=== PATIENT | female | born 1965 | race Caucasian/White ===

== ENCOUNTER 2022-07-09 07:11 | Outpatient (CLI) | payer OTHER, SELFPAY ==
--- NOTE | ~2022-07-09 | MM_ITS ---
EXAMINATION: MM screening [facility] BI w isabel HISTORY: Screening mammogram TECHNIQUE: Craniocaudal and mediolateral oblique 3-D tomosynthesis images were obtained and synthetic 2-D images were generated. CAD analysis was submitted and interpreted. COMPARISON: 12/05/2015 bilateral screening mammogram BREAST PARENCHYMAL COMPOSITION: The breasts are almost entirely fatty. FINDINGS: There is no evidence of suspicious mass, calcification, or architectural distortion to sugg est malignancy in either breast. There has been no suspicious interval change. IMPRESSION: 1. No mammographic evidence of malignancy. 2. Recommend routine screening mammography in one year. BI-RADS Category 1: Negative Reviewed, dictated and finalized at location A. R
== END 2022-07-09 07:12 | disposition home or self-care (01) ==
PROVIDERS: PCP Internal Medicine; Visit Provider Nurse Practitioner Obstetrics & Gynecology
DX: Z12.31 Encounter for screening mammogram for malignant neoplasm of breast (principal)
CPT/HCPCS: 77063; 77067

== ENCOUNTER 2023-07-22 09:37 | Outpatient (CLI) | payer OTHER, SELFPAY ==
--- NOTE | ~2023-07-22 | MM_ITS ---
EXAMINATION: MM screening [facility] BI w isabel HISTORY: Screening mammogram TECHNIQUE: Craniocaudal and mediolateral oblique 3-D tomosynthesis images were obtained and synthetic 2-D images were generated. CAD analysis was submitted and interpreted. COMPARISON: 07/09/2022, 12/05/2015, 11/20/2011 BREAST PARENCHYMAL COMPOSITION: The breasts are almost entirely fatty. FINDINGS: No suspicious mass, calcification, or architectural distortion are identified in either shani ast to suggest malignancy. There has been no suspicious interval change. IMPRESSION: 1. No mammographic evidence of malignancy. 2. Recommend routine screening mammography in one year. BI-RADS Category 1: Negative Reviewed, dictated and finalized at location A. 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
== END 2023-07-22 09:38 | disposition home or self-care (01) ==
LOC: ANHIMG 09:40
PROVIDERS: PCP Internal Medicine; Visit Provider Nurse Practitioner Obstetrics & Gynecology
DX: Z12.31 Encounter for screening mammogram for malignant neoplasm of breast (principal)
CPT/HCPCS: 77063; 77067

== ENCOUNTER 2024-07-22 12:21 | Inpatient (IN) | payer OTHER, SELFPAY ==
--- NOTE | ~2024-07-22 | CT_ITS ---
CT LE LT w con DATE: 07/22/2024 18:23 INDICATION: Cellulitis versus abscess of left lower extremity TECHNIQUE: Axial images through the left lower extremity were performed, with sagittal and coronal re constructions. Exam dose: 1692.04 mGy-cm total exam DLP. COMPARISON: None FINDINGS: There is subcutaneous edema beginning at the mid upper leg and continuing throughout the re mainder of the left lower extremity. Skin thickening is noted in the lower leg. There is a prominent dorsal edema of the foot. There is a loculated fluid collection measuring up to 8.3 cm vertical dimension, 7.0 cm AP and 4.9 cm transverse dimension along the posteromedial aspect of the right leg slightly above the level of the tibiotalar joint. This may be a hematoma, seroma or abscess, with attenuation There is tricompartment osteoarthritis of the knee, most prominent at the medial compartment No fracture, dislocation, periosteal reaction or bone destruction is detected. IMPRESSION: 7.0 x 8.3 x 4.9 cm hematoma, seroma or abscess along the lower posteromedial aspect of th e upper left leg Edema of the left lower extremity Tricompartment osteoarthritis of the knee Reviewed, dictated and finalized at Location [facility]. Reviewed, dictated and finalized at location A. CREASER IMPRESSION: 7.0 x 8.3 x 4.9 cm hematoma, seroma or abscess along the lower post eromedial aspect of the upper left leg Edema of the left lower extremity Tricompartment osteoarthritis of the knee
[2024-07-22 12:22] VITALS: BP 138/67; PULSE 106; RESP 17; TEMP 37.3; O2SAT 100
[2024-07-22 13:04] LABS: Basophils Absolute Auto 0.1 K/mm3 (0.0-0.1); Basophils Percent Auto 0.5 % (0.2-1.2); Eosinophils Absolute Auto 0.1 K/mm3 (0-0.3); Eosinophils Percent Auto 0.7 % (0-4.4); Hematocrit 39.8 % (37.0-47.0); Hemoglobin 12.9 g/dL (12.0-15.0); Immature Granulocyte Absolute 0.09 K/mm3 (0.00-0.031); Immature Granulocyte Percent A 0.8 % (0-0.5); Lymphocytes Absolute Auto 0.85 K/mm3 (0.9-3.2); Lymphocytes Percent Auto 7.3 % (18.3-44.2); Mean Corpuscular HGB Conc 32.4 g/dl (32-36); Mean Corpuscular Hemoglobin 32.3 pg (26-34); Mean Corpuscular Volume 99.5 fl (80-100); Mean Platelet Volume 9.5 fl (7.4-10.4); Monocytes Absolute Auto 1.4 K/mm3 (0.1-0.6); Monocytes Percent Auto 11.9 % (2.6-8.5); Neutrophils Absolute Auto 9.2 K/mm3 (1.3-6.7); Neutrophils Percent Auto 78.8 % (45.5-73.1); Platelet Count Result 278 k/mm3 (150-375); Red Cell Distribution Width 13.3 % (11.5-14.5); White Blood Count 11.6 K/mm3 (4.5-10.0)
[2024-07-22 13:14] LABS: Alanine Aminotransferase 20 U/L (6-35); Albumin Level 3.8 g/dL (3.5-5.1); Alkaline Phosphatase 110 U/L (38-126); Anion Gap 6 mmol/L (4-12); Aspartate Amino Transferase 25 U/L (14-36); Bilirubin,Total 0.4 mg/dL (0.2-1.3); Blood Urea Nitrogen 22 mg/dL (7-17); Calcium 8.5 mg/dL (8.4-10.2); Carbon Dioxide 30 mmol/L (22-30); Chloride 103 mmol/L (98-107); Estimated Glomerular Filt Rate 51; Glucose 115 mg/dL (65-110); Potassium 3.5 mmol/L (3.4-5.0); Sodium 139 mmol/L (137-145)
[2024-07-22 15:30] VITALS: BP 120/74; PULSE 96; RESP 14; TEMP 37.2; O2SAT 98
--- NOTE | 2024-07-22 15:34 | ED.GENADULT ---
HPI - General Adult General Chief complaint: Extremity Problem,Nontraumatic Stated complaint: L. leg wound, sent by for sepsis r/o Time Seen by Provider: 07/22/24 15:33 Source: patient and family Mode of arrival: ambulatory Limitations: no limitations History of Present Illness HPI narrative: 5 YEARS OLD WHITE FEMALE REFERRED TO THE ED FROM URGENT CARE BECAUSE OF EXTENSIVE CELLULITIS LEFT LOWER EXTREMITY. PATIENT IS TELLING ME THAT SHE A MAY 25 CAUSING SKIN INJURY ON A CRUISE, SUBSEQUENTLY STARTED GETTING REDNESS AND PAIN, WAS SEEN BY URGENT CARE, FINISH A COURSE OF DOXYCYCLINE WITHOUT IMPROVEMENT, LATER WAS SEEN BY HER FAMILY PHYSICIAN WHO STARTED HER ON CIPRO FOR 10 DAYS NO IMPROVEMENT ANOTHER COURSE OF CIPRO FOR 10 DAYS NO IMPROVEMENT, THEN REFERRED TO WOUND CARE PHYSICIAN WHO TOLD PATIENT THAT THERE IS NOTHING CAN OVER AT THIS TIME ESPECIALLY HER WOUND IS CLOSED. PATIENT'S SYMPTOMS ARE GETTING WORSE. WENT TO URGENT CARE TODAY REFERRED TO US FOR FURTHER EVALUATION. PATIENT IS TELLING ME THAT SHE BEEN RUNNING FEVER AND CHILLS OVER THE LAST 24 HOURS. HISTORY OF HYPERTENSION, HYPERLIPIDEMIA, DEEP VEIN THROMBOSIS BILATERALLY CURRENTLY ON COUMADIN Related Data Allergies Allergy/AdvReac Type Severity Reaction Status Date / Time clavulanic acid Allergy Mild HIVES Unverified 07/22/24 12:25 latex Allergy Mild hives Verified 07/22/24 12:25 morphine Allergy Mild VOMITTING Unverified 07/22/24 12:25 Penicillins Allergy Mild HIVES Unverified 07/22/24 12:25 Sulfa (Sulfonamide Allergy Mild HIVES Unverified 07/22/24 12:25 Antibiotics) celecoxib Allergy Unknown Unknown Verified 07/22/24 12:25 BETALACTAMASEIN Allergy Mild HIVES Uncoded 07/22/24 12:25 Review of Systems Review of Systems: All systems reviewed & are unremarkable except as noted in HPI and below Exam Narrative: GENERAL APPEARANCE: WELL-DEVELOPED, WELL-NOURISHED SKIN: NORMAL COLOR HEAD: NORMOCEPHALIC, NONTRAUMATIC EYES: CLEAR CONJUNCTIVA ENT: OROPHARYNX NORMAL, EARS NORMAL, NOSE NORMAL NECK: SUPPLE, NONTENDER CHEST AND RESPIRATORY: AIRWAY PATENT, NO RESPIRATORY DISTRESS, NO ACCESSORY MUSCLE USE HEART: REGULAR RATE/RHYTHM ABDOMEN: SOFT, NONTENDER, NO ORGANOMEGALY, QUIET BOWEL SOUNDS VASCULAR: NORMAL PERIPHERAL PULSES, NORMAL CAPILLARY REFILL. MUSCULOSKELETAL: LEFT LOWER EXTREMITY SHOWED EXTENSIVE ERYTHEMA OF THE LEFT THIGH ANTERIOR MEDIALLY, HARDENING OF THE SKIN IN THE CENTER OF IT, EDEMATOUS, BLANCHING WITH PRESSURE, NO DISCHARGE, NO OPEN, HOT TO TOUCH NEUROLOGIC: ALERT AND ORIENTED ?3, B[employer] PSYCHOLOGIST IS NORMAL TESTED, NO GROSS MOTOR DEFICIT Course Consultations Consultation #1: DR CONNELL Date: 07/22/24 Time: 19:16 Vital Signs Vital signs: Vital Signs Temperature 37.3 C 07/22/24 12:22 Pulse Rate 106 H 07/22/24 12:22 Respiratory Rate 17 07/22/24 12:22 Blood Pressure 138/67 07/22/24 12:22 Pulse Oximetry 100 07/22/24 12:22 Oxygen Delivery Room Air 07/22/24 12:22 Temperature 37.0 C 07/22/24 18:36 Pulse Rate 97 07/22/24 18:36 Respiratory Rate 19 07/22/24 18:36 Blood Pressure 140/59 L 07/22/24 18:36 Pulse Oximetry 97 07/22/24 18:36 Oxygen Delivery Room Air 07/22/24 12:22 Medical Decision Making [facility] Narrative Medical decision making narrative: PATIENT CAME TO THE ED BY PRIVATE CAR COMPLAINING OF PAIN, REDNESS AND SWELLING OF THE LEFT LOWER EXTREMITY VITAL SIGNS SHOWING HEART RATE OF 106, TEMPERATURE 37.3? OTHERWISE WITHIN NORMAL LIMIT PHYSICAL EXAMINATION SHOWING FINDING CONSISTENT WITH CELLULITIS VERSUS ABSCESS AT THE LEFT THIGH BLOOD WORKUP TODAY INCLUDES CBC, CMP, BLOOD CULTURE, LACTIC ACID SHOWED WBC 11.6, CREATININE OF 1.1, BUN 22, C-REACTIVE PROTEIN 31.2 Differential Diagnosis Differential Diagnosis: ABOVE Vital Signs Vital Signs: Vital Signs Temperature 37.3 C 07/22/24 12:22 Pulse Rate 106 H 07/22/24 12:22 Respiratory Rate 17 07/22/24 12:22 Blood Pressure 138/67 07/22/24 12:22 Pulse Oximetry 100 07/22/24 12:22 Oxygen Delivery Room Air 07/22/24 12:22 Temperature 37.0 C 07/22/24 18:36 Pulse Rate 97 07/22/24 18:36 Respiratory Rate 19 07/22/24 18:36 Blood Pressure 140/59 L 07/22/24 18:36 Pulse Oximetry 97 07/22/24 18:36 Oxygen Delivery Room Air 07/22/24 12:22 Lab Data 07/22/24 12:59 07/22/24 12:59 Labs: Lab Results 07/22/24 07/22/24 Range/Units 12:58 12:59 WBC 11.6 H (4.5-10.0) K/mm3 RBC 4.00 L (4.2-5.4) M/mm3 Hgb 12.9 (12.0-15.0) g/dL Hct 39.8 (37.0-47.0) % MCV 99.5 (80-100) fl MCH 32.3 (26-34) pg MCHC 32.4 (32-36) g/dl RDW 13.3 (11.5-14.5) % Plt Count 278 (150-375) k/mm3 MPV 9.5 (7.4-10.4) fl Immature Gran % (Auto) 0.8 H (0-0.5) % Neut % (Auto) 78.8 H (45.5-73.1) % Lymph % (Auto) 7.3 L (18.3-44.2) % [place] % (Auto) 11.9 H (2.6-8.5) % Eos % (Auto) 0.7 (0-4.4) % Baso % (Auto) 0.5 (0.2-1.2) % Lymph # (Auto) 0.85 L (0.9-3.2) K/mm3 [place] # (Auto) 1.4 H (0.1-0.6) K/mm3 Eos # (Auto) 0.1 (0-0.3) K/mm3 Baso # (Auto) 0.1 (0.0-0.1) K/mm3 Abs Immat Gran (auto) 0.09 H (0.00-0.031) K/mm3 Absolute Neuts (auto) 9.2 H (1.3-6.7) K/mm3 Absolute Nucleated RBC 0.000 (0.0-0.012) K/mm3 Nucleated RBC % 0.0 (0.0-0.2) % Sodium 139 (137-145) mmol/L Potassium 3.5 (3.4-5.0) mmol/L Chloride 103 (98-107) mmol/L Carbon Dioxide 30 (22-30) mmol/L Anion Gap 6 (4-12) mmol/L BUN 22 H (7-17) mg/dL Creatinine 1.10 H (0.7-1.0) mg/dL Estim Creat Clear Calc Not Reportable Estimated GFR 51 L (59 - ) Glucose 115 H (65-110) mg/dL Calcium 8.5 (8.4-10.2) mg/dL Total Bilirubin 0.4 (0.2-1.3) mg/dL AST 25 (14-36) U/L ALT 20 (6-35) U/L Alkaline Phosphatase 110 (38-126) U/L C-Reactive Protein 31.2 H (<1.0) mg/dL Total Protein 7.0 (6.3-8.2) g/dL Albumin 3.8 (3.5-5.1) g/dL Discharge Plan Discharge Clinical Impression: Cellulitis of left leg Patient Disposition: Still a Patient Condition: Guarded Prognosis Follow-up/Referrals: Marlene,Wan He MD [Primary Care Provider] -
[2024-07-22 16:30] VITALS: BP 123/64; PULSE 107; RESP 14; TEMP 36.8; O2SAT 96
[2024-07-22 17:17] LABS: CRP 31.2 mg/dL (<1.0)
[2024-07-22 18:36] VITALS: BP 140/59; PULSE 97; RESP 19; TEMP 37; O2SAT 97
[2024-07-22] MEDS: ONDANSETRON INJ 4 MG/2 ML VIAL IV PUSH (20:02)
[2024-07-22] MEDS: HYDROmorphone HCL INJ (*CRX) 1 MG/ML SYR 0.5 MG IV PUSH (20:03)
--- NOTE | 2024-07-22 20:36 | PC.NURSE ---
Addendum entered by Kaci Phoenix RN 07/22/24 21:37: patient requested to NOT BE stuck * Original Note: pt requests to be stuck again for blood cultures. pt request IV ultrasound to be used in the morning. this rn explained the risks of delaying abx. pt verbalized understanding.
[2024-07-22 20:37] VITALS: BP 128/54; PULSE 102; RESP 13; O2SAT 98
[2024-07-22 21:34] VITALS: BMI 52.2
--- NOTE | 2024-07-22 21:48 | PC.NURSE ---
pedro luis rn has a page out to hospitalist DR. peck to order patient 4.5mg of warfarin and to see if this rn can start abx without blood cultures. floor rn, Emiliana and floor recharger, Leana doan.
--- NOTE | 2024-07-22 21:52 | PC.NURSE ---
Patient states that warfarin is titrated based on INR levels with goal rate of 2.5-3.5 Admission report to [facility].
[2024-07-22 22:00] VITALS: BP 130/48; PULSE 103; RESP 20; TEMP 37.5; O2SAT 94
[2024-07-22] MEDS: SODIUM CHLORIDE 0.9% IV 1,000 ML 125 ML IV CONT (22:04)
--- NOTE | 2024-07-22 22:18 | ADMGEN ---
This patient, Betty Fernandez, was admitted to Medical Room 341-01. Patient/family oriented to hospital policies and general routines including ID bracelet, bed and alarms, visiting hours, pain management, procedures, bathroom and other care routines, personal items, smoking policy, room service/diet, and visiting hours. Information on how to activate the Rapid Response Team has been discussed. Patient/Family are encouraged to report perceived risks to care and to ask questions if they do not understand what they are told or what they should do.
[2024-07-22] MEDS: VANCOMYCIN 1,500 MG/NS 500 ML 1,500 MG/500 ML BAG 250 MG IVPB (22:41)
[2024-07-22] MEDS: AZTREONAM 2 GM in SODIUM CHLORIDE 0.9% IV 100 ML 200 ML IVPB (22:41)
[2024-07-22 22:52] LABS: Lactic Acid Reflex 0.6 mmol/L (0.7-2.0)
[2024-07-22 23:00] LABS: INR 3.5; Prothrombin Time 35.6 Seconds (11.1-14.7)
--- NOTE | 2024-07-22 23:28 | PM.IMHP ---
H&P: HPI History of Present Illness Date/Time: 07/23/24 01:30 Chief Complaint: Left leg wound Narrative: 59-year-old female with a past medical history of morbid obesity with BMI of 52, history of bilateral chronic/recurrent DVT on chronic anticoagulation with Coumadin, essential hypertension, anxiety/depression, urge urinary incontinence, who presented to the ER from urgent care due to fever and cellulitis. The patient reports that she fell over a table while on a cruise in late May. She had a skin tear that eventually healed. She developed redness and erythema around the area during the healing process the wound itself did heal the superficial part but she developed erythema and increased warmth in medial left thigh. She went to urgent care while waiting for an appointment open up better primary care physician's office and was started on doxycycline. When she followed up with her primary care physician 5 days later she did not have any improvement in her erythema, warmth or pain. In fact the erythema warmth had climbed further upper leg towards her groin. She was then started on Cipro which initially seemed to help the erythema but it did not resolve completely. She a that followed up with her primary care doctor again it was was given a 2nd course of Cipro without improvement. In fact the patient was also sent to wound care from that doctor's visit and medical care evaluation specialist stated that they could not help her since the wound was closed/healed. She then went to urgent care because she was having even further increasing erythema and warmth as well as swelling of the medial left upper thigh in the erythema was going up into the groin and she developed some associated pain in the groin. When she was evaluated at urgent care she was found have a temperature of a 102? with some mild tachycardia. When she presented to our facility her T-max was 99.5?. She did not feel feverish and she did not realize she was having fevers. She also denies rigors or chills. She denies any nausea or vomiting. Have leukocytosis, an INR of 3.5. CRP of 31 and a creatinine of 1.1. She states that is not unusual for her creatinine to be a little bit above the cutoff for normal. She also reports that she usually has chronically elevated liver enzymes but her AST ALT and bilirubin were normal today. She denies history of diabetes. Her glucoses were 115. CT scan in the ER demonstrated 7 cm x 0.3 cm x 4.9 cm hematoma versus seroma versus abscess. There was also surrounding subcutaneous edema. Given the patient's recent development of fever abscess or infected hematoma is most likely. The patient reports that the pain is quite severe. She is not taking any pain medications besides [id number] Tylenol. Is difficult to walk or sit due to the area inflammation infection. She states that her goal range for INR is 2.5-3.5. She sees integrated marketing intern at [place] Dr. Taryn Miller. She would like her integrated marketing intern to be called to discuss her anticoagulation. She states that her INR has been extremely variable since May. She had just now got back into her goal range. Her integrated marketing intern number at the office is [phone]. The integrated marketing intern nurse is Gege #[phone]. The integrated marketing intern REHABILITATION MANAGER is Brenda Cueto. The exchange is [phone]. Review of Systems Review of Systems: 12 systems were reviewed with pertinent positives and negatives per HPI. Except as documented in the HPI, all other systems were reviewed and are negative. [facility] Past Medical History Medical History Anxiety Body mass index (BMI) greater than 50 DVT of lower extremity, bilateral Essential hypertension GERD (gastroesophageal reflux disease) Hyperlipidemia Urge urinary incontinence Surgical History Surgical History (Updated 07/23/24 @ 21:36 by Lavern Wiley DO) History of sleeve gastrectomy (2017) Hx of cholecystectomy Open cholecystectomy in the Family History Family History Father Acute myocardial infarction Son Brainstem tumor Sibling Raynaud disease Social History Social History (Updated 07/23/24 @ 21:38 by Lavern Wiley DO) Social History: Patient has been for many years. She had 1 child who of a brain stem tumor at age 5. She lives alone. She rarely drinks alcohol in minimal amounts. She is a lifelong nonsmoker and denies history of illicit substance use. 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 Code status: Full code Surrogate decision maker: Annemarie Hood (mother) Smoking status: Never smoker Alcohol intake: current Alcohol use details: Rare in minor amounts Substance use: never Substance use type: does not use Do You Feel Safe in your Home?: Yes Lack of Transportation: No Lack of Food: Never True Current Housing: I Have Housing Concerned About Future Housing: No Difficulty Paying Gas/Electric Bills: No Difficulty Paying for Meds: No Currently Unemployed: No Education: Associate Degree Difficulty w/ Childcare or Family Care: No Spiritual care concerns: No Meds Home Medications and Allergies Home Medications Medication Instructions Recorded Confirmed Type benzonatate 100 mg capsule 200 mg PO TID 07/22/24 07/22/24 History ergocalciferol (vitamin D2) 1,250 1,250 mcg PO WEEKLY 07/22/24 07/22/24 History mcg (50,000 unit) capsule ergocalciferol (vitamin D2) 10 mcg 10 mcg PO DAILY 07/22/24 07/22/24 History (400 unit) tablet escitalopram oxalate 20 mg tablet 20 mg PO DAILY 07/22/24 07/22/24 History esomeprazole magnesium 40 mg 40 mg PO BID 07/22/24 07/22/24 History capsule,delayed release gabapentin 600 mg tablet 600 mg PO TID 07/22/24 07/22/24 History loperamide 2 mg capsule 6 mg PO DAILY 07/22/24 07/22/24 History nortriptyline 10 mg capsule 10 mg PO BID 07/22/24 07/22/24 History simethicone 80 mg chewable tablet 80 mg PO DAILY 07/22/24 07/22/24 History tolterodine 2 mg tablet 2 mg PO BID 07/22/24 07/22/24 History trospium 20 mg tablet 20 mg PO BID 07/22/24 07/22/24 History warfarin 2 mg tablet 4.5 mg PO DAILY 07/22/24 07/22/24 History zonisamide 100 mg capsule 100 mg PO BID 07/22/24 07/22/24 History Allergies Allergy/AdvReac Type Severity Reaction Status Date / Time clavulanic acid Allergy Mild HIVES Verified 07/22/24 21:36 latex Allergy Mild hives Verified 07/22/24 21:36 morphine Allergy Mild VOMITTING Verified 07/22/24 21:36 Penicillins Allergy Mild HIVES Verified 07/22/24 21:36 Sulfa (Sulfonamide Allergy Mild HIVES Verified 07/22/24 21:36 Antibiotics) celecoxib Allergy Unknown Unknown Verified 07/22/24 21:36 amoxicillin [From Augmentin] Allergy Hives Verified 07/22/24 21:36 cephalexin Allergy Hives Verified 07/22/24 21:36 BETALACTAMASEIN Allergy Mild HIVES Uncoded 07/22/24 21:36 Vital Signs Vital Signs - 24 hr 07/22/24 12:22 07/22/24 15:30 07/22/24 16:30 Temperature 99.1 F 98.9 F 98.3 F Pulse Rate 106 H 96 107 H Respiratory Rate 17 14 14 Blood Pressure 138/67 120/74 123/64 Pulse Oximetry 100 98 96 Oxygen Delivery Room Air 07/22/24 18:36 07/22/24 20:37 07/22/24 22:00 Temperature 98.6 F 99.5 F Pulse Rate 97 102 H 103 H Respiratory Rate 19 13 20 Blood Pressure 140/59 L 128/54 L 130/48 L Pulse Oximetry 97 98 94 Oxygen Delivery Exam Narrative: Weight 146.7 kg BMI 52.2 Const: Other: No acute distress, morbidly obese, appears stated HENMT: Other: Fair dentition, crowded posterior oropharynx, moist mucous membranes, no oral pharyngeal erythema Eyes: Other: Pupils are equal and reactive, no scleral icterus, no conjunctival pallor Neck: Other: Extremely large neck circumference, short neck, further assessment is difficult due to body habitus but no pain to palpation Resp: Other: Clear to auscultation in anterior small, no increased work of breathing Cardio: Other: Regular rate, regular rhythm, pedal pulses are difficult to palpate due to body habitus but worse faint bilaterally GI: Other: Soft, obese, large pannus, normoactive bowel sounds : Other: Right inguinal lymphadenopathy with tenderness to palpation Skin: Other: Marked erythema and induration of the medial left thigh extending from 3/4 up the thigh down to decrease of the knee erythema is extending across the anterior thigh with faint erythema of the lateral thigh erythema wraps around almost circumferential with some faint clearing in the lateral thigh, there is a central area of shiny thin appearing skin that appears to be from healed wound Neuro: Other: Alert orient x4, speech is clear, no facial asymmetry Extrem: Other: Chronic lymphedema with some mild venous stasis changes of the lower extremities, erythema and induration of the left upper thigh as discussed above, with central large area of fluctuance to the central portion of the area of erythema Psych: Other: Appropriate mood and affect, pleasant and cooperative, judgment and insight intact H&P: Results Labs Labs: Laboratory Tests 07/22/24 12:59 07/22/24 12:59 07/22/24 07/22/24 07/22/24 12:58 12:59 22:28 WBC 11.6 H RBC 4.00 L Hgb 12.9 Hct 39.8 MCV 99.5 MCH 32.3 MCHC 32.4 RDW 13.3 Plt Count 278 MPV 9.5 Immature Gran % (Auto) 0.8 H Neut % (Auto) 78.8 H Lymph % (Auto) 7.3 L [place] % (Auto) 11.9 H Eos % (Auto) 0.7 Baso % (Auto) 0.5 Lymph # (Auto) 0.85 L [place] # (Auto) 1.4 H Eos # (Auto) 0.1 Baso # (Auto) 0.1 Abs Immat Gran (auto) 0.09 H Absolute Neuts (auto) 9.2 H Absolute Nucleated RBC 0.000 Nucleated RBC % 0.0 PT 35.6 H INR 3.5 Sodium 139 Potassium 3.5 Chloride 103 Carbon Dioxide 30 Anion Gap 6 BUN 22 H Creatinine 1.10 H Estim Creat Clear Calc Not Reportable Estimated GFR 51 L Glucose 115 H Lactic Acid 0.6 L Calcium 8.5 Total Bilirubin 0.4 AST 25 ALT 20 Alkaline Phosphatase 110 C-Reactive Protein 31.2 H Total Protein 7.0 Albumin 3.[address] 07/22/24 18:38 IMPRESSION: 7.0 x 8.3 x 4.9 cm hematoma, seroma or abscess along the lower posteromedial aspect of the upper left leg Edema of the left lower extremity Tricompartment osteoarthritis of the knee Assessment and Plan Assessment and plan (1) Cellulitis of left leg: Code(s): L03.116 - Cellulitis of left lower limb Status: Acute (2) Sepsis: Qualifiers: Sepsis acute organ dysfunction status: without acute organ dysfunction Sepsis type: sepsis due to unspecified organism Qualified Code(s): A41.9 - Sepsis, unspecified organism Code(s): A41.9 - Sepsis, unspecified organism Status: Acute (3) Abscess of left lower leg: Code(s): L02.416 - Cutaneous abscess of left lower limb Status: Acute (4) Supratherapeutic INR: Code(s): R79.1 - Abnormal coagulation profile Status: Acute Plan Patient meets sepsis criteria with fever document home, leukocytosis, tachycardia in the setting of left lower extremity cellulitis with likely underlying abscess with CT imaging demonstrating fluid collection suspicious for abscess as discussed above. Fluid collections likely abscess versus infected hematoma. Blood cultures have been obtained and are pending initially patient was refusing blood cultures so there was a delay and patient receiving antibiotic therapy. Patient receive fluid boluses due to body habitus and potential underlying previously undiagnosed cardiac condition. The patient's lactic acid level was not elevated and she has had adequate urine output she also appears to be euvolemic in general. Will monitor CBC and await culture results. General surgery has been consulted for evaluation of abscess versus infected hematoma. If needed we could probably reverse patient's anticoagulation with FFP and then start her on a heparin drip postoperative via until her INR became therapeutic. The patient would like this discussed with her integrated marketing intern before she would be comfortable with the plan. The patient is NPO until evaluated by General surgery. Patient has a mildly abnormal creatinine at 1.1. She does not have any known history of chronic kidney disease. Will continue maintenance IV fluid administration and repeat electrolyte panel in a.m.. Patient is on chronic anticoagulation with Coumadin. She reports her INR goal is 2.5-3.5. Given that patient will likely need I and D will hold the patient's Coumadin until she had been evaluated by surgery. Will repeat INR in a.m.. Patient has been admitted as inpatient status and will require greater than 2 midnight stay for evaluation and treatment of sepsis with acute abscess that has failed multiple rounds of outpatient antibiotic therapy and management. Quality If No VTE Prophylaxis Answer both mechanical and pharmacologic: Reason no mechanical VTE proph: medical contraindication (Lower extremity abscess) Reason no pharmacologic proph: medical contraindication (Super therapeutic INR) active bleeding/bleeding risk Hospitalist MIPS Advance Care Plan I have confirmed that the patient's Advanced Care Plan is present, code status is documented, or surrogate decision maker is listed in patient medical record.: Yes Medication Reconciliation I have utilized all available resources to obtain, update and review the patients current medications (includes all prescriptions, OTC, herbals, cannabis, and nutritional supplements).: Yes
[2024-07-23] VITALS (10 sets, daily range): BP systolic 92–134; BP diastolic 48–70; PULSE 82–92; RESP 11–20; TEMP 36.3–37.3; O2SAT 92–100
[2024-07-23] MEDS: AZTREONAM 2 GM in SODIUM CHLORIDE 0.9% IV 100 ML 200 ML IVPB ×3 (05:14→20:47)
[2024-07-23 05:46] LABS: Basophils Percent Auto 0.4 % (0.2-1.2); Eosinophils Absolute Auto 0.1 K/mm3 (0-0.3); Eosinophils Percent Auto 0.9 % (0-4.4); Hematocrit 33.3 % (37.0-47.0); Hemoglobin 10.8 g/dL (12.0-15.0); Lymphocytes Absolute Auto 0.63 K/mm3 (0.9-3.2); Lymphocytes Percent Auto 6.2 % (18.3-44.2); Mean Corpuscular HGB Conc 32.4 g/dl (32-36); Mean Corpuscular Hemoglobin 32.4 pg (26-34); Mean Platelet Volume 9.7 fl (7.4-10.4); Monocytes Absolute Auto 1.3 K/mm3 (0.1-0.6); Monocytes Percent Auto 12.9 % (2.6-8.5); Neutrophils Absolute Auto 7.9 K/mm3 (1.3-6.7); Neutrophils Percent Auto 78.6 % (45.5-73.1); Platelet Count Result 227 k/mm3 (150-375); Red Blood Count 3.33 M/mm3 (4.2-5.4); Red Cell Distribution Width 13.2 % (11.5-14.5); White Blood Count 10.1 K/mm3 (4.5-10.0)
[2024-07-23 06:01] LABS: Anion Gap 5 mmol/L (4-12); Blood Urea Nitrogen 18 mg/dL (7-17); Calcium 8.2 mg/dL (8.4-10.2); Carbon Dioxide 27 mmol/L (22-30); Chloride 106 mmol/L (98-107); Estimated CRCL calculation 87 ml/min; Estimated CRCL calculation 97 ml/min; Estimated Glomerular Filt Rate > 60; Glucose 130 mg/dL (65-110); Potassium 3.4 mmol/L (3.4-5.0); Sodium 138 mmol/L (137-145)
[2024-07-23 06:02] LABS: INR 3.3; Prothrombin Time 34.4 Seconds (11.1-14.7)
--- NOTE | 2024-07-23 07:30 | P.PNIM_ITS ---
Progress Note: A&P Assessment and Plan (1) Cellulitis of left leg: Code(s): L03.116 - Cellulitis of left lower limb Status: Acute (2) Sepsis: Qualifiers: Sepsis acute organ dysfunction status: without acute organ dysfunction Sepsis type: sepsis due to unspecified organism Qualified Code(s): A41.9 - Sepsis, unspecified organism Code(s): A41.9 - Sepsis, unspecified organism Status: Acute Assessment and Plan: Patient meets sepsis criteria with fever document home, leukocytosis, tachycardia in the setting of left lower extremity cellulitis with likely underlying abscess with CT imaging demonstrating fluid collection suspicious for abscess as described. --Blood cultures sent prior to antibiotics, follow cultures --OR cultures of fluid collection if able to obtain (3) Abscess of left lower leg: Code(s): L02.416 - Cutaneous abscess of left lower limb Status: Acute Assessment and Plan: Patient reports falling during a cruise May 26 and cut her leg at that time. Has had an firm area to that leg since then. Returned from her cruise at the end of May and went to urgent care on June 14. Intially treated with Doxy for 7-10 days without improvement. Subsequently Cipro with some improvment. Had a second course of cipro, then a 3rd round with evaluation by wound are during that time as well. Yesterday, she went to an urgent care for fever and worsening pain/redness to her left leg. 07/22 CT Left LE showed: 7.0 x 8.3 x 4.9 cm hematoma, seroma or abscess along the lower posteromedial aspect of the upper left leg Plan: Suspect infection given appearance of wound and fevers Surgery consult, appreciate assistance NPO for possible OR Recommend OR cultures: Bacterial, fungal, and AFB if possible given chronicity of wound Continue IV Vancomycin, Aztreonam, add Flagyl Patient has multiple allergies, PCN and sulfa caused hives. Notes that keflex caused a severe reaction with redness to her entire body and sloughing of skin Tetanus shot (4) Supratherapeutic INR: Code(s): R79.1 - Abnormal coagulation profile Status: Acute Assessment and Plan: Hx of DVT on Warfarin. Goal INR 2.5-3.5. INR 3.3. Patient reports last blood clot over a year ago. Had blood clots on lower INR goal so goal INR was increased previously. --Automatic Cigar Wrapper Tender is Dr. Taryn Miller. INR has been extremely variable since May. She had just now got back into her goal range. Her electronic engineering technician number at the office is [phone]. The electronic engineering technician nurse is Gege #[phone]. The electronic engineering technician DIORAMIST is Brenda Cueto. The exchange is [phone]. Will need to coordinate follow up plan with clinic --Holding Warfarin 4.5mg daily --Follow INR daily --Holding DVT prophylaxis since therapeutic anticoagulation. Warfarin on hold for possible surgical intervention. Can add Lovenox or heparin for bridging if concern for bleeding post procedure (5) Acute pain: Code(s): R52 - Pain, unspecified Status: Acute Assessment and Plan: Acute pain due to abscess -Oxy CR 10mg q12 x4 doses post procedure unless pain significantly improved -Oxy 10mg q4 prn -Dilaudid 0.5 q2 prn since possible OR today Time Spent With Patient Time: 59 minutes Subjective Date/time seen: 07/23/24 07:30 Interval history: Moderate to severe pain to left leg. Not a lot of change to pain or erythema overnight per patient. Took a photo of her left leg with the patient's phone for comparison Surgery consulted Review of Systems Review of Systems: 12 systems were reviewed with pertinent positives and negatives per HPI. Except as documented in the HPI, all other systems were reviewed and are negative. Exam Narrative: Weight 146.7 kg BMI 52.2 General - Awake and alert. No acute distress Eyes - PERRLA, EOM intact ENT - No thrush, No erythema Neck - No noticeable or palpable swelling Lymph Nodes - No lymphadenopathy Cardiovascular - RRR no m/r/g, no JVD Lungs: Clear to auscultation, No wheezing, use of accessory muscles, no crackles Skin - Skin warm and dry, no wounds or rashes Abdomen - Normal bowel sounds, abdomen soft and nontender, obese Extremities - cyanosis or clubbing. Induration and erythema to left leg above the knee. Acutely tender to palpation of left leg and an area of induration Photo of wound in patient's chart Musculoskeletal - 5/5 strength, normal range of motion, no swollen or erythematous joints. Neurological ? Alert and oriented x 3, CN 2-12 grossly intact. Psych: Normal mood and affect Objective Data Vital Signs Vital Signs: Vital Signs - 24 hr 07/22/24 12:22 07/22/24 15:30 07/22/24 16:30 Temperature 99.1 F 98.9 F 98.3 F Pulse Rate 106 H 96 107 H Respiratory Rate 17 14 14 Blood Pressure 138/67 120/74 123/64 Pulse Oximetry 100 98 96 Oxygen Delivery Room Air 07/22/24 18:36 07/22/24 20:37 07/22/24 22:00 Temperature 98.6 F 99.5 F Pulse Rate 97 102 H 103 H Respiratory Rate 19 13 20 Blood Pressure 140/59 L 128/54 L 130/48 L Pulse Oximetry 97 98 94 Oxygen Delivery 07/23/24 03:40 Temperature 99.1 F Pulse Rate 92 Respiratory Rate 20 Blood Pressure 115/48 L Pulse Oximetry 95 Oxygen Delivery Intake/Output Intake/Output: Intake & Output 07/20/24 07/21/24 07/22/24 07/23/24 23:59 23:59 23:59 23:59 Intake Total 100 290 Balance 100 290 Meds/Results Medications: Active Medications Generic Name Dose Route Start Last Admin Trade Name Freq PRN Reason Stop Dose Admin Acetaminophen 650 mg 07/22/24 19:02 Acetaminophen 325 Mg Tablet PO Q4H PRN Mild Pain (1-3) or Fever Benzonatate 200 mg 07/23/24 01:44 Benzonatate 100 Mg Capsule PO TID PRN Cough Escitalopram Oxalate 20 mg 07/23/24 09:00 Escitalopram Oxalate 10 Mg Tablet PO DAILY TIERRA Gabapentin 600 mg 07/23/24 09:00 Gabapentin 300 Mg Capsule PO TID [facility] Sodium Chloride 1,000 mls @ 100 mls/hr 07/22/24 19:05 07/22/24 22:04 Normal Saline Iv IV CONT 125 mls/hr .Q10H TIERRA Administration Aztreonam 2 gm/ Sodium 100 mls @ 200 mls/hr 07/22/24 22:00 07/23/24 05:14 Chloride IVPB 200 mls/hr Q8H TIERRA Administration Vancomycin HCl 1,500 mg in 500 mls @ 250 mls/hr 07/23/24 11:00 Vancomycin 1,500 Mg/Ns 500 Ml IVPB Q12H [facility] Miscellaneous Information 0 each 07/23/24 00:01 Trospium Nonform Can Pt Bring From Home? XX 08/22/24 00:00 CLARIFY [facility] Non-Formulary Medication 10 mcg 07/23/24 09:00 Ergocalciferol (Vitamin D2) PO 08/22/24 08:59 DAILY [facility] Non-Formulary Medication 20 mg 07/23/24 09:00 Trospium PO 08/22/24 08:59 BID [facility] Nortriptyline HCl 10 mg 07/23/24 09:00 Nortriptyline Hcl 10 Mg Capsule PO Q12HR [facility] Pantoprazole Sodium 40 mg 07/23/24 09:00 Pantoprazole 40 Mg Tablet PO QAM [facility] Simethicone 80 mg 07/23/24 01:44 Simethicone 80 Mg Tab.Chew PO DAILY PRN Abdominal Cramping Tolterodine Tartrate 2 mg 07/23/24 09:00 Tolterodine Tartrate 2 Mg Tablet PO BID [facility] Zonisamide 100 mg 07/23/24 09:00 Zonisamide 100 Mg Capsule PO BID [facility] Radiology Results: ITS Impressions Lower Extremity CT 07/22/24 18:38 IMPRESSION: 7.0 x 8.3 x 4.9 cm hematoma, seroma or abscess along the lower posteromedial aspect of the upper left leg Edema of the left lower extremity Tricompartment osteoarthritis of the knee Labs Labs: Laboratory Results - last 24 hr 07/22/24 07/22/24 07/22/24 12:58 12:59 22:28 WBC 11.6 H RBC 4.00 L Hgb 12.9 Hct 39.8 MCV 99.5 MCH 32.3 MCHC 32.4 RDW 13.3 Plt Count 278 MPV 9.5 Immature Gran % (Auto) 0.8 H Neut % (Auto) 78.8 H Lymph % (Auto) 7.3 L [place] % (Auto) 11.9 H Eos % (Auto) 0.7 Baso % (Auto) 0.5 Lymph # (Auto) 0.85 L [place] # (Auto) 1.4 H Eos # (Auto) 0.1 Baso # (Auto) 0.1 Abs Immat Gran (auto) 0.09 H Absolute Neuts (auto) 9.2 H Absolute Nucleated RBC 0.000 Nucleated RBC % 0.0 PT 35.6 H INR 3.5 Sodium 139 Potassium 3.5 Chloride 103 Carbon Dioxide 30 Anion Gap 6 BUN 22 H Creatinine 1.10 H Estim Creat Clear Calc Not Reportable Estimated GFR 51 L Glucose 115 H Lactic Acid 0.6 L Calcium 8.5 Total Bilirubin 0.4 AST 25 ALT 20 Alkaline Phosphatase 110 C-Reactive Protein 31.2 H Total Protein 7.0 Albumin 3.8 07/23/24 07/23/24 07/23/24 05:17 05:17 05:17 WBC 10.1 H RBC 3.33 L Hgb 10.8 L Hct 33.3 L MCV 100.0 MCH 32.4 MCHC 32.4 RDW 13.2 Plt Count 227 MPV 9.7 Immature Gran % (Auto) 1.0 H Neut % (Auto) 78.6 H Lymph % (Auto) 6.2 L [place] % (Auto) 12.9 H Eos % (Auto) 0.9 Baso % (Auto) 0.4 Lymph # (Auto) 0.63 L [place] # (Auto) 1.3 H Eos # (Auto) 0.1 Baso # (Auto) 0.0 Abs Immat Gran (auto) 0.10 H Absolute Neuts (auto) 7.9 H Absolute Nucleated RBC 0.000 Nucleated RBC % 0.0 PT 34.4 H INR 3.3 Sodium 138 Potassium 3.4 Chloride 106 Carbon Dioxide 27 Anion Gap 5 BUN 18 H Creatinine 0.90 0.80 Estim Creat Clear Calc 87 97 Estimated GFR > 60 Glucose Lactic Acid Calcium Total Bilirubin AST ALT Alkaline Phosphatase C-Reactive Protein Total Protein Albumin 07/23/24 05:17 WBC RBC Hgb Hct MCV MCH MCHC RDW Plt Count MPV Immature Gran % (Auto) Neut % (Auto) Lymph % (Auto) [place] % (Auto) Eos % (Auto) Baso % (Auto) Lymph # (Auto) [place] # (Auto) Eos # (Auto) Baso # (Auto) Abs Immat Gran (auto) Absolute Neuts (auto) Absolute Nucleated RBC Nucleated RBC % PT INR Sodium Potassium Chloride Carbon Dioxide Anion Gap BUN Creatinine Estim Creat Clear Calc Estimated GFR > 60 Glucose 130 H Lactic Acid Calcium 8.2 L Total Bilirubin AST ALT Alkaline Phosphatase C-Reactive Protein Total Protein Albumin Quality If No VTE Prophylaxis Answer both mechanical and pharmacologic: Reason no mechanical VTE proph: medical contraindication Reason no pharmacologic proph: medical contraindication Hospitalist MIPS Advance Care Plan I have confirmed that the patient's Advanced Care Plan is present, code status is documented, or surrogate decision maker is listed in patient medical record.: Yes Medication Reconciliation I have utilized all available resources to obtain, update and review the patients current medications (includes all prescriptions, OTC, herbals, cannabis, and nutritional supplements).: Yes
--- NOTE | 2024-07-23 09:45 | PM.CNGS ---
Assessment and Plan Assessment and plan (1) Abscess of left lower leg: Code(s): L02.416 - Cutaneous abscess of left lower limb Status: Acute Assessment and Plan: OR for urgent drainage, continue IV antibiotics, NPO History of Present Illness Consult details Consult date: 07/23/24 Reason for consult: wound care Requesting physician: J Luis Feliciano MD Narrative: The patient is a 59-year-old female with multiple medical issues presenting to the emergency department with worsening left leg infection, cellulitis. The patient reports that in May she fell while on vacation and had a skin laceration in the area of concern. She reports that while the skin laceration eventually healed, the area has continued to swell and be quite painful. The patient also reports overlying cellulitis. The patient has been on multiple rounds of p.o. antibiotics without improvement. Over the last week or so, the area has actually even worsened and become fluctuant. The patient reports associated fevers and chills at home. Review of Systems Review of Systems: All systems reviewed & are unremarkable except as noted in HPI and below PMFSH Past Medical History Medical History Anxiety Body mass index (BMI) greater than 50 DVT of lower extremity, bilateral Essential hypertension GERD (gastroesophageal reflux disease) Hyperlipidemia Urge urinary incontinence Surgical History Surgical History History of laparoscopic cholecystectomy History of sleeve gastrectomy (2017) Family History Family History Father Acute myocardial infarction Son Brainstem tumor Sibling Raynaud disease Social History Social History Social History: Code status: Surrogate decision maker: Annemarie Hood (mother) Smoking status: Never smoker Substance use type: does not use Do You Feel Safe in your Home?: Yes Lack of Transportation: No Lack of Food: Never True Current Housing: I Have Housing Concerned About Future Housing: No Difficulty Paying Gas/Electric Bills: No Difficulty Paying for Meds: No Currently Unemployed: No Education: Associate Degree Difficulty w/ Childcare or Family Care: No Spiritual care concerns: No Meds Home Medications and Allergies Home Medications Medication Instructions Recorded Confirmed Type benzonatate 100 mg capsule 200 mg PO TID 07/22/24 07/22/24 History ergocalciferol (vitamin D2) 1,250 1,250 mcg PO WEEKLY 07/22/24 07/22/24 History mcg (50,000 unit) capsule ergocalciferol (vitamin D2) 10 mcg 10 mcg PO DAILY 07/22/24 07/22/24 History (400 unit) tablet escitalopram oxalate 20 mg tablet 20 mg PO DAILY 07/22/24 07/22/24 History esomeprazole magnesium 40 mg 40 mg PO BID 07/22/24 07/22/24 History capsule,delayed release gabapentin 600 mg tablet 600 mg PO TID 07/22/24 07/22/24 History loperamide 2 mg capsule 6 mg PO DAILY 07/22/24 07/22/24 History nortriptyline 10 mg capsule 10 mg PO BID 07/22/24 07/22/24 History simethicone 80 mg chewable tablet 80 mg PO DAILY 07/22/24 07/22/24 History tolterodine 2 mg tablet 2 mg PO BID 07/22/24 07/22/24 History trospium 20 mg tablet 20 mg PO BID 07/22/24 07/22/24 History warfarin 2 mg tablet 4.5 mg PO DAILY 07/22/24 07/22/24 History zonisamide 100 mg capsule 100 mg PO BID 07/22/24 07/22/24 History Allergies Allergy/AdvReac Type Severity Reaction Status Date / Time clavulanic acid Allergy Mild HIVES Verified 07/22/24 21:36 latex Allergy Mild hives Verified 07/22/24 21:36 morphine Allergy Mild VOMITTING Verified 07/22/24 21:36 Penicillins Allergy Mild HIVES Verified 07/22/24 21:36 Sulfa (Sulfonamide Allergy Mild HIVES Verified 07/22/24 21:36 Antibiotics) celecoxib Allergy Unknown Unknown Verified 07/22/24 21:36 amoxicillin [From Augmentin] Allergy Hives Verified 07/22/24 21:36 cephalexin Allergy Hives Verified 07/22/24 21:36 BETALACTAMASEIN Allergy Mild HIVES Uncoded 07/22/24 21:36 Vital Signs Vital Signs - 24 hr 07/22/24 12:22 07/22/24 15:30 07/22/24 16:30 Temperature 37.3 C 37.2 C 36.8 C Pulse Rate 106 H 96 107 H Respiratory Rate 17 14 14 Blood Pressure 138/67 120/74 123/64 Pulse Oximetry 100 98 96 Oxygen Delivery Room Air 07/22/24 18:36 07/22/24 20:37 07/22/24 22:00 Temperature 37.0 C 37.5 C Pulse Rate 97 102 H 103 H Respiratory Rate 19 13 20 Blood Pressure 140/59 L 128/54 L 130/48 L Pulse Oximetry 97 98 94 Oxygen Delivery 07/23/24 03:40 Temperature 37.3 C Pulse Rate 92 Respiratory Rate 20 Blood Pressure 115/48 L Pulse Oximetry 95 Oxygen Delivery Exam Const: General: cooperative, no acute distress and uncomfortable HENMT: Head: normal to inspection, normocephalic and atraumatic Eyes: General: appearance normal, both eyes and all related structures Neck: Neck: normal visual inspection, full ROM and no lymphadenopathy Resp: Auscultation: clear to auscultation bilaterally Cardio: Rate: regular rate Rhythm: regular rhythm GI: Inspection: normal to inspection and non-distended GI Palp: No abdominal tenderness and Yes Soft to palpation Skin: General skin exam: normal color and no rashes or lesions noted Neuro: General: patient oriented x3 and CN's II-XI intact bilaterally Extrem: Other: Large area of cellulitis in the left upper inner thigh with focal area of fluctuance, induration Results Labs 07/23/24 05:17 07/23/24 05:17 Labs: Abnormal lab results 07/22/24 07/22/24 07/22/24 Range/Units 12:58 12:59 22:28 WBC 11.6 H (4.5-10.0) K/mm3 RBC 4.00 L (4.2-5.4) M/mm3 Hgb (12.0-15.0) g/dL Hct (37.0-47.0) % Immature Gran % (Auto) 0.8 H (0-0.5) % Neut % (Auto) 78.8 H (45.5-73.1) % Lymph % (Auto) 7.3 L (18.3-44.2) % [place] % (Auto) 11.9 H (2.6-8.5) % Lymph # (Auto) 0.85 L (0.9-3.2) K/mm3 [place] # (Auto) 1.4 H (0.1-0.6) K/mm3 Abs Immat Gran (auto) 0.09 H (0.00-0.031) K/mm3 Absolute Neuts (auto) 9.2 H (1.3-6.7) K/mm3 PT 35.6 H (11.1-14.7) Seconds BUN 22 H (7-17) mg/dL Creatinine 1.10 H (0.7-1.0) mg/dL Estimated GFR 51 L (59 - ) Glucose 115 H (65-110) mg/dL Lactic Acid 0.6 L (0.7-2.0) mmol/L Calcium (8.4-10.2) mg/dL C-Reactive Protein 31.2 H (<1.0) mg/dL 07/23/24 Range/Units 05:17 WBC 10.1 H (4.5-10.0) K/mm3 RBC 3.33 L (4.2-5.4) M/mm3 Hgb 10.8 L (12.0-15.0) g/dL Hct 33.3 L (37.0-47.0) % Immature Gran % (Auto) 1.0 H (0-0.5) % Neut % (Auto) 78.6 H (45.5-73.1) % Lymph % (Auto) 6.2 L (18.3-44.2) % [place] % (Auto) 12.9 H (2.6-8.5) % Lymph # (Auto) 0.63 L (0.9-3.2) K/mm3 [place] # (Auto) 1.3 H (0.1-0.6) K/mm3 Abs Immat Gran (auto) 0.10 H (0.00-0.031) K/mm3 Absolute Neuts (auto) 7.9 H (1.3-6.7) K/mm3 PT 34.4 H (11.1-14.7) Seconds BUN 18 H (7-17) mg/dL Creatinine (0.7-1.0) mg/dL Estimated GFR (59 - ) Glucose 130 H (65-110) mg/dL Lactic Acid (0.7-2.0) mmol/L Calcium 8.2 L (8.4-10.2) mg/dL C-Reactive Protein (<1.0) mg/dL Diabetes panel 07/22/24 07/23/24 07/23/24 Range/Units 12:59 05:17 05:17 Sodium 139 138 (137-145) mmol/L Potassium 3.5 3.4 (3.4-5.0) mmol/L Chloride 103 106 (98-107) mmol/L Carbon Dioxide 30 27 (22-30) mmol/L BUN 22 H 18 H (7-17) mg/dL Creatinine 1.10 H 0.90 0.80 (0.7-1.0) mg/dL Glucose 115 H 130 H (65-110) mg/dL Calcium 8.5 8.2 L (8.4-10.2) mg/dL AST 25 (14-36) U/L ALT 20 (6-35) U/L Alkaline Phosphatase 110 (38-126) U/L Total Protein 7.0 (6.3-8.2) g/dL Albumin 3.8 (3.5-5.1) g/dL Calcium panel 07/22/24 07/23/24 Range/Units 12:59 05:17 Calcium 8.5 8.2 L (8.4-10.2) mg/dL Albumin 3.8 (3.5-5.1) g/dL Pituitary panel 07/22/24 07/23/24 07/23/24 Range/Units 12:59 05:17 05:17 Sodium 139 138 (137-145) mmol/L Potassium 3.5 3.4 (3.4-5.0) mmol/L Chloride 103 106 (98-107) mmol/L Carbon Dioxide 30 27 (22-30) mmol/L BUN 22 H 18 H (7-17) mg/dL Creatinine 1.10 H 0.90 0.80 (0.7-1.0) mg/dL Glucose 115 H 130 H (65-110) mg/dL Calcium 8.5 8.2 L (8.4-10.2) mg/dL Adrenal panel 07/22/24 07/23/24 07/23/24 Range/Units 12:59 05:17 05:17 Sodium 139 138 (137-145) mmol/L Potassium 3.5 3.4 (3.4-5.0) mmol/L Chloride 103 106 (98-107) mmol/L Carbon Dioxide 30 27 (22-30) mmol/L BUN 22 H 18 H (7-17) mg/dL Creatinine 1.10 H 0.90 0.80 (0.7-1.0) mg/dL Glucose 115 H 130 H (65-110) mg/dL Calcium 8.5 8.2 L (8.4-10.2) mg/dL Total Bilirubin 0.4 (0.2-1.3) mg/dL AST 25 (14-36) U/L ALT 20 (6-35) U/L Alkaline Phosphatase 110 (38-126) U/L Total Protein 7.0 (6.3-8.2) g/dL Albumin 3.8 (3.5-5.1) g/dL All other labs normal. Imaging Additional studies: lower extremities CT reviewed
[2024-07-23] MEDS: SODIUM CHLORIDE 0.9% IV 1,000 ML 100 ML IV CONT (10:03)
[2024-07-23] MEDS: GABAPENTIN 300 MG CAPSULE 600 MG PO ×2 (10:04→17:46)
[2024-07-23] MEDS: ESCITALOPRAM OXALATE 10 MG TABLET 20 MG PO (10:04)
--- NOTE | 2024-07-23 11:24 | WPDHPUPDATE1 ---
History and Physical Update Update Date/Time: 07/23/24 11:24 History and Physical has been reviewed, including an updated exam of the patient. There are NO changes in the patient's condition. Risks, benefits, and alternatives have been discussed and questions answered. Patient agrees to proceed with procedure.
--- NOTE | 2024-07-23 11:45 | PC.NURSE ---
RN spoke with Pharmacist Marta. Vancomycin antibiotic to be tubed down to surgery.
[2024-07-23] MEDS: HYDROmorphone HCL INJ (*CRX) 1 MG/ML SYR 0.5 MG IV PUSH (11:48)
--- NOTE | 2024-07-23 11:55 | PC.NURSE ---
Patient off of unit to surgery
[2024-07-23] MEDS: LACTATED RINGERS 1,000 ML 30 ML IV CONT (12:00)
[2024-07-23] MEDS: VANCOMYCIN 1,500 MG/NS 500 ML 1,500 MG/500 ML BAG 250 MG IVPB (12:20)
--- NOTE | 2024-07-23 12:42 | P.PNAN_ITS ---
Anes - Initial Pre Proc Eval Procedure: Operation Date: 07/23/24 13:30 Proposed Procedures p Incision and Drainage Left Leg Abscess - Hailey Brewer MD Date/Time: 07/23/24 12:42 Surgeon: Gloria Bowers APRN Pre Op Diagnosis: Left lower extremity cellulitis, Abscess Patient Data Age: 59 Gender: F Height: 1.68 m Weight: 146.7 kg Last Vital Signs Temp 36.8 C 07/23/24 12:16 Pulse 90 07/23/24 12:16 Resp 20 07/23/24 12:16 BP 119/62 07/23/24 12:16 Pulse Ox 92 07/23/24 12:16 O2 Del Method Room Air 07/23/24 12:16 Allergies Allergy/AdvReac Type Severity Reaction Status Date / Time clavulanic acid Allergy Mild HIVES Verified 07/22/24 21:36 latex Allergy Mild hives Verified 07/22/24 21:36 morphine Allergy Mild VOMITTING Verified 07/22/24 21:36 Penicillins Allergy Mild HIVES Verified 07/22/24 21:36 Sulfa (Sulfonamide Allergy Mild HIVES Verified 07/22/24 21:36 Antibiotics) celecoxib Allergy Unknown Unknown Verified 07/22/24 21:36 amoxicillin [From Augmentin] Allergy Hives Verified 07/22/24 21:36 cephalexin Allergy Hives Verified 07/22/24 21:36 BETALACTAMASEIN Allergy Mild HIVES Uncoded 07/22/24 21:36 Home Medications Medication Instructions Recorded Confirmed Type benzonatate 100 mg capsule 200 mg PO TID 07/22/24 07/22/24 History ergocalciferol (vitamin D2) 1,250 1,250 mcg PO WEEKLY 07/22/24 07/22/24 History mcg (50,000 unit) capsule ergocalciferol (vitamin D2) 10 mcg 10 mcg PO DAILY 07/22/24 07/22/24 History (400 unit) tablet escitalopram oxalate 20 mg tablet 20 mg PO DAILY 07/22/24 07/22/24 History esomeprazole magnesium 40 mg 40 mg PO BID 07/22/24 07/22/24 History capsule,delayed release gabapentin 600 mg tablet 600 mg PO TID 07/22/24 07/22/24 History loperamide 2 mg capsule 6 mg PO DAILY 07/22/24 07/22/24 History nortriptyline 10 mg capsule 10 mg PO BID 07/22/24 07/22/24 History simethicone 80 mg chewable tablet 80 mg PO DAILY 07/22/24 07/22/24 History tolterodine 2 mg tablet 2 mg PO BID 07/22/24 07/22/24 History trospium 20 mg tablet 20 mg PO BID 07/22/24 07/22/24 History warfarin 2 mg tablet 4.5 mg PO DAILY 07/22/24 07/22/24 History zonisamide 100 mg capsule 100 mg PO BID 07/22/24 07/22/24 History Laboratory Tests 07/22/24 07/22/24 07/22/24 12:58 12:59 22:28 WBC 11.6 H K/mm3 (4.5-10.0) RBC 4.00 L M/mm3 (4.2-5.4) Hgb 12.9 g/dL (12.0-15.0) Hct 39.8 % (37.0-47.0) MCV 99.5 fl (80-100) MCH 32.3 pg (26-34) MCHC 32.4 g/dl (32-36) RDW 13.3 % (11.5-14.5) Plt Count 278 k/mm3 (150-375) MPV 9.5 fl (7.4-10.4) Immature Gran % (Auto) 0.8 H % (0-0.5) Neut % (Auto) 78.8 H % (45.5-73.1) Lymph % (Auto) 7.3 L % (18.3-44.2) [place] % (Auto) 11.9 H % (2.6-8.5) Eos % (Auto) 0.7 % (0-4.4) Baso % (Auto) 0.5 % (0.2-1.2) Lymph # (Auto) 0.85 L K/mm3 (0.9-3.2) [place] # (Auto) 1.4 H K/mm3 (0.1-0.6) Eos # (Auto) 0.1 K/mm3 (0-0.3) Baso # (Auto) 0.1 K/mm3 (0.0-0.1) Abs Immat Gran (auto) 0.09 H K/mm3 (0.00-0.031) Absolute Neuts (auto) 9.2 H K/mm3 (1.3-6.7) Absolute Nucleated RBC 0.000 K/mm3 (0.0-0.012) Nucleated RBC % 0.0 % (0.0-0.2) PT 35.6 H Seconds (11.1-14.7) INR 3.5 Sodium 139 mmol/L (137-145) Potassium 3.5 mmol/L (3.4-5.0) Chloride 103 mmol/L (98-107) Carbon Dioxide 30 mmol/L (22-30) Anion Gap 6 mmol/L (4-12) BUN 22 H mg/dL (7-17) Creatinine 1.10 H mg/dL (0.7-1.0) Estim Creat Clear Calc Not Reportable Estimated GFR 51 L (59 - ) Glucose 115 H mg/dL (65-110) Lactic Acid 0.6 L mmol/L (0.7-2.0) Calcium 8.5 mg/dL (8.4-10.2) Total Bilirubin 0.4 mg/dL (0.2-1.3) AST 25 U/L (14-36) ALT 20 U/L (6-35) Alkaline Phosphatase 110 U/L (38-126) C-Reactive Protein 31.2 H mg/dL (<1.0) Total Protein 7.0 g/dL (6.3-8.2) Albumin 3.8 g/dL (3.5-5.1) 07/23/24 07/23/24 07/23/24 05:17 05:17 05:17 WBC 10.1 H K/mm3 (4.5-10.0) RBC 3.33 L M/mm3 (4.2-5.4) Hgb 10.8 L g/dL (12.0-15.0) Hct 33.3 L % (37.0-47.0) MCV 100.0 fl (80-100) MCH 32.4 pg (26-34) MCHC 32.4 g/dl (32-36) RDW 13.2 % (11.5-14.5) Plt Count 227 k/mm3 (150-375) MPV 9.7 fl (7.4-10.4) Immature Gran % (Auto) 1.0 H % (0-0.5) Neut % (Auto) 78.6 H % (45.5-73.1) Lymph % (Auto) 6.2 L % (18.3-44.2) [place] % (Auto) 12.9 H % (2.6-8.5) Eos % (Auto) 0.9 % (0-4.4) Baso % (Auto) 0.4 % (0.2-1.2) Lymph # (Auto) 0.63 L K/mm3 (0.9-3.2) [place] # (Auto) 1.3 H K/mm3 (0.1-0.6) Eos # (Auto) 0.1 K/mm3 (0-0.3) Baso # (Auto) 0.0 K/mm3 (0.0-0.1) Abs Immat Gran (auto) 0.10 H K/mm3 (0.00-0.031) Absolute Neuts (auto) 7.9 H K/mm3 (1.3-6.7) Absolute Nucleated RBC 0.000 K/mm3 (0.0-0.012) Nucleated RBC % 0.0 % (0.0-0.2) PT 34.4 H Seconds (11.1-14.7) INR 3.3 Sodium 138 mmol/L (137-145) Potassium 3.4 mmol/L (3.4-5.0) Chloride 106 mmol/L (98-107) Carbon Dioxide 27 mmol/L (22-30) Anion Gap 5 mmol/L (4-12) BUN 18 H mg/dL (7-17) Creatinine 0.90 mg/dL 0.80 mg/dL (0.7-1.0) (0.7-1.0) Estim Creat Clear Calc 87 ml/min 97 ml/min Estimated GFR > 60 (59 - ) Glucose Lactic Acid Calcium Total Bilirubin AST ALT Alkaline Phosphatase C-Reactive Protein Total Protein Albumin 07/23/24 05:17 WBC RBC Hgb Hct MCV MCH MCHC RDW Plt Count MPV Immature Gran % (Auto) Neut % (Auto) Lymph % (Auto) [place] % (Auto) Eos % (Auto) Baso % (Auto) Lymph # (Auto) [place] # (Auto) Eos # (Auto) Baso # (Auto) Abs Immat Gran (auto) Absolute Neuts (auto) Absolute Nucleated RBC Nucleated RBC % PT INR Sodium Potassium Chloride Carbon Dioxide Anion Gap BUN Creatinine Estim Creat Clear Calc Estimated GFR > 60 (59 - ) Glucose 130 H mg/dL (65-110) Lactic Acid Calcium 8.2 L mg/dL (8.4-10.2) Total Bilirubin AST ALT Alkaline Phosphatase C-Reactive Protein Total Protein Albumin Patient hx anesthesia problems: none Family hx anesthesia problems: none Results Review: All pre-operative results and documents have been reviewed as part of the pre- operative evaluation. [facility] Past Medical History Medical History Anxiety Body mass index (BMI) greater than 50 DVT of lower extremity, bilateral Essential hypertension GERD (gastroesophageal reflux disease) Hyperlipidemia Urge urinary incontinence Surgical History Surgical History History of laparoscopic cholecystectomy History of sleeve gastrectomy (2017) Family History Family History Father Acute myocardial infarction Son Brainstem tumor Sibling Raynaud disease Social History Social History Social History: Code status: Surrogate decision maker: Annemarie Hood (mother) Smoking status: Never smoker Substance use type: does not use Do You Feel Safe in your Home?: Yes Lack of Transportation: No Lack of Food: Never True Current Housing: I Have Housing Concerned About Future Housing: No Difficulty Paying Gas/Electric Bills: No Difficulty Paying for Meds: No Currently Unemployed: No Education: Associate Degree Difficulty w/ Childcare or Family Care: No Spiritual care concerns: No Anes - Eval Final PreProcedure Day of Procedure 07/23/24 12:42 Patient weight: super morbidly obese Heart: regular rate and rhythm Lungs: clear to auscultation Airway: Mallampati scale class III Neurological: alert and oriented Last oral intake: >/= 8 hours ASA classification: IV Emergent: no Anesthesia type and monitoring: general LMA and standard monitoring Results Review: All pre-operative results and documents have been reviewed as part of the pre- operative evaluation. Informed Consent: The patient's anesthetic plan and its attendant risks and benefits were discussed with the patient/family/POA. Questions were solicited and answers provided to the satisfaction of the patient/family/POA.
[2024-07-23] MEDS: BUPIVACAINE/EPINEPHRINE 0.5% 30 ML VIAL 20 ML INFILTRATE (13:09)
--- NOTE | 2024-07-23 13:24 | P.OP_ITS ---
Procedure Note - Detailed Date of Procedure 07/23/24 Pre-op Diagnosis Lower extremity abscess Post-op Diagnosis Same Procedure Performed complex incision and drainage left lower extremity abscess measuring 10 x 8 cm Surgeon Hailey Brewer MD Anesthesia General and Local Indications 59-year-old female presenting with worsening left inner thigh abscess. Patient has been on multiple rounds of antibiotics without improvement. Findings 10 x 8 cm left posterior inner thigh abscess Description of Procedure The patient was taken the operating room and placed in the supine position. After adequate induction of general anesthesia, the patient was prepped and draped in a normal sterile fashion. A time-out was then done to verify the patient's identity, as well as procedure being performed. Began by localizing the area in and around this abscess cavity in the left posterior medial thigh. Once adequately anesthetized, I made an incision with a 15 blade scalpel to gain access into the abscess cavity. The abscess cavity was noted to be in the subcutaneous tissue and did not involve the underlying muscle. This was a large cavity with a large amount of purulent, residual hematoma. This was all evacuat ed. Further loculations were broken up with the hemostat and more drainage was noted. Once the area was completely opened and drained, it measured 10 x 8 cm. I then copiously irrigated the cavity. The cavity was then packed with half- inch iodoform to keep the area open and draining. Sterile dressing was then placed. The patient tolerated the procedure well. She was extubated in the operating room and will be transferred to the recovery room in stable condition. Estimated Blood Loss 5 Packing Yes Pathology None sent Complications No immediate complications Condition Stable Disposition PACU [facility] Billing Surgery - Charge Forward: Surgery Billing
[2024-07-23] MEDS: ZONISAMIDE 100 MG CAPSULE PO (17:46)
[2024-07-23] MEDS: metroNIDAZOLE 500 MG TABLET PO ×2 (17:46→20:48)
[2024-07-23] MEDS: TOLTERODINE TARTRATE 2 MG TABLET PO (17:46)
[2024-07-23] MEDS: NORTRIPTYLINE HCL 10 MG CAPSULE PO (20:48)
[2024-07-24] MEDS: BENZONATATE 100 MG CAPSULE 200 MG PO ×3 (00:07→17:14)
[2024-07-24] MEDS: VANCOMYCIN 1,500 MG/NS 500 ML 1,500 MG/500 ML BAG 250 MG IVPB ×2 (00:07→12:54)
[2024-07-24] MEDS: metroNIDAZOLE 500 MG TABLET PO ×3 (06:06→20:41)
[2024-07-24] MEDS: AZTREONAM 2 GM in SODIUM CHLORIDE 0.9% IV 100 ML 200 ML IVPB ×2 (06:06→20:42)
[2024-07-24 07:49] LABS: Prothrombin Time 31.1 Seconds (11.1-14.7)
[2024-07-24 08:19] LABS: Estimated CRCL calculation 97 ml/min; Estimated Glomerular Filt Rate > 60
[2024-07-24] MEDS: ZONISAMIDE 100 MG CAPSULE PO ×2 (09:32→17:14)
[2024-07-24] MEDS: ESCITALOPRAM OXALATE 10 MG TABLET 20 MG PO (09:32)
[2024-07-24] MEDS: TOLTERODINE TARTRATE 2 MG TABLET PO ×2 (09:32→17:14)
[2024-07-24] MEDS: PANTOPRAZOLE 40 MG TABLET PO (09:32)
[2024-07-24] MEDS: NORTRIPTYLINE HCL 10 MG CAPSULE PO ×2 (09:32→20:41)
[2024-07-24] MEDS: GABAPENTIN 300 MG CAPSULE 600 MG PO ×3 (09:32→17:14)
[2024-07-24 09:50] LABS: Basophils Absolute Auto 0.1 K/mm3 (0.0-0.1); Basophils Percent Auto 0.6 % (0.2-1.2); Eosinophils Absolute Auto 0.3 K/mm3 (0-0.3); Eosinophils Percent Auto 3.2 % (0-4.4); Hematocrit 34.5 % (37.0-47.0); Hemoglobin 10.5 g/dL (12.0-15.0); Immature Granulocyte Absolute 0.07 K/mm3 (0.00-0.031); Immature Granulocyte Percent A 0.8 % (0-0.5); Lymphocytes Absolute Auto 0.67 K/mm3 (0.9-3.2); Lymphocytes Percent Auto 7.9 % (18.3-44.2); Mean Corpuscular HGB Conc 30.4 g/dl (32-36); Mean Corpuscular Volume 105.2 fl (80-100); Mean Platelet Volume 10.1 fl (7.4-10.4); Monocytes Absolute Auto 1.1 K/mm3 (0.1-0.6); Monocytes Percent Auto 12.5 % (2.6-8.5); Neutrophils Absolute Auto 6.4 K/mm3 (1.3-6.7); Platelet Count Result 245 k/mm3 (150-375); Red Blood Count 3.28 M/mm3 (4.2-5.4); Red Cell Distribution Width 13.7 % (11.5-14.5); White Blood Count 8.5 K/mm3 (4.5-10.0)
[2024-07-24 10:13] LABS: Alanine Aminotransferase 17 U/L (6-35); Alkaline Phosphatase 102 U/L (38-126); Anion Gap 6 mmol/L (4-12); Aspartate Amino Transferase 25 U/L (14-36); Bilirubin,Total 0.3 mg/dL (0.2-1.3); Blood Urea Nitrogen 17 mg/dL (7-17); Calcium 8.2 mg/dL (8.4-10.2); Carbon Dioxide 23 mmol/L (22-30); Chloride 109 mmol/L (98-107); Estimated CRCL calculation 97 ml/min; Estimated Glomerular Filt Rate > 60; Glucose 106 mg/dL (65-110); Potassium 3.7 mmol/L (3.4-5.0); Sodium 138 mmol/L (137-145)
[2024-07-24 10:14] LABS: Platelet Estimate Adequate (Adequate); Schistocytes None Seen
[2024-07-24 10:15] LABS: Macrocytosis 1+ (NORMAL)
[2024-07-24 11:14] LABS: Vancomycin Trough 15.9 ug/mL (10.0-20.0)
[2024-07-24 13:45] VITALS: BP 96/60; PULSE 80; RESP 16; TEMP 36.6; O2SAT 97
--- NOTE | 2024-07-24 13:54 | P.PNIM_ITS ---
Progress Note: A&P Assessment and Plan (1) Cellulitis of left leg: Code(s): L03.116 - Cellulitis of left lower limb Status: Acute Assessment and Plan: 07/24/24: * Pt is status post surgical I&D by Dr. Brewer yesterday. * Continue meds of aztreonam, Flagyl and Vancomycin. * Not meeting Sepsis criteria. Currently resolved. * PRN pain meds. * No wound culture was ordered and therefore was not performed. * Preliminary blood cultures to date are negative. * Continue to monitor daily labs and VS. (2) Sepsis: Qualifiers: Sepsis type: sepsis due to unspecified organism Sepsis acute organ dysfunction status: without acute organ dysfunction Qualified Code(s): A41.9 - Sepsis, unspecified organism Code(s): A41.9 - Sepsis, unspecified organism Status: Resolved Assessment and Plan: 07/24/24: * Resolved. 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 Her goal INR is 2.5-3.5. * INR today is 3.0 and currently therapeutic. * Restart Coumadin when OK with surgery. * Continue to monitor daily INR Subjective Date/time seen: 07/24/24 13:54 Interval history: This very pleasant 59 year old female pt was examined at the bedside in interval assessment. She is sitting up in the chair in no acute distress. She complains of some pain at the operative site of her surgical I&D but is ambulatory and without other complaint. She has some drainage that appears serosang on her wound dressing. Surgery has not yet rounded today. She has no other acute complaints today. Review of Systems Review of Systems: All systems reviewed & are unremarkable except as noted in HPI and below Exam Narrative: Weight 146.7 kg BMI 52.2 General - Awake and alert. No acute distress Eyes - PERRLA, EOM intact ENT - No thrush, No erythema Neck - No noticeable or palpable swelling Lymph Nodes - No lymphadenopathy Cardiovascular - RRR no m/r/g, no JVD Lungs: Clear to auscultation, No wheezing, use of accessory muscles, no crackles Skin - Skin warm and dry, with operative dressing in place on inside of left surgical wound. There is a moderate to large amount of serosang. drng present. Abdomen - Normal bowel sounds, abdomen soft and nontender, obese Extremities - cyanosis or clubbing. Skin to LLE is red and tender surrounding the site of the abscess. Musculoskeletal - 5/5 strength, normal range of motion, no swollen or erythematous joints. Neurological ? Alert and oriented x 3, CN 2-12 grossly intact. Psych: Normal mood and affect Objective Data Vital Signs Vital Signs: Vital Signs - 24 hr 07/23/24 14:00 07/23/24 14:28 07/23/24 14:30 Temperature 97.9 F 97.9 F Pulse Rate 85 82 84 Respiratory Rate 11 L 14 16 Blood Pressure 116/64 96/50 L 93/55 L Pulse Oximetry 97 98 96 Oxygen Delivery Nasal Cannula Oxygen Flow Rate 2 07/23/24 15:58 07/23/24 19:42 07/23/24 20:00 Temperature 97.7 F 97.8 F Pulse Rate 88 87 Respiratory Rate 16 20 Blood Pressure 92/67 L 101/51 L Pulse Oximetry 99 94 Oxygen Delivery Room Air Oxygen Flow Rate 07/24/24 09:32 Temperature Pulse Rate Respiratory Rate Blood Pressure Pulse Oximetry Oxygen Delivery Room Air Oxygen Flow Rate Intake/Output Intake/Output: Intake & Output 07/21/24 07/22/24 07/23/24 07/24/24 23:59 23:59 23:59 23:59 Intake Total 100 2632.8 840 Balance 100 2632.8 840 Meds/Results Medications: Active Medications Generic Name Dose Route Start Last Admin Trade Name Freq PRN Reason Stop Dose Admin Acetaminophen 650 mg 07/22/24 19:02 Acetaminophen 325 Mg Tablet PO Q4H PRN Mild Pain (1-3) or Fever Benzonatate 200 mg 07/23/24 01:44 07/24/24 09:38 Benzonatate 100 Mg Capsule PO 200 mg TID PRN Administration Cough Diphenhydramine HCl 25 mg 07/23/24 09:14 Diphenhydramine Hcl Cap 25 Mg Capsule PO Q6H PRN Itching Escitalopram Oxalate 20 mg 07/23/24 09:00 07/24/24 09:32 Escitalopram Oxalate 10 Mg Tablet PO 20 mg DAILY TIERRA Administration Gabapentin 600 mg 07/23/24 09:00 07/24/24 12:57 Gabapentin 300 Mg Capsule PO 600 mg TID TIERRA Administration Hydromorphone HCl 0.5 mg 07/23/24 09:11 12 11:48 Hydromorphone Hcl Inj (*Crx) 1 Mg/Ml Syr IV PUSH 0.5 mg Q2HR PRN Administration Pain Rated 7-10 Aztreonam 2 gm/ Sodium 100 mls @ 200 mls/hr 07/22/24 22:00 07/24/24 06:36 Chloride IVPB Infused Q8H TIERRA Infusion Vancomycin HCl 1,500 mg in 500 mls @ 250 mls/hr 07/24/24 12:00 07/24/24 12:54 Vancomycin 1,500 Mg/Ns 500 Ml IVPB 250 mls/hr Q18H TIERRA Administration Loperamide HCl 4 mg 07/23/24 09:06 Loperamide Hcl 2 Mg Capsule PO BID PRN Diarrhea Metronidazole 500 mg 07/23/24 10:00 07/24/24 06:06 Metronidazole 500 Mg Tablet PO 500 mg Q8HR TIERRA Administration Nortriptyline HCl 10 mg 07/23/24 09:00 07/24/24 09:32 Nortriptyline Hcl 10 Mg Capsule PO 10 mg Q12HR TIERRA Administration Ondansetron HCl 4 mg 07/23/24 09:13 Ondansetron Inj 4 Mg/2 Ml Vial IV PUSH Q4H PRN Nausea And Vomiting Oxycodone HCl 10 mg 07/23/24 09:11 Oxycodone Hcl (*Crx) 5 Mg Tab Ir PO Q4H PRN Pain Rated 4-6 Pantoprazole Sodium 40 mg 07/23/24 09:00 07/24/24 09:32 Pantoprazole 40 Mg Tablet PO 40 mg QAM TIERRA Administration Simethicone 80 mg 07/23/24 01:44 Simethicone 80 Mg Tab.Chew PO DAILY PRN Abdominal Cramping Tolterodine Tartrate 2 mg 07/23/24 09:00 07/24/24 09:32 Tolterodine Tartrate 2 Mg Tablet PO 2 mg BID [facility] Administration Zonisamide 100 mg 07/23/24 09:00 07/24/24 09:32 Zonisamide 100 Mg Capsule PO 100 mg BID TIERRA Administration Radiology Results: ITS Impressions Lower Extremity CT 07/22/24 18:38 IMPRESSION: 7.0 x 8.3 x 4.9 cm hematoma, seroma or abscess along the lower posteromedial aspect of the upper left leg Edema of the left lower extremity Tricompartment osteoarthritis of the knee Labs Labs: Laboratory Results - last 24 hr 07/24/24 07/24/24 07/24/24 05:25 05:29 10:03 WBC 8.5 RBC 3.28 L Hgb 10.5 L Hct 34.5 L MCV 105.2 H D MCH 32.0 MCHC 30.4 L RDW 13.7 Plt Count 245 MPV 10.1 Immature Gran % (Auto) 0.8 H Neut % (Auto) 75.0 H Lymph % (Auto) 7.9 L [place] % (Auto) 12.5 H Eos % (Auto) 3.2 Baso % (Auto) 0.6 Lymph # (Auto) 0.67 L [place] # (Auto) 1.1 H Eos # (Auto) 0.3 Baso # (Auto) 0.1 Abs Immat Gran (auto) 0.07 H Absolute Neuts (auto) 6.4 Absolute Nucleated RBC 0.000 Nucleated RBC % 0.0 Platelet Estimate Adequate Macrocytosis 1+ Schistocytes None seen PT 31.1 H INR 3.0 Sodium 138 Potassium 3.7 Chloride 109 H Carbon Dioxide 23 Anion Gap 6 BUN 17 Creatinine 0.80 0.80 Estim Creat Clear Calc 97 97 Estimated GFR > 60 > 60 Glucose 106 Calcium 8.2 L Total Bilirubin 0.3 AST 25 ALT 17 Alkaline Phosphatase 102 Total Protein 6.0 L Albumin 3.0 L Vancomycin Trough 15.9 Quality VTE Prophylaxis VTE prophylaxis: mechanical ordered
--- NOTE | 2024-07-24 13:56 | WPDANESPN ---
Anes - Prog Note Post-Op Date/Time: 07/24/24 13:56 Cardiovascular status: normal Respiratory status: normal Airway patency: baseline Mental status: baseline Post-Op hydration status: normal Vital Signs: Last Vital Signs Temp 97.8 F 07/23/24 19:42 Pulse 87 07/23/24 19:42 Resp 20 07/23/24 19:42 BP 101/51 L 07/23/24 19:42 Pulse Ox 94 07/23/24 19:42 O2 Del Method Room Air 07/24/24 09:32 O2 Flow Rate 2 07/23/24 14:00 Pain Score (VAS): 0/10 I/O: Intake & Output 07/23/24 07/24/24 07/24/24 23:59 07:59 15:59 Intake Total 440 600 240 Balance 440 600 240 Laboratory Tests 07/24/24 05:25 07/24/24 05:29 07/24/24 07/24/24 07/24/24 05:25 05:29 10:03 WBC 8.5 RBC 3.28 L Hgb 10.5 L Hct 34.5 L MCV 105.2 H D MCH 32.0 MCHC 30.4 L RDW 13.7 Plt Count 245 MPV 10.1 Immature Gran % (Auto) 0.8 H Neut % (Auto) 75.0 H Lymph % (Auto) 7.9 L [place] % (Auto) 12.5 H Eos % (Auto) 3.2 Baso % (Auto) 0.6 Lymph # (Auto) 0.67 L [place] # (Auto) 1.1 H Eos # (Auto) 0.3 Baso # (Auto) 0.1 Abs Immat Gran (auto) 0.07 H Absolute Neuts (auto) 6.4 Absolute Nucleated RBC 0.000 Nucleated RBC % 0.0 Platelet Estimate Adequate Macrocytosis 1+ Schistocytes None seen PT 31.1 H INR 3.0 Sodium 138 Potassium 3.7 Chloride 109 H Carbon Dioxide 23 Anion Gap 6 BUN 17 Creatinine 0.80 0.80 Estim Creat Clear Calc 97 97 Estimated GFR > 60 > 60 Glucose 106 Calcium 8.2 L Total Bilirubin 0.3 AST 25 ALT 17 Alkaline Phosphatase 102 Total Protein 6.0 L Albumin 3.0 L Vancomycin Trough 15.9 Microbiology 07/22/24 22:28 Blood Blood Culture - Preliminary 07/22/24 22:28 Blood Blood Culture - Preliminary Post-procedural complaints: none Patient Feedback: Patient satisfied with anesthetic care.
[2024-07-24] MEDS: HYDROmorphone HCL INJ (*CRX) 1 MG/ML SYR 0.5 MG IV PUSH (14:33)
[2024-07-24] MEDS: TETANUS/DIPHTHERIA TOXOIDS ADSORB 0.5 ML VIAL (*BKC) IM (14:41)
--- NOTE | 2024-07-24 15:35 | P.PNGS_ITS ---
Progress Note: A&P Assessment and Plan (1) Abscess of left lower leg: Code(s): L02.416 - Cutaneous abscess of left lower limb Status: Acute Assessment and Plan: * S/p I&D, WBC normalized * Continue iodoform packing dressing changes. Patient unable to pack the wound herself. She is going to ask her mom to help her with dressing changes. CC working on setting up Home Health for discharge. * Continue antibiotics * Hopefully she can discharge home tomorrow with oral antibiotics and wound care if home health is set up and she has a plan for dressing changes. Plan I have discussed the patient's case and plan of care with Dr. Brewer. Subjective Subjective Date/Time Seen: 07/24/24 15:35 Post Op day: 1 (s/p I&D) Patient reports: no new complaints, tolerating a regular diet and afebrile Interval history: Patient is doing well today. She is still having pain in her left lower extremity but reports it feels more sharp today. She has not needed any Dilaudid since yesterday afternoon. No acute events or other issues overnight. Per nursing, they reinforced the dressing multiple times overnight. Exam Const: General: comfortable and no acute distress Skin: Other: Left medial thigh abscess with packing removed today. Erythema and swelling improved. No purulent drainage, moderate amount of serosanguineous drainage on dressing. Repacked with 1 iodoform gauze and covered with ABD. Objective Data Vital Signs Vital Signs: Vital Signs - 24 hr 07/23/24 15:58 07/23/24 19:42 07/23/24 20:00 Temperature 97.7 F 97.8 F Pulse Rate 88 87 Respiratory Rate 16 20 Blood Pressure 92/67 L 101/51 L Pulse Oximetry 99 94 Oxygen Delivery Room Air 07/24/24 09:32 07/24/24 13:45 Temperature 97.9 F Pulse Rate 80 Respiratory Rate 16 Blood Pressure 96/60 L Pulse Oximetry 97 Oxygen Delivery Room Air Intake/Output Intake/Output: Intake & Output 07/21/24 07/22/24 07/23/24 07/24/24 23:59 23:59 23:59 23:59 Intake Total 100 2632.8 1080 Balance 100 2632.8 1080 Meds/Results Medications: Active Medications Generic Name Dose Route Start Last Admin Trade Name Freq PRN Reason Stop Dose Admin Acetaminophen 650 mg 07/22/24 19:02 Acetaminophen 325 Mg Tablet PO Q4H PRN Mild Pain (1-3) or Fever Benzonatate 200 mg 07/23/24 01:44 07/24/24 09:38 Benzonatate 100 Mg Capsule PO 200 mg TID PRN Administration Cough Diphenhydramine HCl 25 mg 07/23/24 09:14 Diphenhydramine Hcl Cap 25 Mg Capsule PO Q6H PRN Itching Escitalopram Oxalate 20 mg 07/23/24 09:00 07/24/24 09:32 Escitalopram Oxalate 10 Mg Tablet PO 20 mg DAILY TIERRA Administration Gabapentin 600 mg 07/23/24 09:00 07/24/24 12:57 Gabapentin 300 Mg Capsule PO 600 mg TID TIERRA Administration Hydromorphone HCl 0.5 mg 07/23/24 09:11 07/24/24 14:33 Hydromorphone Hcl Inj (*Crx) 1 Mg/Ml Syr IV PUSH 0.5 mg Q2HR PRN Administration Pain Rated 7-10 Aztreonam 2 gm/ Sodium 100 mls @ 200 mls/hr 07/22/24 22:00 07/24/24 06:36 Chloride IVPB Infused Q8H TIERRA Infusion Vancomycin HCl 1,500 mg in 500 mls @ 250 mls/hr 07/24/24 12:00 07/24/24 12:54 Vancomycin 1,500 Mg/Ns 500 Ml IVPB 250 mls/hr Q18H TIERRA Administration Loperamide HCl 4 mg 07/23/24 09:06 Loperamide Hcl 2 Mg Capsule PO BID PRN Diarrhea Metronidazole 500 mg 07/23/24 10:00 07/24/24 14:33 Metronidazole 500 Mg Tablet PO 500 mg Q8HR TIERRA Administration Nortriptyline HCl 10 mg 07/23/24 09:00 07/24/24 09:32 Nortriptyline Hcl 10 Mg Capsule PO 10 mg Q12HR TIERRA Administration Ondansetron HCl 4 mg 07/23/24 09:13 Ondansetron Inj 4 Mg/2 Ml Vial IV PUSH Q4H PRN Nausea And Vomiting Oxycodone HCl 10 mg 07/23/24 09:11 Oxycodone Hcl (*Crx) 5 Mg Tab Ir PO Q4H PRN Pain Rated 4-6 Pantoprazole Sodium 40 mg 07/23/24 09:00 07/24/24 09:32 Pantoprazole 40 Mg Tablet PO 40 mg QAM TIERRA Administration Simethicone 80 mg 07/23/24 01:44 Simethicone 80 Mg Tab.Chew PO DAILY PRN Abdominal Cramping Tolterodine Tartrate 2 mg 07/23/24 09:00 07/24/24 09:32 Tolterodine Tartrate 2 Mg Tablet PO 2 mg BID TIERRA Administration Zonisamide 100 mg 07/23/24 09:00 07/24/24 09:32 Zonisamide 100 Mg Capsule PO 100 mg BID TIERRA Administration Radiology Results: ITS Impressions Lower Extremity CT 07/22/24 18:38 IMPRESSION: 7.0 x 8.3 x 4.9 cm hematoma, seroma or abscess along the lower posteromedial aspect of the upper left leg Edema of the left lower extremity Tricompartment osteoarthritis of the knee Labs Labs: Laboratory Results - last 24 hr 07/24/24 07/24/24 07/24/24 05:25 05:29 10:03 WBC 8.5 RBC 3.28 L Hgb 10.5 L Hct 34.5 L MCV 105.2 H D MCH 32.0 MCHC 30.4 L RDW 13.7 Plt Count 245 MPV 10.1 Immature Gran % (Auto) 0.8 H Neut % (Auto) 75.0 H Lymph % (Auto) 7.9 L [place] % (Auto) 12.5 H Eos % (Auto) 3.2 Baso % (Auto) 0.6 Lymph # (Auto) 0.67 L [place] # (Auto) 1.1 H Eos # (Auto) 0.3 Baso # (Auto) 0.1 Abs Immat Gran (auto) 0.07 H Absolute Neuts (auto) 6.4 Absolute Nucleated RBC 0.000 Nucleated RBC % 0.0 Platelet Estimate Adequate Macrocytosis 1+ Schistocytes None seen PT 31.1 H INR 3.0 Sodium 138 Potassium 3.7 Chloride 109 H Carbon Dioxide 23 Anion Gap 6 BUN 17 Creatinine 0.80 0.80 Estim Creat Clear Calc 97 97 Estimated GFR > 60 > 60 Glucose 106 Calcium 8.2 L Total Bilirubin 0.3 AST 25 ALT 17 Alkaline Phosphatase 102 Total Protein 6.0 L Albumin 3.0 L Vancomycin Trough 15.9
[2024-07-24 21:42] VITALS: BP 107/54; PULSE 81; RESP 16; TEMP 36.7; O2SAT 95
[2024-07-25] MEDS: AZTREONAM 2 GM in SODIUM CHLORIDE 0.9% IV 100 ML 200 ML IVPB (05:43)
[2024-07-25] MEDS: VANCOMYCIN 1,500 MG/NS 500 ML 1,500 MG/500 ML BAG 250 MG IVPB (05:43)
[2024-07-25] MEDS: metroNIDAZOLE 500 MG TABLET PO (05:44)
[2024-07-25 06:07] VITALS: BP 113/59; PULSE 80; RESP 16; TEMP 36.9; O2SAT 94
[2024-07-25 06:30] LABS: INR 2.3; Prothrombin Time 25.1 Seconds (11.1-14.7)
[2024-07-25 06:34] LABS: Estimated CRCL calculation 97 ml/min; Estimated Glomerular Filt Rate > 60
[2024-07-25] MEDS: TOLTERODINE TARTRATE 2 MG TABLET PO (08:27)
[2024-07-25] MEDS: ZONISAMIDE 100 MG CAPSULE PO (08:27)
[2024-07-25] MEDS: PANTOPRAZOLE 40 MG TABLET PO (08:28)
[2024-07-25] MEDS: GABAPENTIN 300 MG CAPSULE 600 MG PO ×2 (08:28→12:11)
[2024-07-25] MEDS: ESCITALOPRAM OXALATE 10 MG TABLET 20 MG PO (08:28)
[2024-07-25] MEDS: NORTRIPTYLINE HCL 10 MG CAPSULE PO (08:28)
[2024-07-25] MEDS: DOXYCYCLINE HYCLATE 100 MG TABLET PO (08:28)
[2024-07-25] MEDS: oxyCODONE HCL (*CRX) 5 MG TAB IR 10 MG PO (08:33)
[2024-07-25] MEDS: diphenhydrAMINE HCl CAP 25 MG CAPSULE 50 MG PO (12:10)
--- NOTE | 2024-07-25 13:53 | P.DS_ITS ---
DS: Admitting Diagnosis Discharge Date 07/25/24 Admitting Diagnosis Cellulitis Left leg, Sepsis, Abscess of left lower leg, Supratherapeutic INR DS: Discharge Diagnosis Discharge Diagnosis (1) Cellulitis of left leg: Code(s): L03.116 - Cellulitis of left lower limb Status: Acute Assessment and Plan: 07/24/24: * Pt is status post surgical I&D by Dr. Brewer yesterday. * Continue meds of aztreonam, Flagyl and Vancomycin. * Not meeting Sepsis criteria. Currently resolved. * PRN pain meds. * No wound culture was ordered and therefore was not performed. * Preliminary blood cultures to date are negative. * Continue to monitor daily labs and VS. 07/25/24: * Vancomycin, Aztrenonam and Flagyl were discontinued. * Started Doxycycline 100 mg po BID for 10 days * Continue PRN pain meds. * Blood cultures remain negative to this point. * OK for discharge to home according to Hospitalist and surgery. * Dressing changes daily, mother has been taught and will perform. (2) Sepsis: Qualifiers: Sepsis type: sepsis due to unspecified organism Sepsis acute organ dysfunction status: without acute organ dysfunction Qualified Code(s): A41.9 - Sepsis, unspecified organism Code(s): A41.9 - Sepsis, unspecified organism Status: Resolved Assessment and Plan: 07/24/24: * Resolved. 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 Her goal INR is 2.5-3.5. * INR today is 3.0 and currently therapeutic. * Restart Coumadin when OK with surgery. * Continue to monitor daily INR 07/25/24: * Resume home dose of Coumadin. (5) Medication reaction: Code(s): T50.905A - Adverse effect of unspecified drugs, medicaments and biological substances, initial encounter Status: Acute Assessment and Plan: 07/25/24: * As evidenced by generalized macular rash, originally pruritic. * All IV abx were stopped and pt was started on oral Doxycycline in it's place which she has had previously without any difficulty. * Benadryl 50 mg Q6-8 hrs as needed. DS: Summary Hospital Course Reason for hospitalization: Abscess and Sepsis Hospital Course: This 59-year-old female patient with history of obesity, recurrent DVT on chronic Coumadin therapy, hypertension, anxiety, depression and urge incontinence he presented to the consequently admitted to the hospital on July 22, 2024. Patient originally sustained a skin tear to the left thigh in May this year was was on a cruise. The initial injury did heal well on its own, however, she battled with intermittent infections and that this/swelling/drainage from the affected area and has been on and off of multiple abx for treatment. This past week the area became acutely red, edematous and with red streaking up her left thigh to the groin also manifesting a fever. She presented to the ER where CT scan showed abscess in the left thigh tissues. Surgery was consulted and took to the OR for urgent drainage. Patient was initially started on antibiotics of aztreonam, Flagyl and vancomycin. As patient does have history of recurrent DVT while taking Coumadin her INR goal is 2.5-3.5. It was held for surgery. Today the pt broke out in a generalized, fine, macular rash on the entire body, worse in the skin folds and areas covered by clothing. She was given Benadryl and her abx were changed to doxycycline. She will require dressing changes daily and her mother has been taught how to do them and has been supplied with the necessary items for home. She will follow up with Surgery as directed and she is advised to return to the ER for evaluation should she have any new or worsening symptoms, specifically and fevers. Status at Discharge Cognitive/behavioral status at discharge: At baseline Functional status at discharge: independent ambulation Overall status at discharge: patient is back to baseline Time Spent with Patient Time attestation: Total time spent providing and/or coordinating discharge services: Time spent: Greater than 30 minutes Specific discharge activities: Dressing changes, follow up, medication instructions Exam Narrative: Weight 146.7 kg BMI 52.2 General - Awake and alert. No acute distress Eyes - PERRLA, EOM intact ENT - No thrush, No erythema Neck - No noticeable or palpable swelling Lymph Nodes - No lymphadenopathy Cardiovascular - RRR no m/r/g, no JVD Lungs: Clear to auscultation, No wheezing, use of accessory muscles, no crackles Skin - Skin warm and dry, with operative dressing in place on inside of left surgical wound. There is a moderate to large amount of serosang. drng present. There is a very fine, macular rash in a generalized pattern on entire body surface. No open areas, blisters, or other lesions. Abdomen - Normal bowel sounds, abdomen soft and nontender, obese Extremities - cyanosis or clubbing. Skin to LLE is red and tender surrounding the site of the abscess. Musculoskeletal - 5/5 strength, normal range of motion, no swollen or erythematous joints. Neurological ? Alert and oriented x 3, CN 2-12 grossly intact. Psych: Normal mood and affect DS: Data Data Completed and Pending Completed studies during hospitalization: ITS Impressions Lower Extremity CT 07/22/24 18:38 IMPRESSION: 7.0 x 8.3 x 4.9 cm hematoma, seroma or abscess along the lower posteromedial aspect of the upper left leg Edema of the left lower extremity Tricompartment osteoarthritis of the knee Labs on day of discharge: Labs from last 24 hours 07/25/24 05:43 PT 25.1 H INR 2.3 Creatinine 0.80 Estim Creat Clear Calc 97 Estimated GFR > 60 Preliminary micro results at discharge 07/22/24 22:28 Blood Culture - Preliminary Blood 07/22/24 22:28 Blood Culture - Preliminary Blood Discharge Plan Discharge Attending physician on discharge: Kassidy Luther Consulting providers: Hailey Brewer Discharging Clinician: Kassidy Luther Anticipated Discharge Date/Time: 07/25/24 14:08 Patient Disposition: Home, Self-Care Activity: may shower Diet: heart healthy Wound Care Instructions: change dressing daily Discharge Instructions: General surgery discharge instruction: * Change your left leg packing daily and cover with gauze or ABD pad and tape. You may remove the dressing and packing to shower daily over the incision with mild soap and water. 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 * Follow-up with Dr. Brewer in 2 weeks in the office. Call to schedule that appointment. [phone] Please take all medications as ordered. If you take your pain medications, please be cautious to not take it and drive, operate any heavy machinery or make any important decisions as it may impair your judgement. Return to the ER if you have any fever >100.4, any spread of redness and swelling, development of flu like symptoms or any other concerning symptoms. Please begin your home dose of Warfarin this evening at 4.5 mg. Continue all other home medications and routine follow up. Patient Instructions: Antibiotic Form, Warfarin (By mouth), Pain Management (DC) Patient Language: Latvian Stand Alone Forms: General Discharge Information, Work/School Release IP Follow-up/Referrals: Hailey Brewer MD [Physician] - 2 Weeks Marlene,Wan He MD [Primary Care Provider] - Call for Appointment Discharge Medications: New doxycycline hyclate 100 mg Tablet 100 mg PO Q12HR 10 Days Qty: 20 0RF oxycodone 5 mg Tablet 5 mg PO Q4H PRN (Reason: Pain Rated 4-6) Qty: 15 0RF Continued gabapentin 600 mg tablet 600 mg PO TID loperamide [Imodium] 2 mg Capsule 6 mg PO DAILY ergocalciferol (vitamin D2) [Vitamin D2] 10 mcg (400 unit) Tablet 10 mcg PO DAILY zonisamide 100 mg capsule 100 mg PO BID tolterodine 2 mg tablet 2 mg PO BID benzonatate 100 mg capsule 200 mg PO TID nortriptyline 10 mg capsule 10 mg PO BID esomeprazole magnesium 40 mg capsule,delayed release(DR/EC) 40 mg PO BID warfarin 2 mg tablet 4.5 mg PO DAILY ergocalciferol (vitamin D2) 1,250 mcg (50,000 unit) capsule 1,250 mcg PO WEEKLY Rx Instructions: administer on Tuesday simethicone [Gas-X] 80 mg Tablet,Chewable 80 mg PO DAILY escitalopram oxalate 20 mg tablet 20 mg PO DAILY trospium 20 mg tablet 20 mg PO BID Date of admission: 07/22/24 19:02 Primary Care Provider: MarleneWan Admitting Provider: J Luis Feliciano Attending physician on admission: Kassidy Luther Condition: Stable Quality VTE Prophylaxis VTE prophylaxis: pharmacologic ordered Hospitalist MIPS Heart Failure (Exclusion) Patient has history of Heart Transplant or Left Ventricular Assistive Device?: No IF YES, STOP HERE Heart Failure (Qualifier) Patient has current or prior documentation of LVEF less than or equal to 40%, or mod/servere depressed LVSF?: No IF NO, STOP HERE
[2024-07-25 14:12] VITALS: BP 115/47; PULSE 79; RESP 18; TEMP 36.8; O2SAT 97
== END 2024-07-25 15:40 | disposition home health service (06) | DRG 603 ==
LOC: ANHED 18:27 → ANH3MED 21:31
PROVIDERS: Internal Medicine; Student in an Organized Health Care Education/Training Program; Surgery; Admitting Provider Internal Medicine; Emergency Provider Emergency Medicine; PCP Internal Medicine; Visit Provider Nurse Practitioner Adult Health
PROC: 0J9M3ZZ Drainage of Left Upper Leg Subcutaneous Tissue and Fascia, Percutaneous Approach (ICD-10-PCS; principal; 2024-07-23 13:30)
DX: L03.116 Cellulitis of left lower limb (principal); Z68.43 Body mass index [BMI] 50.0-59.9, adult; L02.416 Cutaneous abscess of left lower limb; T50.905A Adverse effect of unspecified drugs, medicaments and biological substances, initial encounter; E78.5 Hyperlipidemia, unspecified; E66.01 Morbid (severe) obesity due to excess calories; F32.A Depression, unspecified; F41.9 Anxiety disorder, unspecified; I10 Essential (primary) hypertension; K21.9 Gastro-esophageal reflux disease without esophagitis; R32 Unspecified urinary incontinence; R79.1 Abnormal coagulation profile; Z98.84 Bariatric surgery status; Z90.49 Acquired absence of other specified parts of digestive tract; Z79.01 Long term (current) use of anticoagulants; Z86.718 Personal history of other venous thrombosis and embolism
CPT/HCPCS: 36415; 73701; 80048; 80053; 80202; 82565; 83605; 85025; 85610; 86140; 87040; 90714; 99285; A9270; J0457; J1171; J2003; J2405; J2704; J3010; J3370; J7030; J7120; Q9967

== ENCOUNTER 2025-01-01 13:30 | Observation (INO) | payer OTHER, SELFPAY ==
--- NOTE | ~2025-01-01 | US_ITS ---
EXAMINATION: US venous doppler LE RT DATE: 01/01/2025 15:48 INDICATION: pain/swelling behind knee, hx dvt . TECHNIQUE: Grayscale images without and with compression and Doppler images of the right lower extrem ity veins were obtained. COMPARISON: 02/03/2018 FINDINGS: Exam limited by body habitus. The right common femoral vein, profunda (deep) femoral vein, femoral ve in, popliteal vein, peroneal vein, posterior tibial veins, gastrocnemius vein, and greater saphenous vein are patent. IMPRESSION: No evidence of deep venous thrombosis, within the constraints noted above. Reviewed, dictated and finalized at location K.
--- NOTE | ~2025-01-01 | CT_ITS ---
CTA chest PE protocol Ordering provider: Laura Costa PA-C History: 59 years Female with . sob, dizziness, CP, hx of blood clots . Comparison: None. Technique: CT angiogram chest was performed following timed intravenous injection of contrast. Thin s lice axial images and reformatted coronal images were obtained. Three dimensional reformatted images of the chest were also obtained using a [employer] workstation. . Automated exposure control and iterati ve reconstruction technique were employed. The dose-length product was 846.74 mGy-cm. 100 mL Omnipaqu e 350 was given IV. Findings: PULMONARY ARTERIES: No pulmonary embolus. VISUALIZED THORACIC INLET: Normal. MEDIASTINUM: Aorta/coronary arteries: Mild atheromatous disease. Heart/other: The heart is not enlarged. Lymph nodes: No mediastinal or hilar adenopathy. Precarinal lymph nodes with the largest measures 1.2 cm. LUNGS: Alveolar opacification is seen in the right upper and lower lobes and in the left lower lobe suggesti ve of pneumonia. Pulmonary edema cannot be excluded. No pulmonary nodules or masses. No effusions. No pneumothorax. VISUALIZED UPPER ABDOMEN: Fat infiltration of the liver. Atrophic pancreas. Sliding hiatus hernia. Th ickened wall of the esophagus suggestive of reflux esophagitis. Postoperative changes in the stomach. Tiny cyst in the left kidney. Hypodensity most likely a cyst in the left lobe of the liver. Dilated CBD measuring 1.4 cm. Otherwise, the visualized upper abdomen is normal. MUSCULOSKELETAL: Soft tissues: The superficial soft tissues are normal. Bones: Age appropriate degenerative changes of the spine. IMPRESSION: 1. Alveolar opacification in the right upper lobe and both lower lobe suggestive of pneumonia. Pulmo nary edema is not excluded. Other differential include hemorrhage. Clinical correlation and follow-up advised. 2. No pulmonary embolism. Reviewed, dictated and finalized at location A. IMPRESSION: 1. Alveolar opacification in the right upper lobe and both lower lobe suggesti ve of pneumonia. Pulmonary edema is not excluded. Other differential include he morrhage. Clinical correlation and follow-up advised. 2. No pulmonary embolism.
[2025-01-01 13:33] VITALS: BP 153/76; PULSE 116; RESP 24; TEMP 37; O2SAT 96
--- NOTE | 2025-01-01 15:00 | ED_ITS ---
HPI - SOB/Dyspnea General Chief Complaint: Shortness of Breath/Dyspnea <ANA LILIA Sapp Last Filed: 01/01/25 15:09> Stated Complaint: SOb <ANA LILIA Sapp Last Filed: 01/01/25 15:09> Time Seen by Provider: 01/01/25 15:00 <ANA LILIA Sapp Last Filed: 01/01/25 15:09> Focused HPI: Patient is a 5-year-old female, with past medical history of lymphedema, GERD, gastric sleeve surgery, who presents to the ED with c/o shortness of breath. Patient reports she has been feeling increasingly short of breath today. She also report having a pain throughout her midsternal chest, down her left arm, across her upper back this morning around 9:00 a.m.. Pain has improved. She has not felt well today. Also reports having N/V/D, chills, dizziness. Denies fevers. She notes she was scheduled to receive a venous Doppler ultrasound of her right lower extremity with [facility] today as she has been having increased pain in her R posterior knee, however she fell asleep and did not make it to her appointment. She has history of multiple previous blood clots. She is on Eliquis 5 mg b.i.d., and reports compliance with this, however notes that she has developed blood clots in the past while on blood thinners. GENERAL: Well-appearing, morbidly obese with BMI of 45.9, and in no acute distress. HEAD: Normocephalic, atraumatic. CHEST: Clear to auscultation. ?No respiratory distress. HEART: Regular rate and rhythm.? MSK: Chronic lymphedema of BLE. Mild tenderness in R popliteal region. No significant calf tenderness. NEURO: ?Alert and oriented x3. Patient screened in triage and initial orders placed.? ?Additional care and disposition to be based upon?diagnostic testing and treatment. <ANA LILIA Sapp Last Filed: 01/01/25 15:09> Source: patient <ANA LILIA Sapp Filed: 01/01/25 15:09> Mode of arrival: ambulatory <Laura Costa PA-C - Last Filed: 01/01/25 15:09> Limitations: no limitations <Laura Costa PA-C - Last Filed: 01/01/25 15:09> History of Present Illness HPI Narrative: Agree with the above triage note with the following additions/corrections: Patient states at 4:00 a.m. this morning she began to feel short of breath then had midsternal chest pain described as a dull ache. She cannot identify any aggravating or alleviating factors for her chest pain or shortness of breath. She denies exertional symptoms, orthopnea. She denies radiating symptoms or prior cardiac history. She does endorse associated lightheadedness, generalized weakness and diarrhea. Denies fevers. States she has had a chronic cough for several years but is nonproductive. She saw her PCP yesterday and was scheduled for outpatient PFTs this Tuesday. She also notes chronic DVTs and follows with hematology at [facility]. She was switched from her Coumadin in August to Eliquis which she takes 5 mg b.i.d. and is compliant with. She has been having pain and swelling to the right knee for several weeks with no injury or trauma. States the pain is better at rest, worse when she is ambulating and bearing weight on her right knee. She had an x-ray of her right knee performed by her PCP yesterday which reportedly showed severe osteoarthritis and effusion. She is concerned she may have another DVT. She otherwise denies increase in lower extremity edema but does have a history of lymphedema. Denies redness or erythema to her legs. <Maya Whitmore PA-C - Last Filed: 01/01/25 18:12> Related Data Home Medications: Home Medications ?Medication ?Instructions ?Recorded ?Confirmed ?Last Taken ?Type benzonatate 100 mg capsule 200 mg PO TID 07/22/24 08/21/24 Unknown History ergocalciferol (vitamin D2) 1,250 1,250 mcg PO WEEKLY 07/22/24 08/21/24 Unknown History mcg (50,000 unit) capsule ergocalciferol (vitamin D2) 10 mcg 10 mcg PO DAILY 07/22/24 08/21/24 Unknown History (400 unit) tablet escitalopram oxalate 20 mg tablet 20 mg PO DAILY 07/22/24 08/21/24 Unknown History esomeprazole magnesium 40 mg 40 mg PO BID 07/22/24 08/21/24 Unknown History capsule,delayed release gabapentin 600 mg tablet 600 mg PO TID 07/22/24 08/21/24 Unknown History loperamide 2 mg capsule 6 mg PO DAILY 07/22/24 08/21/24 Unknown History nortriptyline 10 mg capsule 10 mg PO BID 07/22/24 08/21/24 Unknown History simethicone 80 mg chewable tablet 80 mg PO DAILY 07/22/24 08/21/24 Unknown History tolterodine 2 mg tablet 2 mg PO BID 07/22/24 08/21/24 Unknown History trospium 20 mg tablet 20 mg PO BID 07/22/24 08/21/24 Unknown History zonisamide 100 mg capsule 100 mg PO BID 07/22/24 08/21/24 Unknown History <Laura Costa PA-C - Last Filed: 01/01/25 15:09> Allergies/Adverse Reactions: Allergies Allergy/AdvReac Type Severity Reaction Status Date / Time clavulanic acid Allergy Mild HIVES Verified 01/01/25 13:36 latex Allergy Mild hives Verified 01/01/25 13:36 morphine Allergy Mild VOMITTING Verified 01/01/25 13:36 Penicillins Allergy Mild HIVES Verified 01/01/25 13:36 Sulfa (Sulfonamide Allergy Mild HIVES Verified 01/01/25 13:36 Antibiotics) celecoxib Allergy Unknown Unknown Verified 01/01/25 13:36 amoxicillin (From Augmentin) Allergy Hives Verified 01/01/25 13:36 cephalexin Allergy Hives Verified 01/01/25 13:36 BETALACTAMASEIN Allergy Mild HIVES Uncoded 01/01/25 13:36 <Laura Costa PA-C - Last Filed: 01/01/25 15:09> Review of Systems 2 Review of Systems: All systems reviewed & are unremarkable except as noted in HPI and below <Maya Whitmore PA-C - Last Filed: 01/01/25 18:12> PMFSH Past Medical History Medical History: Medical History Medication reaction Urge urinary incontinence Anxiety GERD (gastroesophageal reflux disease) Hyperlipidemia Essential hypertension DVT of lower extremity, bilateral Body mass index (BMI) greater than 50 <Laura Costa PA-C - Last Filed: 01/01/25 15:09> Surgical History Surgical History: Surgical History Hx of cholecystectomy Open cholecystectomy in the 1990s History of sleeve gastrectomy (2017) <Laura Costa PA-C - Last Filed: 01/01/25 15:09> Family History Family History: Family History Father Acute myocardial infarction Son Brainstem tumor Sibling Raynaud disease <Laura Costa PA-C - Last Filed: 01/01/25 15:09> Social History Social History: Social History Social History: Patient has been for many years. She had 1 child who of a brain stem tumor at age 5. She lives alone. She rarely drinks alcohol in minimal amounts. She is a lifelong nonsmoker and denies history of illicit substance use. 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 Code status: Full code Surrogate decision maker: Annemarie Hood (mother) Smoking status: Never smoker Alcohol intake: current Alcohol use details: Rare in minor amounts Substance use: never Substance use type: does not use Do You Feel Safe in your Home?: Yes Lack of Transportation: No Lack of Food: Never True Current Housing: I Have Housing Concerned About Future Housing: No Difficulty Paying Gas/Electric Bills: No Difficulty Paying for Meds: No Currently Unemployed: No Education: Associate Degree Difficulty w/ Childcare or Family Care: No Spiritual care concerns: No <Laura Costa PA-C - Last Filed: 01/01/25 15:09> Exam 2 Narrative: GENERAL: Well-appearing, well-nourished, and in no acute distress. HEAD: Normocephalic, atraumatic. EYES: EOMI. ENT: Nares clear, no rhinorrhea or epistaxis. Mucous membranes dry. NECK: Supple. CHEST: Crackles in the lower lung small bilaterally. No wheezing, rales or rhonchi. Patient satting 96% on room air in no respiratory distress, speaking in full sentences HEART: Regular rate and rhythm. No murmur heard. Normal peripheral pulses. ABDOMEN: Soft, nontender, nondistended, normal active bowel sounds. EXTREMITIES: Normal range of motion. Extensive nonpitting lymphedema to bilateral lower extremities. Tenderness to the posterior right knee with effusion just inferior to the anterior knee. No warmth or erythema, full active and passive range of motion. Extremities are warm and dry, cap refill less than 2. Unable to palpate DP pulses due to body habitus, DP pulses are able to be dopplered. SKIN: Warm, dry, no rash. NEURO: No focal deficits. Alert and oriented x3 <Maya Whitmore PA-C - Last Filed: 01/01/25 18:12> Course BUSINESS SYSTEMS ADMINISTRATOR/PA Physician Supervision For this patient encounter, I reviewed the BUSINESS SYSTEMS ADMINISTRATOR or PA documentation, treatment plan, and medical decision making; and I had [id number] time with this patient. <Austin Sellers MD - Last Filed: 01/01/25 20:03> Vital Signs Vital signs: Vital Signs Temperature 98.6 F 01/01/25 13:33 Pulse Rate 116 H 01/01/25 13:33 Respiratory Rate 24 H 01/01/25 13:33 Blood Pressure 153/76 H 01/01/25 13:33 Pulse Oximetry 96 01/01/25 13:33 Oxygen Delivery Room Air 01/01/25 13:33 Temperature 98.6 F 01/01/25 13:33 Pulse Rate 113 H 01/01/25 19:20 Respiratory Rate 20 01/01/25 19:20 Blood Pressure 134/69 01/01/25 19:20 Pulse Oximetry 97 01/01/25 19:20 Oxygen Delivery Room Air 01/01/25 18:25 <Laura Costa PA-C - Last Filed: 01/01/25 15:09> Vital Signs Temperature 98.6 F 01/01/25 13:33 Pulse Rate 116 H 01/01/25 13:33 Respiratory Rate 24 H 01/01/25 13:33 Blood Pressure 153/76 H 01/01/25 13:33 Pulse Oximetry 96 01/01/25 13:33 Oxygen Delivery Room Air 01/01/25 13:33 Temperature 98.6 F 01/01/25 13:33 Pulse Rate 113 H 01/01/25 19:20 Respiratory Rate 20 01/01/25 19:20 Blood Pressure 134/69 01/01/25 19:20 Pulse Oximetry 97 01/01/25 19:20 Oxygen Delivery Room Air 01/01/25 18:25 <Maya Whitmore PA-C - Last Filed: 01/01/25 18:12> Vital Signs Temperature 98.6 F 01/01/25 13:33 Pulse Rate 116 H 01/01/25 13:33 Respiratory Rate 24 H 01/01/25 13:33 Blood Pressure 153/76 H 01/01/25 13:33 Pulse Oximetry 96 01/01/25 13:33 Oxygen Delivery Room Air 01/01/25 13:33 Temperature 98.6 F 01/01/25 13:33 Pulse Rate 113 H 01/01/25 19:20 Respiratory Rate 20 01/01/25 19:20 Blood Pressure 134/69 01/01/25 19:20 Pulse Oximetry 97 01/01/25 19:20 Oxygen Delivery Room Air 01/01/25 18:25 <Austin Sellers MD - Last Filed: 01/01/25 20:03> MDM - SOB/Dyspnea MDM Narrative Medical decision making narrative: MSE by ARMANDO in triage. <Laura Costa PA-C - Last Filed: 01/01/25 15:09> MSE by ARMANDO in triage. 59-year-old female with history of GERD, hyperlipidemia, hypertension, DVT on Eliquis, lymphedema presents emergency department for chest pain, shortness of breath, generalized weakness since 4:00 a.m. this morning. Reporting associated diarrhea, cough. Also having several weeks of atraumatic right knee pain/swelling. Had x-rays performed by her PCP yesterday which showed severe osteoarthritis and effusion. This is consistent with her exam. Vital significant for tachycardia 116 and tachypnea of 24. Patient does not appear to be in any respiratory distress on my evaluation. She is satting 96% on room air and speaking in full sentences. Lung sounds remarkable for crackles to lower lung small. Mucous membranes are dry and she is tachy, will provide soft hydration of 500cc fluids. She does have extensive lymphedema bilaterally with mildly increased edema to the right knee and tenderness to the posterior knee. She has no signs or symptoms of septic arthritis with no erythema or edema, full active and passive range of motion without difficulty. Pulses dopplered. Her workup here shows no leukocytosis or anemia. Her chemistries are largely unremarkable. BNP is within normal limits when age adjusted. Her viral swabs are negative. Right lower extremity venous duplex shows no evidence of DVT, notably exam is limited by body habitus. CTA chest PE shows alveolar opacification in the right upper lobe and both lower lobes suggestive of pneumonia, pulmonary edema is not excluded other differential includes hemorrhage with recommendations for follow-up advised. No PE. EKG shows sinus tachycardia with rate of 118, right bundle branch block, TX interval, normal QRS duration, she Patient updated on results. I suspect her symptoms are due to pneumonia. She has no history of CHF, BNP is normal when age adjusted and she denies changes to her lower extremity edema/lymphedema other than some swelling to the right knee. However, given hx and CTA findings, I do feel she can benefit for observation to ensure she is responding appropriately to IV antibiotics and if not may require echocardiogram or repeat CT (due to concern for hemorrhage, however seems less likely given no hemoptysis, stable saturations) if needed. Patient has numerous antibiotic allergies, she was started on Levaquin to cover CAP. Discussed with hospitalist BUSINESS SYSTEMS ADMINISTRATOR, Carol, who recommends consult to pulmonology given possible hemorrhage on CT. Discussed with pulmonology, Dr. Garcia, who feels hemorrhage is less likely. Advises treatment of CAP and available for consult if patient's clinical status changes. Updated Carol who agrees to admission. <Maya Whitmore PA-C - Last Filed: 01/01/25 18:12> Lab Data Result diagrams: 01/01/25 15:20 01/01/25 15:20 <Laura Costa PA-C - Last Filed: 01/01/25 15:09> Labs: Lab Results 01/01/25 01/01/25 Range/Units 15:20 18:09 WBC 8.0 (4.5-10.0) K/mm3 RBC 4.73 (4.2-5.4) M/mm3 Hgb 15.0 D (12.0-15.0) g/dL Hct 46.4 (37.0-47.0) % MCV 98.1 (80-100) fl MCH 31.7 (26-34) pg MCHC 32.3 (32-36) g/dl RDW 13.2 (11.5-14.5) % Plt Count 222 (150-375) k/mm3 MPV 9.8 (7.4-10.4) fl Immature Gran % (Auto) 0.6 H (0-0.5) % Neut % (Auto) 84.3 H (45.5-73.1) % Lymph % (Auto) 4.4 L (18.3-44.2) % Hyde % (Auto) 9.8 H (2.6-8.5) % Eos % (Auto) 0.1 (0-4.4) % Baso % (Auto) 0.8 (0.2-1.2) % Lymph # (Auto) 0.35 L (0.9-3.2) K/mm3 Hyde # (Auto) 0.8 H (0.1-0.6) K/mm3 Eos # (Auto) 0.0 (0-0.3) K/mm3 Baso # (Auto) 0.1 (0.0-0.1) K/mm3 Abs Immat Gran (auto) 0.05 H (0.00-0.031) K/mm3 Absolute Neuts (auto) 6.7 (1.3-6.7) K/mm3 Absolute Nucleated RBC 0.000 (0.0-0.012) K/mm3 Nucleated RBC % 0.0 (0.0-0.2) % PT 14.6 (11.1-14.7) Seconds INR 1.1 APTT 25.1 (22.3-36.8) Seconds Sodium 145 (137-145) mmol/L Potassium 3.4 (3.4-5.0) mmol/L Chloride 104 (98-107) mmol/L Carbon Dioxide 26 (22-30) mmol/L Anion Gap 15 H (4-12) mmol/L BUN 20 H (7-17) mg/dL Creatinine 0.77 (0.7-1.0) mg/dL Estim Creat Clear Calc 93 ml/min Estimated GFR > 60 (59 - ) Glucose 153 H (65-110) mg/dL Lactic Acid 2.9 H (0.7-2.0) mmol/L Calcium 8.7 (8.4-10.2) mg/dL Total Bilirubin 0.7 (0.2-1.3) mg/dL AST 54 H (14-36) U/L ALT 33 (6-35) U/L Alkaline Phosphatase 102 (38-126) U/L Troponin I < 0.012 < 0.012 (0.000-0.034) ng/mL NT-Pro-B Natriuret Pep 486 H (19.9-100) pg/mL Total Protein 7.0 (6.3-8.2) g/dL Albumin 4.1 (3.5-5.1) g/dL Influenza A (RT-PCR) Negative (Negative) Influenza B (RT-PCR) Negative (Negative) RSV (RT-PCR) Negative (Negative) SARS-CoV-2 RNA (RT-PCR) Negative (Negative) <Laura Costa PA-C - Last Filed: 01/01/25 15:09> Lab Results 01/01/25 01/01/25 Range/Units 15:20 18:09 WBC 8.0 (4.5-10.0) K/mm3 RBC 4.73 (4.2-5.4) M/mm3 Hgb 15.0 D (12.0-15.0) g/dL Hct 46.4 (37.0-47.0) % MCV 98.1 (80-100) fl MCH 31.7 (26-34) pg MCHC 32.3 (32-36) g/dl RDW 13.2 (11.5-14.5) % Plt Count 222 (150-375) k/mm3 MPV 9.8 (7.4-10.4) fl Immature Gran % (Auto) 0.6 H (0-0.5) % Neut % (Auto) 84.3 H (45.5-73.1) % Lymph % (Auto) 4.4 L (18.3-44.2) % Hyde % (Auto) 9.8 H (2.6-8.5) % Eos % (Auto) 0.1 (0-4.4) % Baso % (Auto) 0.8 (0.2-1.2) % Lymph # (Auto) 0.35 L (0.9-3.2) K/mm3 Hyde # (Auto) 0.8 H (0.1-0.6) K/mm3 Eos # (Auto) 0.0 (0-0.3) K/mm3 Baso # (Auto) 0.1 (0.0-0.1) K/mm3 Abs Immat Gran (auto) 0.05 H (0.00-0.031) K/mm3 Absolute Neuts (auto) 6.7 (1.3-6.7) K/mm3 Absolute Nucleated RBC 0.000 (0.0-0.012) K/mm3 Nucleated RBC % 0.0 (0.0-0.2) % PT 14.6 (11.1-14.7) Seconds INR 1.1 APTT 25.1 (22.3-36.8) Seconds Sodium 145 (137-145) mmol/L Potassium 3.4 (3.4-5.0) mmol/L Chloride 104 (98-107) mmol/L Carbon Dioxide 26 (22-30) mmol/L Anion Gap 15 H (4-12) mmol/L BUN 20 H (7-17) mg/dL Creatinine 0.77 (0.7-1.0) mg/dL Estim Creat Clear Calc 93 ml/min Estimated GFR > 60 (59 - ) Glucose 153 H (65-110) mg/dL Lactic Acid 2.9 H (0.7-2.0) mmol/L Calcium 8.7 (8.4-10.2) mg/dL Total Bilirubin 0.7 (0.2-1.3) mg/dL AST 54 H (14-36) U/L ALT 33 (6-35) U/L Alkaline Phosphatase 102 (38-126) U/L Troponin I < 0.012 < 0.012 (0.000-0.034) ng/mL NT-Pro-B Natriuret Pep 486 H (19.9-100) pg/mL Total Protein 7.0 (6.3-8.2) g/dL Albumin 4.1 (3.5-5.1) g/dL Influenza A (RT-PCR) Negative (Negative) Influenza B (RT-PCR) Negative (Negative) RSV (RT-PCR) Negative (Negative) SARS-CoV-2 RNA (RT-PCR) Negative (Negative) <Maya Whitmore PA-C - Last Filed: 01/01/25 18:12> Lab Results 01/01/25 01/01/25 Range/Units 15:20 18:09 WBC 8.0 (4.5-10.0) K/mm3 RBC 4.73 (4.2-5.4) M/mm3 Hgb 15.0 D (12.0-15.0) g/dL Hct 46.4 (37.0-47.0) % MCV 98.1 (80-100) fl MCH 31.7 (26-34) pg MCHC 32.3 (32-36) g/dl RDW 13.2 (11.5-14.5) % Plt Count 222 (150-375) k/mm3 MPV 9.8 (7.4-10.4) fl Immature Gran % (Auto) 0.6 H (0-0.5) % Neut % (Auto) 84.3 H (45.5-73.1) % Lymph % (Auto) 4.4 L (18.3-44.2) % Hyde % (Auto) 9.8 H (2.6-8.5) % Eos % (Auto) 0.1 (0-4.4) % Baso % (Auto) 0.8 (0.2-1.2) % Lymph # (Auto) 0.35 L (0.9-3.2) K/mm3 Hyde # (Auto) 0.8 H (0.1-0.6) K/mm3 Eos # (Auto) 0.0 (0-0.3) K/mm3 Baso # (Auto) 0.1 (0.0-0.1) K/mm3 Abs Immat Gran (auto) 0.05 H (0.00-0.031) K/mm3 Absolute Neuts (auto) 6.7 (1.3-6.7) K/mm3 Absolute Nucleated RBC 0.000 (0.0-0.012) K/mm3 Nucleated RBC % 0.0 (0.0-0.2) % PT 14.6 (11.1-14.7) Seconds INR 1.1 APTT 25.1 (22.3-36.8) Seconds Sodium 145 (137-145) mmol/L Potassium 3.4 (3.4-5.0) mmol/L Chloride 104 (98-107) mmol/L Carbon Dioxide 26 (22-30) mmol/L Anion Gap 15 H (4-12) mmol/L BUN 20 H (7-17) mg/dL Creatinine 0.77 (0.7-1.0) mg/dL Estim Creat Clear Calc 93 ml/min Estimated GFR > 60 (59 - ) Glucose 153 H (65-110) mg/dL Lactic Acid 2.9 H (0.7-2.0) mmol/L Calcium 8.7 (8.4-10.2) mg/dL Total Bilirubin 0.7 (0.2-1.3) mg/dL AST 54 H (14-36) U/L ALT 33 (6-35) U/L Alkaline Phosphatase 102 (38-126) U/L Troponin I < 0.012 < 0.012 (0.000-0.034) ng/mL NT-Pro-B Natriuret Pep 486 H (19.9-100) pg/mL Total Protein 7.0 (6.3-8.2) g/dL Albumin 4.1 (3.5-5.1) g/dL Influenza A (RT-PCR) Negative (Negative) Influenza B (RT-PCR) Negative (Negative) RSV (RT-PCR) Negative (Negative) SARS-CoV-2 RNA (RT-PCR) Negative (Negative) <Austin Sellers MD - Last Filed: 01/01/25 20:03> Discharge Plan Discharge Clinical Impression: Lymphedema CAP (community acquired pneumonia) Qualifiers: Laterality: right Lung location: upper lobe of lung Qualified Code(s): J18.9 - Pneumonia, unspecified organism Pain in right knee Qualifiers: Chronicity: acute Qualified Code(s): M25.561 - Pain in right knee <Laura Costa PA-C - Last Filed: 01/01/25 15:09> Patient Disposition: Still a Patient <Laura Costa PA-C - Last Filed: 01/01/25 15:09> Condition: Stable <Laura Costa PA-C - Last Filed: 01/01/25 15:09>
--- NOTE | 2025-01-01 15:01 | ECG_ITS ---
Test Date: 2025-01-01 15:12:30 Measurements Intervals [place] Rate: 118 P: 2 OK: 147 QRS: 30 QRSD: 147 T: 20 QT: 349 QTc: 490 Interpretive Statements SINUS TACHYCARDIA RIGHT BUNDLE BRANCH BLOCK [120+ ms QRS DURATION, UPRIGHT V1, 40+ ms S IN I/aVL/V4/V5/V6] ABNORMAL ECG No previous ECG available for comparison Electronically Signed On 01-02-2025 08:18:11 CDT by Ayaz Mayo M.D.
[2025-01-01 15:31] LABS: Basophils Absolute Auto 0.1 K/mm3 (0.0-0.1); Basophils Percent Auto 0.8 % (0.2-1.2); Eosinophils Percent Auto 0.1 % (0-4.4); Hematocrit 46.4 % (37.0-47.0); Immature Granulocyte Absolute 0.05 K/mm3 (0.00-0.031); Immature Granulocyte Percent A 0.6 % (0-0.5); Lymphocytes Absolute Auto 0.35 K/mm3 (0.9-3.2); Lymphocytes Percent Auto 4.4 % (18.3-44.2); Mean Corpuscular HGB Conc 32.3 g/dl (32-36); Mean Corpuscular Hemoglobin 31.7 pg (26-34); Mean Corpuscular Volume 98.1 fl (80-100); Mean Platelet Volume 9.8 fl (7.4-10.4); Monocytes Absolute Auto 0.8 K/mm3 (0.1-0.6); Monocytes Percent Auto 9.8 % (2.6-8.5); Neutrophils Absolute Auto 6.7 K/mm3 (1.3-6.7); Neutrophils Percent Auto 84.3 % (45.5-73.1); Platelet Count Result 222 k/mm3 (150-375); Red Blood Count 4.73 M/mm3 (4.2-5.4); Red Cell Distribution Width 13.2 % (11.5-14.5)
[2025-01-01 15:40] LABS: INR 1.1; Prothrombin Time 14.6 Seconds (11.1-14.7)
[2025-01-01 15:41] LABS: Partial Thromboplastin Time 25.1 Seconds (22.3-36.8)
[2025-01-01 15:43] LABS: Alanine Aminotransferase 33 U/L (6-35); Albumin Level 4.1 g/dL (3.5-5.1); Alkaline Phosphatase 102 U/L (38-126); Anion Gap 15 mmol/L (4-12); Aspartate Amino Transferase 54 U/L (14-36); Bilirubin,Total 0.7 mg/dL (0.2-1.3); Blood Urea Nitrogen 20 mg/dL (7-17); Calcium 8.7 mg/dL (8.4-10.2); Carbon Dioxide 26 mmol/L (22-30); Chloride 104 mmol/L (98-107); Estimated CRCL calculation 93 ml/min; Estimated Glomerular Filt Rate > 60; Glucose 153 mg/dL (65-110); Potassium 3.4 mmol/L (3.4-5.0); Sodium 145 mmol/L (137-145)
[2025-01-01 15:55] LABS: NT Pro B Type Natriuretic Pept 486 pg/mL (19.9-100); Troponin I < 0.012 ng/mL (0.000-0.034)
[2025-01-01 16:08] LABS: Influenza A QL RT-PCR Negative (Negative); Influenza B QL RT-PCR Negative (Negative); RSV RNA, RT-PCR Negative (Negative); SARS-CoV-2 RNA PCR Negative (Negative)
--- OUTSIDE RECORDS SUMMARY | 2025-01-01 17:45 | XMS_ITS | Encounter Summary ---
Author Organization [facility] Healthcare Address [address] [place] [address] Care Team Providers Care Electric Relay Tester Name Role Phone Wan Rosario MD Primary Care Provider [phone] Brenda Cueto COAT CHECK ATTENDANT Unavailable Sonja Ball DPT Unavailable Gerry Vaughn MD Unavailable [phone] Daphne Wise NP Primary Care Provider [phone] Roxann Galeana MD Unavailable [phone] July Hartman MD PhD Unavailable [phone] Reason for Visit * Reason Onset Date Comments Med Refill 05/19/2020 Encounter Details Date Type Department Care Team (Late st Contact Info) Description 05/19/2020 Telephone [facility] [address] [facility] [address] [facility] [address] [place], [place] [id number] July Hartman MD PhD [address] [facility] [phone] [place] [address] Med Refill Social History Tobacco Use Types Packs/Day Years Used Date Smoking Tobacco: Former Cigarettes Smokeless Tobacco: Never Comments:smoked for 1 year a t 16, not since then Alcohol Use Standard Drinks/Week Comments No 0 (1 standard drink = 0.6 oz pur e alcohol) PHQ-2 Answer Date Recorded PHQ-2 Score 0 04/04/2019 Comments Unknown Sex and Gender Information Value Date Recorded Sex Assigned at Not on file 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 Author CCM Chronic Pain Care Plan Chronic Care Management No change(05/04 7:47 AM CDT) No Arlene Montano RN Note: Problem: Chronic Pain Goals: 1. Minimize further functional decline 2. Maximize quality of life 3. Control pain Strategies: - Activity/exercise program recommendation - Conservative stepwise pain medicine strategy with multi-disciplinary approach - Recommend healthy lifestyle strategies and compensatory methods as needed documented as of this encounter Visit Diagnoses Not on filedocumented in this encounter Additional Health Concerns Infection Onset Date Last Indicated Resolved Time COVID: Suspected 11/09/2022 11/09/2022 11/09/2022 9:59 PM CDT documented as of this encounter Care Teams Electric Relay Tester Relationship Specialty Start Date End Date Wan Rosario MD [address] [facility] [address] [place] [address] PCP - General 11/12/16 10/08/24 Dpahne iWse NP [address] [facility] [address] [place] [address] PCP - General Family Medicine 10/09/24 Brenda Cueto NP [address] [place] [address] Nurse Practitioner Hematology 09/23/20 Sonja Ball DPT [address] [place] [address] Physical Therapist Physical Therapy 09/24/21 11/25/22 Gerry Vaughn MD [address] DEPT OPHTHALMOLOGY, [address] [place] [address] Surgeon Ophthalmology 09/24/22 Roxann Galeana MD [address] [facility] [address] [place] [address] Consulting Physician Gastroenterology 10/09/24 July Hartman MD PhD [address] [place] [address] Consulting Physician Anesthesiology 10/09/24 documented as of this encounter
--- OUTSIDE RECORDS SUMMARY | 2025-01-01 17:45 | XMS_ITS | Encounter Summary ---
Author Organization [facility] Address [address] [facility] [address] [place] [address] Phone Care Team Providers Care Skid Man Name Role Phone Wan Rosario MD Primary Care Provider [phone] Brenda Cueto NP Unavailable [phone] Gerry Vaughn MD Unavailable [phone] Daphne Wise NP Primary Care Provider [phone] Roxann Galeana MD Unavailable [phone] July Hartman MD PhD Unavailable [phone] Encounter Details Date Type Department Care Team (Latest Contact Info) Description 02/11/2023 Orders Only [facility] Scanning, Provider Social History Tobacco Use Types Packs/Day Years Used Date Smoking Tobacco: Former Cigarettes Smokeless Tobacco: Never Comments:smoked for 1 year a t 16, not since then Alcohol Use Standard Drinks/Week Comments No 0 (1 standard drink = 0.6 oz pur e alcohol) AUDIT-C Answer Date Recorded Q1: How often do you have a drink containing alc ohol? Monthly or less 09/24/2022 Q2: How many drinks containi ng alcohol do you have on a typical day when you are drinking? 1 or 2 09/24/2022 Q3: How often do you have si x or more drinks on one occasion? 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 Gender Identity Female 11/13/2020 10:00 PM CDT Sexual Orientation Straight 11/13/2020 10 :00 PM CDT documented as of this encounter Plan of Treatment Scheduled Procedures Name Priority Associated Diagnoses Date/Ti me ESOPHAGOGASTRODUODENOSCOPY Gastroesophageal reflux disease, esophagitis presence not [...] as needed documented as of this encounter Procedures Procedure Name Priority Date/Time Associated Diagnosis Comments SCAN - LABS 02/11/2023 documented in this encounter Results * SCAN - LABS (02/11/2023) us Provider Scanning Final Result documented in this encounter Visit Diagnoses Not on filedocumented in this encounter Care Teams Skid Man Relationship Specialty Start Date End Date Wan Rosario MD [address] [facility] [address] [place] [address] PCP - General 11/12/16 10/08/24 Daphne Wise NP [address] [facility] [address] [place] [address] PCP - General Family Medicine 10/09/24 Brenda Cueto NP [address] [place] [address] Nurse Practitioner Hematology 09/23/20 Gerry Vaughn MD [address] DEPT OPHTHALMOLOGY, [address] [place] [address] Surgeon Ophthalmology 09/24/22 Roxann Galeana MD [address] [facility] [address] [place] [address] Consulting Physician Gastroenterology 10/09/24 July Hartman MD PhD [address] [place] [address] Consulting Physician Anesthesiology 10/09/24 documented as of this encounter
--- OUTSIDE RECORDS SUMMARY | 2025-01-01 17:45 | XMS_ITS | Encounter Summary ---
Author Organization [facility] Address [address] [facility] [address] [place] [address] Phone Care Team Providers Care Process Development Manager Name Role Phone Wan Rosario MD Primary Care Provider [phone] Brenda Cueto REFRIGERATOR CAR ICER Unavailable [phone] Sonja Ball DPT Unavailable Gerry Vaughn MD Unavailable [phone] Daphne Wise NP Primary Care Provider [phone] Roxann Galeana MD Unavailable [phone] July Hartman MD PhD Unavailable [phone] Encounter Details Date Type Department Care Team (Latest Contact Info) Description 07/29/2020 Orders Only [facility] Scanning, Provider Social [...] on file 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 Gender Identity Female 11/13/2020 10:00 PM CDT [...] Date/Time Associated Diagnosis Comments SCAN - LABS 07/29/2020 documented in this encounter Results * SCAN - LABS (07/29/2020) us Provider Scanning Final Result documented in this encounter Visit Diagnoses Not on filedocumented in this encounter Additional Health Concerns Infection Onset Date Last Indicated Resolved Time COVID: Suspected 11/09/2022 11/09/2022 11/09/2022 9:59 PM CDT documented as of this encounter Care Teams Process Development Manager Relationship Specialty Start Date End Date Wan Rosario MD [address] [facility] [address] [place] [address] PCP - General 11/12/16 10/08/24 Daphne Wise NP [address] [facility] [address] [place] [address] PCP - General Family Medicine 10/09/24 Brenda Cueto NP [address] [place] [address] Nurse Practitioner Hematology 09/23/20 Sonja Ball DPT [address] [place] [address] Physical Therapist Physical Therapy 09/24/21 11/25/22 Gerry Vaughn MD [address] DEPT OPHTHALMOLOGY, [address] [place] [address] Surgeon Ophthalmology 09/24/22 Roxann Galeana MD [address] [facility] [address] [place] [address] Consulting Physician Gastroenterology 10/09/24 July Hartman MD PhD [address] [place] [address] Consulting Physician Anesthesiology 10/09/24 documented as of this encounter
--- OUTSIDE RECORDS SUMMARY | 2025-01-01 17:45 | XMS_ITS | Encounter Summary ---
Author Organization [facility] Address [address] [facility] [address] [place] [address] Phone Care Team Providers Care Donor Services Specialist Name Role Phone Wan Rosario MD Primary Care Provider [phone] Brenda Cueto ONLINE SERVICES MANAGER Unavailable [phone] Sonja Ball DPT Unavailable Gerry Vaughn MD Unavailable [phone] Daphne Wise NP Primary Care Provider [phone] Roxann Galeana MD Unavailable [phone] July Hartman MD PhD Unavailable [phone] Encounter Details Date Type Department Care Team (Latest Contact Info) Description 06/19/2020 Orders Only [facility] Scanning, Provider Social [...] on file 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 Gender Identity Female 11/13/2020 10:00 PM [...] Date/Time Associated Diagnosis Comments SCAN - LABS 06/19/2020 documented in this encounter Results * SCAN - LABS (06/19/2020) us Provider Scanning Final Result documented in this encounter Visit Diagnoses Not on filedocumented in this encounter Additional Health Concerns Infection Onset Date Last Indicated Resolved Time COVID: Suspected 11/09/2022 11/09/2022 11/09/2022 9:59 PM CDT documented as of this encounter Care Teams Donor Services Specialist Relationship Specialty Start Date End Date Wan Rosario MD [address] [facility] [address] [place] [address] PCP - General 11/12/16 10/08/24 Daphne Wise NP [address] [facility] [address] [place] [address] PCP - General Family Medicine 10/09/24 Brenda Cueto NP [address] [place] [address] Nurse Practitioner Hematology 09/23/20 Sonja Ball DPT [address] [place] [address] Physical Therapist Physical Therapy 09/24/21 11/25/22 Gerry Vaughn MD [address] DEPT OPHTHALMOLOGY, [address] [place] [address] Surgeon Ophthalmology 09/24/22 Roxann Galeana MD [address] [facility] [address] [place] [address] Consulting Physician Gastroenterology 10/09/24 July Hartman MD PhD [address] [place] [address] Consulting Physician Anesthesiology 10/09/24 documented as of this encounter
--- OUTSIDE RECORDS SUMMARY | 2025-01-01 17:45 | XMS_ITS | Encounter Summary ---
Author Organization [facility] Address [address] [facility] [address] [place] [address] Phone Care Team Providers Care Educational Aid Name Role Phone Wan Rosario MD Primary Care Provider [phone] Brenda Cueto CONTRACT WRITER Unavailable [phone] Sonja Ball DPT Unavailable Gerry Vaughn MD Unavailable [phone] Daphne Wise NP Primary Care Provider [phone] Roxann Galeana MD Unavailable [phone] July Hartman MD PhD Unavailable [phone] Encounter Details Date Type Department Care Team (Latest Contact Info) Description 05/02/2020 Orders Only [facility] Scanning, Provider Social [...] on file 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 Gender Identity Female 11/13/2020 10:00 PM CDT [...] Date/Time Associated Diagnosis Comments SCAN - LABS 05/02/2020 documented in this encounter Results * SCAN - LABS (05/02/2020) us Provider Scanning Final Result documented in this encounter Visit Diagnoses Not on filedocumented in this encounter Additional Health Concerns Infection Onset Date Last Indicated Resolved Time COVID: Suspected 11/09/2022 11/09/2022 11/09/2022 9:59 PM CDT documented as of this encounter Care Teams Educational Aid Relationship Specialty Start Date End Date Wan Rosario MD [address] [facility] [address] [place] [address] PCP - General 11/12/16 10/08/24 Daphne Wise NP [address] [facility] [address] [place] [address] PCP - General Family Medicine 10/09/24 Brenda Cueto NP [address] [place] [address] Nurse Practitioner Hematology 09/23/20 Sonja Ball DPT [address] [place] [address] [place] [address] Physical Therapist Physical Therapy 09/24/21 11/25/22 Gerry Vaughn MD [address] DEPT OPHTHALMOLOGY, [address] [place] [address] Surgeon Ophthalmology 09/24/22 Roxann Galeana MD 1 [facility] [address] [place] [address] Consulting Physician Gastroenterology 10/09/24 July Hartman MD PhD [address] [place] [address] Consulting Physician Anesthesiology 10/09/24 documented as of this encounter
--- OUTSIDE RECORDS SUMMARY | 2025-01-01 17:45 | XMS_ITS | Encounter Summary ---
Author Organization [facility] Address [address] [facility] [address] [place] [address] Phone Care Team Providers Care Blind Aide Name Role Phone Wan Rosario MD Primary Care Provider [phone] Brenda Cueto TOOL CLERK Unavailable [phone] Sonja Ball DPT Unavailable Gerry Vaughn MD Unavailable [phone] Daphne Wise NP Primary Care Provider [phone] Roxann Galeana MD Unavailable [phone] July Hartman MD PhD Unavailable [phone] Encounter Details Date Type Department Care Team (Latest Contact Info) Description 08/29/2020 Orders Only [facility] Scanning, Provider Social [...] on file 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 Gender Identity Female 11/13/2020 10:00 PM CDT [...] Date/Time Associated Diagnosis Comments SCAN - LABS 08/29/2020 documented in this encounter Results * SCAN - LABS (08/29/2020) Provider Scanning Final Result documented in this encounter Visit Diagnoses Not on filedocumented in this encounter Additional Health Concerns Infection Onset Date Last Indicated Resolved Time COVID: Suspected 11/09/2022 11/09/2022 11/09/2022 9:59 PM CDT documented as of this encounter Care Teams Blind Aide Relationship Specialty Start Date End Date Wan Rosario MD [address] [facility] [address] [place] [address] PCP - General 11/12/16 10/08/24 Daphne Wise NP [address] [facility] [address] [place] [address] PCP - General Family Medicine 10/09/24 Brenda Cueto NP [address] [place] [address] Nurse Practitioner Hematology 09/23/20 Sonja Ball DPT [address] [place] [address] [place] [address] Physical Therapist Physical Therapy 09/24/21 11/25/22 Gerry Vaughn MD [address] DEPT OPHTHALMOLOGY, [address] [place] [address] Surgeon Ophthalmology 09/24/22 Roxann Galeana MD 1 [facility] [address] [place] [address] Consulting Physician Gastroenterology 10/09/24 July Hartman MD PhD [address] [place] [address] Consulting Physician Anesthesiology 10/09/24 documented as of this encounter
--- OUTSIDE RECORDS SUMMARY | 2025-01-01 17:45 | XMS_ITS | Encounter Summary ---
Author Organization [facility] Address [address] [facility] [address] [place] [address] Phone Care Team Providers Care Director Teen Post Name Role Phone Wan Rosario MD Primary Care Provider [phone] Brenda Cueto ROLLER PRINTING SUPERVISOR Unavailable [phone] Sonja Ball DPT Unavailable Gerry Vaughn MD Unavailable [phone] Daphne Wise NP Primary Care Provider [phone] Roxann Galeana MD Unavailable [phone] July Hartman MD PhD Unavailable Encounter Details Date Type Department Care Team (Latest Contact Info) Description 07/14/2020 Orders Only [facility] Scanning, Provider Social [...] on file 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 Gender Identity Female 11/13/2020 10:00 PM CDT [...] Date/Time Associated Diagnosis Comments SCAN - LABS 07/14/2020 documented in this encounter Results * SCAN - LABS (07/14/2020) us Provider Scanning Final Result documented in this encounter Visit Diagnoses Not on filedocumented in this encounter Additional Health Concerns Infection Onset Date Last Indicated Resolved Time COVID: Suspected 11/09/2022 11/09/2022 11/09/2022 9:59 PM CDT documented as of this encounter Care Teams Director Teen Post Relationship Specialty Start Date End Date Wan Rosario MD [address] [facility] [address] [place] [address] PCP - General 11/12/16 10/08/24 Daphne Wise NP [address] [facility] [address] [place] [address] PCP - General Family Medicine 10/09/24 Brenda Cueto NP [address] [place] [address] Nurse Practitioner Hematology 09/23/20 Sonja Ball DPT [address] [place] [address] [place] [address] Physical Therapist Physical Therapy 09/24/21 11/25/22 Gerry Vaughn MD [address] DEPT OPHTHALMOLOGY, [address] [place] [address] Surgeon Ophthalmology 09/24/22 Roxann Galeana MD [address] [facility] [address] [place] [address] Consulting Physician Gastroenterology 10/09/24 July Hartman MD PhD [address] [place] [address] Consulting Physician Anesthesiology 10/09/24 documented as of this encounter
--- OUTSIDE RECORDS SUMMARY | 2025-01-01 17:45 | XMS_ITS | Encounter Summary ---
Author Organization [facility] Address [address] [facility] [address] [place] [address] Phone Care Team Providers Care Heliotherapist Name Role Phone Wan Rosario MD Primary Care Provider [phone] Brenda Cueto GAS COMPRESSOR TURBINE OPERATOR Unavailable [phone] Sonja Ball DPT Unavailable Gerry Vaughn MD Unavailable [phone] Daphne Wise NP Primary Care Provider [phone] Roxann Galeana MD Unavailable [phone] July Hartman MD PhD Unavailable [phone] Encounter Details Date Type Department Care Team (Latest Contact Info) Description 03/28/2020 Orders Only [facility] Scanning, Provider Social [...] on file 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 Gender Identity Female 11/13/2020 10:00 PM CDT [...] Date/Time Associated Diagnosis Comments SCAN - LABS 03/28/2020 documented in this encounter Results * SCAN - LABS (03/28/2020) us Provider Scanning Final Result documented in this encounter Visit Diagnoses Not on filedocumented in this encounter Additional Health Concerns Infection Onset Date Last Indicated Resolved Time COVID: Suspected 11/09/2022 11/09/2022 11/09/2022 9:59 PM CDT documented as of this encounter Care Teams Heliotherapist Relationship Specialty Start Date End Date Wan Rosario MD [address] [facility] [address] [place] [address] PCP - General 11/12/16 10/08/24 Daphne Wise NP [address] [facility] [address] [place] [address] PCP - General Family Medicine 10/09/24 Brenda Cueto NP [address] [place] [address] Nurse Practitioner Hematology 09/23/20 Sonja Ball DPT [address] [place] [address] [place] [address] Physical Therapist Physical Therapy 09/24/21 11/25/22 Gerry Vaughn MD [address] DEPT OPHTHALMOLOGY, [address] [place] [address] Surgeon Ophthalmology 09/24/22 Roxann Galeana MD 1 [facility] [address] [place] [address] Consulting Physician Gastroenterology 10/09/24 July Hartman MD PhD [address] [place] [address] Consulting Physician Anesthesiology 10/09/24 documented as of this encounter
--- OUTSIDE RECORDS SUMMARY | 2025-01-01 17:45 | XMS_ITS | Encounter Summary ---
Author Organization [facility] Address [address] [facility] [address] [place] [address] Phone Care Team Providers Care Tea Blender Name Role Phone Wan Rosario MD Primary Care Provider [phone] Brenda Cueto HOTEL BREAKFAST ATTENDANT Unavailable [phone] Sonja Ball DPT Unavailable Gerry Vaughn MD Unavailable [phone] Daphne Wise NP Primary Care Provider [phone] Roxann Galeana MD Unavailable [phone] July Hartman MD PhD Unavailable [phone] Encounter Details Date Type Department Care Team (Latest Contact Info) Description 06/05/2020 Orders Only [facility] Scanning, Provider Social [...] on file 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 Gender Identity Female 11/13/2020 10:00 PM [...] Date/Time Associated Diagnosis Comments SCAN - LABS 06/05/2020 documented in this encounter Results * SCAN - LABS (06/05/2020) us Provider Scanning Final Result documented in this encounter Visit Diagnoses Not on filedocumented in this encounter Additional Health Concerns Infection Onset Date Last Indicated Resolved Time COVID: Suspected 11/09/2022 11/09/2022 11/09/2022 9:59 PM CDT documented as of this encounter Care Teams Tea Blender Relationship Specialty Start Date End Date Wan Rosario MD [address] [facility] [address] [place] [address] PCP - General 11/12/16 10/08/24 Daphne Wise NP [address] [facility] [address] [place] [address] PCP - General Family Medicine 10/09/24 Brenda Cueto NP [address] [place] [address] Nurse Practitioner Hematology 09/23/20 Sonja Ball DPT [address] [place] [address] Physical Therapist Physical Therapy 09/24/21 11/25/22 Gerry Vaughn MD [address] DEPT OPHTHALMOLOGY, [address] [place] [address] Surgeon Ophthalmology 09/24/22 Roxann Galeana MD 1 [facility] [address] DIV [place] [address] Consulting Physician Gastroenterology 10/09/24 July Hartman MD PhD [address] [place] [address] Consulting Physician Anesthesiology 10/09/24 documented as of this encounter
--- OUTSIDE RECORDS SUMMARY | 2025-01-01 17:45 | XMS_ITS | Encounter Summary ---
Author Organization [facility] Address [address] [facility] [address] [place] [address] Phone Care Team Providers Care Dance Therapist Name Role Phone Wan Rosario MD Primary Care Provider [phone] Brenda Cueto WELDING MACHINE OPERATOR GAS METAL ARC Unavailable [phone] Sonja Ball DPT Unavailable Gerry Vaughn MD Unavailable [phone] Daphne Wise NP Primary Care Provider Roxann Galeana MD Unavailable [phone] July Hartman MD PhD Unavailable [phone] Encounter Details Date Type Department Care Team (Latest Contact Info) Description 09/30/2020 Orders Only [facility] Scanning, Provider Social [...] on file 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 Gender Identity Female 11/13/2020 10:00 PM CDT [...] Date/Time Associated Diagnosis Comments SCAN - LABS 09/30/2020 documented in this encounter Results * SCAN - LABS (09/30/2020) Provider Scanning Final Result documented in this encounter Visit Diagnoses Not on filedocumented in this encounter Additional Health Concerns Infection Onset Date Last Indicated Resolved Time COVID: Suspected 11/09/2022 11/09/2022 11/09/2022 9:59 PM CDT documented as of this encounter Care Teams Dance Therapist Relationship Specialty Start Date End Date Wan Rosario MD [address] [facility] [address] [place] [address] PCP - General 11/12/16 10/08/24 Daphne Wise NP [address] [facility] [address] [place] [address] PCP - General Family Medicine 10/09/24 Brenda Cueto NP [address] [place] [address] Nurse Practitioner Hematology 09/23/20 Sonja Ball DPT [address] [place] [address] Physical Therapist Physical Therapy 09/24/21 11/25/22 Gerry Vaughn MD [address] DEPT OPHTHALMOLOGY, [address] [place] [address] Surgeon Ophthalmology 09/24/22 Roxann Galeana MD 1 [facility] [address] [place] [address] Consulting Physician Gastroenterology 10/09/24 July Hartman MD PhD [address] [place] [address] Consulting Physician Anesthesiology 10/09/24 documented as of this encounter
--- OUTSIDE RECORDS SUMMARY | 2025-01-01 17:45 | XMS_ITS | Encounter Summary ---
Author Organization [facility] of [facility] Address [address] [facility] [address] [place] [address] Phone Care Team Providers Care Recruiting Administrator Name Role Phone Wan Rosario MD Primary Care Provider [phone] Brenda Cueto NEWS ASSISTANT Unavailable [phone] Sonja Ball DPT Unavailable Gerry Vaughn MD Unavailable [phone] Daphne Wise NP Primary Care Provider [phone] Roxann Galeana MD Unavailable [phone] July Hartman MD PhD Unavailable [phone] Encounter Details Date Type Department Care Team (Latest Contact Info) Description 04/11/2020 Orders Only [facility] Scanning, Provider Social [...] on file 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 Gender Identity Female 11/13/2020 10:00 PM [...] Date/Time Associated Diagnosis Comments SCAN - LABS 04/11/2020 documented in this encounter Results * SCAN - LABS (04/11/2020) us Provider Scanning Final Result documented in this encounter Visit Diagnoses Not on filedocumented in this encounter Additional Health Concerns Infection Onset Date Last Indicated Resolved Time COVID: Suspected 11/09/2022 11/09/2022 11/09/2022 9:59 PM CDT documented as of this encounter Care Teams Recruiting Administrator Relationship Specialty Start Date End Date Wan Rosario MD [address] [facility] [address] [place] [address] PCP - General 11/12/16 10/08/24 Daphne Wise NP [address] [facility] [address] [place] [address] PCP - General Family Medicine 10/09/24 Brenda Cueto NP [address] [place] [address] Nurse Practitioner Hematology 09/23/20 Sonja Ball DPT [address] [place] [address] Physical Therapist Physical Therapy 09/24/21 11/25/22 Gerry Vaughn MD [address] DEPT OPHTHALMOLOGY, [address] [place] [address] Surgeon Ophthalmology 09/24/22 Roxann Galeana MD [address] [facility] [address] [place] [address] Consulting Physician Gastroenterology 10/09/24 July Hartman MD PhD [address] [place] [address] Consulting Physician Anesthesiology 10/09/24 documented as of this encounter
--- OUTSIDE RECORDS SUMMARY | 2025-01-01 17:45 | XMS_ITS | Encounter Summary ---
Author Organization [facility] Address [address] [facility] [address] [place] [address] Phone Care Team Providers Care Egg Breaker Name Role Phone Wan Rosario MD Primary Care Provider [phone] Brenda Cueto TOUR MANAGER Unavailable [phone] Sonja Ball DPT Unavailable Gerry Vaughn MD Unavailable [phone] Daphne Wise NP Primary Care Provider [phone] Roxann Galeana MD Unavailable [phone] July Hartman MD PhD Unavailable [phone] Encounter Details Date Type Department Care Team (Latest Contact Info) Description 06/13/2020 Orders Only [facility] Scanning, Provider Social [...] on file 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 Gender Identity Female 11/13/2020 10:00 PM CDT [...] Date/Time Associated Diagnosis Comments SCAN - LABS 06/13/2020 documented in this encounter Results * SCAN - LABS (06/13/2020) us Provider Scanning Final Result documented in this encounter Visit Diagnoses Not on filedocumented in this encounter Additional Health Concerns Infection Onset Date Last Indicated Resolved Time COVID: Suspected 11/09/2022 11/09/2022 11/09/2022 9:59 PM CDT documented as of this encounter Care Teams Egg Breaker Relationship Specialty Start Date End Date Wan Rosario MD [address] [facility] [address] [place] [address] PCP - General 11/12/16 10/08/24 Daphne Wise NP [address] [facility] [address] [place] [address] PCP - General Family Medicine 10/09/24 Brenda Cueto NP [address] [place] [address] Nurse Practitioner Hematology 09/23/20 Sonja Ball DPT [address] [place] [address] Physical Therapist Physical Therapy 09/24/21 11/25/22 Gerry Vaughn MD [address] DEPT OPHTHALMOLOGY, [address] [place] [address] Surgeon Ophthalmology 09/24/22 Roxann Galeana MD [address] [facility] [address] DIV [place] [address] Consulting Physician Gastroenterology 10/09/24 July Hartman MD PhD [address] [place] [address] Consulting Physician Anesthesiology 10/09/24 documented as of this encounter
--- OUTSIDE RECORDS SUMMARY | 2025-01-01 17:45 | XMS_ITS | Encounter Summary ---
Author Organization [facility] Address [address] [facility] [address] [place] [address] Phone Care Team Providers Care Riddler Operator Name Role Phone Wan Rosario MD Primary Care Provider [phone] Brenda Cueto AWS SOFTWARE DEVELOPMENT ENGINEER Unavailable [phone] Sonja Ball DPT Unavailable Gerry Vaughn MD Unavailable [phone] Daphne Wise NP Primary Care Provider [phone] Roxann Galeana MD Unavailable July Hartman MD PhD Unavailable [phone] Encounter Details Date Type Department Care Team (Latest Contact Info) Description 05/25/2020 Orders Only [facility] Scanning, Provider Social [...] on file 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 Gender Identity Female 11/13/2020 10:00 PM CDT [...] Date/Time Associated Diagnosis Comments SCAN - LABS 05/25/2020 documented in this encounter Results * SCAN - LABS (05/25/2020) us Provider Scanning Final Result documented in this encounter Visit Diagnoses Not on filedocumented in this encounter Additional Health Concerns Infection Onset Date Last Indicated Resolved Time COVID: Suspected 11/09/2022 11/09/2022 11/09/2022 9:59 PM CDT documented as of this encounter Care Teams Riddler Operator Relationship Specialty Start Date End Date Wan Rosario MD [address] [facility] [address] [place] [address] PCP - General 11/12/16 10/08/24 Daphne Wise NP [address] [facility] [address] [place] [address] PCP - General Family Medicine 10/09/24 Brenda Cueto NP [address] [place] [address] Nurse Practitioner Hematology 09/23/20 Sonja Ball DPT [address] [place] [address] Physical Therapist Physical Therapy 09/24/21 11/25/22 Gerry Vaughn MD [address] DEPT OPHTHALMOLOGY, [address] [place] [address] Surgeon Ophthalmology 09/24/22 Roxann Galeana MD [address] [facility] [address] [place] [address] Consulting Physician Gastroenterology 10/09/24 July Hartman MD PhD [address] [place] [address] Consulting Physician Anesthesiology 10/09/24 documented as of this encounter
--- OUTSIDE RECORDS SUMMARY | 2025-01-01 17:45 | XMS_ITS | Encounter Summary ---
Author Organization [facility] Address [address] [facility] [address] [place] [address] Phone Care Team Providers Care Hook And Eye Machine Operator Name Role Phone Wan Rosario MD Primary Care Provider [phone] Brenda Cueto SAFETY INSTRUCTOR Unavailable [phone] Sonja Ball DPT Unavailable Gerry Vaughn MD Unavailable [phone] Daphne Wise NP Primary Care Provider [phone] Roxann Galeana MD Unavailable [phone] July Hartman MD PhD Unavailable [phone] Encounter Details Date Type Department Care Team (Latest Contact Info) Description 06/30/2020 Orders Only [facility] Scanning, Provider Social [...] on file 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 Gender Identity Female 11/13/2020 10:00 PM CDT [...] Date/Time Associated Diagnosis Comments SCAN - LABS 06/30/2020 documented in this encounter Results * SCAN - LABS (06/30/2020) us Provider Scanning Final Result documented in this encounter Visit Diagnoses Not on filedocumented in this encounter Additional Health Concerns Infection Onset Date Last Indicated Resolved Time COVID: Suspected 11/09/2022 11/09/2022 11/09/2022 9:59 PM CDT documented as of this encounter Care Teams Hook And Eye Machine Operator Relationship Specialty Start Date End Date Wan Rosario MD [address] [facility] [address] [place] [address] PCP - General 11/12/16 10/08/24 Daphne Wise NP [address] [facility] [address] [place] [address] PCP - General Family Medicine 10/09/24 Brenda Cueto NP [address] [place] [address] Nurse Practitioner Hematology 09/23/20 Sonja Ball DPT [address] [place] [address] Physical Therapist Physical Therapy 09/24/21 11/25/22 Gerry Vaughn MD [address] DEPT OPHTHALMOLOGY, [address] [place] [address] Surgeon Ophthalmology 09/24/22 Roxann Galeana MD [address] [facility] [address] [place] [address] Consulting Physician Gastroenterology 10/09/24 July Hartman MD PhD [address] [place] [address] Consulting Physician Anesthesiology 10/09/24 documented as of this encounter
--- OUTSIDE RECORDS SUMMARY | 2025-01-01 17:45 | XMS_ITS | Encounter Summary ---
Author Organization [facility] Address [address] [facility] [address] [place] [address] Phone Care Team Providers Care Auto Body Shop Manager Name Role Phone Wan Rosario MD Primary Care Provider [phone] Brenda Cueto HUB CUTTER Unavailable [phone] Sonja Ball DPT Unavailable Gerry Vaughn MD Unavailable [phone] Daphne Wise NP Primary Care Provider [phone] Roxann Galeana MD Unavailable [phone] July Hartman MD PhD Unavailable [phone] Encounter Details Date Type Department Care Team (Latest Contact Info) Description 09/08/2020 Orders Only [facility] Scanning, Provider Social [...] on file 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 Gender Identity Female 11/13/2020 10:00 PM CDT [...] Date/Time Associated Diagnosis Comments SCAN - LABS 09/08/2020 documented in this encounter Results * SCAN - LABS (09/08/2020) Provider Scanning Final Result documented in this encounter Visit Diagnoses Not on filedocumented in this encounter Additional Health Concerns Infection Onset Date Last Indicated Resolved Time COVID: Suspected 11/09/2022 11/09/2022 11/09/2022 9:59 PM CDT documented as of this encounter Care Teams Auto Body Shop Manager Relationship Specialty Start Date End Date Wan Rosario MD [address] [facility] [address] [place] [address] PCP - General 11/12/16 10/08/24 Daphne Wise NP [address] [facility] [address] [place] [address] PCP - General Family Medicine 10/09/24 Brenda Cueto NP [address] [place] [address] Nurse Practitioner Hematology 09/23/20 Sonja Ball DPT [address] [place] [address] Physical Therapist Physical Therapy 09/24/21 11/25/22 Gerry Vaughn MD [address] DEPT OPHTHALMOLOGY, [address] [place] [address] Surgeon Ophthalmology 09/24/22 Roxann Galeana MD [address] [facility] [address] [place] [address] Consulting Physician Gastroenterology 10/09/24 July Hartman MD PhD [address] [place] [address] Consulting Physician Anesthesiology 10/09/24 documented as of this encounter
--- OUTSIDE RECORDS SUMMARY | 2025-01-01 17:45 | XMS_ITS | Encounter Summary ---
Author Organization [facility] Address [address] [facility] [address] [place] [address] Phone Care Team Providers Care Scrub Wheel Operator Name Role Phone Wan Rosario MD Primary Care Provider [phone] Brenda Cueto ENERGY ENGINEER Unavailable [phone] Sonja Ball DPT Unavailable Gerry Vaughn MD Unavailable [phone] Daphne Wise NP Primary Care Provider [phone] Roxann Galeana MD Unavailable [phone] July Hartman MD PhD Unavailable [phone] Encounter Details Date Type Department Care Team (Latest Contact Info) Description 05/19/2020 Orders Only [facility] Scanning, Provider Social [...] on file 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 Gender Identity Female 11/13/2020 10:00 PM CDT [...] Date/Time Associated Diagnosis Comments SCAN - LABS 05/19/2020 documented in this encounter Results * SCAN - LABS (05/19/2020) us Provider Scanning Final Result documented in this encounter Visit Diagnoses Not on filedocumented in this encounter Additional Health Concerns Infection Onset Date Last Indicated Resolved Time COVID: Suspected 11/09/2022 11/09/2022 11/09/2022 9:59 PM CDT documented as of this encounter Care Teams Scrub Wheel Operator Relationship Specialty Start Date End Date Wan Rosario MD [address] [facility] [address] [place] [address] PCP - General 11/12/16 10/08/24 Daphne Wise NP [address] [facility] [address] [place] [address] PCP - General Family Medicine 10/09/24 Brenda Cueto NP [address] [place] [address] Nurse Practitioner Hematology 09/23/20 Sonja Ball DPT [address] [place] [address] Physical Therapist Physical Therapy 09/24/21 11/25/22 Gerry Vauhgn MD [address] DEPT OPHTHALMOLOGY, [address] [place] [address] Surgeon Ophthalmology 09/24/22 Roxann Galeana MD [address] [facility] [address] [place] [address] Consulting Physician Gastroenterology 10/09/24 July Hartman MD PhD [address] [place] [address] Consulting Physician Anesthesiology 10/09/24 documented as of this encounter
--- OUTSIDE RECORDS SUMMARY | 2025-01-01 17:45 | XMS_ITS | Encounter Summary ---
Author Organization [facility] Address [address] [facility] [address] [place] [address] Phone Care Team Providers Care Foam Machine Operator Name Role Phone Wan Rosario MD Primary Care Provider [phone] Brenda Cueto MANAGER PHILOSOPHY Unavailable [phone] Sonja Ball DPT Unavailable Gerry Vaughn MD Unavailable [phone] Daphne Wise NP Primary Care Provider Roxann Galeana MD Unavailable [phone] July Hartman MD PhD Unavailable [phone] Encounter Details Date Type Department Care Team (Latest Contact Info) Description 08/22/2020 Orders Only [facility] Scanning, Provider Social [...] on file 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 Gender Identity Female 11/13/2020 10:00 PM CDT [...] Date/Time Associated Diagnosis Comments SCAN - LABS 08/22/2020 documented in this encounter Results * SCAN - LABS (08/22/2020) Provider Scanning Final Result documented in this encounter Visit Diagnoses Not on filedocumented in this encounter Additional Health Concerns Infection Onset Date Last Indicated Resolved Time COVID: Suspected 11/09/2022 11/09/2022 11/09/2022 9:59 PM CDT documented as of this encounter Care Teams Foam Machine Operator Relationship Specialty Start Date End Date Wan Rosario MD [address] [facility] [address] [place] [address] PCP - General 11/12/16 10/08/24 Daphne Wise NP [address] [facility] [address] [place] [address] PCP - General Family Medicine 10/09/24 Brenda Cueto NP [address] [place] [address] Nurse Practitioner Hematology 09/23/20 Sonja Ball DPT [address] [place] [place] [address] [place] [address] Physical Therapist Physical Therapy 09/24/21 11/25/22 Gerry Vaughn MD [address] DEPT OPHTHALMOLOGY, [address] [place] [address] Surgeon Ophthalmology 09/24/22 Roxann Galeana MD [address] [facility] [address] DIV [place] [address] Consulting Physician Gastroenterology 10/09/24 July Hartman MD PhD [address] [place] [address] Consulting Physician Anesthesiology 10/09/24 documented as of this encounter
--- OUTSIDE RECORDS SUMMARY | 2025-01-01 17:45 | XMS_ITS | Encounter Summary ---
Author Organization [facility] Address [address] [facility] [address] [place] [address] Phone Care Team Providers Care Mid Level Game Designer Name Role Phone Wan Rosario MD Primary Care Provider [phone] Brenda Cueto SPINNER CONCRETE PIPE Unavailable [phone] Sonja Ball DPT Unavailable Gerry Vaughn MD Unavailable [phone] Daphne Wise NP Primary Care Provider [phone] Roxann Galeana MD Unavailable [phone] July Hartman MD PhD Unavailable [phone] Encounter Details Date Type Department Care Team (Latest Contact Info) Description 07/02/2020 Orders Only [facility] Scanning, Provider Social [...] on file 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 Gender Identity Female 11/13/2020 10:00 PM CDT [...] Date/Time Associated Diagnosis Comments SCAN - LABS 07/02/2020 documented in this encounter Results * SCAN - LABS (07/02/2020) us Provider Scanning Final Result documented in this encounter Visit Diagnoses Not on filedocumented in this encounter Additional Health Concerns Infection Onset Date Last Indicated Resolved Time COVID: Suspected 11/09/2022 11/09/2022 11/09/2022 9:59 PM CDT documented as of this encounter Care Teams Mid Level Game Designer Relationship Specialty Start Date End Date Wan Rosario MD [address] [facility] [address] [place] [address] PCP - General 11/12/16 10/08/24 Daphne Wise NP [address] [facility] [address] [place] [address] PCP - General Family Medicine 10/09/24 Brenda Cueto NP [address] [place] [address] Nurse Practitioner Hematology 09/23/20 Sonja Ball DPT [address] [place] [address] Physical Therapist Physical Therapy 09/24/21 11/25/22 Gerry Vaughn MD [address] DEPT OPHTHALMOLOGY, [address] [place] [address] Surgeon Ophthalmology 09/24/22 Roxann Galeana MD [address] [facility] [address] DIV [place] [address] Consulting Physician Gastroenterology 10/09/24 July Hartman MD PhD [address] [place] [address] Consulting Physician Anesthesiology 10/09/24 documented as of this encounter
--- OUTSIDE RECORDS SUMMARY | 2025-01-01 17:45 | XMS_ITS | Encounter Summary ---
Author Organization [facility] Address [address] [facility] [address] [place] [address] Phone Care Team Providers Care Medication Technician Name Role Phone Wan Rosario MD Primary Care Provider [phone] Brenda Cueto CISO Unavailable [phone] Sojna Ball DPT Unavailable Gerry Vaughn MD Unavailable Daphne Wise NP Primary Care Provider [phone] Roxann Galeana MD Unavailable [phone] July Hartman MD PhD Unavailable [phone] Encounter Details Date Type Department Care Team (Latest Contact Info) Description 08/11/2020 Orders Only [facility] Scanning, Provider Social [...] on file 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 Gender Identity Female 11/13/2020 10:00 PM [...] Date/Time Associated Diagnosis Comments SCAN - LABS 08/11/2020 documented in this encounter Results * SCAN - LABS (08/11/2020) us Provider Scanning Final Result documented in this encounter Visit Diagnoses Not on filedocumented in this encounter Additional Health Concerns Infection Onset Date Last Indicated Resolved Time COVID: Suspected 11/09/2022 11/09/2022 11/09/2022 9:59 PM CDT documented as of this encounter Care Teams Medication Technician Relationship Specialty Start Date End Date Wan Rosario MD [address] [facility] [address] [place] [address] PCP - General 11/12/16 10/08/24 Daphne Wise NP [address] [facility] [address] [place] [address] PCP - General Family Medicine 10/09/24 Brenda Cueto NP [address] [place] [address] Nurse Practitioner Hematology 09/23/20 Sonja Ball DPT [address] [place] [address] Physical Therapist Physical Therapy 09/24/21 11/25/22 Gerry Vaughn MD [address] DEPT OPHTHALMOLOGY, [address] [place] [address] Surgeon Ophthalmology 09/24/22 Roxann Glaeana MD [address] [facility] [address] DIV [place] [address] Consulting Physician Gastroenterology 10/09/24 July Hartman MD PhD [address] [place] [address] Consulting Physician Anesthesiology 10/09/24 documented as of this encounter
--- OUTSIDE RECORDS SUMMARY | 2025-01-01 17:45 | XMS_ITS | Encounter Summary ---
Author Organization [facility] Address [address] [facility] [address] [place] [address] Phone Care Team Providers Care Set Up Mechanic Name Role Phone Wan Rosario MD Primary Care Provider [phone] Brenda Cueto PANELBOARD TANK PUMPER Unavailable [phone] Sonja Ball DPT Unavailable Gerry Vaughn MD Unavailable Daphne Wise NP Primary Care Provider [phone] Roxann Galeana MD Unavailable [phone] July Hartman MD PhD Unavailable [phone] Encounter Details Date Type Department Care Team (Latest Contact Info) Description 05/09/2020 Orders Only [facility] Scanning, Provider Social [...] on file 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 Gender Identity Female 11/13/2020 10:00 PM [...] Date/Time Associated Diagnosis Comments SCAN - LABS 05/09/2020 documented in this encounter Results * SCAN - LABS (05/09/2020) us Provider Scanning Final Result documented in this encounter Visit Diagnoses Not on filedocumented in this encounter Additional Health Concerns Infection Onset Date Last Indicated Resolved Time COVID: Suspected 11/09/2022 11/09/2022 11/09/2022 9:59 PM CDT documented as of this encounter Care Teams Set Up Mechanic Relationship Specialty Start Date End Date Wan Rosario MD [address] [facility] [address] [place] [address] PCP - General 11/12/16 10/08/24 Daphne Wise NP [address] [facility] [address] [place] [address] PCP - General Family Medicine 10/09/24 Brenda Cueto NP [address] [place] [address] Nurse Practitioner Hematology 09/23/20 Sonja Ball DPT [address] [place] [address] Physical Therapist Physical Therapy 09/24/21 11/25/22 Gerry Vaughn MD [address] DEPT OPHTHALMOLOGY, [address] [place] [address] Surgeon Ophthalmology 09/24/22 Roxann Galeana MD [address] [facility] [address] DIV [place] [address] Consulting Physician Gastroenterology 10/09/24 July Hartman MD PhD [address] [place] [address] Consulting Physician Anesthesiology 10/09/24 documented as of this encounter
--- OUTSIDE RECORDS SUMMARY | 2025-01-01 17:45 | XMS_ITS | Encounter Summary ---
Author Organization [facility] Address [address] [facility] [address] [place] [address] Phone Care Team Providers Care Local Sales Manager Name Role Phone Wan Rosario MD Primary Care Provider [phone] Brenda Cueto PLAYBACK OPERATOR Unavailable [phone] Sonja Ball DPT Unavailable Gerry Vaughn MD Unavailable [phone] Daphne Wise NP Primary Care Provider [phone] Roxann Galeana MD Unavailable [phone] July Hartman MD PhD Unavailable Encounter Details Date Type Department Care Team (Latest Contact Info) Description 09/23/2020 Orders Only [facility] Scanning, Provider Social [...] on file 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 Gender Identity Female 11/13/2020 10:00 PM CDT [...] Date/Time Associated Diagnosis Comments SCAN - LABS 09/23/2020 documented in this encounter Results * SCAN - LABS (09/23/2020) Provider Scanning Final Result documented in this encounter Visit Diagnoses Not on filedocumented in this encounter Additional Health Concerns Infection Onset Date Last Indicated Resolved Time COVID: Suspected 11/09/2022 11/09/2022 11/09/2022 9:59 PM CDT documented as of this encounter Care Teams Local Sales Manager Relationship Specialty Start Date End Date Wan Rosario MD [address] [facility] [address] [place] [address] PCP - General 11/12/16 10/08/24 Daphne Wise NP [address] [facility] [address] [place] [address] PCP - General Family Medicine 10/09/24 Brenda Cueto NP [address] [place] [address] Nurse Practitioner Hematology 09/23/20 Sonja Ball DPT [address] [place] [address] Physical Therapist Physical Therapy 09/24/21 11/25/22 Gerry Vaughn MD [address] DEPT OPHTHALMOLOGY, [address] [place] [address] Surgeon Ophthalmology 09/24/22 Roxann Galeana MD [address] [facility] [address] [place] [address] Consulting Physician Gastroenterology 10/09/24 July Hartman MD PhD [address] [place] [address] Consulting Physician Anesthesiology 10/09/24 documented as of this encounter
--- OUTSIDE RECORDS SUMMARY | 2025-01-01 17:45 | XMS_ITS | Encounter Summary ---
Author Organization [facility] Address [address] [facility] [address] [place] [address] Phone Care Team Providers Care Meat Department Manager Name Role Phone Wan Rosario MD Primary Care Provider [phone] Brenda Cueto FACILITY OPERATIONS MANAGER Unavailable [phone] Sonja Ball DPT Unavailable Gerry Vaughn MD Unavailable [phone] Daphne Wise NP Primary Care Provider [phone] Roxann Glaeana MD Unavailable [phone] July Hartman MD PhD Unavailable [phone] Encounter Details Date Type Department Care Team (Latest Contact Info) Description 04/04/2020 Orders Only [facility] Scanning, Provider Social [...] on file 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 Gender Identity Female 11/13/2020 10:00 PM [...] Date/Time Associated Diagnosis Comments SCAN - LABS 04/04/2020 documented in this encounter Results * SCAN - LABS (04/04/2020) us Provider Scanning Final Result documented in this encounter Visit Diagnoses Not on filedocumented in this encounter Additional Health Concerns Infection Onset Date Last Indicated Resolved Time COVID: Suspected 11/09/2022 11/09/2022 11/09/2022 9:59 PM CDT documented as of this encounter Care Teams Meat Department Manager Relationship Specialty Start Date End Date Wan Rosario MD [address] [facility] [address] [place] [address] PCP - General 11/12/16 10/08/24 Daphne Wise NP [address] [facility] [address] [place] [address] PCP - General Family Medicine 10/09/24 Brenda Cueto NP [address] [place] [address] Nurse Practitioner Hematology 09/23/20 Sonja Ball DPT [address] [place] [address] Physical Therapist Physical Therapy 09/24/21 11/25/22 Gerry Vaughn MD [address] DEPT OPHTHALMOLOGY, [address] [place] [address] Surgeon Ophthalmology 09/24/22 Roxann Galeana MD [address] [facility] [place] [place] [address] Consulting Physician Gastroenterology 10/09/24 July Hartman MD PhD [address] [place] [address] Consulting Physician Anesthesiology 10/09/24 documented as of this encounter
--- OUTSIDE RECORDS SUMMARY | 2025-01-01 17:46 | XMS_ITS | Encounter Summary ---
Author Organization [facility] Address [address] [facility] [address] [place] [address] Phone Care Team Providers Care Child Protective Services Social Worker Name Role Phone Wan Rosario MD Primary Care Provider [phone] Brenda Cueto ASSOCIATE BUYER Unavailable [phone] Sonja Ball DPT Unavailable Gerry Vaughn MD Unavailable [phone] Daphne Wise NP Primary Care Provider [phone] Roxann Galeana MD Unavailable [phone] July Hartman MD PhD Unavailable [phone] Encounter Details Date Type Department Care Team (Latest Contact Info) Description 11/01/2018 Orders Only [facility] Scanning, Provider Social History Tobacco Use Types Packs/Day Years Used Date Smoking Tobacco: Never Cigarettes Smokeless Tobacco: Never Alcohol Use Standard Drinks/Week Comments No 0 (1 standard drink = 0.6 oz pur e alcohol) Comments Unknown Sex and Gender Information Value Date Recorded Sex Assigned at Not on file 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 DIE MAKER Gender Identity Female 11/13/2020 10:00 PM CDT Sexual Orientation Straight 11/13/2020 10 :00 PM CDT documented as of this encounter Plan of Treatment Scheduled Procedures Name Priority Associated Diagnoses Date/Ti me ESOPHAGOGASTRODUODENOSCOPY Gastroesophageal reflux disease, esophagitis presence not specified COLONOSCOPY Colon cancer screening Gastroesophageal reflux disease, esophagitis presence not specified documented as of this encounter Procedures Procedure Name Priority Date/Time Associated Diagnosis Comments SCAN - LABS 11/01/2018 documented in this encounter Results * SCAN - LABS (11/01/2018) us Provider Scanning Edited Result - Final documented in this encounter Visit Diagnoses Not on filedocumented in this encounter Additional Health Concerns Infection Onset Date Last Indicated Resolved Time COVID: Suspected 11/09/2022 11/09/2022 11/09/2022 9:59 PM CDT documented as of this encounter Care Teams Child Protective Services Social Worker Relationship Specialty Start Date End Date Wan Rosario MD [address] [facility] [address] [place] [address] PCP - General 11/12/16 10/08/24 Daphne Wise NP [address] [facility] [address] [place] [address] PCP - General Family Medicine 10/09/24 Brenda Cueto NP [address] [facility] [address] [place] [address] Nurse Practitioner Hematology 09/23/20 Sonja Ball DPT [address] [facility] [address] [place] [address] Physical Therapist Physical Therapy 09/24/21 11/25/22 Gerry Vaughn MD [address] [facility] [address] [place] [address] Surgeon Ophthalmology 09/24/22 Roxann Galeana MD 1 [facility] [place] [address] Consulting Physician Gastroenterology 10/09/24 July Hartman MD PhD [address] [place] [address] Consulting Physician Anesthesiology 10/09/24 documented as of this encounter
--- OUTSIDE RECORDS SUMMARY | 2025-01-01 17:46 | XMS_ITS | Encounter Summary ---
Author Organization [facility] Address [address] [facility] [address] [place] [address] Phone Care Team Providers Care Industrial/Organizational Psychologist Name Role Phone Wan Rosario MD Primary Care Provider [phone] Brenda Cueto OBSTETRICAL NURSE Unavailable [phone] Sonja Ball DPT Unavailable Gerry Vaughn MD Unavailable [phone] Daphne Wise NP Primary Care Provider [phone] Roxann Galeana MD Unavailable [phone] July Hartman MD PhD Unavailable [phone] Encounter Details Date Type Department Care Team (Latest Contact Info) Description 10/21/2020 Orders Only [facility] Scanning, Provider Social [...] on file 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 Gender Identity Female 11/13/2020 10:00 PM CDT [...] Date/Time Associated Diagnosis Comments SCAN - LABS 10/21/2020 documented in this encounter Results * SCAN - LABS (10/21/2020) Provider Scanning Final Result documented in this encounter Visit Diagnoses Not on filedocumented in this encounter Additional Health Concerns Infection Onset Date Last Indicated Resolved Time COVID: Suspected 11/09/2022 11/09/2022 11/09/2022 9:59 PM CDT documented as of this encounter Care Teams Industrial/Organizational Psychologist Relationship Specialty Start Date End Date Wan Rosario MD [address] [facility] [address] [place] [address] PCP - General 11/12/16 10/08/24 Daphne Wise NP [address] [facility] [address] [place] [address] PCP - General Family Medicine 10/09/24 Brenda Cueto NP [address] [place] [address] Nurse Practitioner Hematology 09/23/20 Sonja Ball DPT [address] [place] [address] Physical Therapist Physical Therapy 09/24/21 11/25/22 Gerry Vaughn MD [address] DEPT OPHTHALMOLOGY, [address] [place] [address] Surgeon Ophthalmology 09/24/22 Roxann Galeana MD 1 [facility] [address] [place] [address] Consulting Physician Gastroenterology 10/09/24 July Hartman MD PhD [address] [place] [address] Consulting Physician Anesthesiology 10/09/24 documented as of this encounter
--- OUTSIDE RECORDS SUMMARY | 2025-01-01 17:46 | XMS_ITS | Encounter Summary ---
Author Organization [facility] Address [address] [facility] [address] [place] [address] Phone Care Team Providers Care Highway Traffic Control Technician Name Role Phone Wan Rosario MD Primary Care Provider [phone] Brenda Cueto DIGITAL IMAGER Unavailable [phone] Sonja Ball DPT Unavailable Gerry Vaughn MD Unavailable [phone] Daphne Wise NP Primary Care Provider [phone] Roxann Galeana MD Unavailable [phone] July Hartman MD PhD Unavailable [phone] Encounter Details Date Type Department Care Team (Latest Contact Info) Description 05/19/2021 Orders Only [facility] Scanning, Provider Social History Tobacco Use Types Packs/Day Years Used Date Smoking Tobacco: Former Cigarettes Smokeless Tobacco: Never Comments:smoked for 1 year a t 16, not since then Alcohol Use Standard Drinks/Week Comments No 0 (1 standard drink = 0.6 oz pur e alcohol) AUDIT-C Answer Date Recorded Q1: How often do you have a drink containing alc ohol? Never 05/08/2021 Average Number of Drinks Not on file 021 Frequency of Binge Drinking Not on file 04/16 PHQ-2 Answer Date Recorded PHQ-2 Total Score (If total score is 3 or more points, staff should administer the PHQ-9) 0 05/22/2021 Comments Unknown Sex and Gender Information Value Date Recorded Sex Assigned at Not on file Legal Sex Female 12:29 PM CFA Gender Identity Female 11/13/2020 10:00 PM CDT [...] Date/Time Associated Diagnosis Comments SCAN - LABS 05/19/2021 documented in this encounter Results * SCAN - LABS (05/19/2021) us Provider Scanning Final Result documented in this encounter Visit Diagnoses Not on filedocumented in this encounter Additional Health Concerns Infection Onset Date Last Indicated Resolved Time COVID: Suspected 11/09/2022 11/09/2022 11/09/2022 9:59 PM CDT documented as of this encounter Care Teams Highway Traffic Control Technician Relationship Specialty Start Date End Date Wan Rosario MD [address] [facility] [address] [place] [address] PCP - General 11/12/16 10/08/24 Daphne Wise NP [address] [facility] [address] [place] [address] PCP - General Family Medicine 10/09/24 Brenda Cueto, KITTY [address] [place] [address] Nurse Practitioner Hematology 09/23/20 Sonja Ball DPT [address] [place] [address] Physical Therapist Physical Therapy 09/24/21 11/25/22 Gerry Vaughn MD [address] DEPT OPHTHALMOLOGY, [address] [place] [address] Surgeon Ophthalmology 09/24/22 Roxann Galeana MD [address] [facility] [address] [place] [address] Consulting Physician Gastroenterology 10/09/24 July Hartman MD PhD [address] [place], [place] [address] Consulting Physician Anesthesiology 10/09/24 documented as of this encounter
--- OUTSIDE RECORDS SUMMARY | 2025-01-01 17:46 | XMS_ITS | Encounter Summary ---
Author Organization [facility] Address [address] [facility] [address] [place] [address] Phone Care Team Providers Care Ship Boss Name Role Phone Wan Rosario MD Primary Care Provider [phone] Brenda Cueto PROCESS CHEMIST Unavailable [phone] Sonja Ball DPT Unavailable Gerry Vaughn MD Unavailable [phone] Daphne Wise NP Primary Care Provider [phone] Roxann Galeana MD Unavailable [phone] July Hartman MD PhD Unavailable [phone] Encounter Details Date Type Department Care Team (Latest Contact Info) Description 02/10/2021 Orders Only [facility] Scanning, Provider Social History Tobacco Use Types Packs/Day Years Used Date Smoking Tobacco: Former Cigarettes Smokeless Tobacco: Never Comments:smoked for 1 year a t 16, not since then Alcohol Use Standard Drinks/Week Comments No 0 (1 standard drink = 0.6 oz pur e alcohol) PHQ-2 Answer Date Recorded PHQ-2 Total Score (If total score is 3 or more points, staff should administer the PHQ-9) 0 11/14/2020 Comments Unknown Sex and Gender Information Value Date Recorded Sex Assigned at Not on file 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 Female 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 Gender Identity Female 11/13/2020 10:00 PM CDT [...] Date/Time Associated Diagnosis Comments SCAN - LABS 02/10/2021 documented in this encounter Results * SCAN - LABS (02/10/2021) us Provider Scanning Final Result documented in this encounter Visit Diagnoses Not on filedocumented in this encounter Additional Health Concerns Infection Onset Date Last Indicated Resolved Time COVID: Suspected 11/09/2022 11/09/2022 11/09/2022 9:59 PM CDT documented as of this encounter Care Teams Ship Boss Relationship Specialty Start Date End Date Wan Rosario MD [address] [facility] [address] [place] [address] PCP - General 11/12/16 10/08/24 Daphne Wise NP 2 [facility] [address] [place] [address] PCP - General Family Medicine 10/09/24 Brenda Cueto NP [address] [place] [address] Nurse Practitioner Hematology 09/23/20 Sonja Ball DPT [address] [place] [address] Physical Therapist Physical Therapy 09/24/21 11/25/22 Gerry Vaughn MD [address] DEPT OPHTHALMOLOGY, [address] [place] [address] Surgeon Ophthalmology 09/24/22 Roxann Galeana MD [address] [facility] [address] [place] [address] Consulting Physician Gastroenterology 10/09/24 July Hartman MD PhD [address] [place] [address] Consulting Physician Anesthesiology 10/09/24 documented as of this encounter
--- OUTSIDE RECORDS SUMMARY | 2025-01-01 17:46 | XMS_ITS | Encounter Summary ---
Author Organization [facility] Address [address] [facility] [address] [place] [address] Phone Care Team Providers Care Shell Trim Tool Setter Name Role Phone Wan Rosario MD Primary Care Provider [phone] Brenda Cueto NP Unavailable [phone] Gerry Vaughn MD Unavailable [phone] Daphne Wise NP Primary Care Provider [phone] Roxann Galeana MD Unavailable [phone] July Hartman MD PhD Unavailable [phone] Encounter Details Date Type Department Care Team (Latest Contact Info) Description 03/10/2023 Orders Only [facility] Scanning, Provider Social [...] on file 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 Gender Identity Female 11/13/2020 10:00 [...] Date/Time Associated Diagnosis Comments SCAN - LABS 03/10/2023 documented in this encounter Results * SCAN - LABS (03/10/2023) us Provider Scanning Final Result documented in this encounter Visit Diagnoses Not on filedocumented in this encounter Care Teams Shell Trim Tool Setter Relationship Specialty Start Date End Date Wan Rosario MD [address] [facility] [address] [place] [address] PCP - General 11/12/16 10/08/24 Daphne Wise NP [address] [facility] [address] [place] [address] PCP - General Family Medicine 10/09/24 Brenda Cueto NP [address] [place] [address] Nurse Practitioner Hematology 09/23/20 Gerry Vaughn MD [address] DEPT OPHTHALMOLOGY, [address] [place] [address] Surgeon Ophthalmology 09/24/22 Roxann Galeana MD 1 [facility] [place] [address] Consulting Physician Gastroenterology 10/09/24 July Hartman MD PhD [address] [place] [address] Consulting Physician Anesthesiology 10/09/24 documented as of this encounter
--- OUTSIDE RECORDS SUMMARY | 2025-01-01 17:46 | XMS_ITS | Encounter Summary ---
Author Organization [facility] Address [address] [facility] [address] [place] [address] Phone Care Team Providers Care Photographers' Model Name Role Phone Wan Rosario MD Primary Care Provider [phone] Brenda Cueto CHEMISTRY LABORATORY TECHNICIAN Unavailable [phone] Sonja Ball DPT Unavailable Gerry Vaughn MD Unavailable [phone] Daphne Wise NP Primary Care Provider [phone] Roxann Galeana MD Unavailable [phone] July Hartman MD PhD Unavailable [phone] Encounter Details Date Type Department Care Team (Latest Contact Info) Description 02/04/2021 Orders Only [facility] Scanning, Provider Social [...] on file Legal Sex Female 12:29 PM SANITARY 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 Gender Identity Female 11/13/2020 10:00 PM [...] Date/Time Associated Diagnosis Comments SCAN - LABS 02/04/2021 documented in this encounter Results * SCAN - LABS (02/04/2021) us Provider Scanning Final Result documented in this encounter Visit Diagnoses Not on filedocumented in this encounter Additional Health Concerns Infection Onset Date Last Indicated Resolved Time COVID: Suspected 11/09/2022 11/09/2022 11/09/2022 9:59 PM CDT documented as of this encounter Care Teams Photographers' Model Relationship Specialty Start Date End Date Wan Rosario MD [address] [facility] [address] [place] [address] PCP - General 11/12/16 10/08/24 Daphne Wise NP 2 [facility] [address] [place] [address] PCP - General Family Medicine 10/09/24 Brenda Cueto NP [address] [place] [address] Nurse Practitioner Hematology 09/23/20 Sonja Ball DPT [address] [place] [address] Physical Therapist Physical Therapy 09/24/21 11/25/22 Gerry Vaughn MD [address] DEPT OPHTHALMOLOGY, [address] [place] [address] Surgeon Ophthalmology 09/24/22 Roxann Galeana MD [address] [facility] [address] [place] [address] Consulting Physician Gastroenterology 10/09/24 July Hartman MD PhD [address] [place] [address] Consulting Physician Anesthesiology 10/09/24 documented as of this encounter
--- OUTSIDE RECORDS SUMMARY | 2025-01-01 17:46 | XMS_ITS | Encounter Summary ---
Author Organization [facility] Address [address] [facility] [place] [address] Care Team Providers Care Fitness Attendant Name Role Phone Wan Rosario MD Primary Care Provider [phone] Brenda Cueto NP Unavailable [phone] Gerry Vaughn MD Unavailable [phone] Daphne Wise NP Primary Care Provider [phone] Roxann Galeana MD Unavailable [phone] July Hartman MD PhD Unavailable [phone] Reason for Visit * Reason Onset Date Comments PMC Preprocedure 05/01/2024 Encounter Details Date Type Department Care Team (Late st Contact Info) Description 05/01/2024 Telephone [facility] [address] [facility] Advanced [facility] [address] [place] [address] July Hartman MD PhD [address] [facility] [id number] [place] [address] PMC Preprocedure Social History Tobacco Use Types Packs/Day Years Used Date Smoking Tobacco: Former Cigarettes Smokeless Tobacco: Never Comments:smoked for 1 year a t 16, not since then Alcohol Use Standard Drinks/Week Comments No 0 (1 standard drink = 0.6 oz pur e alcohol) AUDIT-C Answer Date Recorded Q1: How often do you have a drink containing alc ohol? Monthly or less 05/04/2024 Q2: How many drinks containi ng alcohol do you have on a typical day when you are drinking? 1 or 2 05/04/2024 Q3: How often do you have si x or more drinks on one occasion? Never 05/04/2024 PHQ-2 Answer Date Recorded PHQ-2 Total Score (If total score is 3 or more points, staff should administer the PHQ-9) 0 04/25/2024 Personal Safety Answer Date Recorded Have you ever been in or are you currently in a harmful physical or emotional relationship or is someone making you feel afraid or unsafe? 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 Monthly or less 05/04/2024 7:47 AM MARBELLAT Rossana Lambert RN Q2: How many drinks containing alcohol do you have on a typical day when you are drinking? 1 or 2 05/04/2024 7:47 AM Emi Carey RN Q3: How often do you have six or more drinks on one occasion? Never 05/04/2024 7:47 AM Rossana Carey RN documented as of this encounter Plan of Treatment Scheduled Procedures Name Priority Associated Diagnoses Date/Ti in ESOPHAGOGASTRODUODENOSCOPY Gastroesophageal reflux disease, esophagitis presence not specified COLONOSCOPY Colon cancer screening Gastroesophageal reflux disease, esophagitis presence not specified documented as of this encounter Goals Goal Patient Goal Type Associated Problems Recent Progress Patient-Stated? Author CCM Chronic Pain Care Plan Chronic Care Management No change(05/04 7:47 AM CDT) Arlene Charles RN Note: Problem: Chronic Pain Goals: 1. Minimize further functional decline 2. Maximize quality of life 3. Control pain Strategies: - Activity/exercise program recommendation - Conservative stepwise pain medicine strategy with multi-disciplinary approach - Recommend healthy lifestyle strategies and compensatory methods as needed documented as of this encounter Visit Diagnoses Not on filedocumented in this encounter Care Teams Fitness Attendant Relationship Specialty Start Date End Date Wan Rosario MD [address] [facility] [address] [place] [address] PCP - General 11/12/16 10/08/24 Daphne Wise NP [address] [facility] [address] [place] [address] PCP - General Family Medicine 10/09/24 Brenda Cueto NP [address] [place] [address] Nurse Practitioner Hematology 09/23/20 Gerry Vaughn MD [address] [facility], [facility] [address] [place] [address] Surgeon Ophthalmology 09/24/22 Roxann Galeana MD [address] [facility] [address] [place] [address] Consulting Physician Gastroenterology 10/09/24 July Hartman MD PhD [address] [place] [address] Consulting Physician Anesthesiology 10/09/24 documented as of this encounter
--- OUTSIDE RECORDS SUMMARY | 2025-01-01 17:46 | XMS_ITS | Encounter Summary ---
Author Organization [facility] Address [address] [facility] [place] [address] [place] [address] Phone Care Team Providers Care Promotion Manager Name Role Phone Wan Rosario MD Primary Care Provider [phone] Brenda Cueto COMPO CASTER Unavailable [phone] Sonja Ball DPT Unavailable Gerry Vaughn MD Unavailable [phone] Daphne Wise NP Primary Care Provider [phone] Roxann Galeana MD Unavailable [phone] July Hartman MD PhD Unavailable [phone] Encounter Details Date Type Department Care Team (Latest Contact Info) Description 01/29/2021 Orders Only [facility] Scanning, Provider Social [...] on file Legal Sex Female 12:[address]NER Gender Identity Female 11/13/2020 10:00 PM CDT [...] Date/Time Associated Diagnosis Comments SCAN - LABS 01/29/2021 documented in this encounter Results * SCAN - LABS (01/29/2021) us Provider Scanning Final Result documented in this encounter Visit Diagnoses Not on filedocumented in this encounter Additional Health Concerns Infection Onset Date Last Indicated Resolved Time COVID: Suspected 11/09/2022 11/09/2022 11/09/2022 9:59 PM CDT documented as of this encounter Care Teams Promotion Manager Relationship Specialty Start Date End Date aWn Rosario MD [address] [facility] [address] [place] [address] PCP - General 11/12/16 10/08/24 Daphne Wise NP 2 [facility] [address] [place] [address] PCP - General Family Medicine 10/09/24 Brenda Cueto NP [address] [place] [address] Nurse Practitioner Hematology 09/23/20 Sonja Ball DPT [address] [place] [address] Physical Therapist Physical Therapy 09/24/21 11/25/22 Gerry Vaughn MD [address] DEPT OPHTHALMOLOGY, [address] [place] [address] Surgeon Ophthalmology 09/24/22 Roxann Galeana MD 1 [facility] [address] [place] [address] Consulting Physician Gastroenterology 10/09/24 July Hartman MD PhD [address] [place] [address] Consulting Physician Anesthesiology 10/09/24 documented as of this encounter
--- OUTSIDE RECORDS SUMMARY | 2025-01-01 17:46 | XMS_ITS | Encounter Summary ---
Author Organization [facility] Address [address] [facility] [address] [place] [address] Phone Care Team Providers Care Charcoal Kiln Burner Name Role Phone Wan Rosario MD Primary Care Provider [phone] Brenda Cueto CONDUCTOR/BRAKEMAN Unavailable [phone] Sonja Ball DPT Unavailable Gerry Vaughn MD Unavailable [phone] Daphne Wise NP Primary Care Provider [phone] Roxann Galeana MD Unavailable [phone] July Hartman MD PhD Unavailable [phone] Encounter Details Date Type Department Care Team (Latest Contact Info) Description 04/18/2020 Orders Only [facility] Scanning, Provider Social [...] on file 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 Gender Identity Female 11/13/2020 10:00 PM CDT [...] Date/Time Associated Diagnosis Comments SCAN - LABS 04/18/2020 documented in this encounter Results * SCAN - LABS (04/18/2020) us Provider Scanning Final Result documented in this encounter Visit Diagnoses Not on filedocumented in this encounter Additional Health Concerns Infection Onset Date Last Indicated Resolved Time COVID: Suspected 11/09/2022 11/09/2022 11/09/2022 9:59 PM CDT documented as of this encounter Care Teams Charcoal Kiln Burner Relationship Specialty Start Date End Date Wan Rosario MD [address] [facility] [address] [place] [address] PCP - General 11/12/16 10/08/24 Daphne Wise NP [address] [facility] [address] [place] [address] PCP - General Family Medicine 10/09/24 Brenda Cueto NP [address] [place] [address] Nurse Practitioner Hematology 09/23/20 Sonja Ball DPT [address] [place] [address] Physical Therapist Physical Therapy 09/24/21 11/25/22 Gerry Vaughn MD [address] DEPT OPHTHALMOLOGY, [address] [place] [address] Surgeon Ophthalmology 09/24/22 Roxann Galeana MD 1 [facility] [address] [place] [address] Consulting Physician Gastroenterology 10/09/24 July Hartman MD PhD [address] [place] [address] Consulting Physician Anesthesiology 10/09/24 documented as of this encounter
--- OUTSIDE RECORDS SUMMARY | 2025-01-01 17:46 | XMS_ITS | Encounter Summary ---
Author Organization [facility] Address [address] [facility] [address] [place] [address] Phone Care Team Providers Care Senior Information Systems Architect Name Role Phone Wan Rosario MD Primary Care Provider [phone] Brenda Cueto REHABILITATION SUPERVISOR Unavailable [phone] Sonja Ball DPT Unavailable Gerry Vaughn MD Unavailable [phone] Daphne Wise NP Primary Care Provider [phone] Roxann Galeana MD Unavailable [phone] July Hartman MD PhD Unavailable [phone] Encounter Details Date Type Department Care Team (Late st Contact Info) Description 05/08/2021 Orders Only [facility] Scanning, Provider Social History Tobacco Use Types [...] on file 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 Gender Identity Female 11/13/2020 10:00 PM CDT Sexual Orientation Straight 11/13/2020 10 :00 PM CDT documented as of this encounter Functional Status documented as of this encounter Plan of [...] Date/Time Associated Diagnosis Comments SCAN - LABS 05/08/2021 documented in this encounter Results * SCAN - LABS (05/08/2021) us Provider Scanning Final Result documented in this encounter Visit Diagnoses Not on filedocumented in this encounter Additional Health Concerns Infection Onset Date Last Indicated Resolved Time COVID: Suspected 11/09/2022 11/09/2022 11/09/2022 9:59 PM CDT documented as of this encounter Care Teams Senior Information Systems Architect Relationship Specialty Start Date End Date Wan Rosario MD [address] [facility] [address] [place] [address] PCP - General 11/12/16 10/08/24 Daphne Wise NP [address] [facility] [address] [place] [address] PCP - General Family Medicine 10/09/24 Brenda Cueto, REHABILITATION SUPERVISOR [address] [place], [place] [address] Nurse Practitioner Hematology 09/23/20 Sonja Ball DPT [address] [place] [address] Physical Therapist Physical Therapy 09/24/21 11/25/22 Gerry Vaughn MD [address] DEPT OPHTHALMOLOGY, [address] [id number] Surgeon Ophthalmology 09/24/22 Roxann Galeana MD 1 [facility] [address] DIV IM GASTROENTEROLOGY [place], [place] [address] Consulting Physician Gastroenterology 10/09/24 July Hartman MD PhD [address] [place], [place] [address] Consulting Physician Anesthesiology 10/09/24 documented as of this encounter
--- OUTSIDE RECORDS SUMMARY | 2025-01-01 17:46 | XMS_ITS | Encounter Summary ---
Author Organization [facility] Address [address] [facility] [address] [place] [address] Phone Care Team Providers Care Photo Checker And Assembler Name Role Phone Wan Rosario MD Primary Care Provider [phone] Brenda Cueto POLICEMAN Unavailable [phone] Sonja Ball DPT Unavailable Gerry Vaughn MD Unavailable [phone] Daphne Wise NP Primary Care Provider [phone] Roxann Galeana MD Unavailable [phone] July Hartman MD PhD Unavailable [phone] Encounter Details Date Type Department Care Team (Latest Contact Info) Description 11/10/2020 Orders Only [facility] Scanning, Provider Social [...] on file 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 Minimize further functional decline 2. Maximize quality of life 3. Control pain Strategies: - Activity/exercise program recommendation - Conservative stepwise pain medicine strategy with multi-disciplinary approach - Recommend healthy lifestyle strategies and compensatory methods as needed documented as of this encounter Procedures Procedure Name Priority Date/Time Associated Diagnosis Comments SCAN - LABS 11/10/2020 documented in this encounter Results * SCAN - LABS (11/10/2020) us Provider Scanning Final Result documented in this encounter Visit Diagnoses Not on filedocumented in this encounter Additional Health Concerns Infection Onset Date Last Indicated Resolved Time COVID: Suspected 11/09/2022 11/09/2022 11/09/2022 9:59 PM CDT documented as of this encounter Care Teams Photo Checker And Assembler Relationship Specialty Start Date End Date Wan Rosario MD [address] [facility] [address] [place] [address] PCP - General 11/12/16 10/08/24 Daphne Wise NP 2 [facility] [address] [place] [address] PCP - General Family Medicine 10/09/24 Brenda Cueto NP [address] [place] [address] Nurse Practitioner Hematology 09/23/20 Sonja Ball DPT [address] [place] [address] Physical Therapist Physical Therapy 09/24/21 11/25/22 Gerry Vaughn MD [address] DEPT OPHTHALMOLOGY, [address] [place] [address] Surgeon Ophthalmology 09/24/22 Roxann Galeana MD 1 [facility] [address] [place] [address] Consulting Physician Gastroenterology 10/09/24 July Hartman MD PhD [address] [place] [address] Consulting Physician Anesthesiology 10/09/24 documented as of this encounter
--- OUTSIDE RECORDS SUMMARY | 2025-01-01 17:46 | XMS_ITS | Encounter Summary ---
Author Organization [facility] Address [address] [facility] [address] [place] [address] Phone Care Team Providers Care Cross Enterprise Integrator Name Role Phone Wan Rosario MD Primary Care Provider [phone] Brenda Cueto MARKETING DIRECTOR Unavailable [phone] Sonja Ball DPT Unavailable Gerry Vaughn MD Unavailable [phone] Daphne Wise NP Primary Care Provider [phone] Roxann Galeana MD Unavailable [phone] July Hartman MD PhD Unavailable [phone] Encounter Details Date Type Department Care Team (Latest Contact Info) Description 02/09/2021 Orders Only [facility] Scanning, Provider Social [...] on file 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 Gender Identity Female 11/13/2020 10:00 PM CDT [...] Date/Time Associated Diagnosis Comments SCAN - LABS 02/09/2021 documented in this encounter Results * SCAN - LABS (02/09/2021) us Provider Scanning Final Result documented in this encounter Visit Diagnoses Not on filedocumented in this encounter Additional Health Concerns Infection Onset Date Last Indicated Resolved Time COVID: Suspected 11/09/2022 11/09/2022 11/09/2022 9:59 PM CDT documented as of this encounter Care Teams Cross Enterprise Integrator Relationship Specialty Start Date End Date Wan Rosario MD [address] [facility] [address] [place] [address] PCP - General 11/12/16 10/08/24 Daphne Wise NP 2 [facility] [address] [place] [address] PCP - General Family Medicine 10/09/24 Brenda Cueto NP [address] [place] [address] Nurse Practitioner Hematology 09/23/20 Sonja Ball DPT [address] [place] [address] Physical Therapist Physical Therapy 09/24/21 11/25/22 Gerry Vaughn MD [address] DEPT OPHTHALMOLOGY, [address] [place] [address] Surgeon Ophthalmology 09/24/22 Roxann Galeana MD [address] [facility] [address] [place] [address] Consulting Physician Gastroenterology 10/09/24 July Hartman MD PhD [address] [place] [address] Consulting Physician Anesthesiology 10/09/24 documented as of this encounter
--- OUTSIDE RECORDS SUMMARY | 2025-01-01 17:46 | XMS_ITS | Encounter Summary ---
Author Organization [facility] Address [address] [facility] [address] [place] [address] Phone Care Team Providers Care Morale Officer Name Role Phone Wan Rosario MD Primary Care Provider [phone] Brenda Cueto PROBATION AND PAROLE OFFICER Unavailable Sonja Ball DPT Unavailable Gerry Vaughn MD Unavailable [phone] Daphne Wise NP Primary Care Provider [phone] Roxann Galeana MD Unavailable [phone] July Hartman MD PhD Unavailable Encounter Details Date Type Department Care Team (Latest Contact Info) Description 05/28/2021 Orders Only [facility] Scanning, Provider Social [...] on file 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 [address] [place] [address] PCP - General 11/12/16 10/08/24 Daphne Wise NP [address] [facility] [address] [place] [address] PCP - General Family Medicine 10/09/24 Brenda Cueto, KITTY [address] [place] [address] Nurse Practitioner Hematology 09/23/20 Sonja Ball DPT [address] [place] [address] Physical Therapist Physical Therapy 09/24/21 11/25/22 Gerry Vaughn MD [address] DEPT OPHTHALMOLOGY, [address] [place] [address] Surgeon Ophthalmology 09/24/22 Roxann Galeana MD 1 [facility] [address] DIV [place] [address] Consulting Physician Gastroenterology 10/09/24 July Hartman MD PhD [address] [place], [place] [address] Consulting Physician Anesthesiology 10/09/24 documented as of this encounter
--- OUTSIDE RECORDS SUMMARY | 2025-01-01 17:46 | XMS_ITS | Encounter Summary ---
Author Organization [facility] Address [address] [facility] [address] [place] [address] Phone Care Team Providers Care Healthcare Administration Intern Name Role Phone Wan Rosario MD Primary Care Provider [phone] Brenda Cueto CNA HOSPICE Unavailable [phone] Sonja Ball DPT Unavailable Gerry Vaughn MD Unavailable [phone] Daphne Wise NP Primary Care Provider [phone] Roxann Galeana MD Unavailable [phone] July Hartman MD PhD Unavailable [phone] Encounter Details Date Type Department Care Team (Latest Contact Info) Description 10/07/2020 Orders Only [facility] Scanning, Provider Social [...] on file 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 Gender Identity Female 11/13/2020 10:00 PM CDT [...] Date/Time Associated Diagnosis Comments SCAN - LABS 10/07/2020 documented in this encounter Results * SCAN - LABS (10/07/2020) Provider Scanning Final Result documented in this encounter Visit Diagnoses Not on filedocumented in this encounter Additional Health Concerns Infection Onset Date Last Indicated Resolved Time COVID: Suspected 11/09/2022 11/09/2022 11/09/2022 9:59 PM CDT documented as of this encounter Care Teams Healthcare Administration Intern Relationship Specialty Start Date End Date Wan Rosario MD [address] [facility] [address] [place] [address] PCP - General 11/12/16 10/08/24 Daphne Wise NP [address] [facility] [address] [place] [address] PCP - General Family Medicine 10/09/24 Brenda Cueto NP [address] [place] [address] Nurse Practitioner Hematology 09/23/20 Sonja Ball DPT [address] [place] [address] Physical Therapist Physical Therapy 09/24/21 11/25/22 Gerry Vaughn MD [address] DEPT OPHTHALMOLOGY, [address] [place] [address] Surgeon Ophthalmology 09/24/22 Roxann Galeana MD 1 [facility] [address] [place] [address] Consulting Physician Gastroenterology 10/09/24 July Hartman MD PhD [address] [place] [address] Consulting Physician Anesthesiology 10/09/24 documented as of this encounter
--- OUTSIDE RECORDS SUMMARY | 2025-01-01 17:46 | XMS_ITS | Encounter Summary ---
Author Organization [facility] Address [address] [facility] [address] [place] [address] Phone Care Team Providers Care Car Repossessor Name Role Phone Wan Rosario MD Primary Care Provider [phone] Brenda Cueto DIRECTOR AERONAUTICS COMMISSION Unavailable [phone] Sonja Ball DPT Unavailable Gerry Vaughn MD Unavailable [phone] Daphne Wise NP Primary Care Provider [phone] Roxann Galeana MD Unavailable [phone] July Hartman MD PhD Unavailable [phone] Encounter Details Date Type Department Care Team (Latest Contact Info) Description 02/03/2018 Orders Only [facility] Scanning, Provider Social History Tobacco Use Types Packs/Day Years Used Date Smoking Tobacco: Former Smokeless Tobacco: Never Alcohol Use Standard Drinks/Week Comments No 0 (1 standard drink = 0.6 oz pur e alcohol) Comments Unknown Sex and Gender Information Value Date Recorded Sex Assigned at Not on file 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 Gender Identity Female 11/13/2020 10:00 PM CDT [...] Date/Time Associated Diagnosis Comments SCAN - LABS 02/03/2018 documented in this encounter Results * SCAN - LABS (02/03/2018) us Provider Scanning Final Result documented in this encounter Visit Diagnoses Not on filedocumented in this encounter Additional Health Concerns Infection Onset Date Last Indicated Resolved Time COVID: Suspected 11/09/2022 11/09/2022 11/09/2022 9:59 PM CDT documented as of this encounter Care Teams Car Repossessor Relationship Specialty Start Date End Date Wan Rosario MD [address] [facility] [address] [place] [address] PCP - General 11/12/16 10/08/24 Daphne Wise NP [address] [facility] [address] [place] [address] PCP - General Family Medicine 10/09/24 Brenda Cueto NP [address] [facility] [address] [place] [address] Nurse Practitioner Hematology 09/23/20 Sonja Ball DPT 4[address] [facility] [address] [place] [address] Physical Therapist Physical Therapy 09/24/21 11/25/22 Gerry Vaughn MD [address] [facility] [address] [place] [address] Surgeon Ophthalmology 09/24/22 Roxann Galeana MD [address] [facility] [address] DIV [place] [address] Consulting Physician Gastroenterology 10/09/24 July Hartman MD PhD [address] [place] [address] Consulting Physician Anesthesiology 10/09/24 documented as of this encounter
--- OUTSIDE RECORDS SUMMARY | 2025-01-01 17:46 | XMS_ITS | Encounter Summary ---
Author Organization [facility] Address [address] [facility] [address] [place] [address] Phone Care Team Providers Care Front Desk Clerk Name Role Phone Wan Rosario MD Primary Care Provider [phone] Brenda Cueto LASTING MACHINE OPERATOR BED Unavailable [phone] Sonja Ball DPT Unavailable Gerry Vaughn MD Unavailable Daphne Wise NP Primary Care Provider [phone] Roxann Galeana MD Unavailable [phone] July Hartman MD PhD Unavailable Encounter Details Date Type Department Care Team (Latest Contact Info) Description 10/14/2020 Orders Only [facility] Scanning, Provider Social [...] on file 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 Gender Identity Female 11/13/2020 10:00 PM CDT [...] Date/Time Associated Diagnosis Comments SCAN - LABS 10/14/2020 documented in this encounter Results * SCAN - LABS (10/14/2020) Provider Scanning Final Result documented in this encounter Visit Diagnoses Not on filedocumented in this encounter Additional Health Concerns Infection Onset Date Last Indicated Resolved Time COVID: Suspected 11/09/2022 11/09/2022 11/09/2022 9:59 PM CDT documented as of this encounter Care Teams Front Desk Clerk Relationship Specialty Start Date End Date Wan Rosario MD [address] [facility] [address] [place] [address] PCP - General 11/12/16 10/08/24 Daphne Wise NP [address] [facility] [address] [place] [address] PCP - General Family Medicine 10/09/24 Brenda Cueto NP [address] [place] [address] Nurse Practitioner Hematology 09/23/20 Sonja Ball DPT [address] [place] [address] Physical Therapist Physical Therapy 09/24/21 11/25/22 Gerry Vuaghn MD [address] DEPT OPHTHALMOLOGY, [address] [place] [address] Surgeon Ophthalmology 09/24/22 Roxann Galeana MD 1 [facility] [address] DIV [place] [address] Consulting Physician Gastroenterology 10/09/24 July Hartman MD PhD [address] [place] [address] Consulting Physician Anesthesiology 10/09/24 documented as of this encounter
--- OUTSIDE RECORDS SUMMARY | 2025-01-01 17:46 | XMS_ITS | Encounter Summary ---
Author Organization [facility] Address [address] [facility] [address] [place] [address] Phone Care Team Providers Care Mathematical Engineering Technician Name Role Phone Wan Rosario MD Primary Care Provider [phone] Brenda Cueto PASTOR Unavailable [phone] Sonja Ball DPT Unavailable Gerry Vaughn MD Unavailable [phone] Daphne Wise NP Primary Care Provider [phone] Roxann Galeana MD Unavailable [phone] July Hartman MD PhD Unavailable [phone] Encounter Details Date Type Department Care Team (Latest Contact Info) Description 04/25/2020 Orders Only [facility] Scanning, Provider Social [...] on file 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 Gender Identity Female 11/13/2020 10:00 PM CDT [...] Date/Time Associated Diagnosis Comments SCAN - LABS 04/25/2020 documented in this encounter Results * SCAN - LABS (04/25/2020) us Provider Scanning Final Result documented in this encounter Visit Diagnoses Not on filedocumented in this encounter Additional Health Concerns Infection Onset Date Last Indicated Resolved Time COVID: Suspected 11/09/2022 11/09/2022 11/09/2022 9:59 PM CDT documented as of this encounter Care Teams Mathematical Engineering Technician Relationship Specialty Start Date End Date Wan Rosario MD 49[address] [facility] [address] [place] [address] PCP - General 11/12/16 10/08/24 Daphne Wise NP [address] [facility] [address] [place] [address] PCP - General Family Medicine 10/09/24 Brenda Cueto NP [address] [place] [address] Nurse Practitioner Hematology 09/23/20 Sonja Ball DPT [address] [place] [address] Physical Therapist Physical Therapy 09/24/21 11/25/22 Gerry Vaughn MD [address] DEPT OPHTHALMOLOGY, [address] [place] [address] Surgeon Ophthalmology 09/24/22 Roxann Galeana MD [address] [facility] [address] [place] [address] Consulting Physician Gastroenterology 10/09/24 July Hartman MD PhD [address] [place] [address] Consulting Physician Anesthesiology 10/09/24 documented as of this encounter
--- OUTSIDE RECORDS SUMMARY | 2025-01-01 17:46 | XMS_ITS | Encounter Summary ---
Author Organization [facility] Address [address] [facility] [address] [place] [address] Phone Care Team Providers Care Remote Coders Name Role Phone Wan Rosario MD Primary Care Provider [phone] Brenda Cueto COMMAND AND CONTROL SYSTEMS INTEGRATOR Unavailable [phone] Sonja Ball DPT Unavailable Gerry Vaughn MD Unavailable [phone] Daphne Wise NP Primary Care Provider [phone] Roxann Galeana MD Unavailable [phone] July Hartman MD PhD Unavailable [phone] Encounter Details Date Type Department Care Team (Latest Contact Info) Description 12/03/2020 Orders Only [facility] Scanning, Provider Social [...] on file 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 Gender Identity Female 11/13/2020 10:00 PM [...] Date/Time Associated Diagnosis Comments SCAN - LABS 12/03/2020 documented in this encounter Results * SCAN - LABS (12/03/2020) us Provider Scanning Final Result documented in this encounter Visit Diagnoses Not on filedocumented in this encounter Additional Health Concerns Infection Onset Date Last Indicated Resolved Time COVID: Suspected 11/09/2022 11/09/2022 11/09/2022 9:59 PM CDT documented as of this encounter Care Teams Remote Coders Relationship Specialty Start Date End Date Wan Rosario MD [address] [facility] [address] [place] [address] PCP - General 11/12/16 10/08/24 Daphne Wise NP 2 [facility] [address] [place] [address] PCP - General Family Medicine 10/09/24 Brenda Cueto NP [address] [place] [address] Nurse Practitioner Hematology 09/23/20 Sonja Ball DPT [address] [place] [address] Physical Therapist Physical Therapy 09/24/21 11/25/22 Gerry Vaughn MD [address] DEPT OPHTHALMOLOGY, [address] [place] [address] Surgeon Ophthalmology 09/24/22 Roxann Galeana MD 1 [facility] [address] [place] [address] Consulting Physician Gastroenterology 10/09/24 July Hartman MD PhD [address] [place] [address] Consulting Physician Anesthesiology 10/09/24 documented as of this encounter
--- OUTSIDE RECORDS SUMMARY | 2025-01-01 17:46 | XMS_ITS | Encounter Summary ---
Author Organization [facility] Address [address] [facility] [address] [place] [address] Phone Care Team Providers Care Parking Meter Collector Name Role Phone Wan Rosario MD Primary Care Provider [phone] Brenda Cueto PUBLIC OPINION SURVEY TAKER Unavailable [phone] Sonja Ball DPT Unavailable Gerry Vaughn MD Unavailable [phone] Daphne Wise NP Primary Care Provider [phone] Roxann Galeana MD Unavailable [phone] July Hartman MD PhD Unavailable [phone] Encounter Details Date Type Department Care Team (Latest Contact Info) Description 01/12/2021 Orders Only [facility] Scanning, Provider Social [...] on file 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 Gender Identity Female 11/13/2020 10:00 PM [...] Date/Time Associated Diagnosis Comments SCAN - LABS 01/12/2021 documented in this encounter Results * SCAN - LABS (01/12/2021) us Provider Scanning Final Result documented in this encounter Visit Diagnoses Not on filedocumented in this encounter Additional Health Concerns Infection Onset Date Last Indicated Resolved Time COVID: Suspected 11/09/2022 11/09/2022 11/09/2022 9:59 PM CDT documented as of this encounter Care Teams Parking Meter Collector Relationship Specialty Start Date End Date Wan Rosario MD [address] [facility] [address] [place] [address] PCP - General 11/12/16 10/08/24 Daphne Wise NP 2 [facility] [address] [place] [address] PCP - General Family Medicine 10/09/24 Brenda Cueto NP [address] [place] [address] Nurse Practitioner Hematology 09/23/20 Sonja Ball DPT [address] [place] [address] Physical Therapist Physical Therapy 09/24/21 11/25/22 Gerry Vaughn MD [address] DEPT OPHTHALMOLOGY, [address] [place] [address] Surgeon Ophthalmology 09/24/22 Roxann Galeana MD 1 [facility] [address] [place] [address] Consulting Physician Gastroenterology 10/09/24 July Hartman MD PhD [address] [place] [address] Consulting Physician Anesthesiology 10/09/24 documented as of this encounter
--- OUTSIDE RECORDS SUMMARY | 2025-01-01 17:46 | XMS_ITS | Encounter Summary ---
Author Organization [facility] Address [address] [facility] [address] [place] [address] Phone Care Team Providers Care Revenue Research Analyst Name Role Phone Wan Rosario MD Primary Care Provider Brenda Cueto MOTION PICTURE PROJECTIONIST APPRENTICE Unavailable [phone] Sonja Ball DPT Unavailable Gerry Vaughn MD Unavailable [phone] Daphne Wise NP Primary Care Provider [phone] Roxann Galeana MD Unavailable July Hartman MD PhD Unavailable [phone] Encounter Details Date Type Department Care Team (Latest Contact Info) Description 12/05/2020 Orders Only [facility] Scanning, Provider Social [...] file 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 Gender Identity Female 11/13/2020 10:00 PM [...] Date/Time Associated Diagnosis Comments SCAN - LABS 12/05/2020 documented in this encounter Results * SCAN - LABS (12/05/2020) us Provider Scanning Final Result documented in this encounter Visit Diagnoses Not on filedocumented in this encounter Additional Health Concerns Infection Onset Date Last Indicated Resolved Time COVID: Suspected 11/09/2022 11/09/2022 11/09/2022 9:59 PM CDT documented as of this encounter Care Teams Revenue Research Analyst Relationship Specialty Start Date End Date Wan Rosario MD [address] [facility] [address] [place] [address] PCP - General 11/12/16 10/08/24 Daphne Wise NP 2 [facility] [address] [place] [address] PCP - General Family Medicine 10/09/24 Brenda Cueto NP [address] [place] [address] Nurse Practitioner Hematology 09/23/20 Sonja Ball DPT [address] [place] [address] Physical Therapist Physical Therapy 09/24/21 11/25/22 Gerry Vaughn MD [address] DEPT OPHTHALMOLOGY, [address] [place] [address] Surgeon Ophthalmology 09/24/22 Roxann Galeana MD 1 [facility] [address] DIV IM [place] [address] Consulting Physician Gastroenterology 10/09/24 July Hartman MD PhD [address] [place] [address] Consulting Physician Anesthesiology 10/09/24 documented as of this encounter
--- OUTSIDE RECORDS SUMMARY | 2025-01-01 17:47 | XMS_ITS | Encounter Summary ---
Author Organization [facility] Address [address] [place] [address] Care Team Providers Care Math Teacher Name Role Phone Brenda Cueto NP Unavailable [phone] Gerry Vaughn MD Unavailable [phone] Daphne Wise NP Primary Care Provider [phone] Roxann Galeana MD Unavailable [phone] July Hartman MD PhD Unavailable [phone] Encounter Details Date Type Department Care Team (Late st Contact Info) Description 12/31/2024 10:[address]T [address] [facility] Imaging at [address] [address] Arrived Social History Tobacco Use Types Packs/Day Years [...] more points, staff should administer the PHQ-9) 2 12/31/2024 Personal Safety Answer Date Recorded Have you ever been in or are you currently in a harmful physical or emotional relationship or is someone making you feel afraid or unsafe? 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 Minimize further functional decline 2. Maximize quality of life 3. Control pain Strategies: - Activity/exercise program recommendation - Conservative stepwise pain medicine strategy with multi-disciplinary approach - Recommend healthy lifestyle strategies and compensatory methods as needed documented as of this encounter Procedures Procedure Name Priority Date/Time Associated Diagnosis Comments XR KNEE RIGHT 4 OR MORE VIEWS Schedule Routine, Read Routine (OP Routine) 12/31/2024 9:45 AM CDT Chronic pain of right knee documented in this encounter Results * XR Knee Right 4+ Vw (12/31/2024 9:45 AM CDT) Anatomical Region Laterality Modality Lower Extremities, Knee Right Digital Radiography 12/31/2024 2:09 PM CDT Narrative 12/31/2024 2:12 PM CDT EXAM DESCRIPTION: XR KNEE RIGHT 4 OR MORE VIEWS REASON FOR STUDY: Right knee pain x 1 month. Pt complains of chronic right knee pain. No known injury. No prior surgery to the knee. FINDINGS: Four views submitted with comparison 10/02/2019. Severe medial predominant tricompartmental right knee osteoarthritis. Genu varus is present. Small knee effusion. Lower extremity soft tissue swelling. No acute fracture. IMPRESSION: Severe medial predominant tricompartmental right knee osteoarthritis with genu varus and a small effusion. THIS IS AN ELECTRONICALLY VERIFIED FINAL REPORT 12/31/2024 2:12 PM - Electronically signed by Daren Contrersa M.D. T: Report ID: [id number] Reading Location: [id number] Procedure Note Daren Contreras MD - 12/31/2024 EXAM DESCRIPTION: XR KNEE RIGHT 4 OR MORE VIEWS REASON FOR STUDY: Right knee pain x 1 month. Pt complains of chronic right knee pain. No known injury. No prior surgeryto the knee. FINDINGS: Four views submitted with comparison 10/02/2019. Severe medial predominant tricompartmental right knee osteoarthritis.Genu varus is present. Small knee effusion. Lower extremity soft tissueswelling. No acute fracture. IMPRESSION: Severe medial predominant tricompartmental right knee osteoarthritis with genu varus and a small effusion. THIS IS AN ELECTRONICALLY VERIFIED FINAL REPORT 12/31/2024 2:12 PM - Electronically signed by Daren Contreras M.D. T: Report ID: [id number] Reading Location: [place] [address] Daphne Wise NP IMG XR PROCEDURES Final Result documented in this encounter Visit Diagnoses Not on filedocumented in this encounter Care Teams Math Teacher Relationship Specialty Start Date End Date Daphne Wise NP [address] [facility] [address] [place] [address] PCP - General Family Medicine 10/09/24 Brenda Cueto NP [address] [place] [address] Nurse Practitioner Hematology 09/23/20 Geryr Vaughn MD [address] DEPT OPHTHALMOLOGY, [address] [place] [address] Surgeon Ophthalmology 09/24/22 Roxann Galeana MD [address] [facility] [address] [place] [address] Consulting Physician Gastroenterology 10/09/24 July Hartman MD PhD [address] [place] [address] Consulting Physician Anesthesiology 10/09/24 documented as of this encounter
--- OUTSIDE RECORDS SUMMARY | 2025-01-01 17:47 | XMS_ITS | Encounter Summary ---
Author Organization [facility] Address [address] [facility] [address] [place] [address] Phone Care Team Providers Care Museum Assistant Name Role Phone Wan Rosario MD Primary Care Provider Brenda Cueto MEDICAL TECHNICIANS Unavailable [phone] Sonja Ball DPT Unavailable Gerry Vaughn MD Unavailable [phone] Daphne Wise NP Primary Care Provider [phone] Roxann Galeana MD Unavailable [phone] July Hartman MD PhD Unavailable [phone] Encounter Details Date Type Department Care Team (Latest Contact Info) Description 12/21/2019 Orders Only [facility] Scanning, Provider Social [...] on file Legal Sex Female 12:29 PM EDGE BONDER Gender Identity Female 11/13/2020 10:00 PM CDT [...] Date/Time Associated Diagnosis Comments SCAN - LABS 12/21/2019 documented in this encounter Results * SCAN - LABS (12/21/2019) Provider Scanning Final Result documented in this encounter Visit Diagnoses Not on filedocumented in this encounter Additional Health Concerns Infection Onset Date Last Indicated Resolved Time COVID: Suspected 11/09/2022 11/09/2022 11/09/2022 9:59 PM CDT documented as of this encounter Care Teams Museum Assistant Relationship Specialty Start Date End Date Wan Rosario MD [address] [facility] [address] [place] [address] PCP - General 11/12/16 10/08/24 Daphne Wise NP [address] [facility] [facility] [address] [place] [address] PCP - General Family Medicine 10/09/24 Brenda Cueto NP [address] [facility] [address] [place] [address] Nurse Practitioner Hematology 09/23/20 Sonja Ball DPT [address] [facility] [address] [place] [address] Physical Therapist Physical Therapy 09/24/21 11/25/22 Gerry Vaughn MD [address] DEPT OPHTHALMOLOGY, [facility] [address] [place] [address] Surgeon Ophthalmology 09/24/22 Roxann Galeana MD 1 [facility] [address] [place] [address] Consulting Physician Gastroenterology 10/09/24 July Hartman MD PhD [address] [place] [address] Consulting Physician Anesthesiology 10/09/24 documented as of this encounter
--- OUTSIDE RECORDS SUMMARY | 2025-01-01 17:47 | XMS_ITS | Encounter Summary ---
Author Organization [facility] Address [address] [place] [address] Care Team Providers Care Production Administrative Assistant Name Role Phone Brenda Cueto NP Unavailable [phone] Gerry Vaughn MD Unavailable [phone] Daphne Wise NP Primary Care Provider [phone] Roxann Galeana MD Unavailable [phone] July Hartman MD PhD Unavailable [phone] Reason for Referral * Procedure (Routine) - Authorized Specialty Diagnoses / Procedures Referred By Contac t Referred To Contact Pulmonology Diagnoses Chronic cough Procedures Pulmonary Function Test -[facility] Adult PFT Lab- [facility]; Complete/Full PFT; Spirometry, Spirometry w/bronchodilator, DLCO and Lung Volumes Daphne Wise NP [address] [facility] [facility] [address] [place] [address] Phone: tel: fax: Referral ID Status Reason Start Date Expiration Date V isits Requested Visits Authorized [id number] Authorized 12/31/2024 01/30/2026 1 1 Reason for Visit * Reason Comments Follow-up Pt states for 3 diego h follow. Knee Pain Pt states for right knee pain. Pt states she felt like she had a DVT and a doppler was done by her manager transportation planning. Pt states it was negative. Pt states she has some swelling. Urinary Incontinence Pt states she has n oticed more issues with urinary incontinence. Pt states she has lower back pain along with it. Encounter Details Date Type Department Care Team (Late st Contact Info) Description 12/31/2024 8:30 AM CDT Office Visit [facility] Primary Care at [address] [address] Daphne Wise NP [address] [place] [address] [address] [place] [address] Overactive bladder (Primary Dx); Chronic cough; Chronic pain of right knee; Recurrent major depressive disorder, in partial remission; History of deep venous thrombosis; RAFI-inhibitor cough; Class 3 severe obesity with body mass index (BMI) of 45.0 to 49.9 in adult Social History Tobacco Use Types Packs/Day Years [...] on file Legal Sex Female 12:29 PM 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 RESOURCES 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 Gender Identity Female 11/13/2020 10:00 PM CDT Sexual Orientation Straight 11/13/2020 10 :00 PM CDT 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 Not on file Not on file documented as of this encounter Last Filed Vital Signs Vital Sign Reading Time Taken Comments Blood Pressure 132/82 12/31/2024 8:37 AM CDT Pulse 90 12/31/2024 8:37 AM CDT Temperature 36.9 C (98.4 F) 12/31/2024 8:37 AM CDT Respiratory Rate - - Oxygen Saturation 97% 12/31/2024 8:37 AM CDT Inhaled Oxygen Concentration - - Weight 133.4 kg (294 lb) 12/31/2024 8:37 AM CDT Height 167.6 cm (5' 6 ) 12/31/2024 8:37 AM CDT Body Mass Index 47.45 12/31/2024 8:37 AM CDT documented in this encounter Patient Instructions * Patient Instructions* Daphne Wise NP - 12/31/2024 8:30 AM CDT Add in Wellbutrin for mood. Add in Myrbetriq for overactive bladder. Pulmonary function test for chronic cough. documented in this encounter Ordered Prescriptions Prescription Sig Dispense Quantity Refills Last Filled Start Date End Date benzonatate (Tessalon Perles) 100 mg capsule Take 1 capsule (100 mg total) by mouth 3 (three) times a day as needed for cough 20 capsule 12/31/2024 buPROPion XL (WELLBUTRIN XL) 150 mg 24 hr tablet Take 1 tablet (150 mg total) by mouth every morning 30 tablet 1 12/31/2024 escitalopram (LEXAPRO) 20 mg tablet Take 1 tablet (20 mg total) by mouth daily 90 tablet 3 12/31/2024 mirabegron ER (MYRBETRIQ) 25 mg tablet extended release 24 hr Take 1 tablet (25 mg total) by mouth daily 90 tablet 1 12/31/2024 documented in this encounter Miscellaneous Notes * Assessment & Plan Note - Daphne Wise NP - 12/31/2024 9:42 AM CDTAssociated Problem(s): Class 3 severe obesity with body mass index (BMI) of 45.0 to 49.9 in adult Healthy, low carbohydrate lifestyle and exercise for 150min/week recommended * Assessment & Plan Note - Daphne Wise NP - 12/31/2024 9:42 AM CDTAssociated Problem(s): Chronic cough Refill of Tessalon Pearls provided but informed pt we need to get to root of the cough. She is already on PPI. Has had CXR and Chest CT in the past. Will get PFT. * Assessment & Plan Note - Daphne Wise NP - 12/31/2024 9:41 AM CDTAssociated Problem(s): History of deep venous thrombosis Pt scheduled for repeat US 01/01. Suspect the knee pain is musculoskeletal related. * Assessment & Plan Note - Daphne Wise NP - 12/31/2024 9:40 AM CDTAssociated Problem(s): Recurrent major depressive disorder, in partial remission No at goal on the Lexapro, will add in Wellbutrin 150 mg daily. Education provided, pt denies hx seizures. * Assessment & Plan Note - Daphne Wise NP - 12/31/2024 9:39 AM CDTAssociated Problem(s): Overactive bladder Pt states she still takes her Tolterodine and Trospium, sometimes doubling dosages since symptoms are worsening/not at goal. Discussed not doubling medications. Add in Myrbetriq, pt cautioned for anticholinergic side effects. If no improvement or Myrbetriq not covered, can have pt see Urology. documented in this encounter Plan of Treatment Scheduled Orders Name Type Priority Associated Diagnoses Orde r Schedule Pulmonary Function Test -[facility] Adult PFT Lab- [facility]; Complete/Full PFT; Spirometry, Spirometry w/bronchodilator, DLCO and Lung Volumes PFT Routine Chronic cough 1 Occurrences starting 12/31/2024 until 12/31/2025 Scheduled Procedures Name Priority Associated Diagnoses Date/Ti wa ESOPHAGOGASTRODUODENOSCOPY Gastroesophageal reflux disease, esophagitis presence not specified COLONOSCOPY Colon cancer screening Gastroesophageal reflux disease, esophagitis presence not specified documented as of this encounter Goals Goal Patient Goal Type Associated Problems Recent Progress Patient-Stated? Author CCM Chronic Pain Care Plan Chronic Care Management No change(05/04 7:47 AM CDT) No Arlene Montano, RN Note: Problem: Chronic Pain Goals: 1. Minimize further functional decline 2. Maximize quality of life 3. Control pain Strategies: - Activity/exercise program recommendation - Conservative stepwise pain medicine strategy with multi-disciplinary approach - Recommend healthy lifestyle strategies and compensatory methods as needed documented as of this encounter Results * XR Knee Right [...] by Daren Contreras M.D. T: Report ID: [id number] Reading Location: [id number] Procedure Note Daren Contreras MD - 12/31/2024 [...] by Daren Contreras M.D. T: Report ID: [id number] Reading Location: [id number] Daphne Wise DRYWALL INSTALLER IMG XR PROCEDURES Final Result documented in this encounter Visit Diagnoses Diagnosis Overactive bladder- Primary Hypertonicity of bladder Chronic cough Cough Chronic pain of right knee Recurrent major depressive disorder, in partial remission History of deep venous thrombosis RAFI-inhibitor cough Class 3 severe obesity with body mass index (BMI) of 45.0 to 49.9 in adult documented in this encounter Discontinued Medications Medication Sig Discontinue Reason Start Date End Da te escitalopram (LEXAPRO) 20 mg tablet Take 1 tablet (20 mg total) by mouth daily Reorder 06/16/2023 12/31/2024 nortriptyline (PAMELOR) 10 mg capsule Take 1 capsule (10 mg total) by mouth 2 (two) times a day 12/14/2023 12/31/2024 documented as of this encounter Care Teams Production Administrative Assistant Relationship Specialty Start Date End Date Daphne Wise NP [address] [facility] [address] [place] [address] PCP - General Family Medicine 10/09/24 Brenda Cueto NP [address] [place] [address] Nurse Practitioner Hematology 09/23/20 Gerry Vaughn MD [address] DEPT OPHTHALMOLOGY, [address] [address] Surgeon Ophthalmology 09/24/22 Roxann Galeana MD 1 [facility] [address] DIV [place] [address] Consulting Physician Gastroenterology 10/09/24 July Hartman MD PhD [address] [place] [address] Consulting Physician Anesthesiology 10/09/24 documented as of this encounter
--- OUTSIDE RECORDS SUMMARY | 2025-01-01 17:47 | XMS_ITS | Encounter Summary ---
Author Organization [facility] Address [address] [facility] [address] [place] [address] Phone Care Team Providers Care Detention Sergeant Name Role Phone Wan Rosario MD Primary Care Provider [phone] Brenda Cueto TELECOMMUNICATIONS ADMINISTRATOR Unavailable [phone] Sonja Ball DPT Unavailable Gerry Vaughn MD Unavailable Daphne Wise NP Primary Care Provider [phone] Roxann Galeana MD Unavailable [phone] July Hartman MD PhD Unavailable [phone] Encounter Details Date Type Department Care Team (Latest Contact Info) Description 12/13/2019 Orders Only [facility] Scanning, Provider Social [...] on file 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 Gender Identity Female 11/13/2020 10:00 PM CDT [...] Date/Time Associated Diagnosis Comments SCAN - LABS 12/13/2019 documented in this encounter Results * SCAN - LABS (12/13/2019) Provider Scanning Final Result documented in this encounter Visit Diagnoses Not on filedocumented in this encounter Additional Health Concerns Infection Onset Date Last Indicated Resolved Time COVID: Suspected 11/09/2022 11/09/2022 11/09/2022 9:59 PM CDT documented as of this encounter Care Teams Detention Sergeant Relationship Specialty Start Date End Date Wan Rosario MD [address] [facility] [address] [place] [address] PCP - General 11/12/16 10/08/24 Daphne Wise NP [address] [facility] [address] [place] [address] PCP - General Family Medicine 10/09/24 Brenda Cueto NP [address] [facility] [address] [place] [address] Nurse Practitioner Hematology 09/23/20 Sonja Ball DPT [address] [facility] [address] [place] [address] Physical Therapist Physical Therapy 09/24/21 11/25/22 Gerry Vaughn MD [address] DEPT OPHTHALMOLOGY, [facility] [address] [place] [address] Surgeon Ophthalmology 09/24/22 Roxann Galeana MD 1 [facility] [address] DIV [place] [address] Consulting Physician Gastroenterology 10/09/24 July Hartman MD PhD [address] [place] [address] Consulting Physician Anesthesiology 10/09/24 documented as of this encounter
--- OUTSIDE RECORDS SUMMARY | 2025-01-01 17:47 | XMS_ITS | Encounter Summary ---
Author Organization [facility] Address [address] [place] [address] Phone Care Team Providers Care Technical Maintenance Specialist Name Role Phone Brenda Cueto NP Unavailable [phone] Gerry Vaughn MD Unavailable [phone] Daphne Wise EMG TECHNICIAN Primary Care Provider [phone] Roxann Galeana MD Unavailable [phone] July Hartman MD PhD Unavailable [phone] Encounter Details Date Type Department Care Team (Late st Contact Info) Description 12/18/2024 Results Follow-Up [facility] Bone Marrow Transplant [address] [facility] Floor 6 [place] [address] Taryn Eller MD [address] [place] [address] [place] Vein Duplex Lower Extremity Right Limited Social History Tobacco Use Types Packs/Day Years [...] points, staff should administer the PHQ-9) 2 10/09/2024 Personal Safety Answer Date Recorded Have you ever been in or are you currently in a harmful physical or emotional relationship or is someone making you feel afraid or unsafe? 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 Not on [...] on filedocumented in this encounter Care Teams Technical Maintenance Specialist Relationship Specialty Start Date End Date Daphne Wise NP [address] [place] [address] PCP - General Family Medicine 10/09/24 Brenda Cueto NP [address] [place] [address] Nurse Practitioner Hematology 09/23/20 Gerry Vaughn MD [address] DEPT OPHTHALMOLOGY, [address] [place] [address] Surgeon Ophthalmology 09/24/22 Roxann Galeana MD [address] [facility] [address] [place] [address] Consulting Physician Gastroenterology 10/09/24 July Hartman MD PhD [address] [place] [address] Consulting Physician Anesthesiology 10/09/24 documented as of this encounter
--- OUTSIDE RECORDS SUMMARY | 2025-01-01 17:47 | XMS_ITS | Encounter Summary ---
Author Organization [facility] Address [address] [facility] [address] [place] [address] Phone Care Team Providers Care Web Methods Developer Name Role Phone Wan Rosario MD Primary Care Provider [phone] Brenda Cueto REHABILITATION SERVICES DIRECTOR Unavailable [phone] Sonja Ball DPT Unavailable Gerry Vaughn MD Unavailable [phone] Daphne Wise NP Primary Care Provider [phone] Roxann Galeana MD Unavailable [phone] July Hartman MD PhD Unavailable [phone] Encounter Details Date Type Department Care Team (Latest Contact Info) Description 07/23/2017 Orders Only [facility] CONVERSION Scanning, Provider Social History Tobacco Use Types Packs/Day Years Used Date Smoking Tobacco: Never Smokeless Tobacco: Never Alcohol Use Standard Drinks/Week Comments No 0 (1 standard drink = 0.6 oz pur e alcohol) Comments Unknown Sex and Gender Information Value Date Recorded Sex Assigned at Not on file Legal Sex Female 12:29 PM DUPLIGRAPH OPERATOR Gender Identity Female 11/13/2020 10:00 PM [...] Procedure Name Priority Date/Time Associated Diagnosis Comments VASCULAR LABORATORY REPORT 07/23/2017 10:33 AM DUPLIGRAPH OPERATOR documented in this encounter Results * VASCULAR LABORATORY REPORT (07/23/2017 10:33 AM DUPLIGRAPH OPERATOR) Anatomical Region Laterality Modality Ultrasound us Provider Scanning CV VASCULAR PROCEDURES Final R esult documented in this encounter Visit Diagnoses Not on filedocumented in this encounter Additional Health Concerns Infection Onset Date Last Indicated Resolved Time COVID: Suspected 11/09/2022 11/09/2022 11/09/2022 9:59 PM CDT documented as of this encounter Care Teams Web Methods Developer Relationship Specialty Start Date End Date Wan Rosario MD [address] [facility] [address] [place] [address] PCP - General 11/12/16 10/08/24 Daphne Wise NP [address] [facility] [address] [place], [place] [id number] PCP - General Family Medicine 10/09/24 Brenda Cueto NP [address] [place] [address] Nurse Practitioner Hematology 09/23/20 Sonja Ball DPT [address] [facility] [address] [place] [address] Physical Therapist Physical Therapy 09/24/21 11/25/22 Gerry Vaughn MD [address] DE[facility] [address] [place] [address] Surgeon Ophthalmology 09/24/22 Roxann Galeana MD [address] [facility] [address] [place] [address] Consulting Physician Gastroenterology 10/09/24 July Hartman MD PhD [address] [place] [address] Consulting Physician Anesthesiology 10/09/24 documented as of this encounter
--- OUTSIDE RECORDS SUMMARY | 2025-01-01 17:47 | XMS_ITS | Encounter Summary ---
Author Organization [facility] Address [address] [facility] [address] [place] [address] Phone Care Team Providers Care Forming Department End Finder Name Role Phone Wan Rosario MD Primary Care Provider [phone] Brenda Cueto OPERATOR Unavailable [phone] Sonja Ball DPT Unavailable Gerry Vaughn MD Unavailable [phone] Daphne Wise NP Primary Care Provider [phone] Roxann Galeana MD Unavailable [phone] July Hartman MD PhD Unavailable [phone] Encounter Details Date Type Department Care Team (Latest Contact Info) Description 03/03/2020 Orders Only [facility] Scanning, Provider Social [...] on file Legal Sex Female 12:29 PM PULP COOKER Gender Identity Female 11/13/2020 10:00 PM CDT [...] Date/Time Associated Diagnosis Comments SCAN - LABS 03/03/2020 documented in this encounter Results * SCAN - LABS (03/03/2020) us Provider Scanning Final Result documented in this encounter Visit Diagnoses Not on filedocumented in this encounter Additional Health Concerns Infection Onset Date Last Indicated Resolved Time COVID: Suspected 11/09/2022 11/09/2022 11/09/2022 9:59 PM CDT documented as of this encounter Care Teams Forming Department End Finder Relationship Specialty Start Date End Date Wan Rosario MD [address] [facility] [address] [place] [address] PCP - General 11/12/16 10/08/24 Daphne Wise NP [address] [facility] [address] [place] [address] PCP - General Family Medicine 10/09/24 Brenda Cueto NP [address] [place] [address] Nurse Practitioner Hematology 09/23/20 Sonja Ball DPT [address] [place] [address] Physical Therapist Physical Therapy 09/24/21 11/25/22 Gerry Vaughn MD [address] DEPT OPHTHALMOLOGY, [address] [place] [address] Surgeon Ophthalmology 09/24/22 Roxann Galeana MD [address] [facility] [address] [place] [address] Consulting Physician Gastroenterology 10/09/24 July Hartman MD PhD [address] [place] [address] Consulting Physician Anesthesiology 10/09/24 documented as of this encounter
--- OUTSIDE RECORDS SUMMARY | 2025-01-01 17:47 | XMS_ITS | Encounter Summary ---
Author Organization [facility] Address [address] [facility] [address] [place] [address] Phone Care Team Providers Care Tong Hooker Name Role Phone Wan Rosario MD Primary Care Provider [phone] Brenda Cueto MOLDED CANDLES WICKER Unavailable [phone] Sonja Ball DPT Unavailable Gerry Vaughn MD Unavailable [phone] Daphne Wise NP Primary Care Provider [phone] Roxann Galeana MD Unavailable [phone] July Hartman MD PhD Unavailable [phone] Encounter Details Date Type Department Care Team (Latest Contact Info) Description 03/12/2020 Orders Only [facility] Scanning, Provider Social [...] on file 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 Gender Identity Female 11/13/2020 10:00 PM [...] Date/Time Associated Diagnosis Comments SCAN - LABS 03/12/2020 documented in this encounter Results * SCAN - LABS (03/12/2020) us Provider Scanning Final Result documented in this encounter Visit Diagnoses Not on filedocumented in this encounter Additional Health Concerns Infection Onset Date Last Indicated Resolved Time COVID: Suspected 11/09/2022 11/09/2022 11/09/2022 9:59 PM CDT documented as of this encounter Care Teams Tong Hooker Relationship Specialty Start Date End Date Wan Rosario MD [address] [facility] [address] [place] [address] PCP - General 11/12/16 10/08/24 Daphne Wise NP [address] [facility] [address] [place] [address] PCP - General Family Medicine 10/09/24 Brenda Cueto NP [address] [place] [address] Nurse Practitioner Hematology 09/23/20 Sonja Ball DPT [address] [place] [address] Physical Therapist Physical Therapy 09/24/21 11/25/22 Gerry Vaughn MD [address] DEPT OPHTHALMOLOGY, [address] [place] [address] Surgeon Ophthalmology 09/24/22 Roxann Galeana MD [address] [facility] [address] DIV [place] [address] Consulting Physician Gastroenterology 10/09/24 July Hartman MD PhD [address] [place] [address] Consulting Physician Anesthesiology 10/09/24 documented as of this encounter
--- OUTSIDE RECORDS SUMMARY | 2025-01-01 17:47 | XMS_ITS | Encounter Summary ---
Author Organization [facility] Address [address] [place] [address] Phone Care Team Providers Care Welding Machine Operator Ultrasonic Name Role Phone Brenda Cueto NP Unavailable [phone] Gerry Vaughn MD Unavailable [phone] Daphne Wise COMMUNICATION CENTER COORDINATOR Primary Care Provider Roxann Galeana MD Unavailable [phone] July Hartman MD PhD Unavailable [phone] Encounter Details Date Type Department Care Team (Late st Contact Info) Description 12/31/2024 Orders Only [facility] Gastroenterology [address] [facility] 12th [place] [address] [place] [address] Hanna Alvarenga LPN Elevated serum GGT level (Primary Dx); Elevated alkaline phosphatase level; Abnormal finding on GI tract imaging Social History Tobacco Use Types Packs/Day Years [...] on file 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 6 month labs ordered and detailed [employer] message sent - reminder set documented in this encounter Plan of Treatment Scheduled Orders Name Type Priority Associated Diagnoses Orde r Schedule Hepatic function panel Lab Routine Elevated serum GGT level Elevated alkaline phosphatase level Abnormal finding on GI tract imaging Expected: 12/31/2024, Expires: 12/31/2025 Gamma GT Lab Routine Elevated serum GGT level Elevated alkaline phosphatase level Abnormal finding on GI tract imaging Expected: 12/31/2024, Expires: 12/31/2025 Scheduled Procedures Name Priority Associated Diagnoses [...] documented as of this encounter Visit Diagnoses Diagnosis Elevated serum GGT level- Primary Elevated alkaline phosphatase level Abnormal finding on GI tract imaging documented in this encounter Care Teams Welding Machine Operator Ultrasonic Relationship Specialty Start Date End Date Daphne Wise NP [address] [facility] [address] [place] [address] PCP - General Family Medicine 10/09/24 Brenda Cueto NP [address] [place] [address] Nurse Practitioner Hematology 09/23/20 Gerry Vaughn MD [address] DEPT OPHTHALMOLOGY, [facility] [address] [place] [address] Surgeon Ophthalmology 09/24/22 Roxann Galeana MD [address] [facility] [address] [place] [address] Consulting Physician Gastroenterology 10/09/24 July Hartman MD PhD [address] [place] [address] Consulting Physician Anesthesiology 10/09/24 documented as of this encounter
--- OUTSIDE RECORDS SUMMARY | 2025-01-01 17:47 | XMS_ITS | Data Portability ---
Author Organization [facility] Ivor Address [address] [place] [address] [place] [address] Care Team Providers Care Rat Culturist Name Role Phone JUSTIN LIMSTON Primary Care Provider Assessment Encounter Date Assessment Date Assessment LastModified by Organization Details LastModified Time 02/22/2020 02/22/2020 Annual gynecological exam performed. Patient will come back in a year unless there are new symptoms. [email or web address] Not available 02/22/2020 09:50:53 03/06/2021 03/06/2021 Annual gynecological exam performed. Patient will come back in a year unless there are new symptoms. Not available 03/06/2021 09:30:26 03/09/2022 03/09/2022 Annual gynecological exam performed. Patient will come back in a year unless there are new symptoms. Not available 03/09/2022 09:52:02 03/18/2023 03/18/2023 Annual gynecological exam performed. Patient will come back in a year unless there are new symptoms. [email or web address] Not available 03/18/2023 09:20:18 Plan of Treatment Reminders Order Date Submit Date Provider Last Modified By Organization Details Last Modified Time Details Appointments [facility] 2024 08:00A CIRILO Whittaker Not available Not available Not available Lab None recorde d. Referral None recorde d. Procedures None recorde d. Surgeries None recorde d. Imaging MAMMO, screeni yusuf, shannan al [id number] 023 [email or web address] [facility], [address], [place], [address], 06/22/2023 10:21:06 MAMMO, screeni ng, digital , bilater al 2020 021 [email or web address] [facility] , [address], [place], [address], 01/06/2022 23:38:32 Medication Orders mupiroc in 2 % topical ointmen t 2023 024 [facility] #[id number], [address] [facility], [place], [place], [id number], 02/08/2024 12:30:07 nystati n-triam cinolon e 100,000 unit/gr am-0.1 % topical ointmen t 2021 022 [facility] #[id number], [address] [facility], [place], [place], [id number], 03/18/2023 09:22:04 nystati n-triam cinolon e 100,000 unit/gr am-0.1 % topical ointmen t 2020 021 [facility] #[id number], [address] [place], [place], [id number], 03/18/2023 09:22:04 Patient TargetsNo targets recorded. Patient InstructionsNo instructions recorded. Reason for Referral None Reported. Results Created Date Observation Date Name Description Value Unit Range Abnormal Flag Note LastModifiedBy Organization Detail LastModifiedTime 02/08/2002/08/2024 CULTU RE: AEROB IC/AN AEROB IC culture: aerobic/anae robic CANCEL LED Order Expir ed Not Available [facility] (Lab) [address], [place], [address], 02/09/2024 15:53:53 02/08/20 24 02/08/2024 CULTU RE: AEROB IC/AN AEROB IC result report SEE RESULT S BELOW abnormal Test: Cultu re: Aerob ic/An aerob ic Speci men Type: Micro biolo gy Speci men Speci men Date: 2023 1343 Resul t Date: 2023 1443 Resul t Statu s: Final resul t Abnor mal: Yes Resul oswaldo Lab: [facility] [address] [facility] [address] Tel: [phone] CULTU RE ----- ----- ----- --- Heavy Growt h [facility]) Heavy Growt h Enter ococc us faeca lis [facility]) Cultu re sampl es colle cted from sites that are proxi mal to maite l anaer obic aaron , do not provi de usefu l infor nate steele. The anaer obic porti on of this cultu re has been credi watson. STAIN ----- ----- ----- --- Many Gram posit nicole cocci seen No Neutr ophil s seen SUSCE PTIBI LITY ----- ----- ----- --- Prote us mirab ilis METHO D ELIZABETH ----- ----- ----- ----- ----- ---- ----- ----- ----- ----- ----- - AMPIC ILLIN <=8 ug/mL Susce ptibl e AMPIC ILLIN /SULB ACTAM <= 4 ug/mL Susce ptibl e AZTRE ONAM <=4 ug/mL Susce ptibl e CEFAZ JULIANN <=2 ug/mL Susce ptibl e CEFEP LOUIE <=2 ug/mL Susce ptibl e CEFTA ZIDIM E <=1 ug/mL Susce ptibl e CEFTR IAXON E <=1 ug/mL Susce ptibl e CIPRO FLOXA CHEYENNE <=0.2 5 ug/mL Susce ptibl e GENTA MICIN <=2 ug/mL Susce ptibl e GENTA MICIN SYNER GY LEVOF LOXAC IN <=0.5 ug/mL Susce ptibl e MEROP ENEM <=1 ug/mL Susce ptibl e PIPER ACILL IN/TA ZOBAC SARGENT <=8 ug/mL Susce ptibl e STREP TOMYC IN SYNER GY TOBRA MYCIN <=2 ug/mL Susce ptibl e TRIME THOPR IM/AMEZCUA LFAME THOXA ZOLE <=0.5 ug/mL Susce ptibl e VANCO MYCIN Enter ococc us faeca lis METHO D ELIZABETH ----- ----- ----- ----- ----- ---- ----- ----- ----- ----- ----- - AMPIC ILLIN <=2 ug/mL Susce ptibl e AMPIC ILLIN /SULB ACTAM AZTRE ONAM CEFAZ JULIANN CEFEP LOUIE CEFTA ZIDIM E CEFTR IAXON E CIPRO FLOXA CHEYENNE GENTA MICIN GENTA MICIN SYNER GY <=500 ug/mL Susce ptibl e LEVOF LOXAC IN MEROP ENEM PIPER ACILL IN/TA ZOBAC SARGENT STREP TOMYC IN SYNER GY <=1,0 00 ug/mL Susce ptibl e TOBRA MYCIN TRIME THOPR IM/AMEZCUA LFAME THOXA ZOLE VANCO MYCIN 2 ug/mL Susce ptibl e SUSCE PTIBI LITY COMME NTS ----- ----- ----- ----- ----- ----- ----- Enter ococc us faeca lis Combi natio n thera py with penic illin and an amino glyco side is usual ly indic ated for gabriel us enter ococc al infec tions , such as endoc ardit is. Syner gy betwe en penic illin and an amino glyco side is likel y to occur as deter mined by the high level amino glyco side test for syner gy. Not Available [facility] (Lab) [address], [place], [address], 02/15/2024 23:04:54 02/08/20 24 02/08/2024 HERPE S SUBTY PE(HS V1/HS V2) RT-PC R, ONESW AB herpes subtype (hsv-1, hsv-2) PCR Negati ve (HSV-1 ,HSV-2 ) Swab- 1 Cervi jaylyn HSV-1 :Nega tive HSV-2 :Nega tive. Not Available [facility] (Lab) [address], [place], [address], 02/15/2024 23:04:54 07/11/20 22 07/09/2022 MAMMO , scree stu, bilat eral No observ ation record ed. [address] [facility] [address], [place], [address], 03/10/2023 12:56:23 Result Notes None recorded. Problems Name Problem SNOMED Code Status Onset Date Resolution Date Notes Provider Name and Address Organization Details Recorded Time Insertion of intrauter ine contracep tive device Completed 201903/06/2021 Encounter for insertion of intrauteri ne contracept nicole device;Rec orded Elsewhere: No Locatio n: [facility] rce: EHR Chroni c: N Practice ID: 0001 Billa ble Time: 08:30:00 AM Eli Ornelas [facility] 09:32:31 Screening for malignant neoplasm of rectum Completed 201703/06/2021 Encounter for screening for malignant neoplasm of rectum;Rec orded Elsewhere: No Locatio n: [facility] rce: EHR Chroni c: N Practice ID: 0001 Billa ble Time: 08:00:00 AM Eli Ornelas [facility] 09:32:38 Specializ ed medical examinati on Completed 201203/06/2021 Gynecologi jaylyn Examinatio n;Recorded Elsewhere: No Locatio n: [facility] rce: EHR Chroni c: N Practice ID: 0001 Billa ble Time: 08:45:00 AM Eli Ornelas [facility] 09:32:42 Removal of intrauter ine device Completed 201203/06/2021 REMOVAL OF IUD;Record ed Elsewhere: No Locatio n: [facility] rce: EHR Chroni c: N Practice ID: 0001 Billa ble Time: 08:45:00 AM Eli Ornelas [facility] 09:32:33 Replaceme nt of intrauter ine contracep tive device Completed 201903/06/2021 Encntr for removal and reinsertio n of uterin contracep dev;Record ed Elsewhere: No Locatio n: [facility] rce: EHR Chroni c: N Practice ID: 0001 Billa ble Time: 08:30:00 AM Eli Ornelas [facility] 09:32:35 Screening for malignant neoplasm of cervix Completed 201103/06/2021 Screening for malignant neoplasms of the cervix;Rec orded Elsewhere: No Locatio n: [facility] rce: EHR Chroni c: N Practice ID: 0001 Billa ble Time: 08:30:00 AM Eli Ornelas [facility] 09:32:[address] Concept Completed 201703/06/2021 Encntr for general adult medical exam w/o abnormal findings;R ecorded Elsewhere: No Locatio n: [facility] rce: EHR Chroni c: N Practice ID: 0001 Billa ble Time: 08:00:00 AM Eli Ornelas [facility] 09:32:[address] Concept Completed 201703/06/2021 Encntr for line fisher exam (general) (routine) w/o abn findings;R ecorded Elsewhere: No Locatio n: [facility] rce: EHR Chroni c: N Practice ID: 0001 Billa ble Time: 08:00:00 AM Eli elder [facility] 09:32:41 Family planning surveilla nce Completed 201203/06/2021 Contracept nicole surveillan ce, unspecifie d;Recorded Elsewhere: No Locatio n: [facility] rce: EHR Chroni c: N Practice ID: 0001 Billa ble Time: 08:30:00 AM Eli elder [facility] 09:32:27 Problem Notes None recorded. Procedures Surgical History Date Name Laterality Status Provider Name and Address Organization Details Recorded Time 023 Date of Last Mammogram completed [facility] 02/08/2024 12:09:33 019 Date of Last Pap Smear completed Sonia [facility] 02/08/2024 12:09:04 017 Gastric Bypass [facility] 03/09/2022 09:54:47 990 Caesarean Section completed [facility] 03/09/2022 09:54:48 Caesarean Section completed Eli Ornelas [facility] 03/06/2021 09:48:17 colonoscopy completed Erinn Martinez [facility] [address], [place], [address], [facility] 03/06/2021 09:54:19 Gastric Bypass completed Kenzie Cochran [facility] 02/22/2020 09:35:29 Dilation and Curettage completed Kenzie Cochran [facility] 02/22/2020 09:35:36 Cholecystectomy completed Kenzie Cochran [facility] 02/22/2020 09:35:42 Imaging Results Imaging Date Name Status LastModified by Organiz ation Details LastModified Time 07/09/2022 MAMMO, screening, bilateral completed [address], [place], [address], 03/10/2023 12:56:23 Procedure Notes None recorded. Medical Equipment None Reported. Allergies Allergen ID Allergen Name Allergen Category Reaction Reaction Severity Criticality Documentation Date Start Date Code Code System Note Provider Name and Address Organization Details Recorded Time 1260 amoxicill in medicatio n Not available Not available Not available 02/22/2020 723 RxNorm Kenzie elder, [facility] 0 09:27:46 1261 morphine medicatio n Not available Not available Not available 02/22/2020 7052 RxNorm Kenzie elder, [facility] 0 09:27:51 1262 Substance with sulfonami de structure and antibacte rial mechanism of action (substanc e) medicatio n Not available Not available Not available 02/22/2020 58795 8003 SNOMED Kenzie Cochran [facility] 0 09:27:57 56547 Medical Adhesive medicatio n Not available Not available Not available 03/06/2021 91913 UNK Eli Ornelas [facility] 1 09:47:35 55437 Augmentin medicatio n Not available Not available Not available 03/06/2021 54735 2 RxNorm Eli Ornelas [facility], [facility] 1 09:47:35 15436 Keflex medicatio n Not available Not available Not available 03/06/2021 38721 7 RxNorm Eli Ornelas [facility], [facility] 1 09:47:35 32266 Penicilli n Not available Not available Not available Not available 03/06/2021 26280 RxNorm Eli Ornelas [facility], [facility] 1 09:47:35 40602 Celebrex medicatio n Not available Not available Not available 03/06/2021 56490 7 RxNorm Eli [facility] 09:47:35 Medications Name Sig Start Date Stop Date Status Note LastModified by Organization Details LastModified Time Mirena 21 mcg/24 hr (up to 8 years) 52 mg intrauter ine device Take by intraute rine route. active Not Available Not Available No t Available furosemid e 10 mg/mL injection solution inject 2 millilit er by intraven ous route every day slowly 03/06 completed Prescrib ed Elsewher e: Yes Loca tion: [facility] odify By: danna Martines nter DateTime : 12/06/19 12 11:16:41 PM Not Available Not Available Not Available gabapenti n 600 mg tablet active Not Available Not Available Not Available doxycycli ne hyclate 100 mg capsule active Not Available Not Available Not Available clindamyc in HCl 300 mg capsule TAKE 1 C PO TID 03/09 completed Not Available Not Available Not Available azithromy cheyenne 250 mg tablet TAKE 2 TABLETS BY MOUTH FOR 1 DAY THEN TAKE 1 TABLET BY MOUTH DAILY FOR 4 DAYS 03/18 completed Not Available Not Available Not Available fluconazo le 150 mg tablet 03/06 completed Not Available Not Available Not Available benzonata te 200 mg capsule TAKE 1 CAPSULE BY MOUTH THREE TIMES DAILY NEEDED FOR COUGH. KEEP AWAY FROM CHILDREN 03/18 completed Not Available Not Available Not Available tolterodi ne ER 4 mg capsule,e xtended release 24 hr active Not Available Not Available Not Available lisinopri l 20 mg tablet 03/08 completed Not Available Not Available Not Available ciproflox acin 500 mg tablet TAKE 1 TABLET BY MOUTH EVERY 12 HOURS FOR 7 DAYS active Not Available Not Available No t Available warfarin 4 mg tablet TK 1 T PO D UTD ON INR active Not Available Not Available No t Available warfarin 3 mg tablet active Not Available Not Available Not Available nystatin- triamcino lone 100,000 unit/gram -0.1 % topical ointment APPLY TOPICALL Y TO THE AFFECTED AREA TWICE DAILY NEEDED 07/26/ 2022 08/04 /2023 completed Not Available Not Available Not Available zonisamid e 100 mg capsule active Not Available Not Available Not Available alprazola m 0.5 mg tablet TAKE 1 TABLET BY MOUTH 30 MINUTES PRIOR TO TESTING active Not Available Not Available No t Available tolterodi ne 2 mg tablet active Not Available Not Available Not Available Coumadin 5 mg intraveno us solution inject 1 millilit er by intraven ous route every day over as an IV bolus 03/08 completed Prescrib ed Elsewher e: Yes Loca tion: [facility] odify By: thu cool DateTime : 12/08/19 12 08:30:00 AM Not Available Not Available Not Available baclofen 10 mg tablet active Not Available Not Available Not Available benzonata te 100 mg capsule active Not Available Not Available Not Available pantopraz ole 40 mg tablet,de layed release 03/08 completed Not Available Not Available Not Available erythromy cheyenne 5 mg/gram (0.5 %) eye ointment PLACE ON INCISION S THREE TIMES DAILY AND IN OPERATIV E EYE EVERY DAY NEEDED 03/18 completed Not Available Not Available Not Available nortripty line 10 mg capsule active Not Available Not Available Not Available esomepraz ole magnesium 40 mg capsule,d elayed release active Not Available Not Available Not Available warfarin 2 mg tablet active Not Available Not Available Not Available warfarin 5 mg tablet 03/08 completed Not Available Not Available Not Available Advair Diskus 250 mcg-50 mcg/dose powder for inhalatio n INHALE 1 PUFF BY MOUTH TWICE DAILY. RINSE MOUTH WITH WATER AFTER USE. DO NOT SWALLOW 02/07 completed Not Available Not Available Not Available nystatin- triamcino lone 100,000 unit/g-0. 1 % topical cream APPLY TOPICALL Y TO THE AFFECTED AREA TWICE DAILY NEEDED 03/18 completed Not Available Not Available Not Available gabapenti n 300 mg capsule 03/08 completed Not Available Not Available Not Available magnesium citrate oral solution 03/08 completed Not Available Not Available Not Available ranitidin e 150 mg capsule take 1 capsule by oral route 2 times every day 03/06 completed Prescrib ed Elsewher e: Yes Loca tion: [facility] odify By: danna tz Encou nter DateTime : 12/06/19 12 11:16:41 PM Not Available Not Available Not Available mupirocin 2 % topical ointment APPLY SMALL AMOUNT TOPICALL Y TO THE AFFECTED AREA TWICE DAILY FOR 5 DAYS active Not Available Not Available No t Available furosemid e 20 mg tablet active Not Available Not Available Not Available ergocalci ferol (vitamin D2) 1,250 mcg (50,000 unit) capsule active Not Available Not Available Not Available polyethyl antonio glycol 3350 17 gram/dose oral powder 03/09 completed Not Available Not Available Not Available methylpre dnisolone 4 mg tablets in a dose pack FOLLOW PACKAGE DIRECTIO NS active Not Available Not Available No t Available albuterol sulfate HFA 90 mcg/actua tion aerosol inhaler INHALE 2 PUFFS BY MOUTH EVERY 6 HOURS NEEDED FOR WHEEZING active Not Available Not Available No t Available PreviDent 5000 Plus 1.1 % cream BRUSH EVERY NIGHT AT BEDTIME active Not Available Not Available No t Available lisinopri l 40 mg tablet 03/18 completed Not Available Not Available Not Available ondansetr on 4 mg disintegr ating tablet 02/07 completed Not Available Not Available Not Available fluticaso ne propionat e 50 mcg/actua tion nasal spray,gladys pension SHAKE LIQUID AND USE 2 SPRAYS IN EACH NOSTRIL DAILY active Not Available Not Available No t Available lisinopri l 2.5 mg tablet take 1 tablet by oral route every day 03/06 completed Prescrib ed Elsewher e: Yes Loca tion: [facility] odify By: danna Martines nter DateTime : 12/06/19 12 11:16:41 PM Not Available Not Available Not Available doxycycli ne hyclate 100 mg tablet TAKE 1 TABLET BY MOUTH EVERY 12 HOURS FOR 10 DAYS active Not Available Not Available No t Available loratadin e 10 mg tablet 02/07 completed Not Available Not Available Not Available Stanback Headache Powder 650 mg oral packet 06/21 completed Prescrib ed Elsewher e: Yes Loca tion: [facility] odify By: thu cool DateTime : 12/06/19 12 11:16:41 PM Not Available Not Available Not Available oxycodone 5 mg tablet TAKE 1 TABLET BY MOUTH EVERY 4 HOURS NEEDED active Not Available Not Available No t Available Daily-Vit e tablet 03/09 completed Not Available Not Available Not Available olmesarta n 40 mg tablet active Not Available Not Available Not Available escitalop tamy 10 mg tablet 02/07 completed Not Available Not Available Not Available escitalop tamy 20 mg tablet active Not Available Not Available Not Available ciproflox acin 0.3 %-dexamet hasone 0.1 % ear drops,gladys pension ADMINIST ER 4 DROPS IN EACH EAR TWICE DAILY FOR 7 DAYS 02/07 completed Not Available Not Available Not Available zonisamid e 50 mg capsule active Not Available Not Available Not Available trospium 20 mg tablet active Not Available Not Available Not Available Nyamyc 100,000 unit/gram topical powder active Not Available Not Available Not Available warfarin 03/06 completed Not Available Not Available Not Available furosemid e 03/06 completed Not Available Not Available Not Available lisinopri l 03/06 completed Not Available Not Available Not Available diclofena c 1 % topical gel APPLY 2 GRAMS EXTERNAL LY TO THE AFFECTED AREA FOUR TIMES DAILY 03/09 completed Not Available Not Available Not Available cholecalc iferol (vitamin D3) 50 mcg (2,000 unit) capsule 03/08 completed Not Available Not Available Not Available ranitidin e 15 mg/mL oral suspensio n compoundi ng kit Take by oral route. 03/06 completed Not Available Not Available Not Available diclofena c 1.5 % topical drops active Not Available Not Available Not Available Myrbetriq 25 mg tablet,ex tended release 02/07 completed Not Available Not Available Not Available PreviDent 5000 Booster Plus 1.1 % dental paste BRUSH TEETH ONCE EVERY DAY BEFORE BEDTIME active Not Available Not Available No t Available Saxenda 3 mg/0.5 mL (18 mg/3 mL) subcutane ous pen injector 03/18 completed Not Available Not Available Not Available TRUEplus Pen Needle 32 gauge x USE DIRECTED 02/07 completed Not Available Not Available Not Available Wegovy 1.7 mg/0.75 mL subcutane ous pen injector INJECT 1.7 MG UNDER SKIN EVERY WEEK 03/18 completed Not Available Not Available Not Available Wegovy 0.25 mg/0.5 mL subcutane ous pen injector 03/18 completed Not Available Not Available Not Available Daily-Vit e (with folic acid) 400 mcg tablet active Not Available Not Available Not Available Flowflex COVID-19 Antigen Home Test kit 03/18 completed Not Available Not Available Not Available Vitals Date Recorded Body height Body mass index (BMI) Body weight Provider Name and Address Organization Details Last Updated DateTime 03/06/2021 165.1 cm 53.7 kg/m2 275160.34 g Eli [facility] 03/06/2021 09:46:14 Date Recorded Systolic blood pressure Diastolic blood pressure Provider Name and Address Organization Details Last Updated DateTime 03/06/2021 136 mm[Hg] 82 mm[Hg] Erinn Martinez [facility] [address], [place], [address] 03/06/2021 10:09:53 Date Recorded Body height Body mass index (BMI) Body weight Systolic blood pressure Diastolic blood pressure Provider Name and Address Organization Details Last Updated DateTime 02/22/2020 2011.68 cm 0.4 kg/m2 622694.7 g 158 mm[Hg] 88 mm[Hg] Kenzie Cochran [facility] 09:51:15 Date Recorded Body height Body mass index (BMI) Body weight Provider Name and Address Organization Details Last Updated DateTime 03/09/2022 165.1 cm 52.3 kg/m2 655365 g Eli Ornelas [facility] 03/09/2022 09:54:17 Date Recorded Systolic blood pressure Diastolic blood pressure Provider Name and Address Organization Details Last Updated DateTime 03/09/2022 132 mm[Hg] 82 mm[Hg] Erinn Martinez [facility] [address], [place], [address] 03/09/2022 10:02:07 Date Recorded Body height Body mass index (BMI) Body weight Systolic blood pressure Diastolic blood pressure Provider Name and Address Organization Details Last Updated DateTime 03/18/2023 165.1 cm 54.9 kg/m2 959293.4 8 g 152 mm[Hg] 79 mm[Hg] Paulette Klein [facility] 3 09:20:36 Date Recorded Body height Body mass index (BMI) Body weight Systolic blood pressure Diastolic blood pressure Provider Name and Address Organization Details Last Updated DateTime 02/08/2024 165.1 cm 52.6 kg/m2 695611.1 9 g 148 mm[Hg] 85 mm[Hg] Sonia Aparicio [facility] 4 12:00:08 Social History Question Answer Notes LastModified by Organizat ion Details LastModified Time Tobacco Smoking Status Never Smoker [facility] 03/09/2022 09:54:43 Do You Have An Advance Directive? No Information n ot available 03/06/2021 Are You Blind Or Do You Have Difficulty Seeing? No Information n ot available 03/06/2021 What Is Your Level Of Caffeine Consumption? Moderate Information not available 03/06/2021 How Much Tobacco Do You Chew? None Information not available 03/06/2021 In The 14 Days Before Symptom Onset, Have You Had Close Contact With A Laboratory-confirm ed COVID-19 While That Case Was Ill? No Information n ot available 03/06/2021 In The 14 Days Before Symptom Onset, Have You Had Close Contact With A Person Who Is Under Investigation For COVID-19 While That Person Was Ill? No Information not available 03/06/2021 Have You Been To An Area Known To Be High Risk For COVID-19? No Information not available 03/06/2021 Are You Deaf Or Do You Have Serious Difficulty Hearing? No Information not available 03/06/2021 What Type Of Diet Are You Following? REGULAR Information n ot available 03/06/2021 What Is The Highest Grade Or Level Of School You Have Completed Or The Highest Degree You Have Received? [id number] Information not available 03/06/2021 Are There Any Guns Present In Your Home? No Information not available 03/06/2021 Do You Use Protection During Sex? Always Information not available 03/06/2021 Do You Use Your Seat Belt Or Car Seat Routinely? Yes Information not available 03/06/2021 Do You Have Smoke And Carbon Monoxide Detectors In Your Home? Yes Information not available 03/06/2021 How Much Tobacco Do You Smoke? No Information not available 03/06/2021 Do You Use Sunscreen Routinely? Yes Information not available 03/06/2021 Have You Used IV Drugs? No Information not available 03/06/2021 Do You Have Difficulty Walking Or Climbing Stairs? No [email or web address] Information not available 02/08/2024 Sex: Female Functional Status Question Answer Note LastModified by Organizat ion Details LastModified Time Do you use any illicit or recreational drugs? No Information not available 03/06/2021 What is your level of alcohol consumption? Occasional Information not available 03/06/2021 Are you able to walk? YESWOREST Information not available 03/06/2021 Are you able to care for yourself? Yes [email or web address] Information not available 02/08/2024 What is your occupation? [employer] Information not available 03/06/2021 Do you have difficulty dressing or bathing? No [email or web address] Information not available 02/08/2024 What is your exercise level? Occasional Information not available 03/06/2021 Mental Status Question Answer Note LastModified by Organization D etails LastModified Time Do you feel stressed (tense, restless, nervous, or anxious, or unable to sleep at night)? [id number] Information not available 03/09/2022 Family History Relationship Description Onset Age of this Age Resolved Age Notes LastModified by Organization Details LastModified Time Maternal Grandmother Diabetes mellitus Not available 2021 09:54:32 Maternal Grandmother Hypertensive disorder Not available 2021 09:54:32 Maternal Grandmother Heart disease Not available 2021 09:54:32 Maternal Grandmother Heart disease [email or web address] Not available 2023 12:04:36 Maternal Grandmother Diabetes mellitus [email or web address] Not available 2023 12:04:36 Maternal Grandmother Hypertensive disorder [email or web address] Not available 2023 12:04:36 Paternal Uncle Diabetes mellitus Not available 2021 09:54:32 Paternal Uncle Diabetes mellitus Not available 2023 12:04:36 Mother Hypertensive disorder Not available 2021 09:54:32 Mother Carcinoma in situ of breast [email or web address] Not available 2023 12:04:36 Mother Psychotic disorder Not available 2023 12:04:36 Mother Suspected cervical cancer [email or web address] Not available 2023 12:04:36 Mother Malignant tumor of breast Not available 2021 09:54:33 Mother Hypertensive disorder [email or web address] Not available 2023 12:04:36 Mother Mental disorder Not available 2021 09:54:33 Mother Substance abuse Not available 2021 09:54:33 Father Hypertensive disorder Not available 2021 09:54:32 Father Heart disease Not available 2021 09:54:32 Father Hypercholest erolemia Not available 2021 09:54:32 Father Myocardial infarction 70 [email or web address] Not available 02/07 12:04:36 Father Hypercholest erolemia [email or web address] Not available 2023 12:04:36 Father Heart disease [email or web address] Not available 2023 12:04:36 Father Hypertensive disorder [email or web address] Not available 2023 12:04:36 Father Myocardial infarction [email or web address] Not available 02/07 12:04:36 Maternal Grandfather Hypertensive disorder Not available 2021 09:54:32 Maternal Grandfather Coronary arterioscler osis Not available 2023 12:04:36 Maternal Grandfather Blood coagulation disorder Not available 2021 09:54:32 Maternal Grandfather Blood coagulation disorder [email or web address] Not available 2023 12:04:36 Maternal Grandfather Hypertensive disorder [email or web address] Not available 2023 12:04:36 Maternal Aunt Hypertensive disorder Not available 2021 09:54:32 Maternal Aunt Heart disease Not available 2021 09:54:32 Maternal Aunt Heart disease [email or web address] Not available 2023 12:04:36 Maternal Aunt Hypertensive disorder [email or web address] Not available 2023 12:04:36 Son Family history of malignant neoplasm of brain [email or web address] Not available 2023 12:04:36 Paternal Grandfather Parkinson's disease [email or web address] Not available 2023 12:04:36 Notes:Father: Hypertension, Hyperlipidemia, Congenital heart disease Maternal aunt: Hypertension, Congenital heart disease Maternal grandfather: Clotting Disorder, Hypertension, Coronary artery disease Maternal grandmother: Congenital heart disease, Diabetes mellitus, Hypertension Mother: Hypertension, Cervical cancer, Psychiatric Disease, Cancer, breast Paternal grandfather: Parkinson's disease Paternal uncle: Diabetes mellitus Son: BRAIN CA Medical History Condition Response Acid Reflux (GERD) Y Eczema Y Deep Vein Thrombosis Y Arthritis Y Hypertension Y Gynecological History Statement/Question Response Date of Last Mammogram 07/02/2023 On BCP's at Conception? N STIs/STDs N Current Control Method IUD Age at First Child 25 Sexually Active? N Menses Monthly N Age of first menstrual cycle 11 Date of Last Pap Smear 01/20/2019 Sexual Problems? N LMP Unknown Obstetrics History GPAL:G 3 P 1 0 2 1 Type Value Full Term 1 Spontaneous 2 Living 1 Total 3 Past Encounters Encounter ID Performer Location Encounter Start Date Encounter Closed Date Diagnosis/Indication Diagnosis SNOMED-CT Code Diagnosis ICD10 Code Diagnosis Note [id number] Erinn Martinez [facility] [address] [address] 02/22/2020 09:33:48 02/22/2020 10:26:37 Gynecologic examination 46670320 Z01.419 Take Calcium with Vitamin D 12-1500mg daily. Do monthly self breast exams. It is advised to get annual flu shot in the fall and she could obtain at [facility] or [facility]. If you haven't received the Tdap vaccine in the last 10 years you should obtain one as well. Have mammogram yearly, bone density every 2-3 years and colonoscop y every 5-10 years depending on findings and history. Engage in daily exercise of low impact aerobic exercise 45-60 minutes 4-5 times weekly. Avoid tobacco and illicit drugs as well as using moderation with alcohol intake less than 1-2 8 oz beverages daily. This lifestyle behavior pattern will lead to less health conditions and longer life span. If BMI greater than 25 weight watchers or dietary consult advised. Questions have been answered. Patient appears to understand instructio ns, but if you have any further questions call or respond to this email Pap/HPV defer this year Consider q3-5yr pap based on her Hx. Re-eval yearly per asccp Not SA Mirena IUD in place. [id number] Erinn Martinez , [facility] [address] [address] 03/06/2021 09:28:27 03/06/2021 10:13:41 Gynecologic examination [id number] Z01.419 Take Calcium with Vitamin D 12-1500mg daily. Do monthly self breast exams. It is advised to get annual flu shot in the fall and she could obtain at [facility]. If you haven't received the Tdap vaccine in the last 10 years you should obtain one as well. Have mammogram yearly, bone density every 2-3 years and colonoscop y every 5-10 years depending on findings and history. Engage in daily exercise of low impact aerobic exercise 45-60 minutes 4-5 times weekly. Avoid tobacco and illicit drugs as well as using moderation with alcohol intake less than 1-2 8 oz beverages daily. This lifestyle behavior pattern will lead to less health conditions and longer life span. If BMI greater than 25 weight watchers or dietary consult advised. Questions have been answered. Patient appears to understand instructio ns, but if you have any further questions call or respond to this email Pap/HPV defer this year Consider q3-5yr pap based on her Hx. Re-eval yearly per asccp Not SA Mirena IUD in place. Screening for malignant neoplasm of breast 626005798 Z12.39 Vaginitis 51649865 N76.0 [id number] Erinn Martinez [facility] [address] [address] 03/09/2022 09:30:32 03/09/2022 10:16:59 Gynecologic examination [id number] Z01.419 Take Calcium with Vitamin D 12-1500mg daily. Do monthly self breast exams. It is advised to get annual flu shot in the fall and she could obtain at [facility] or [facility]. If you haven't received the Tdap vaccine in the last 10 years you should obtain one as well. Have mammogram yearly, bone density every 2-3 years and colonoscop y every 5-10 years depending on findings and history. Engage in daily exercise of low impact aerobic exercise 45-60 minutes 4-5 times weekly. Avoid tobacco and illicit drugs as well as using moderation with alcohol intake less than 1-2 8 oz beverages daily. This lifestyle behavior pattern will lead to less health conditions and longer life span. If BMI greater than 25 weight watchers or dietary consult advised. Questions have been answered. Patient appears to understand instructio ns, but if you have any further questions call or respond to this email Pap/hpv q3-5yrs per asccp STD Screen declined Genetic Screen discussed Colon Screen UTD PCP Dexa Screen Due age 59yo Routine Labs UTD PCPMammo ordered Skin irritation [id number] L30.9 RF sent prn use [id number] Erinn Martinez , [facility] [address] [address] 03/18/2023 09:06:35 03/18/2023 09:38:08 Gynecologic examination [id number] Z01.419 Take Calcium with Vitamin D 12-1500mg daily. Do monthly self breast exams. It is advised to get annual flu shot in the fall and she could obtain at [facility] or [facility] clinic. If you haven't received the Tdap vaccine in the last 10 years you should obtain one as well. Have mammogram yearly, bone density every 2-3 years and colonoscop y every 5-10 years depending on findings and history. Engage in daily exercise of low impact aerobic exercise 45-60 minutes 4-5 times weekly. Avoid tobacco and illicit drugs as well as using moderation with alcohol intake less than 1-2 8 oz beverages daily. This lifestyle behavior pattern will lead to less health conditions and longer life span. If BMI greater than 25 weight watchers or dietary consult advised. Questions have been answered. Patient appears to understand instructio ns, but if you have any further questions call or respond to this email Pap/hpv q3-5yrs per asccp (possibly due 2023 but not SA for >10yrs-neg pap Hx)STD Screen declinedGe netic Screen discussedC olon Screen UTD PCPDexa Screen Due age 59yoRoutin e Labs UTD PCPMammo ordered A Mirena IUD prevents for up to 8 years, and also helps with heavy periods for up to 5 years in women who choose an IUD for control. BP addressed with PCP who recently switched medication . Screening mammography 24 [id number] Z12.31 [id number] CIRILO Hernandez [facility] [address] [address] 02/08/2024 11:52:29 02/08/2024 13:31:14 Abscess of vulva 31314037 N76.4 Furuncle of vulva 324199 006 N76.4 small/heal ingcx sentHSV PCR sentrx sent for topical mupirocin ointmentsu pportive care discussed, vulvar care guidelines reviewedno tify the office with any worsening s/sx'sBP precaution s reviewed, f/u with PCP Time spent in visit is a total of 25 mins with at least 50% of visit consisting of counseling and review of plan of care. Health Concerns Section Related Observation LastModified by Organization Detai ls LastModified Time None Recorded Concern Status LastModified by Organization Details LastModified Time None Recorded Advance Directives Directive N: Payers Encounter Date Sequence Insurance Name Policy Number Policy Brush Covered Member ID Brush Member ID Guarantor Name 02/22/2020 1 [facility] [id number] Betty Guardadoing [id number] Betty Souza Champion 03/06/2021 1 [facility] [id number] Betty Souza Champion [id number] Betty Souza Champion 03/09/2022 1 [facility] [id number] Betty Souza Champion [id number] Betty Souza Champion 03/18/2023 1 [facility] [id number] Betty Fernandez [id number] Betty Fernandez 02/08/2024 1 [facility] [id number] Betty Fernandez [id number] Betty Fernandez Notes Date Note Type Note Provider Name and Address Organization Details Recorded Time 02/22/2020 text/html Annual GYNReport ed bypatient.History:n o gynecologic complaints Menstrual cycle:Normal menses Urinary symptoms:No hematuria; No incontinence Vulva:No genital lesion Vagina:Normal vaginal discharge Breast:No breast pain; No breast lump; No nipple discharge Current Contraception:Satis fied with current contraception; Intrauterine device (iud); Not sexually active Sexual complaints:No sexual complaints; No pain during intercourse; Normal libido Menopausal Symptoms:No menopausal symptoms; Normal vaginal lubrication Psychological symptoms:No depression; No anxiety; No PMDD Preventive measures:Encourage self breast examination; Encourage regular exercise; Encourage no tobacco use; Encourage regular mammograms starting age 40; Followed with Q3 year pap smear and high risk HPV typing; Needs to schedule mammogram; Up to date on colonoscopy screening [facility] [address], [place], [address], [facility] 02/22/2020 10:18:18 03/06/2021 text/html Annual GYNReport ed bypatient.History:n o gynecologic complaints Menstrual cycle:Normal menses Urinary symptoms:No hematuria; No incontinence Vulva:No genital lesion Vagina:Normal vaginal discharge Breast:No breast pain; No breast lump; No nipple discharge Current Contraception:Intra uterine device (iud) (10/24/2019 IUD placed); Not sexually active Sexual complaints:No sexual complaints; No pain during intercourse; Normal libido Menopausal Symptoms:No menopausal symptoms; Normal vaginal lubrication Psychological symptoms:No depression; No anxiety; No PMDD Preventive measures:Encourage self breast examination; Encourage regular exercise; Encourage no tobacco use; Encourage regular mammograms starting age 40; Followed with Q3 year pap smear and high risk HPV typing; Needs to schedule mammogram; Up to date on colonoscopy screening LORENZA Odonnell [address], [place], [address], [facility] 03/06/2021 10:12:45 03/09/2022 text/html Annual GYNReport ed bypatient.Menstrual cycle:Normal menses (amenorrheic on IUD Mirena which is placed bc was having bleeding due to warfarin for Hx of DVT.) Urinary symptoms:No hematuria; No incontinence Vulva:No genital lesion Vagina:Normal vaginal discharge Breast:No breast pain; No breast lump; No nipple discharge Current Contraception:Satis fied with current contraception; Intrauterine device (iud) Sexual complaints:No sexual complaints; No pain during intercourse; Normal libido Menopausal Symptoms:No menopausal symptoms; Normal vaginal lubrication Psychological symptoms:No depression; No anxiety; No PMDD Preventive measures:Encourage self breast examination; Encourage regular exercise; Encourage no tobacco use; Encourage regular mammograms starting age 40; Needs to schedule mammogram; Up to date on colonoscopy screening [facility] [address], [place], [address], [facility] 03/09/2022 16:58:40 03/18/2023 text/html Annual GYNReport ed bypatient.Menstrual cycle:Normal menses (amenorrheic on IUD Mirena which is placed bc was having bleeding due to warfarin for Hx of DVT.) Urinary symptoms:No hematuria; No incontinence Vulva:No genital lesion Vagina:Normal vaginal discharge Breast:No breast pain; No breast lump; No nipple discharge Current Contraception:Satis fied with current contraception; Intrauterine device (iud) Sexual complaints:No sexual complaints; No pain during intercourse; Normal libido Menopausal Symptoms:No menopausal symptoms; Normal vaginal lubrication Psychological symptoms:No depression; No anxiety; No PMDD Preventive measures:Encourage self breast examination; Encourage regular exercise; Encourage no tobacco use; Encourage regular mammograms starting age 40; Needs to schedule mammogram; Up to date on colonoscopy screening [facility] [address], [place], [address], [facility] 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 02/08/2024 13:29:23 OBGyn Episode Ob Episode Information Episode Created Date Number of Fetuses Patient Bloodtype Patient rh Status Prepregnancy Weight lbs Domestic Partner Domestic Partner Phone Father Name Clinical Review Specialist Status 03/06/20 21 1 CLOSED Fetus Data First Name Last Name Admitted to NICU Weight (g) Sex Living Outcome Pediatric Complications Fetus ID Race Codes Race Delivery Type M [id number] Primary Kong Calculation Initial Kong Date Initial Exam Date Initial Exam Provider Initial Ultrasound Date Last Menstrual Period Date Ultra Sound Weeks Gestation 0 Eighteen To Twenty Week Kong Update Ultra Sound Date Fundal Height At Umbil Quickening Date Ultra Sound Latest Weeks Gestation Final Kong Confirmed By Final Kong Confirmed Date Final Kong Date Ultra Sound Latest Days Gestation 0 0 Menstrual History Last Menstrual Date Menses Monthly On Bcp Conception Prior Menses Frequency Hcg Plus Date Menarche Onset Age Delivery Information Delivery Date Delivery Type Labor Anesthesia Weeks Gestation Incision Type Labor Labor Length Hrs Delivered By Post Complications Tubal Sterilization Discharge Date Comments 0 child age 5 brain ca. Discharge Information Feeding Method Contraceptive Method Maternal HG B and HCT Levels
--- OUTSIDE RECORDS SUMMARY | 2025-01-01 17:47 | XMS_ITS | Clinical Summary ---
Author Organization [facility] Address [address] [place] [address] Care Team Providers Care Director Financial Services Name Role Phone Brenda Cueto NP Unavailable [phone] Gerry Vaughn MD Unavailable [phone] Daphne Wise NP Primary Care Provider [phone] Roxann Galeana MD Unavailable [phone] Hartman MD PhD Unavailable [phone] Allergies Active Allergy Reactions Criticality Noted Date Comments Amoxicillin-Pot Clavulanate Hives Medium Celecoxib Hives,Rash Medium 04/20/2023 Cephalexin Hives Medium Diphenhydramine Hives,Rash,Redness Medium 07/25/2024 Doxycycline Hives,Rash,Redness Medium 07/24/2024 Opioids - Morphine Analogues Hives,Vomiting Medium Penicillin G Hives Medium 09/10/2022 Sulfa (Sulfonamide Antibiotics) Hives Medium 1102/2013 Tissue Adhesive Blisters High 12/27/2019 Vancomycin Rash Medium 08/09/2024 Medications acetaminophen (TYLENOL EXTRA STRENGTH) 500 mg tablet take 2 tablet by oral route every 6 hours as needed 0 0 07/06/20 13 Active Additional Information Patient taking differently: 1,000 mg oral Every 6 hours PRN, pain, Informant: Self, Reported on 12/31/2024 cyanocobalamin (Vitamin B-12) 500 mcg tabletIndicati ons:Prevention of Vitamin B12 Deficiency Take 1 tablet (500 mcg total) by mouth every morning 09/09/19 18 Active cholecalcifero l (Vitamin D3) 2000 unit capsule Take 1 capsule (2,000 Units total) by mouth daily 90 capsule 1 10/03/19 20 Active Additional Information Patient taking differently:2,000 Units oralEvery morning, 17845 unit once a week, 2000 unit daily, Indications: Vitamin D Deficiency, Reported on 12/31/2024 ascorbic acid (VITAMIN C) 1,000 mg tabletIndicati ons:Vitamin C Deficiency Take 1 tablet (1,000 mg total) by mouth every morning Active nystatin-triam cinolone ointmentIndica tions:cutaneou s candidiasis Apply 1 application topically as needed Active walker misc 1 each daily Wheeled walker for gait instability and falls 1 each 09/28/19 22 Active PreviDent 5000 Booster Plus 1.1 % paste BRUSH TEETH ONCE EVERY DAY BEFORE BEDTIME 03/11/20 22 Active loperamide (IMODIUM) 2 mg capsuleIndicat ions:diarrhea Take 2 capsules (4 mg total) by mouth 4 (four) times a day as needed for diarrhea Active fluticasone propionate (FLONASE) 50 mcg/actuation nasal spray USE 2 SPRAYS IN EACH NOSTRIL DAILY 16 g 11 05/27/20 22 Active furosemide (LASIX) 20 mg tablet TAKE 1 TABLET DAILY NEEDED FOR EDEMA 90 tablet 1 12/24/19 23 Active loratadine (CLARITIN) 10 mg tablet Active multivitamin (Daily-Mayco) tablet Take 1 tablet by mouth 2 (two) times a day 60 tablet 04/19/[address] (NexIUM) 40 mg capsuleIndicat ions:Gastroeso phageal reflux disease without esophagitis Take 1 capsule (40 mg total) by mouth 2 (two) times a day before breakfast and dinner 180 capsule 3 05/04/20 23 Active diclofenac sodium 1.5 % drops Apply 2 drops topically 4 (four) times a day 150 mL 11 07/04/20 23 Active trospium (SANCTURA) 20 mg tabletIndicati ons:Overactive bladder Take 1 tablet (20 mg total) by mouth 2 (two) times a day 180 tablet 3 01/30/20 24 025 Active multivitamin with folic acid (Daily-Mayco, with folic acid,) 400 mcg tablet Active ergocalciferol (VITAMIN D) 50,000 unit capsuleIndicat ions:Vitamin D deficiency TAKE 1 CAPSULE ONCE WEEKLY (TAKING BOTH D2 AND D3) 12 capsule 3 02/17/20 24 Active olmesartan (BENICAR) 40 mg tablet TAKE 1 TABLET DAILY (REPLACES LISINOPRIL) 90 tablet 3 07/30/20 24 Active gabapentin (NEURONTIN) 600 mg tabletIndicati ons:Chronic pain of both knees,Neuralgi a Take 1 tablet (600 mg total) by mouth 3 (three) times a day 270 tablet 3 08/10/20 24 Active zonisamide (ZONEGRAN) 100 mg capsule TAKE 1 CAPSULE TWICE A DAY 180 capsule 3 10/25/19 25 Active tolterodine (DETROL) 2 mg tablet Take 1 tablet (2 mg total) by mouth 2 (two) times a day 180 tablet 1 12/13/19 25 Active mirabegron ER (MYRBETRIQ) 25 mg tablet extended release 24 hr Take 1 tablet (25 mg total) by mouth daily 90 tablet 1 01/01/20 25 Active escitalopram (LEXAPRO) 20 mg tablet Take 1 tablet (20 mg total) by mouth daily 90 tablet 3 01/01/20 25 Active buPROPion XL (WELLBUTRIN XL) 150 mg 24 hr tablet Take 1 tablet (150 mg total) by mouth every morning 30 tablet 1 01/01/20 25 Active benzonatate (Tessalon Perles) 100 mg capsule Take 1 capsule (100 mg total) by mouth 3 (three) times a day as needed for cough 20 capsule 01/01/20 25 Active Eliquis 5 mg tabletIndicati ons:Current use of lobsterman anticoagulatio n,History of deep venous thrombosis TAKE 1 TABLET(5 MG) BY MOUTH TWICE DAILY 60 tablet 3 01/01/20 25 Active escitalopram (LEXAPRO) 20 mg tablet Take 1 tablet (20 mg total) by mouth daily 90 tablet 3 06/16/20 23 025 Discontinued(R eorder) nortriptyline (PAMELOR) 10 mg capsule Take 1 capsule (10 mg total) by mouth 2 (two) times a day 180 capsule 3 12/14/19 24 025 Discontinued apixaban (ELIQUIS) 5 mg tabletIndicati ons:Current use of alf anticoagulatio n,History of deep venous thrombosis Take 1 tablet (5 mg total) by mouth 2 (two) times a day 60 tablet 3 08/13/20 24 025 Discontinued tolterodine (DETROL) 2 mg tablet Take 1 tablet (2 mg total) by mouth 2 (two) times a day 180 tablet 1 11/28/19 25 025 Discontinued Active Problems Problem Noted Date Diagnosed Date Hematoma of left lower extremity 08/09/2024 Pain in both hands 06/13/2023 Assessment & Plan (06/13/2023 9:53 AM CDT): Consistent with OA. Advised voltaren gel;Ortho referral for tendinitis. 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 Betty Fernandez is a 58 y.o. female, who presents for evaluation of twitching. She developed twitching in the hands in 2019. It is unpredictable, tends to happen when she is holding objects and has not progressed. She thinks the twitching is better since she started OT and it has interfered less with her tasks. She also reports some pain in the thenar area of the hands. Of note, she has chronic pain and has been on antidepressants and medications to modulate pain levels. She did not try any medications before for the twitching. There is no family history of similar symptoms . On examination, there is mild postural and kinetic tremor in the hands with superimposed myoclonic jerks. Jerking movements were not noted in other tasks, including typing. She has decreased sensation in the hands up to the elbows to pin prick and light touch. 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 We discussed disease pathophysiology and treatment strategies for myoclonus and tremor. Most likely, given the paucity of findings in the exam, those are secondary to medication use. We talked that there is low suspicion for other causes of myoclonus in her case and we opted not to pursue additional testing. Tremor is either medication- induced or a mild for of essential tremor that does not require specific treatment. We also talked that the pain in the hand is unlikely to be from a nerve/root problem and she should investigate musculoskeletal problems with her PCP. Plan: Continue to monitor the twitching in the arms. Contact the clinic if there is any change in severity and distribution. Potential medication side effects were discussed during the encounter. Iron deficiency anemia 04/19/2023 Loss of peripheral visual field, bilateral 09/10 Overview (09/10/2022): Added automatically from request for surgery [id number] Facial nerve spasm 08/31/2022 Dermatochalasis of both upper eyelids 08/31/2022 Chronic cough 05/28/2022 Assessment & Plan (12/31/2024 9:42 AM CDT): Refill of Tessalon Pearls provided but informed pt we need to get to root of the cough. She is already on PPI. Has had CXR and Chest CT in the past. Will get PFT. Assessment & Plan (05/28/2022 9:01 AM CDT): Stop lisinopril. Overactive bladder 05/28/2022 Assessment & Plan (12/31/2024 9:39 AM CDT): Pt states she still takes her Tolterodine and Trospium, sometimes doubling dosages since symptoms are worsening/not at goal. Discussed not doubling medications. Add in Myrbetriq, pt cautioned for anticholinergic side effects. If no improvement or Myrbetriq not covered, can have pt see Urology. Assessment & Plan (10/09/2024 12:32 PM GRANULATING MACHINE OPERATOR): Continues Tolterodine. Assessment & Plan (05/28/2022 9:02 AM CDT): Stop tolterodine due to side effects. Start Myrbetriq. Prediabetes 05/07/2022 Assessment & Plan (09/27/2022 9:20 AM GRANULATING MACHINE OPERATOR): Labs. Reviewed most recent labs available. Continue low-carb (<150 g/day), low-glycemic diet. Continue GLP-1 RA. Assessment & Plan (06/04/2022 3:25 PM CDT): Plans to have labs done Tuesday. Discussed starting tirzepatide vs liraglutide pending results. Continue low-carb (<150 g/day), low-glycemic diet.. Assessment & Plan (05/07/2022 4:53 PM CDT): Labs. Discussed increased risk for DM in setting of obesity, prediabetes, and FHx DM. Discussed insulin resistance including effect on weight and risk for progression to diabetes. Recommended low-carb, low-glycemic diet; choose whole grains and avoid more highly processed carbohydrates. Discussed potential benefits of this w/r/t gut microbiome. Referred to ADA and [employer] [facility] websites for additional information on topics including glycemic index/carbohydrate choices, protein sources. Discussed options including GLP-1 analog(saxenda) or with GLP/GIP of tirzepatide. Discussed risks, benefits, alternatives, potential side effects. No personal or family history of MTC or MEN2. Referred to websites for additional instructions/info/video to consider prior to next visit. More detailed recommendations pending review of labs and food record. Fatigue 05/07/2022 Assessment & Plan (05/07/2022 4:50 PM CDT): Labs. Discussed importance of adequate sleep; good sleep hygiene in controlling weight as well as for overall health. Age-related nuclear cataract of both eyes 2021 Assessment & Plan (09/29/2021 8:53 AM GRANULATING MACHINE OPERATOR): ADL being met / NVS, monitor. RTC 1 Year or PRN with visual acuity (VA) changes Meibomian gland dysfunction (MGD) of both eyes 0 09/29/2021 Assessment & Plan (09/29/2021 8:54 AM GRANULATING MACHINE OPERATOR): With significant debris in tear film PFATs PRN Warm compresses Consider lid treatments / steroid / azithromycin in future if s/s do not improve Hyperglycemia 05/22/2021 Assessment & Plan (06/13/2023 6:21 AM CDT): Reviewed HgbA1C was improved to 5.8 on 12/03/22 from 6.3. Reviewed diet and exercise goals. Order HgbA1C. Assessment & Plan (05/28/2022 5:09 AM CDT): Reviewed HgbA1C was 6.3 on 11/27/21. Reviewed diet and exercise goals. Order HgbA1C. Assessment & Plan (05/22/2021 5:47 AM CDT): Reviewed HgbA1C was 6.2 on 11/14/20. Reviewed diet and exercise goals. Order HgbA1C. Left hip pain 05/08/2021 Recurrent major depressive disorder, in partial remission 03/31/2020 Assessment & Plan (12/31/2024 9:40 AM CDT): No at goal on the Lexapro, will add in Wellbutrin 150 mg daily. Education provided, pt denies hx seizures. Assessment & Plan (10/09/2024 12:32 PM GRANULATING MACHINE OPERATOR): Stable on Lexapro Assessment & Plan (03/31/2020 8:14 AM CDT): Start escitalopram. Neuralgia - Bilateral 12/27/2019 Chronic pain of both knees 12/27/2019 Assessment & Plan (10/09/2024 12:34 PM GRANULATING MACHINE OPERATOR): Patient on Gabapentin through Pain Management--sees them for injections. Knees flared up and painful from recent fall. Pt takes Tylenol prn, unable to take NSAIDS d/t Eliquis and Gastic Sleeve hx, will give Medrol Pack for inflammation from injury Presbyopia of both eyes 09/26/2019 Vitamin D deficiency 06/21/2018 Assessment & Plan (06/21/2018 8:33 AM GRANULATING MACHINE OPERATOR): Continue Vitamin D. Class 3 severe obesity with body mass index (BMI) of 45.0 to 49.9 in adult 03/31/2018 Assessment & Plan (12/31/2024 9:42 AM CDT): Healthy, low carbohydrate lifestyle and exercise for 150min/week recommended Assessment & Plan (10/09/2024 12:31 PM GRANULATING MACHINE OPERATOR): Healthy, low carbohydrate lifestyle and exercise for 150min/week recommended Assessment & Plan (09/27/2022 9:21 AM GRANULATING MACHINE OPERATOR): Obesity is improving..Commended on weight loss to date and discussed anticipated health benefits/risk reduction with this degree of loss. Plan: Diet interventions: as noted.., Regular aerobic exercise program discussed. and Medication as prescribed. Continue Wegovy. Assessment & Plan (06/04/2022 3:26 PM CDT): Obesity is improved.. Plan: Diet interventions: as noted.. and Regular aerobic exercise program discussed. Assessment & Plan (05/07/2022 4:52 PM CDT): Obesity ongoing. General weight loss/lifestyle modification strategies discussed (elicit support from others; identify saboteurs; non-food rewards, etc). Diet interventions: as noted. Recommendations provided in AVS. Informal exercise measures discussed, e.g. taking stairs instead of elevator. Regular aerobic exercise program discussed. More detailed recommendations pending review of labs and food record. Assessment & Plan (11/27/2021 9:28 AM CDT): BMI is more than 40, reviewed calorie restrictions. Assessment & Plan (05/22/2021 8:33 AM CDT): BMI is more than 40, reviewed calorie restrictions. Assessment & Plan (09/27/2018 8:11 AM GRANULATING MACHINE OPERATOR): BMI is more than 40, reviewed calorie restrictions. Assessment & Plan (06/21/2018 8:29 AM GRANULATING MACHINE OPERATOR): BMI is more than 40, reviewed calorie restrictions. Assessment & Plan (03/31/2018 1:56 PM CDT): BMI is more than 40, reviewed calorie restrictions. Current use of lobsterman anticoagulation 018 History of gastric bypass 09/01/2017 Assessment & Plan (09/01/2017 7:37 AM GRANULATING MACHINE OPERATOR): Patient tolerated procedure. Release back to work. History of deep venous thrombosis 06/27/2017 Assessment & Plan (12/31/2024 9:41 AM CDT): Pt scheduled for repeat US 01/01. Suspect the knee pain is musculoskeletal related. Assessment & Plan (10/09/2024 11:07 AM GRANULATING MACHINE OPERATOR): First DVT 2007, still got DVT's despite anti-coagulation. Was recently switched from Coumadin to Eliquis 07/2024. Follows with Hematology. Lichen simplex chronicus 12/13/2016 Gastroesophageal reflux disease 11/24/2016 Assessment & Plan (08/09/2024 3:11 PM GRANULATING MACHINE OPERATOR): Reviewed dietary modifications. Continue PPI. Assessment & Plan (06/13/2023 6:19 AM CDT): Reviewed dietary modifications. Continue PPI. Assessment & Plan (05/28/2022 5:08 AM CDT): Reviewed dietary modifications. Continue PPI. Assessment & Plan (05/22/2021 5:45 AM CDT): Reviewed dietary modifications. Continue PPI and pepcid . Assessment & Plan (03/31/2020 8:02 AM CDT): Reviewed dietary modifications. Continue PPI and pepcid . Assessment & Plan (06/21/2018 6:46 AM GRANULATING MACHINE OPERATOR): Reviewed dietary modifications. Continue PPI. Assessment & Plan (12/06/2017 12:47 PM CDT): Reviewed dietary modifications. Continue PPI. Assessment & Plan (09/01/2017 11:22 AM GRANULATING MACHINE OPERATOR): Worsening symptoms. . Start pantoprazole. Sensorineural hearing loss (SNHL) of both ears 1 09/06/2014 Subjective tinnitus 07/07/2015 Hearing loss 07/02/2015 Adjustment disorder 12/29/2013 Overview (11/18/2016): ADJUSTMENT REACTION NOS Hyperlipidemia 12/29/2013 Overview (11/19/2016): HYPERLIPIDEMIA NEC/NOS Assessment & Plan (06/13/2023 6:20 AM CDT): Reviewed LDL was elevated at 140 at last visit.Reviewed diet and exercise goals. Order lipid panel. Assessment & Plan (05/28/2022 5:08 AM CDT): Reviewed LDL was elevated at 146 on 11/27/21.Reviewed diet and exercise goals. Order lipid panel. Assessment & Plan (05/22/2021 5:45 AM CDT): Reviewed LDL was elevated at 141 on ..21. Order lipid panel. Start statin if LDL over 130. Assessment & Plan (06/21/2018 6:47 AM GRANULATING MACHINE OPERATOR): Last LDL elevated at 136. Reviewed diet and exercise goals. Phlebitis of deep vein of lower extremity 2013 Overview (11/19/2016): DEEP PHLEBITIS-LEG NEC Assessment & Plan (03/31/2020 6:42 AM CDT): Continue Coumadin and Hematology care. Assessment & Plan (06/21/2018 6:46 AM GRANULATING MACHINE OPERATOR): Continue Coumadin and Hemayology care. Assessment & Plan (03/31/2018 11:50 AM CDT): Continue coumadin and follow with Coumadin clinic. Goal INR 2.5 to 3.5 noted. Assessment & Plan (12/06/2017 12:46 PM CDT): Continue coumadin. Assessment & Plan (09/01/2017 7:36 AM GRANULATING MACHINE OPERATOR): Continue coumadin. Recent INR at goal. Assessment & Plan (04/27/2017 7:30 AM CDT): Continue coumadin. Essential hypertension 07/31/2013 Assessment & Plan (10/09/2024 12:31 PM GRANULATING MACHINE OPERATOR): BP stable in office, continues Olmesartan 40 mg. Assessment & Plan (08/09/2024 3:27 PM GRANULATING MACHINE OPERATOR): Blood pressure is not controlled. Resume olmesartan. Assessment & Plan (04/25/2024 9:03 AM CDT): Hypertension is controlled. Continue current regimen. Assessment & Plan (06/13/2023 6:20 AM CDT): Hypertension is controlled. Continue current regimen. Assessment & Plan (05/28/2022 8:59 AM CDT): Hypertension is controlled. Change lisinopril to olmesartan in setting of cough. Assessment & Plan (05/22/2021 8:43 AM CDT): Hypertension is not controlled. Increase lisinopril to 40 mg.Reviewed creatinine 0.70 on 03/27/21. Continue current regimen. Assessment & Plan (03/31/2020 6:43 AM CDT): Hypertension is controlled. Continue current regimen. Assessment & Plan (03/31/2018 11:52 AM CDT): Hypertension is controlled. Continue current regimen. Assessment & Plan (12/06/2017 12:46 PM CDT): Hypertension is controlled. Continue current regimen. Assessment & Plan (11/10/2017 7:11 AM CDT): Hypertension is controlled. Continue current regimen. Assessment & Plan (09/01/2017 7:36 AM GRANULATING MACHINE OPERATOR): Hypertension is controlled. Continue current regimen. Assessment & Plan (05/30/2017 12:05 PM CDT): Hypertension is controlled. Continue current regimen. Reviewed low sodium diet. Assessment & Plan (05/05/2017 2:12 PM CDT): Hypertension is controlled. Continue current regimen. Removed low sodium diet. Assessment & Plan (04/27/2017 11:19 AM CDT): Hypertension is controlled. Continue current regimen. Reviewed low sodium diet. EKG shows Assessment & Plan (02/01/2017 11:15 AM CDT): Hypertension is controlled. Continue current regimen. Removed low sodium diet. Resolved Problems Problem Noted Date Diagnosed Date Resolved Date Abscess of left lower leg 08/09/2024 Assessment & Plan (08/09/2024 3:20 PM GRANULATING MACHINE OPERATOR): S/P antibiotics and debridement. She is off antibiotics. Follow with Surgery. Continue home wound care. Chronic pain of both knees 05/04/2024 0 10/09/2024 Alkaline phosphatase elevation 05/03/2024 10/09/2024 Abscess of left earlobe 04/25/2024 02/12/2024 Assessment & Plan (04/25/2024 9:04 AM CDT): Monitor response to doxycycline. Advised warm compresses. Weight loss counseling, encounter for 05/07/2022 10/09/2024 Assessment & Plan (09/27/2022 9:19 AM GRANULATING MACHINE OPERATOR): Reviewed calorie restriction based on BMR as previously detailed. Reviewed recommendation/goal of >/= 150 minutes/week moderate-intensity aerobic exercise. Asked to keep detailed food diary for at least 1 week and bring to next visit and/or continue tracking on phone. Reviewed SMART goals for increasing physical activity. Assessment & Plan (06/04/2022 3:24 PM CDT): Reviewed calorie restriction based on BMR as previously detailed. Reviewed recommendation/goal of >/= 150 minutes/week moderate-intensity aerobic exercise. Asked to keep detailed food diary for at least 1 week and bring to next visit and/or continue tracking on phone. Assessment & Plan (05/07/2022 4:50 PM CDT): Discussed that significant health benefits/risk reduction may be seen with even 5% weight loss. Discussed that weight loss will require calorie deficit. Calculated basal metabolic rate and estimated total energy expenditure; discussed 500-1000 kcal/day deficit to lose 1-2 lb per week. Asked to keep detailed food diary for at least 1 week and bring to next visit. Discussed setting SMART goals. Discussed relatively small, although significant, role of exercise in weight loss; greater importance in weight maintenance as shown in Look Ahead study and National Weight Control Registry. Discussed recommendation/goal for 150 minutes per week moderate-intensity aerobic exercise. Shortness of breath 05/22/2021 10/09/19 Assessment & Plan (05/22/2021 9:03 AM CDT): Ddx; heart failure,ischemia,deconditioning>> Pulmonary Embolus(patient therapeutic on coumadin) EKG shows normal sinus rhythm with a right bundle branch block and no ST elevation.Order dobutamine stress echo. Order BNP. Chronic pain of both knees 12/27/2019 0 10/09/2024 Assessment & Plan (05/07/2022 4:50 PM CDT): Discussed potential for diminished pain, improved function and reduced progression with weight loss. Morbid obesity with BMI of 50.0-59.9, adult 10/02/2019 10/09/2024 Assessment & Plan (05/28/2022 8:58 AM CDT): BMI is more than 40, reviewed calorie restrictions. Physical exam 09/27/2018 10/09/2024 Assessment & Plan (12/03/2022 8:45 AM CDT): Reviewed diet and exercise goals. Await Annual labs. Reviewed immunization and screening status. Reviewed dietary modifications. Continue esomeprazole for GERD. Continue sumatriptan for migraine headaches. Continue coumadin for DVT. Continue vitamin D for deficiency. She is current on colonoscopy and mammogram. Continue olmesartan for hypertension. Order CXR for cough. DDX: GERD vs. Sinusitis. Treat with doxycycline. Assessment & Plan (11/27/2021 9:37 AM CDT): Reviewed diet and exercise goals. Await Annual labs. Reviewed immunization and screening status. Reviewed dietary modifications. Continue esomeprazole for refractory GERD. Continue sumatriptan for migraine headaches. Continue coumadin for DVT. Continue vitamin D for deficiency. She is current on colonoscopy;advised mammogram. Continue lisinopril for hypertension. Advised Kiegel exercises for overactive bladder; start tolterodine. Assessment & Plan (09/29/2021 8:54 AM GRANULATING MACHINE OPERATOR): DFE today, WNL both eyes (OU) New SRx/PAL PRN Assessment & Plan (11/14/2020 8:25 AM CDT): Reviewed diet and exercise goals. Await Annual labs. Reviewed immunization and screening status. Reviewed dietary modifications. Continue pantoprazole and refer to GI for refractory GERD.I. Continue sumatriptan for migraine headaches. Continue coumadin for DVT. Continuevitamin D for deficiency. She is current on colonoscopy;advised mammogram. Continue lisinopril for hypertension. Assessment & Plan (10/02/2019 8:30 AM GRANULATING MACHINE OPERATOR): Reviewed diet and exercise goals. Await Annual labs. Reviewed immunization and screening status. Reviewed dietary modifications. Continue PPI. Order EGD as symptoms are uncontrolled. Continue sumatriptan for migraine headaches. Continue coumadin for DVT. Continue B12 and vitamin d. Advised colonoscopy and mammogram. Order knee XRAY and anticipate Ortho referral. Start lisinopril for hypertension. Assessment & Plan (09/27/2018 8:08 AM GRANULATING MACHINE OPERATOR): Reviewed diet and exercise goals. Await Annual labs. Reviewed immunization and screening status. Reviewed dietary modifications. Continue PPI. Refer for EGD to evaluate refractory GERD. Continue sumatriptan as needed. Follow with Hematology for DVT. Continue vitamin D and B12 with history of gastric bypass. Advised mammogram. Cellulitis of right lower extremity 03/31/2018 10/09/2024 Assessment & Plan (03/31/2018 11:50 AM CDT): Symptoms are improving. Complete Levaquin. Morbid obesity due to excess calories 02/01/2017 10/09/2024 Assessment & Plan (11/10/2017 7:12 AM CDT): BMI is more than 40, reviewed calorie restriction. Assessment & Plan (09/01/2017 7:37 AM GRANULATING MACHINE OPERATOR): S/P gastric bypass. Reviewed calorie restriction. Assessment & Plan (05/30/2017 12:05 PM CDT): She has failed conservative attempts at weight loss. Agree with Bypass surgery. Assessment & Plan (04/27/2017 11:18 AM CDT): Reviewed diet and weight loss goals. Completed form for weight loss surgery. Completed clearance form. Assessment & Plan (02/01/2017 3:05 PM CDT): Diet and exercise goals reviewed. Agree with pursuing bariatric surgery. Morbid obesity 11/24/2016 10/09/2024 Atopic rhinitis 12/29/2013 10/09/2024 Overview (11/18/2016): ALLERGIC RHINITIS NOS Encounters Date Type Department Care Team Description 01/01/2025 Nurse Triage [facility] Primary Care at [address] [address] Daphne Wise, KITTY Chronic cough (Primary Dx) 01/01/2025 Telephone [facility] Primary Care at [address] [address] Daphne Wise NP Medical Question/Miscellaneou s 12/31/2024 10:00 AM CDT Ancillary Procedure [facility] Imaging at [address] [address] Arrived 12/31/2024 8:30 AM CDT Office Visit [facility] Primary Care at [address] [address] Daphne Wise NP Overactive bladder (Primary Dx); Chronic cough; Chronic pain of right knee; Recurrent major depressive disorder, in partial remission; History of deep venous thrombosis; RAFI-inhibitor cough; Class 3 severe obesity with body mass index (BMI) of 45.0 to 49.9 in adult 12/31/2024 Orders Only [facility] Gastroenterology [facility] 12th [place] [address] [place] [address] Hanna Alvarenga LPN Elevated serum GGT level (Primary Dx); Elevated alkaline phosphatase level; Abnormal finding on GI tract imaging 12/31/2024 Results Follow-Up [facility] Primary Care at [address] [phone] Daphne Wise NP XR Knee Right 4+ Vw 12/27/2024 Orders Only [facility] Hematology [address] [place] [address] Floor 6 [place] [phone] Gege Zamora, RN History of deep venous thrombosis (Primary Dx); Right leg pain 12/18/2024 Results Follow-Up [facility] Bone Marrow Transplant [facility] Floor 6 [place] [phone] Taryn James MD US Vein Duplex Lower Extremity Right Limited 12/17/2024 11:00 AM CDT Ancillary Procedure [facility] Vascular Lab at the [address] 8th [place] [address] [place] [phone] History of deep venous thrombosis; Right leg pain 12/17/2024 Telephone [facility] Hematology [address] [place] [address] 6 [place] [address] Gege Zamora RN 10/10/2024 Results Follow-Up [facility] Primary Care at [address] [address] Daphne Wise NP Thyroid Function [place], Lipid panel, Hemoglobin A1c, Additional followed-up results: 2 10/09/2024 11:30 AM GRANULATING MACHINE OPERATOR Lab [facility] Outpatient Lab at [address] [address] Hyperglycemia (Primary Dx); Hyperlipidemia; Essential hypertension 10/09/2024 11:27 AM GRANULATING MACHINE OPERATOR - 10/09/2024 11:59 PM GRANULATING MACHINE OPERATOR Hospital Encounter [address] [address] Essential hypertension; Impaired fasting glucose Discharge Disposition: Discharge to home or self care 10/09/2024 10:30 AM GRANULATING MACHINE OPERATOR Office Visit [facility] Medical [facility] Primary Care at [address] [phone] Daphne Wise NP Essential hypertension (Primary Dx); History of deep venous thrombosis; Overactive bladder; Recurrent major depressive disorder, in partial remission; Chronic pain of both knees; Impaired fasting glucose; Acute low back pain due to trauma; Class 3 severe obesity with body mass index (BMI) of 45.0 to 49.9 in adult, unspecified obesity type, unspecified whether serious comorbidity present (HCC); SOB (shortness of breath) from Last 3 Months Immunizations Immunization Administration Dates Next Due COVID-19 mRNA ([employer]) 0.3 m L (30 mcg) vaccine (12 years and up) 05/22/2023 Flucelvax Influenza Quad 06/05/2024 IPV 06/08/2017,06/08/2017 Influenza, Quadrivalent, Spl it, Pediatric, Preservative Free, Intramuscular 05/11/2022 Influenza, Quadrivalent, Spl it, Preservative Free, Intradermal 06/08/2016 Influenza, Quadrivalent, Spl it, Preservative Free, Intramuscular 05/07/2023,05/15/2015 Influenza, Trivalent, IM (MDV) 05/21/2021,2012 Influenza, Trivalent, Split, Preservative Free, Intradermal 05/15/2014 Influenza, Unspecified 05/06/2022,2020,05/27/2020,05/21,05/17/2018 MMR 12/13/1995,12/13/1995 GroupStream SARS-CoV-2 Monovalent Vaccination (12+ Yrs) GREENWOOD-READY TO USE 04/02/2022 Pfizer SARS-CoV-2 Monovalent Vaccination (12+ Yrs) PURPLE 05/21/2021,05/21/2021 Pfizer Sars-Cov-2 Bivalent V accination (12+ YRS) 06/05/2024 Td, adsorbed 12/13/1995,12/13/1995 Tdap 11/27/2021 ZOSTER Recombinant 03/05/2024,01/03/2024 Surgical History Surgery Date Site/Laterality Comments CHOLECYSTECTOMY 08/15/1991 - 08/14/1992 SECTION 03/14/1990 SLEEVE GASTROPLASTY 08/15/2016 - 08/14/2017 BARIATRIC SURGERY 07/28/17 Medical History Medical History Date Comments Osteoarthritis 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 Joint pain HTN (hypertension) Migraines Obesity Cataract Factor V deficiency (HCC) Bilateral knee pain GERD (gastroesophageal reflux disease) Osteoporosis Infection Self Menstrual problem Self Abscess of left earlobe 04/25/2024 Cellulitis of right lower extremity 03/31/2018 Family History Medical History Relation Name Comments Anesthesia problems Father Don Alfonso delayed emergence Arthritis Father Don Alfonso Cataracts Father Don Alfonso Clotting disorder Father Don Alfonso Coronary artery disease Father Don Alfonso Depression Father Don Alfonso Diabetes Father Don Alfonso Glaucoma Father Don Alfonso Hearing loss Father Don Alfonso Heart attack Father Don Alfonso Hypertension Father Don Alfonso Memory loss Father Don Alfonso Obesity Father Don Alfonso Parkinsonism Father Don Alfonso Diabetes Father's Brother Bill Alfonso Obesity Father's Brother Bill Alfonso Cancer Maternal Grandmother Zarina Lara Diabetes Maternal Grandmother Zarina Lara Breast cancer Mother Eugenia Frank Alfonso Coronary artery disease Mother Eugenia Frank Alfonso Depression Mother Eugenia Frank Alfonso Diabetes Mother Eugenia Frank Alfonso Drug abuse Mother Eugenia Frank Alfonso Hypertension Mother Eugenia Frank Alfonso Mental illness Mother Eugenia Frank Alfonso Stroke Mother Eugenia Frank Alfonso Cancer Paternal Grandfather Oliverio Alfonso Obesity Paternal Grandmother Beatriz Alfonso Brain cancer Son 1 Cancer Son 2 Steven Fernandez Relation Name Status Comments Father Don Alfonso Father's Brother Bill Alfonso Maternal Grandmother Zarina Lara Mother Eugenia Frank Alfonso Alive Paternal Grandfather Oliverio Alfonso Paternal Grandmother Beatriz Alfonso Son 1 Son 2 Steven Fernandez Social History Tobacco Use Types Packs/Day Years [...] on file Legal Sex Female 12:29 PM GRANULATING MACHINE OPERATOR Gender Identity Female 11/13/2020 10:00 PM CDT Sexual Orientation Straight 11/13/2020 10 :00 PM CDT Occupation Industry Job Start Date Job End Date 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 [employer] Not on file Not on file Not on file Obstetrics History Last Filed Vital Signs Vital Sign Reading Time Taken Comments Blood Pressure 132/82 12/31/2024 8:37 AM CDT Pulse 90 12/31/2024 8:37 AM CDT Temperature 36.9 C (98.4 F) 12/31/2024 8:37 AM CDT Respiratory Rate 18 08/13/2024 10:55 AM GRANULATING MACHINE OPERATOR Oxygen Saturation 97% 12/31/2024 8:37 AM CDT Inhaled Oxygen Concentration - - Weight 133.4 kg (294 lb) 12/31/2024 8:37 AM CDT Height 167.6 cm (5' 6 ) 12/31/2024 8:37 AM CDT Body Mass Index 47.45 12/31/2024 8:37 AM CDT Plan of Treatment Scheduled Procedures Name Priority Associated Diagnoses Date/Ti me ESOPHAGOGASTRODUODENOSCOPY Gastroesophageal reflux disease, esophagitis presence not specified COLONOSCOPY Colon cancer screening Gastroesophageal reflux disease, esophagitis presence not specified Health Maintenance Due Date Last Done Comments Hepatitis C Screening 1965 Hepatitis B Screening 02/15/1982 Covid-19 Vaccine ( season) 2024 06/05/2024, 05/22/2023, 04/02/2022, Additional history exists Regular Well Visit/Exam 18-64 01/02/2025 01/03/2024, 01/03/2024, 12/03/2022, Additional history exists Breast Cancer Screening-Mammogram 03/02/2025 07/11/2022, 07/09/2022 Postponed from 07/11/2023 (Patient declined, but will receive in the future) Cervical Cancer Screening 03/08/2025 Po stponed from 1965 (Patient declined, but will receive in the future) Depression Screening 12/31/2025 12/31/2024, 10/09/2024, 08/09/2024, Additional history exists Colon Cancer Screening-DNA Stool 08/15/2029 03/24/2020, 03/24/2020 Postponed from 03/24/2023 (Provider's clinical decision) DTaP/Tdap/Td Vaccine (2 - Td or Tdap) 11/28/2031 11/27/2021, 12/13/1995, 12/13/1995 Zoster Vaccine Completed 03/05/2024, 01/03/2024 Influenza Vaccine Completed 06/05/2024, , 05/11/2022, Additional history exists Pneumococcal vaccine <65 Aged Out No longer eligible based on patient's age to complete this topic Goals Goal Patient Goal Type Associated Problems [...] lifestyle strategies and compensatory methods as needed Procedures Procedure Name Priority Date/Time Associated Diagnosis Comments XR KNEE RIGHT 4 OR MORE VIEWS Schedule Routine, Read Routine (OP Routine) 12/31/2024 9:45 AM CDT Chronic pain of right knee US VEIN DUPLEX LOWER EXTREMITY RIGHT LIMITED Schedule Routine, Read Routine (OP Routine) 12/17/2024 12:23 PM CDT History of deep venous thrombosis Right leg pain EGFR Routine 10/09/2024 11:27 AM GRANULATING MACHINE OPERATOR Essential hypertension BASIC METABOLIC PANEL Routine 10/09/2024 11:27 AM GRANULATING MACHINE OPERATOR Essential hypertension HEMOGLOBIN A1C Routine 10/09/2024 11:27 AM GRANULATING MACHINE OPERATOR Impaired fasting glucose LIPID PANEL Routine 10/09/2024 11:27 AM GRANULATING MACHINE OPERATOR Essential hypertension THYROID FUNCTION CASCADE Routine 10/09/2024 11:27 AM GRANULATING MACHINE OPERATOR Essential hypertension HM MAMMOGRAPHY Routine 07/09/2022 COLONOSCOPY 03/24/2020 1:56 PM CDT from Last 3 Months or Most Recently Relevant to Health Maintenance Results * XR Knee Right 4+ Vw [...] by Daren Contreras M.D. T: Report ID: [id number] Reading Location: [id number] Procedure Note Daren Contreras MD - 12/31/2024 [...] by Daren Contreras M.D. T: Report ID: [id number] Reading Location: [id number] us Daphne Wise METALIZING MACHINE OPERATOR AUTOMATIC IMG XR PROCEDURES Final Result * US Vein Duplex Lower Extremity Right Limited (12/17/2024 12:23 PM CDT) Anatomical Region Laterality Modality Vascular Right Ultrasound 12/17/2024 11:1 7 AM CDT Narrative 12/17/2024 7:11 PM CDT [facility] - Department of Vascular Surgery, Vascular Laboratory [address] [place] [address] Lower Extremity Venous Ultrasound Report Patient Name: BETTY FERNANDEZ : 1965 (59y 10m) Study Date: 12/17/2024 11:17:26 AM Gender: F Tech: Terrell BYERS Location: [facility] Provider: TARYN AJMES Quality: Adequate Order Provider: TARYN JAMES PROCEDURES: Vascular Report: Venous Duplex imaging was performed in the right lower extremity. The common femoral, femoral, popliteal, posterior tibial, peroneal veins were evaluated for patency, spontaneity and phasicity with Doppler, compression and augmentation maneuvers. Great saphenous vein proximal at the junction was evaluated with compression maneuvers. INDICATIONS: Z86.718 Personal history of other venous thrombosis and embolism and M79.604 Pain in right leg. FINDINGS: Performing Coffee Maker: Bridget Byers RVT. Right: Venous Doppler signals in the right lower extremity are within normal limits for spontaneity and phasicity and respond normally to augmentation maneuvers. No evidence of deep vein thrombus by duplex, proximal to the calf. Comments: Contralateral common femoral vein is imaged for comparison and is patent. Unilateral (limited study) performed per M.D. order. CONCLUSIONS: 1. There is no evidence of acute deep vein thrombosis on the right. Noninvasive venous studies cannot rule out isolated calf vein obstruction. HISTORY: HX of DVT bilateral lower extremities January 2008. PREVIOUS STUDIES: Previous study as part of Reflux study performed on 05/10/2018 (Neg. DVT). DISCLAIMER: The study images and the final report will be retained in the patient chart by the Vascular Laboratory for the legally required time period. This chart constitutes the legal record of any testing performed. ATTESTATION: I have reviewed and interpreted the pertinent images and measurements of this study. I attest to the conclusions in the final report that is provided above. Electronically Signed By: Clifton Hartman MD FACS 12/17/2024 7:10:41 PM CDT Procedure Note Clifton Hartman MD - 12/17/2024 [employer] [facility] [employer] [facility] - Department of Vascular Surgery,Vascular Laboratory [address] [place] [id number] Lower Extremity Venous Ultrasound Report Patient Name: BETTY FERNANDEZ : 1965 (59y 10m) Study Date: 12/17/2024 11:17:26 AM Gender: F Tech: Terrell BYERS Location: [facility] Provider: TARYN JAMES Quality: Adequate Order Provider: TARYN JAMES PROCEDURES: Vascular Report: Venous Duplex imaging was performed in the right lower extremity. Thecommon femoral, femoral, popliteal, posterior tibial, peroneal veins were evaluated forpatency, spontaneity and phasicity with Doppler, compression and augmentationmaneuvers. Great saphenous vein proximal at the junction was evaluated with compressionmaneuvers. INDICATIONS: Z86.718 Personal history of other venous thrombosis and embolism andM79.604 Pain in right leg. FINDINGS: Performing Coffee Maker: Bridget Byers RVT. Right: Venous Doppler signals in the right lower extremity are within normallimits for spontaneity and phasicity and respond normally to augmentation maneuvers.No evidence of deep vein thrombus by duplex, proximal to the calf. Comments: Contralateral common femoral vein is imaged for comparison and is patent.Unilateral (limited study) performed per M.D. order. CONCLUSIONS: 1. There is no evidence of acute deep vein thrombosis on the right.Noninvasive venous studies cannot rule out isolated calf vein obstruction. HISTORY: HX of DVT bilateral lower extremities January 2008. PREVIOUS STUDIES: Previous study as part of Reflux study performed on 05/10/2018 (Neg.DVT). DISCLAIMER: The study images and the final report will be retained in the patientchart by the Vascular Laboratory for the legally required time period. This chartconstitutes the legal record of any testing performed. ATTESTATION: I have reviewed and interpreted the pertinent images and measurements ofthis study. I attest to the conclusions in the final report that is provided above. Electronically Signed By: Clifton Hartman MD FACS 12/17/2024 7:10:41 PM CDT us Taryn James MD IM US PROCEDURES Fi nal Result * eGFR (10/09/2024 11:27 AM GRANULATING MACHINE OPERATOR) eGFR 69 >=60 mL/min/1. 73 m2 Comment: Interpretive Data Reference Interval Normal >/= 90 mL/min/1.73m2 Mildly decreased* 60 - 89 mL/min/1.73m2 Mildly to moderately decreased 45 - 59 mL/min/1.73m2 Moderately to severely decreased 30 - 44 mL/min/1.73m2 Severely decreased 15 - 29 mL/min/1.73m2 Kidney Failure < 15 mL/min/1.73m2 *Relative to young adult level Estimated glomerular filtration rate is determined by the 2020 CKD-EPI equation recommended by the National Kidney Foundation (A Unifying Approach to GFR Estimation: Recommendations of the NKF-ASK Task Force on Reassessing the Inclusion of Race in Diagnosing Kidney Disease, JASN 2021). The CKD-EPI equation should not be used for patients with unstable renal function and has not been validated in children and those over 70. Current interpretive data was last reviewed 2021. Blood 10/09/2024 11:2 7 AM GRANULATING MACHINE OPERATOR 10/09/2024 9:24 PM GRANULATING MACHINE OPERATOR us Daphne Wise NP LAB BLOOD ORDERABLES Final Resul t DOLLY VALDERRAMA [id number] [place] [address] * Thyroid Function [place] (10/09/2024 11:27 AM GRANULATING MACHINE OPERATOR) TSH 2.44 0.30 - 4.20 mcIUnit/mL Blood 10/09/2024 11:2 7 AM GRANULATING MACHINE OPERATOR 10/09/2024 9:15 PM GRANULATING MACHINE OPERATOR Daphne Wise METALIZING MACHINE OPERATOR AUTOMATIC LAB BLOOD ORDERABLES Final Resul t Performing Organization Address [facility] Co de Phone Number DOLLY VALDERRAMA [phone] [address] [facility] [place] [address] * (ABNORMAL) Hemoglobin A1c (10/09/2024 11:27 AM GRANULATING MACHINE OPERATOR) Hgb A1C 5.7(H) 4.0 - 5.6 % Estimated Average Glucose 117 mg/dL DOLLY VALDERRAMA Comment: The ADA recommends reporting an estimated Average Glucose (eAG) with all Hemoglobin A1c results using the equation derived from a study of 507 normal and diabetic adults. Minority populations were underrepresented and children were not included. (Diabetes Care 31:7976-2477, 2008). The eAG is not equivalent to a fasting glucose. Blood 10/09/2024 11:2 7 AM GRANULATING MACHINE OPERATOR 10/09/2024 9:15 PM GRANULATING MACHINE OPERATOR us Daphne Wise METALIZING MACHINE OPERATOR AUTOMATIC LAB BLOOD ORDERABLES Final Resul t Performing Organization Address [facility] Co de Phone Number DOLLY VALDERRAMA [phone] [facility] [place] [address] * (ABNORMAL) Lipid panel (10/09/2024 11:27 AM GRANULATING MACHINE OPERATOR) Cholesterol 203(H) 30 - 199 mg/dL Comment: Interpretive Data Ages < or = 19 years Acceptable: <170 mg/dL Borderline high: 170-199 mg/dL High: >or= 200 mg/dL Ages > or = 20 years Desirable: <200 mg/dL Borderline high: 200-239 mg/dL High: >or= 240 mg/dL Literature References: 1. Expert Panel on Integrated Guidelines for Cardiovascular Health and Risk Reduction in Children and Adolescents. Pediatrics 2011;128:S213 2. NCEP Expert Panel. Circulation 2004;110:227 Current Interpretive Data was last revised on 2018. Triglycerides 158(H) <=149 mg/dL DOLLY Comment: Interpretive Data Ages < or = 9 years Acceptable: <75 mg/dL Borderline high: 75-99 mg/dL High: >or= 100 mg/dL Ages 10 to 20 years Acceptable: <90 mg/dL Borderline high: 90-129 mg/dL High: >or= 130 mg/dL Ages > or = 20 years Desirable: <150 mg/dL Borderline high: 150-199 mg/dL High: 200-499 mg/dL Very high: >or= 499 mg/dL Literature References: 1. Expert Panel on Integrated Guidelines for Cardiovascular Health and Risk Reduction in Children and Adolescents. Pediatrics 2011;128:S213 2. NCEP Expert Panel. Circulation 2004;110:227 Current Interpretive Data was last revised on 2018. HDL 41 >=40 mg/dL DOLLY Comment: Interpretive Data Ages < or = 19 years Acceptable: >45 mg/dL Borderline low: 40-45 mg/dL Low: <40 mg/dL Ages > or = 20 years Desirable: >or= 60 mg/dL Low: <40 mg/dL Literature References: 1. Expert Panel on Integrated Guidelines for Cardiovascular Health and Risk Reduction in Children and Adolescents. Pediatrics 2011;128:S213 2. NCEP Expert Panel. Circulation 2004;110:227 Current Interpretive Data was last revised on 2018. LDL, calculated 134(H) <=129 mg/dL DOLLY Comment: Interpretive Data Ages < or = 19 years Acceptable: <110 mg/dL Borderline high: 110-129 mg/dL High: >or= 130 mg/dL Ages > or = 20 years Optimal: <100 mg/dL Near optimal: 100-129 mg/dL Borderline high: 130-159 mg/dL High: >160 mg/dL Calculated using the Mclean LDL-C estimating equation. This equation was implemented on 2024. Prior to this date LDL-C was estimated using the Friedewald equation. Literature References: 1. Expert Panel on Integrated Guidelines for Cardiovascular Health and Risk Reduction in Children and Adolescents. Pediatrics 2011;128:S213 2. NCEP Expert Panel. Circulation 2004;110:227 3. Vinay M et al. TERRANCE Cardiol. 2020 December 13;5(5):540-548. doi: 10.1001/jamacardio.2020.0013 Current Interpretive Data was last revised on 2024. Non-HDL Cholesterol 162 mg/dL CERNER Comment: Interpretive Data Ages < or = 19 years Acceptable: <120 mg/dL Borderline high: 120-144 mg/dL High: >145 mg/dL Ages > or = 20 years When triglycerides are >200 mg/dL, Non-HDL cholesterol is a secondary target of therapy with treatment goals that are 30 mg/dL greater than the LDL cholesterol target. Literature References: 1. Expert Panel on Integrated Guidelines for Cardiovascular Health and Risk Reduction in Children and Adolescents. Pediatrics 2011;128:S213 2. NCEP Expert Panel. Circulation 2004;110:227 Current Interpretive Data was last revised on 2018. Chol/HDL ratio 5 CERNER Blood 10/09/2024 11:2 7 AM GRANULATING MACHINE OPERATOR 10/09/2024 9:15 PM GRANULATING MACHINE OPERATOR us Daphne Wise METALIZING MACHINE OPERATOR AUTOMATIC LAB BLOOD ORDERABLES Final Resul t [facility] [address] Department [place] [address] * Basic metabolic panel (10/09/2024 11:27 AM GRANULATING MACHINE OPERATOR) Sodium 143 135 - 145 mmol/L Potassium, pl 4.7 3.3 - 4.9 mmol/L CERNER Chloride 107 97 - 110 mmol/L CERNER CO2 23 22 - 32 mmol/L CERNER Anion gap 13 2 - 15 mmol/L CERNER BUN 23 6 - 25 mg/dL CERNER Creatinine 0.94 0.60 - 1.10 mg/dL [facility] Glucose 96 70 - 199 mg/dL [facility] Comment: Interpretive Data Fasting glucose >/= 126 mg/dl is diagnostic for diabetes. Fasting is defined as no caloric intake for at least 8 hours. Fasting glucose between 100 mg/dl to 125 mg/dl is diagnostic of prediabetes. In a patient with classic symptoms of hyperglycemia or hyperglycemic crisis, a random glucose >/= 200 mg/dl is diagnostic for diabetes. In the absence of unequivocal hyperglycemia, results should be confirmed by repeat testing. The classification and Diagnosis of Diabetes Diabetes Care 202; 46: S19-S40. Current interpretive data was last revised 2022. Calcium 10.1 8.5 - 10.3 mg/dL DOLLY VALDERRAMA Blood 10/09/2024 11:2 7 AM GRANULATING MACHINE OPERATOR 10/09/2024 9:15 PM GRANULATING MACHINE OPERATOR us Daphne Wise METALIZING MACHINE OPERATOR AUTOMATIC LAB BLOOD ORDERABLES Final Resul t DOLLY [address] Department of Laboratories [place], [place] [id number] * HM MAMMOGRAPHY (07/09/2022) Mammography Normal Historical Provider HEALTH MAINTENANCE Final Result * COLONOSCOPY (03/24/2020 1:56 PM CDT) Anatomical Region Laterality Modality Other Narrative Procedure Note Ayaz Mei MD - 03/24/2020 1:56 PM CDT ENDOSCOPY LAB Patient Name: Betty Fernandez Procedure Date: 03/24/2020 1:56 PM Date of : 1965 Admit Type: Outpatient Age: 55 Gender: Female Attending MD: Ayaz Mei M.D. Room: [facility] ENDOSCOPY ROOM 02 Note Status: Finalized Procedure: Colonoscopy Indications: Screening for colorectal malignant neoplasm Providers: Ayaz Mei M.D. Referring MD: Wan Rosario M.D. Medicines: Monitored Anesthesia Care Complications: No immediate complications. Estimated Blood Loss: Estimated blood loss: none. Procedure: Pre-Anesthesia Assessment: - Immediately prior to administration of medications,the patient was re-assessed for adequacy to receivesedatives. The benefits, risks and alternatives of the procedureand sedation were discussed and informed consent wasobtained. All questions were answered. Please refer to the signed informed consent document in the medical record. Thescope was passed under direct vision. The [id number] introduced through the anus and advanced to the cecum, identified by appendiceal orifice and ileocecal valve.The colonoscopy was performed without difficulty. Thepatient tolerated the procedure well. The quality of the bowel preparation was evaluated using the BBPS ([place] Bowel Preparation Scale) with scores of: Right Colon = 3, Transverse Colon = 3 and Left Colon = 3 (entire mucosa seen well with no residual staining, small fragments of stool or opaque liquid). The total BBPS score equals 9. Bowel prep was administered using a split dose. Findings: The perianal and digital rectal examinations were normal. A few small-mouthed diverticula were found in the sigmoid colon. The exam was otherwise without abnormality on direct and retroflexion views. Impression: - Diverticulosis in the sigmoid colon. - The examination was otherwise normal on direct and retroflexion views. - No specimens collected. Recommendation: - Repeat colonoscopy in 10 years for screeningpurposes. Electronically signed by Ayaz Mei MD Ayaz Mei M.D. 03/24/2020 2:21:31 PM Number of Addenda: 0 Note Initiated On: 03/24/2020 1:56 PM Ayaz Mei MD ENDOSCOPY PROCEDURES Fin al Result from Last 3 Months or Most Recently Relevant to Health Maintenance Insurance [facility]PP[facility] Address: [place] [id number] [employer] [facility] [employer]PPO Address: [place] [id number] [place] [id number] [facility] [employer] [facility] [employer]PPO Address: [facility] [address] [place] [address] Advance Directives For more information, please contact: [phone] * Full Code (Latest Code Status on File) Date Activated Date Inactivated Comments 03/24/2020 11:16 AM 03/24/2020 8:37 PM Care Teams Director Financial Services Relationship Specialty Start Date End Date Daphne Wise NP [address] [place] [address] PCP - General Family Medicine 10/09/24 Brenda Cueto NP [address] [place] [address] Nurse Practitioner Hematology 09/23/20 Gerry Vaughn MD [address] DEPT OPHTHALMOLOGY, [address] [place] [address] Surgeon Ophthalmology 09/24/22 Roxann Galeana MD [address] [facility] [address] DIV IM [place] [address] Consulting Physician Gastroenterology 10/09/24 July Hartman MD PhD [address] [place] [address] Consulting Physician Anesthesiology 10/09/24
--- OUTSIDE RECORDS SUMMARY | 2025-01-01 17:47 | XMS_ITS | Encounter Summary ---
Author Organization [facility] Healthcare Address [address] [place] [address] Care Team Providers Care Restorative Coordinator Name Role Phone Brenda Cueto NP Unavailable [phone] Gerry Vaughn MD Unavailable [phone] Daphne Wise NP Primary Care Provider [phone] Roxann Galeana MD Unavailable [phone] July Hartman MD PhD Unavailable [phone] Reason for Referral * Procedure (Routine) - Authorized Specialty Diagnoses / Procedures Referred By Contac t Referred To Contact Pulmonology Diagnoses Chronic cough Procedures Pulmonary Function Test -[facility] Adult PFT Lab- [facility]; Complete/Full PFT, Spirometry, Spirometry with Bronchodilator, Lung Volumes, DLCO; Spirometry, Spirometry w/bronchodilator, DLCO and Lung Volumes; Lung volumes; Pleth with Airway Resistance; P... Daphne Wise NP [address] [facility] [address] [place] [address] Phone: tel: fax: Referral ID Status Reason Start Date Expiration Date V isits Requested Visits Authorized [id number] Authorized 01/01/2025 01/31/2026 1 1 Reason for Visit * Reason Onset Date Comments Shortness of Breath 01/01/2025 Dizziness 01/01/2025 Encounter Details Date Type Department Care Team (Late st Contact Info) Description 01/01/2025 Nurse Triage [facility] Primary Care at [address] [address] Daphne Wise NP [address] [facility] [address] [place] [address] Chronic cough (Primary Dx) Social History Tobacco Use Types Packs/Day Years [...] on file 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 * Telephone Encounter - Kizzy Maier RN - 01/01/2025 11:49 AM CDT Reason for Conversation Shortness of Breath and Dizziness Background DELANEY 12/31/24 cc: shortness of breath, dizziness Patient reports she was seen in office yesterday. The patient states that they put the request thrufor the Pulmonary function test to be done at the [facility] location but the patient would rather it be done at [place] ([place] of [address]). She was instructed to have the office cancel the referral to [facility] and put in the referral to [facility]. This morning she was having an episode where she couldn't take a deep breath. When she tries, she coughs repeatedly. This morning when she woke up she was super dizzy and short of breath. No arm or shoulder or jaw pain. She thinks she might have had an episode of pain last night but isn't sure if it was anxiety. She had an appt for a doppler study this morning and because of these symptoms she missed the appt. She fell asleep after the episode this morning. She had been trying to get into the shower this morning but couldn't breathe enough to shower. She cannot breathe at all when lying flat.When she layed down in bed, the next thing she knows it is 11:10 (she layed down around 0830). She isn't sure if she fainted. She can't take a deep breath. No chest pain. She is reluctant to go to ED as she states if they do not admit her to the hospital then her copay is $500. She doesn't want to go, only to be told it is anxiety. Dayana, this is Gonzales from lighting designer, seeking your recommendation regarding ED Now due to worsening shortness of breath. [facility] 12/31/24 cc: shortness of breath, dizziness Patient reports she was seen in office yesterday. The patient states that they put the request thrufor the Pulmonary function test to be done at the [facility] location but the patient would rather it be done at [place] ([place] [address]). She was instructed to have the office cancel the referral to [facility] and put in the referral to [facility]. This morning she was having an episode where she couldn't take a deep breath. When she tries, she coughs repeatedly. This morning when she woke up she was super dizzy and short of breath. No arm or shoulder or jaw pain. She thinks she might have had an episode of pain last night but isn't sure if it was anxiety. She had an appt for a doppler study this morning and because of these symptoms she missed the appt. She fell asleep after the episode this morning. She had been trying to get into the shower this morning but couldn't breathe enough to shower. She cannot breathe at all when lying flat.When she layed down in bed, the next thing she knows it is 11:10 (she layed down around 0830). She isn't sure if she fainted. She can't take a deep breath. No chest pain. She is reluctant to go to EDas she states if they do not admit her to the hospital then her copay is $500. She doesn't want to go, only to be told it is anxiety. Guideline recommends ED Now. Do you advise ED, UCC, office evaluation, or other advice? Patient agrees to go to the ED. Will forward message to the office about rescheduling the PFT to the [place] location (see above). Disposition Call EMS 911 Now Reason for Disposition Passed out (e.g., fainted, lost consciousness, blacked out and was not responding) Protocols Used Breathing Oidoozepss-Otdmt-TI * Telephone Encounter - Kizzy Maier RN - 01/01/2025 11:31 AM CDT Regarding: short of breath, dizziness ----- Message from Kasia Pillai sent at 01/01/2025 11:31 AM CDT ----- Symptom Based Call Chief Complaint(s): short of breath, dizziness Duration: today What type of symptom(s) is the patient experiencing? Red Flag. Is the patient concerned they are experiencing a medical emergency requiring an ambulance? No Additional Comments: can only take short breaths, but unable to fill her lungs. Unable to take a deep breath. She hears/feels some rattling in her lungs No chest pain, was dizzy in the shower. Does message need to be routed? Yes-Action Needed documented in this encounter Plan of Treatment Scheduled Orders Name Type Priority Associated Diagnoses Orde r Schedule Pulmonary Function Test -[facility] Adult PFT Lab- [facility]; Complete/Full PFT, Spirometry, Spirometry with Bronchodilator, Lung Volumes, DLCO; Spirometry, Spirometry w/bronchodilator, DLCO and Lung Volumes; Lung volumes; Pleth with Airway Resistance; P... PFT Routine Chronic cough 1 Occurrences starting 01/01/2025 until 01/01/2026 Scheduled Procedures Name Priority Associated Diagnoses Date/Ti [...] as of this encounter Visit Diagnoses Diagnosis Chronic cough- Primary Cough documented in this encounter Care Teams Restorative Coordinator Relationship Specialty Start Date End Date Daphne Wise NP [address] [facility] [address] [place], [place] [id number] PCP - General Family Medicine 10/09/24 Brenda Cueto NP [address] [place] [address] Nurse Practitioner Hematology 09/23/20 Gerry Vaughn MD [address] DEPT OPHTHALMOLOGY, [facility] [address] [place] [address] Surgeon Ophthalmology 09/24/22 Roxann Galeana MD [address] [facility] [address] [place] [address] Consulting Physician Gastroenterology 10/09/24 July Hartman MD PhD [address] [place] [address] Consulting Physician Anesthesiology 10/09/24 documented as of this encounter
--- OUTSIDE RECORDS SUMMARY | 2025-01-01 17:47 | XMS_ITS | Encounter Summary ---
Author Organization [facility] Address [address] [facility] [address] [place] [address] Phone Care Team Providers Care Steel Erector Name Role Phone Wan Rosario MD Primary Care Provider [phone] Brenda Cueto PARIMUTUEL CASHIER Unavailable [phone] Sonja Ball DPT Unavailable Gerry Vaughn MD Unavailable [phone] Daphne Wise NP Primary Care Provider [phone] Roxann Galeana MD Unavailable [phone] July Hartman MD PhD Unavailable [phone] Encounter Details Date Type Department Care Team (Latest Contact Info) Description 12/31/2019 Orders Only [facility] Scanning, Provider Social [...] on file 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 Gender Identity Female 11/13/2020 10:00 PM CDT [...] Date/Time Associated Diagnosis Comments SCAN - LABS 12/31/2019 documented in this encounter Results * SCAN - LABS (12/31/2019) us Provider Scanning Final Result documented in this encounter Visit Diagnoses Not on filedocumented in this encounter Additional Health Concerns Infection Onset Date Last Indicated Resolved Time COVID: Suspected 11/09/2022 11/09/2022 11/09/2022 9:59 PM CDT documented as of this encounter Care Teams Steel Erector Relationship Specialty Start Date End Date Wan Rosario MD [address] [facility] [address] [place] [address] PCP - General 11/12/16 10/08/24 Daphne Wise NP [address] [facility] [address] [place] [address] PCP - General Family Medicine 10/09/24 Brenda Cueto NP [address] [place] [address] Nurse Practitioner Hematology 09/23/20 Sonja Ball DPT [address] [place] [address] Physical Therapist Physical Therapy 09/24/21 11/25/22 Gerry Vaughn MD [address] DEPT OPHTHALMOLOGY, [address] [place] [address] Surgeon Ophthalmology 09/24/22 Roxann Galeana MD [address] [facility] [address] DIV [place] [address] Consulting Physician Gastroenterology 10/09/24 July Hartman MD PhD [address] [place] [address] Consulting Physician Anesthesiology 10/09/24 documented as of this encounter
--- OUTSIDE RECORDS SUMMARY | 2025-01-01 17:47 | XMS_ITS | Encounter Summary ---
Author Organization [facility] Healthcare Address [address] [facility] [place] [address] Care Team Providers Care Cognos Name Role Phone Brenda Cueto NP Unavailable [phone] Gerry Vaughn MD Unavailable [phone] Daphne Wise NP Primary Care Provider [phone] Roxann Galeana MD Unavailable [phone] July Hartman MD PhD Unavailable Reason for Visit * Reason Onset Date Comments Medical Question/Miscellaneous 01/01/2025 Encounter Details Date Type Department Care Team (Late st Contact Info) Description 01/01/2025 Telephone [facility] Primary Care at [address] [address] Daphne Wise NP [address] [place] [address] [address] [place] [address] Medical Question/Miscellaneous Social History Tobacco Use Types Packs/Day Years [...] on file 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 * Telephone Encounter - Kasia Wilkes MA - 01/01/2025 11:24 AM CDT Medical Question/Miscellaneous Caller???s Concern: Pulmonary function test has been sent to the wrong place, it was sent to [facility]. they are asking that one be canceled and resent to: [facility] in [facility]. As soon as this is completed, they willcall to [facility] Does message need to be routed? Yes-Action Needed documented in this encounter Plan of Treatment Scheduled Procedures [...] on filedocumented in this encounter Care Teams Cognos Relationship Specialty Start Date End Date Daphne Wise NP [address] [facility] [address] [place] [address] PCP - General Family Medicine 10/09/24 Brenda Cueto NP [address] [place] [address] Nurse Practitioner Hematology 09/23/20 Gerry Vaughn MD [address] DEPT OPHTHALMOLOGY, [facility] [address] [place] [address] Surgeon Ophthalmology 09/24/22 Roxann Galeana MD [address] [facility] [address] [place] [address] Consulting Physician Gastroenterology 10/09/24 July Hartman MD PhD [address] [place] [address] Consulting Physician Anesthesiology 10/09/24 documented as of this encounter
--- OUTSIDE RECORDS SUMMARY | 2025-01-01 17:47 | XMS_ITS | Encounter Summary ---
Author Organization [facility] Healthcare Address [address] [place] [address] Care Team Providers Care Returns Supervisor Name Role Phone Brenda Cueto NP Unavailable [phone] Gerry Vaughn MD Unavailable [phone] Daphne Wise NP Primary Care Provider [phone] Roxann Galeana MD Unavailable [phone] July Hartman MD PhD Unavailable [phone] Encounter Details Date Type Department Care Team (Late st Contact Info) Description 12/31/2024 Results Follow-Up [facility] Primary Care at [address] [address] Daphne Wise NP [address] [place] [address] [address] [place] [address] XR Knee Right 4+ Vw Social History Tobacco Use Types Packs/Day Years [...] file 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 Gender Identity Female 11/13/2020 10:00 PM CDT Sexual Orientation Straight 11/13/2020 10 :00 PM CDT Occupation Industry Job Start 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 Not on [...] on filedocumented in this encounter Care Teams Returns Supervisor Relationship Specialty Start Date End Date Daphne Wise NP [address] [place] [address] PCP - General Family Medicine 10/09/24 Brenda Cueto NP [address] [place] [address] Nurse Practitioner Hematology 09/23/20 Gerry Vaughn MD [address] DEPT OPHTHALMOLOGY, [address] [place] [address] Surgeon Ophthalmology 09/24/22 Roxann Galeana MD [address] [place] [facility] [address] [place] [address] Consulting Physician Gastroenterology 10/09/24 July Hartman MD PhD [address] [place] [address] Consulting Physician Anesthesiology 10/09/24 documented as of this encounter
--- OUTSIDE RECORDS SUMMARY | 2025-01-01 17:47 | XMS_ITS | Referral Summary ---
Author Organization [facility] Address [address] [facility] [place] [address] Care Team Providers Care Credit Authorizer Name Role Phone Brenda Cueto NP Unavailable [phone] Gerry Vaughn MD Unavailable [phone] Daphne Wise NP Primary Care Provider [phone] Roxann Galeana MD Unavailable [phone] July Hartman MD PhD Unavailable [phone] Encounters Date Type Department Care Team Description 01/01/2025 Nurse Triage [facility] Primary Care at [address] [address] Daphne Wise NP Chronic cough (Primary Dx) 01/01/2025 Telephone [facility] Primary Care at [address] [address] Daphne Wise NP Medical Question/Miscellaneou s 12/31/2024 Orders Only [facility] Gastroenterology [facility] 12th [place] [address] [place] [address] Hanna Alvarenga LPN Elevated serum GGT level (Primary Dx); Elevated alkaline phosphatase level; Abnormal finding on GI tract imaging 12/31/2024 Results Follow-Up [facility] Primary Care at [address] [address] Daphne Wise NP XR Knee Right 4+ Vw 12/31/2024 10:00 AM CDT Ancillary Procedure [facility] Imaging at [address] [address] Arrived 12/31/2024 8:30 AM CDT Office Visit [facility] Primary Care at [address] [phone] Daphne Wise NP Overactive bladder (Primary Dx); Chronic cough; Chronic pain of right knee; Recurrent major depressive disorder, in partial remission; History of deep venous thrombosis; RAFI-inhibitor cough; Class 3 severe obesity with body mass index (BMI) of 45.0 to 49.9 in adult 12/27/2024 Orders Only [facility] Hematology [address] [place] [address] 6 [place] [address] Gege Zamora, RN History of deep venous thrombosis (Primary Dx); Right leg pain 12/18/2024 Results Follow-Up [facility] Bone Marrow Transplant [address] [place] [address] 6 [place] [address] Taryn James MD US Vein Duplex Lower Extremity Right Limited 12/17/2024 11:00 AM CDT Ancillary Procedure [facility] Vascular Lab at [facility] [address] [place] [address] for Advanced Medicine 8th [place] [address] [place] [address] History of deep venous thrombosis; Right leg pain 12/17/2024 Telephone [facility] Hematology [address] [place] [address] 6 [place] [address] Gege Zamora RN 10/10/2024 Results Follow-Up [facility] Primary Care at [address] [phone] Daphne Wise NP Thyroid Function [place], Lipid panel, Hemoglobin A1c, Additional followed-up results: 2 10/09/2024 11:27 AM AFTER SCHOOL PROGRAM ASSISTANT - 10/09/2024 11:59 PM AFTER SCHOOL PROGRAM ASSISTANT Hospital Encounter [address] [address] Essential hypertension; Impaired fasting glucose Discharge Disposition: Discharge to home or self care 10/09/2024 11:30 AM AFTER SCHOOL PROGRAM ASSISTANT Lab [facility] Medical [facility] Outpatient Lab at [address] [address] Hyperglycemia (Primary Dx); Hyperlipidemia; Essential hypertension 10/09/2024 10:30 AM AFTER SCHOOL PROGRAM ASSISTANT Office Visit [facility] Primary Care at [address] [phone] Daphne Wise NP Essential hypertension (Primary Dx); [...] (shortness of breath) from Last 3 Months Allergies Active Allergy Reactions Criticality Noted Date [...] Information Patient taking differently:2,000 Units oralEvery morning, 34585 unit once a week, 2000 unit daily, [...] Eliquis 5 mg tabletIndicati ons:Current use of halfway anticoagulatio n,History of deep venous thrombosis TAKE 1 TABLET(5 MG) BY MOUTH TWICE DAILY 60 tablet 3 01/01/20 25 Active escitalopram (LEXAPRO) 20 mg tablet Take 1 tablet (20 mg total) by mouth daily 90 tablet 3 06/16/20 23 025 Discontinued(R evelyn) nortriptyline (PAMELOR) 10 mg capsule Take 1 capsule (10 mg total) by mouth 2 (two) times a day 180 capsule 3 12/14/19 24 025 Discontinued apixaban (ELIQUIS) 5 mg tabletIndicati ons:Current use of tank terminal gauger anticoagulatio n,History of deep venous thrombosis Take [...] 04/19/2023 Loss of peripheral visual field, bilateral 01/27 /2023 Overview (09/10/2022): Added automatically from request for surgery [id number] Facial nerve spasm 08/31/2022 Dermatochalasis of both [...] Urology. Assessment & Plan (10/09/2024 12:32 PM AFTER SCHOOL PROGRAM ASSISTANT): Continues Tolterodine. Assessment & Plan (05/28/2022 9:02 AM CDT): Stop tolterodine due to side effects. Start Myrbetriq. Prediabetes 05/07/2022 Assessment & Plan (09/27/2022 9:20 AM AFTER SCHOOL PROGRAM ASSISTANT): Labs. Reviewed most recent labs available. Continue [...] w/r/t gut microbiome. Referred to ADA and [facility] websites for additional information on topics including [...] 2021 Assessment & Plan (09/29/2021 8:53 AM AFTER SCHOOL PROGRAM ASSISTANT): ADL being met / NVS, monitor. RTC 1 Year or PRN with visual acuity (VA) changes Meibomian gland dysfunction (MGD) of both eyes 0 09/29/2021 Assessment & Plan (09/29/2021 8:54 AM AFTER SCHOOL PROGRAM ASSISTANT): With significant debris in tear film PFATs [...] seizures. Assessment & Plan (10/09/2024 12:32 PM AFTER SCHOOL PROGRAM ASSISTANT): Stable on Lexapro Assessment & Plan (03/31/2020 8:14 AM CDT): Start escitalopram. Neuralgia - Bilateral 12/27/2019 Chronic pain of both knees 12/27/2019 Assessment & Plan (10/09/2024 12:34 PM AFTER SCHOOL PROGRAM ASSISTANT): Patient on Gabapentin through Pain Management--sees them for injections. Knees flared up and painful from recent fall. Pt takes Tylenol prn, unable to take NSAIDS d/t Eliquis and Gastic Sleeve hx, will give Medrol Pack for inflammation from injury Presbyopia of both eyes 09/26/2019 Vitamin D deficiency 06/21/2018 Assessment & Plan (06/21/2018 8:33 AM AFTER SCHOOL PROGRAM ASSISTANT): Continue Vitamin D. Class 3 severe obesity with body mass index (BMI) of 45.0 to 49.9 in adult 03/31/2018 Assessment & Plan (12/31/2024 9:42 AM CDT): Healthy, low carbohydrate lifestyle and exercise for 150min/week recommended Assessment & Plan (10/09/2024 12:31 PM AFTER SCHOOL PROGRAM ASSISTANT): Healthy, low carbohydrate lifestyle and exercise for 150min/week recommended Assessment & Plan (09/27/2022 9:21 AM AFTER SCHOOL PROGRAM ASSISTANT): Obesity is improving..Commended on weight loss to [...] restrictions. Assessment & Plan (09/27/2018 8:11 AM AFTER SCHOOL PROGRAM ASSISTANT): BMI is more than 40, reviewed calorie restrictions. Assessment & Plan (06/21/2018 8:29 AM AFTER SCHOOL PROGRAM ASSISTANT): BMI is more than 40, reviewed calorie restrictions. Assessment & Plan (03/31/2018 1:56 PM CDT): BMI is more than 40, reviewed calorie restrictions. Current use of tank terminal gauger anticoagulation 018 History of gastric bypass 09/01/2017 Assessment & Plan (09/01/2017 7:37 AM AFTER SCHOOL PROGRAM ASSISTANT): Patient tolerated procedure. Release back to work. History of deep venous thrombosis 06/27/2017 Assessment & Plan (12/31/2024 9:41 AM CDT): Pt scheduled for repeat US 01/01. Suspect the knee pain is musculoskeletal related. Assessment & Plan (10/09/2024 11:07 AM AFTER SCHOOL PROGRAM ASSISTANT): First DVT 2007, still got DVT's despite anti-coagulation. Was recently switched from Coumadin to Eliquis 07/2024. Follows with Hematology. Lichen simplex chronicus 12/13/2016 Gastroesophageal reflux disease 11/24/2016 Assessment & Plan (08/09/2024 3:11 PM AFTER SCHOOL PROGRAM ASSISTANT): Reviewed dietary modifications. Continue PPI. Assessment & [...] . Assessment & Plan (06/21/2018 6:46 AM AFTER SCHOOL PROGRAM ASSISTANT): Reviewed dietary modifications. Continue PPI. Assessment & Plan (12/06/2017 12:47 PM CDT): Reviewed dietary modifications. Continue PPI. Assessment & Plan (09/01/2017 11:22 AM AFTER SCHOOL PROGRAM ASSISTANT): Worsening symptoms. . Start pantoprazole. Sensorineural hearing [...] Reviewed LDL was elevated at 141 on .10.05. Order lipid panel. Start statin if LDL over 130. Assessment & Plan (06/21/2018 6:47 AM AFTER SCHOOL PROGRAM ASSISTANT): Last LDL elevated at 136. Reviewed diet and exercise goals. Phlebitis of deep vein of lower extremity 2013 Overview (11/19/2016): DEEP PHLEBITIS-LEG NEC Assessment & Plan (03/31/2020 6:42 AM CDT): Continue Coumadin and Hematology care. Assessment & Plan (06/21/2018 6:46 AM AFTER SCHOOL PROGRAM ASSISTANT): Continue Coumadin and Hemayology care. Assessment & Plan (03/31/2018 11:50 AM CDT): Continue coumadin and follow with Coumadin clinic. Goal INR 2.5 to 3.5 noted. Assessment & Plan (12/06/2017 12:46 PM CDT): Continue coumadin. Assessment & Plan (09/01/2017 7:36 AM AFTER SCHOOL PROGRAM ASSISTANT): Continue coumadin. Recent INR at goal. Assessment & Plan (04/27/2017 7:30 AM CDT): Continue coumadin. Essential hypertension 07/31/2013 Assessment & Plan (10/09/2024 12:31 PM AFTER SCHOOL PROGRAM ASSISTANT): BP stable in office, continues Olmesartan 40 mg. Assessment & Plan (08/09/2024 3:27 PM AFTER SCHOOL PROGRAM ASSISTANT): Blood pressure is not controlled. Resume olmesartan. [...] regimen. Assessment & Plan (09/01/2017 7:36 AM AFTER SCHOOL PROGRAM ASSISTANT): Hypertension is controlled. Continue current regimen. Assessment [...] 08/09/2024 Assessment & Plan (08/09/2024 3:20 PM AFTER SCHOOL PROGRAM ASSISTANT): S/P antibiotics and debridement. She is off antibiotics. Follow with Surgery. Continue home wound care. Chronic pain of both knees 05/04/2024 0 10/09/2024 Alkaline phosphatase elevation 05/03/2024 10/09/2024 Abscess of left earlobe 04/25/202409/16 Assessment & Plan (04/25/2024 9:04 AM CDT): Monitor response to doxycycline. Advised warm compresses. Weight loss counseling, encounter for 05/07/2022 10/09/2024 Assessment & Plan (09/27/2022 9:19 AM AFTER SCHOOL PROGRAM ASSISTANT): Reviewed calorie restriction based on BMR as [...] tolterodine. Assessment & Plan (09/29/2021 8:54 AM AFTER SCHOOL PROGRAM ASSISTANT): DFE today, WNL both eyes (OU) New [...] hypertension. Assessment & Plan (10/02/2019 8:30 AM AFTER SCHOOL PROGRAM ASSISTANT): Reviewed diet and exercise goals. Await Annual labs. Reviewed immunization and screening status. Reviewed dietary modifications. Continue PPI. Order EGD as symptoms are uncontrolled. Continue sumatriptan for migraine headaches. Continue coumadin for DVT. Continue B12 and vitamin d. Advised colonoscopy and mammogram. Order knee XRAY and anticipate Ortho referral. Start lisinopril for hypertension. Assessment & Plan (09/27/2018 8:08 AM AFTER SCHOOL PROGRAM ASSISTANT): Reviewed diet and exercise goals. Await Annual [...] restriction. Assessment & Plan (09/01/2017 7:37 AM AFTER SCHOOL PROGRAM ASSISTANT): S/P gastric bypass. Reviewed calorie restriction. Assessment [...] 12/29/2013 10/09/2024 Overview (11/18/2016): ALLERGIC RHINITIS NOS Immunizations Immunization Administration Dates Next Due COVID-19 mRNA (Vook) 0.3 m L (30 mcg) vaccine (12 years and up) 05/22/2023 Flucelvax Influenza Quad 06/05/2024 IPV 06/08/2017,06/08/2017 Influenza, Quadrivalent, Spl it, Pediatric, Preservative Free, Intramuscular 05/11/2022 Influenza, Quadrivalent, Spl it, Preservative Free, Intradermal 06/08/2016 Influenza, Quadrivalent, Spl it, Preservative Free, Intramuscular 05/07/2023,05/15/2015 Influenza, Trivalent, IM (MDV) 05/21/2021,2012 Influenza, Trivalent, Split, Preservative Free, Intradermal 05/15/2014 Influenza, Unspecified 05/06/2022,2020,05/27/2020,05/21,05/17/2018 MMR 12/13/1995,12/13/1995 Filtr8 SARS-CoV-2 Monovalent Vaccination (12+ Yrs) [place]-READY TO USE 04/02/2022 Pfizer SARS-CoV-2 Monovalent Vaccination (12+ Yrs) PURPLE 05/21/2021,05/21/2021 Pfizer Sars-Cov-2 Bivalent V accination (12+ YRS) 06/05/2024 Td, adsorbed 12/13/1995,12/13/1995 Tdap 11/27/2021 ZOSTER Recombinant 03/05/2024,01/03/2024 Social History Tobacco Use Types Packs/Day Years [...] on file Legal Sex Female 12:29 PM AFTER SCHOOL PROGRAM ASSISTANT Gender Identity Female 11/13/2020 10:00 PM CDT Sexual Orientation Straight 11/13/2020 10 :00 PM CDT 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 Industry 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 [employer] Not on file Not on file Not on file Last Filed Vital Signs Vital Sign Reading Time Taken Comments Blood Pressure 132/82 12/31/2024 8:37 AM CDT Pulse 90 12/31/2024 8:37 AM CDT Temperature 36.9 C (98.4 F) 12/31/2024 8:37 AM CDT Respiratory Rate 18 08/13/2024 10:55 AM AFTER SCHOOL PROGRAM ASSISTANT Oxygen Saturation 97% 12/31/2024 8:37 AM CDT [...] Gastroesophageal reflux disease, esophagitis presence not specified Goals Goal Patient Goal Type Associated Problems [...] leg pain EGFR Routine 10/09/2024 11:27 AM AFTER SCHOOL PROGRAM ASSISTANT Essential hypertension BASIC METABOLIC PANEL Routine 10/09/2024 11:27 AM AFTER SCHOOL PROGRAM ASSISTANT Essential hypertension HEMOGLOBIN A1C Routine 10/09/2024 11:27 AM AFTER SCHOOL PROGRAM ASSISTANT Impaired fasting glucose LIPID PANEL Routine 10/09/2024 11:27 AM AFTER SCHOOL PROGRAM ASSISTANT Essential hypertension THYROID FUNCTION CASCADE Routine 10/09/2024 11:27 AM AFTER SCHOOL PROGRAM ASSISTANT Essential hypertension HM MAMMOGRAPHY Routine 07/09/2022 COLONOSCOPY [...] by Daren Contreras M.D. T: Report ID: [id number] Reading Location: [id number] Procedure Note Daren Contreras MD - 12/31/2024 [...] by Daren Contreras M.D. T: Report ID: [id number] Reading Location: [id number] us Daphne Wise B[employer]FU[employer] PLANT SUPERINTENDENT IMG XR PROCEDURES Final Result * US Vein Duplex Lower Extremity Right Limited (12/17/2024 12:23 PM CDT) Anatomical Region Laterality Modality Vascular Right Ultrasound 12/17/2024 11:1 7 AM CDT Narrative 12/17/2024 7:[address] [facility] - Department of Vascular Surgery, Vascular Laboratory [address] [place] [address] Lower Extremity Venous Ultrasound Report Patient Name: BETTY FERNANDEZ : 1965 (59y 10m) Study Date: 12/17/2024 11:17:26 AM Gender: F Tech: Terrell BYERS Location: [facility] Provider: TARYN JAMES Quality: Adequate Order Provider: [...] M79.604 Pain in right leg. FINDINGS: Performing Merchandise Clerk: Bridget Byers RVT. Right: Venous Doppler signals [...] Procedure Note Clifton Hartman MD - 12/17/2024 [facility] - Department of Vascular Surgery,Vascular Laboratory [address] [place] [address] Lower Extremity Venous Ultrasound Report Patient Name: BETTY FERNANDEZ : 1965 (59y 10m) Study Date: 12/17/2024 11:17:26 AM Gender: F Tech: Terrell [facility] Location: [facility] Provider: TARYN JAMES Quality: Adequate Order Provider: [...] andM79.604 Pain in right leg. FINDINGS: Performing Merchandise Clerk: Bridget Byers RVT. Right: Venous Doppler signals [...] above. Electronically Signed By: Clifton Hartman MD [facility] 12/17/2024 7:10:41 PM CDT us Taryn James MD IM US PROCEDURES Fi nal Result * eGFR (10/09/2024 11:27 AM AFTER SCHOOL PROGRAM ASSISTANT) eGFR 69 >=60 mL/min/1. 73 m2 Comment: [...] of Race in Diagnosing Kidney Disease, JASN 2020). The CKD-EPI equation should not be used for patients with unstable renal function and has not been validated in children and those over 70. Current interpretive data was last reviewed 2021. Blood 10/09/2024 11:2 7 AM AFTER SCHOOL PROGRAM ASSISTANT 10/09/2024 9:24 PM AFTER SCHOOL PROGRAM ASSISTANT us Daphne Wise NP LAB BLOOD ORDERABLES Final Resul t Performing Organization Address [facility] de Phone Number DOLLY [address] [place] [address] * Thyroid Function [place] (10/09/2024 11:27 AM AFTER SCHOOL PROGRAM ASSISTANT) Pathologist [facility] TSH 2.44 0.30 - 4.20 mcIUnit/mL Blood 10/09/2024 11:2 7 AM AFTER SCHOOL PROGRAM ASSISTANT 10/09/2024 9:15 PM AFTER SCHOOL PROGRAM ASSISTANT Daphne Wise NP LAB BLOOD ORDERABLES Final Resul t Performing Organization Address [facility] Co de Phone Number DOLLY [address] [place] [address] * (ABNORMAL) Hemoglobin A1c (10/09/2024 11:27 AM AFTER SCHOOL PROGRAM ASSISTANT) Hgb A1C 5.7(H) 4.0 - 5.6 % Estimated Average Glucose 117 mg/dL DOLLY VALDERRAMA Comment: The ADA recommends reporting an estimated Average Glucose (eAG) with all Hemoglobin A1c results using the equation derived from a study of 507 normal and diabetic adults. Minority populations were underrepresented and children were not included. (Diabetes Care 31:4491-8502, 2008). The eAG is not equivalent to a fasting glucose. Blood 10/09/2024 11:2 7 AM AFTER SCHOOL PROGRAM ASSISTANT 10/09/2024 9:15 PM AFTER SCHOOL PROGRAM ASSISTANT us Daphne Wise [employer] SUPERINTENDENT LAB BLOOD ORDERABLES Final Resul t DOLLY VALDERRAMA [address] Department [place] [address] * (ABNORMAL) Lipid panel (10/09/2024 11:27 AM AFTER SCHOOL PROGRAM ASSISTANT) Cholesterol 203(H) 30 - 199 mg/dL Comment: [...] on 2018. Triglycerides 158(H) <=149 mg/dL DOLLY VALDERRAMA Comment: Interpretive Data Ages < or = [...] on 2018. HDL 41 >=40 mg/dL DOLLY VALDERRAMA Comment: Interpretive Data Ages < or = [...] 2018. LDL, calculated 134(H) <=129 mg/dL DOLLY VALDERRAMA Comment: Interpretive Data Ages < or = 19 years Acceptable: <110 mg/dL Borderline high: 110-129 mg/dL High: >or= 130 mg/dL Ages > or = 20 years Optimal: <100 mg/dL Near optimal: 100-129 mg/dL Borderline high: 130-159 mg/dL High: >160 mg/dL Calculated using the Vinay LDL-C estimating equation. This equation was implemented on 2024. Prior to this date LDL-C was estimated using the Friedewald equation. Literature References: 1. Expert Panel on Integrated Guidelines for Cardiovascular Health and Risk Reduction in Children and Adolescents. Pediatrics 2011;128:S213 2. NCEP Expert Panel. Circulation 2004;110:227 3. Vinay M et al. TERRANCE Cardiol. 2019December 13;5(5):540-548. doi: 10.1001/jamacardio.2020.0013 Current Interpretive Data was last revised on 2024. Non-HDL Cholesterol 162 mg/dL DOLLY VALDERRAMA Comment: Interpretive Data Ages < or = [...] last revised on 2018. Chol/HDL ratio 5 DOLLY VALDERRAMA Blood 10/09/2024 11:2 7 AM AFTER SCHOOL PROGRAM ASSISTANT 10/09/2024 9:15 PM AFTER SCHOOL PROGRAM ASSISTANT Daphne Wise NP LAB BLOOD ORDERABLES Final Resul t Performing Organization Address [facility] Co de Phone Number DOLLY VALDERRAMA [address] [place] [address] * Basic metabolic panel (10/09/2024 11:27 AM AFTER SCHOOL PROGRAM ASSISTANT) Sodium 143 135 - 145 mmol/L Potassium, pl 4.7 3.3 - 4.9 mmol/L [facility] Chloride 107 97 - 110 mmol/L [facility] CH CO2 23 22 - 32 mmol/L [facility] CH Anion gap 13 2 - 15 mmol/L [facility] CH BUN 23 6 - 25 mg/dL [facility] Creatinine 0.94 0.60 - 1.10 mg/dL [facility] Glucose 96 70 - 199 mg/dL [facility] Comment: Interpretive Data Fasting glucose >/= 126 [...] 2022. Calcium 10.1 8.5 - 10.3 mg/dL [facility] Blood 10/09/2024 11:2 7 AM AFTER SCHOOL PROGRAM ASSISTANT 10/09/2024 9:15 PM AFTER SCHOOL PROGRAM ASSISTANT Daphne Wise [employer] SUPERINTENDENT LAB BLOOD ORDERABLES Final Resul t Performing Organization Address City/[facility]/ZIP Co de Phone Number DOLLY VALDERRAMA [address] [address] [place] [address] * HM MAMMOGRAPHY (07/09/2022) Mammography Normal Historical Provider HEALTH MAINTENANCE Final Result * COLONOSCOPY (03/24/2020 1:56 PM CDT) Anatomical Region Laterality Modality Other Narrative Procedure Note Ayaz Mei MD - 03/24/2020 1:56 PM CDT ENDOSCOPY LAB Patient Name: Betty Fernandez Procedure Date: 03/24/2020 1:56 PM Date of : 1965 Admit Type: Outpatient Age: 55 Gender: Female Attending MD: Ayaz Mei M.D. Room: [facility] ENDOSCOPY ROOM 02 Note Status: Finalized [...] Thescope was passed under direct vision. The [id number] introduced through the anus and advanced to the cecum, identified by appendiceal orifice and ileocecal valve.The colonoscopy was performed without difficulty. Thepatient tolerated the procedure well. The quality of the bowel preparation was evaluated using the BBPS ([place] Bowel Preparation Scale) with scores of: Right [...] Most Recently Relevant to Health Maintenance Insurance [employer] Advance Directives For more information, please contact: [phone] * Full Code (Latest Code Status on File) Date Activated Date Inactivated Comments 03/24/2020 11:16 AM 03/24/2020 8:37 PM Care Teams Credit Authorizer Relationship Specialty Start Date End Date Daphne Wise NP [address] [place] [address] PCP - General Family Medicine 10/09/24 Brenda Cueto, [employer] SUPERINTENDENT [address] [place] [address] Nurse Practitioner Hematology 09/23/20 Gerry Vaughn MD [address] DEPT OPHTHALMOLOGY, [address] [place] [address] Surgeon Ophthalmology 09/24/22 Roxann Galeana MD [address] [facility] [address] [place] [address] Consulting Physician Gastroenterology 10/09/24 July Hartman MD PhD [address] [place] [address] Consulting Physician Anesthesiology 10/09/24
--- OUTSIDE RECORDS SUMMARY | 2025-01-01 17:47 | XMS_ITS | Encounter Summary ---
Author Organization [facility] Address [address] [facility] [address] [place] [address] Phone Care Team Providers Care Log Skidder Name Role Phone Wan Rosario MD Primary Care Provider Brenda Cueto IS ANALYST Unavailable [phone] Sonja Ball DPT Unavailable Gerry Vaughn MD Unavailable [phone] Daphne Wise NP Primary Care Provider [phone] Roxann Galeana MD Unavailable [phone] July Hartman MD PhD Unavailable [phone] Encounter Details Date Type Department Care Team (Latest Contact Info) Description 02/25/2020 Orders Only [facility] Scanning, Provider Social [...] Legal Sex Female 12:29 PM 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 Gender Identity Female 11/13/2020 10:00 PM [...] Date/Time Associated Diagnosis Comments SCAN - LABS 02/25/2020 documented in this encounter Results * SCAN - LABS (02/25/2020) us Provider Scanning Final Result documented in this encounter Visit Diagnoses Not on filedocumented in this encounter Additional Health Concerns Infection Onset Date Last Indicated Resolved Time COVID: Suspected 11/09/2022 11/09/2022 11/09/2022 9:59 PM CDT documented as of this encounter Care Teams Log Skidder Relationship Specialty Start Date End Date Wan Rosario MD [address] [facility] [address] [place] [address] PCP - General 11/12/16 10/08/24 Daphne Wise NP [address] [facility] [address] [place] [address] PCP - General Family Medicine 10/09/24 Brenda Cueto NP [address] [place] [address] Nurse Practitioner Hematology 09/23/20 Sonja Ball DPT [address] [place] [address] Physical Therapist Physical Therapy 09/24/21 11/25/22 Gerry Vaughn MD [address] DEPT OPHTHALMOLOGY, [address] [place] [address] Surgeon Ophthalmology 09/24/22 Roxann Galeana MD 1 [facility] [address] [place] [address] Consulting Physician Gastroenterology 10/09/24 July Hartman MD PhD [address] [place] [address] Consulting Physician Anesthesiology 10/09/24 documented as of this encounter
--- OUTSIDE RECORDS SUMMARY | 2025-01-01 17:47 | XMS_ITS | Encounter Summary ---
Author Organization [facility] Address [address] [facility] [address] [place] [address] Phone Care Team Providers Care Supervisor Accounts Receivable Name Role Phone Wan Rosario MD Primary Care Provider [phone] Brenda Cueto CORPORATE LAW SPECIALIST Unavailable [phone] Sonja Ball DPT Unavailable Gerry Vaughn MD Unavailable [phone] Daphne Wise NP Primary Care Provider [phone] Roxann Galeana MD Unavailable [phone] July Hartman MD PhD Unavailable [phone] Encounter Details Date Type Department Care Team (Latest Contact Info) Description 01/08/2020 Orders Only [facility] Scanning, Provider Social [...] on file 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 Gender Identity Female 11/13/2020 10:00 PM [...] Date/Time Associated Diagnosis Comments SCAN - LABS 01/08/2020 documented in this encounter Results * SCAN - LABS (01/08/2020) us Provider Scanning Final Result documented in this encounter Visit Diagnoses Not on filedocumented in this encounter Additional Health Concerns Infection Onset Date Last Indicated Resolved Time COVID: Suspected 11/09/2022 11/09/2022 11/09/2022 9:59 PM CDT documented as of this encounter Care Teams Supervisor Accounts Receivable Relationship Specialty Start Date End Date Wan Rosario MD [address] [facility] [address] [place] [address] PCP - General 11/12/16 10/08/24 Daphne Wise NP [address] [facility] [address] [place] [address] PCP - General Family Medicine 10/09/24 Brenda Cueto NP [address] [place] [address] Nurse Practitioner Hematology 09/23/20 Sonja Ball DPT [address] [place] [address] Physical Therapist Physical Therapy 09/24/21 11/25/22 Gerry Vaughn MD [address] DEPT OPHTHALMOLOGY, [address] [place] [address] Surgeon Ophthalmology 09/24/22 Roxann Galeana MD [address] [facility] [address] DIV [place] [address] Consulting Physician Gastroenterology 10/09/24 July Hartman MD PhD [address] [place] [address] Consulting Physician Anesthesiology 10/09/24 documented as of this encounter
[2025-01-01] MEDS: levoFLOXacin 750 MG/D5W 150 ML 750 MG/150 ML BAG 100 MG IVPB (18:17)
[2025-01-01] MEDS: SODIUM CHLORIDE 0.9% IV 500 ML 999 ML IV CONT (18:17)
[2025-01-01 18:27] LABS: Lactic Acid Reflex 2.9 mmol/L (0.7-2.0)
[2025-01-01 18:29] VITALS: BP 154/82; PULSE 112; RESP 20; O2SAT 95
[2025-01-01 18:40] LABS: Troponin I < 0.012 ng/mL (0.000-0.034)
--- NOTE | 2025-01-01 18:48 | ECG_ITS ---
Test Date: 2025-01-01 18:58:50 Measurements Intervals [place] Rate: 113 P: 9 NE: 146 QRS: 43 QRSD: 149 T: -6 QT: 352 QTc: 483 Interpretive Statements SINUS TACHYCARDIA RIGHT BUNDLE BRANCH BLOCK [120+ ms QRS DURATION, UPRIGHT V1, 40+ ms S IN I/aVL/V4/V5/V6] ABNORMAL ECG Compared to ECG 01/01/2025 15:12:30 No significant changes Electronically Signed On 01-02-2025 08:20:04 CDT by Ayaz Mayo M.D.
[2025-01-01 19:20] VITALS: BP 134/69; PULSE 113; RESP 20; O2SAT 97
[2025-01-01 19:47] VITALS: BP 162/62; PULSE 122; RESP 18; TEMP 37.9; O2SAT 94; BMI 47.7
[2025-01-01 20:00] VITALS: PULSE 116; PULSE 122; RESP 18; O2SAT 94
[2025-01-01 20:16] LABS: Reflex Lactic Acid Yes or No Add Lactic
--- NOTE | 2025-01-01 20:21 | ADMGEN ---
This patient, Betty Fernandez, was admitted to Medical Room 248-. Patient/family oriented to hospital policies and general routines including ID bracelet, bed and alarms, visiting hours, pain management, procedures, bathroom and other care routines, personal items, smoking policy, room service/diet, and visiting hours. Information on how to activate the Rapid Response Team has been discussed. Patient/Family are encouraged to report perceived risks to care and to ask questions if they do not understand what they are told or what they should do.
[2025-01-01 20:51] LABS: Lactic Acid 3.1 mmol/L (0.7-2.0)
[2025-01-01 22:39] LABS: Add Urine Microscopic? YES; Appearance Urine Clear (Clear); Bacteria Urine 2+ /hpf; Bilirubin Urine Negative (Negative); Blood Urine Negative (Negative); Color Urine Yellow (Yellow); Glucose Urine UA Negative (Negative); Ketones Urine Negative (Negative); Leukocyte Esterase Ur Negative LEU/UL (Negative); Nitrate Urine Positive (Negative); Non Pathogenic Casts 0-2; Protein Urine Negative (Negative); RBC Urine 0-2 /hpf (0-2); Specific Grav Ur > 1.045 (1.001-1.035); Squamous Epithelial Cell Urine Occasional /hpf (Few); Urobilinogen Urine 0.2 mg/dL (<2.0); WBC Urine 0-5 /hpf (0-3)
[2025-01-01] MEDS: ACETAMINOPHEN 325 MG TABLET 650 MG PO (22:39)
[2025-01-02] VITALS (17 sets, daily range): BP systolic 106–151; BP diastolic 59–73; PULSE 80–105; RESP 14–20; TEMP 36.6–36.7; O2SAT 92–97
--- NOTE | 2025-01-02 | ECHO_ITS ---
Patient Info Name: Betty Fernandez Age: 59 years : 1965 Gender: Female Ht: 66 in Wt: 295 lbs BSA: 2.57 m2 HR: 92 bpm BP: 151 / 64 mmHg Heart Rhythm: Sinus Rhythm Technical Quality: Fair Exam Date: 01/02/2025 12:55 PM Patient Status: I Admit Date: 01/01/2025 Exam Type: CA echo doppler color flow Complete two-dimensional, color flow and Doppler transthoracic echocardiogram is performed. Staff Referring Physician: Laura Costa [employer] Operator: Jessica Marks Attending Provider: Rishi Dawkins Summary 1. Complete two-dimensional, color flow and Doppler transthoracic echocardiogram is performed. 2. Left ventricular chamber dimension is normal. 3. Left ventricular systolic function is normal, estimated at 65-70. 4. There is mildly increased left ventricular wall thickness. 5. The left ventricular diastolic function is grade I diastolic dysfunction. 6. Right ventricular chamber dimension is mildly enlarged. 7. Left atrial chamber dimension is mildly enlarged. 8. The mitral valve annulus is mildly calcified. 9. There is mild mitral valve regurgitation. 10. There is mild tricuspid valve regurgitation. Left Ventricle Left ventricular chamber dimension is normal. Left ventricular systolic function is normal, estimated at 65-70. There is mildly increased left ventricular wall thickness. The left ventricular diastolic function is grade I diastolic dysfunction. Right Ventricle Right ventricular chamber dimension is mildly enlarged. Right ventricular systolic function is normal. Left Atria Left atrial chamber dimension is mildly enlarged. Right Atria Right atrial chamber dimension is normal. Atrial Septum Intact interatrial septum visualized by color flow imaging. Aortic Valve The aortic valve is trileaflet. There is mild aortic valve sclerosis. There is no aortic valve stenosis. There is trace aortic valve regurgitation. Pulmonic Valve The pulmonic valve is normal. There is no pulmonic valve stenosis. There is trace pulmonic regurgitation. Mitral Valve There is no mitral valve stenosis. There is mild mitral valve regurgitation. The mitral valve annulus is mildly calcified. Tricuspid Valve The tricuspid valve leaflets are normal. There is no significant tricuspid valve stenosis. There is mild tricuspid valve regurgitation. No pulmonary hypertension, estimated pulmonary arterial systolic pressure is 34 mmHg. Pericardium/Pleural The pericardium appears normal. There is no pericardial effusion. Inferior Vena Cava Normal inferior vena cava with <50% collapse upon inspiration consistent with elevated right atrial pressure, 10 mmHg. Aorta The aortic root size at the sinus of Valsalva is normal. Left Ventricular Outflow Tract Name Value Normal LVOT 2D LVOT Diameter 2.0 cm LVOT Doppler LVOT Peak Velocity 137 cm/s LVOT Peak Gradient 7 mmHg LVOT Mean Gradient 3 mmHg LVOT VTI 27 cm LVOT VTI/AV VTI Ratio 0.8 LVOT Stroke Volume 82 ml LVOT CO 14.9 l/min LVOT CI 5.8 l/min/m2 Pulmonic Valve Name Value Normal RVOT Doppler RVOT Peak Velocity 63 cm/s RVOT Peak Gradient 2 mmHg PV Doppler PV Peak Velocity 110 cm/s PV Peak Gradient 5 mmHg Mitral Valve Name Value Normal MV Diastolic Function MV E Peak Velocity 105 cm/s MV A Peak Velocity 123 cm/s MV E/A 0.8 MV Decel Time (PW) 210 ms MV Annular TDI MV E/e' (Septal) 15.4 MV E/e' (Lateral) 12.1 MV E/e' (Average) 13.8 Tricuspid Valve Name Value Normal TV Regurgitation Doppler TR Peak Velocity 246 cm/s TR Peak Gradient 24 mmHg Estimated PAP/RSVP RA Pressure 10 mmHg <=5 PA Systolic Pressure 34 mmHg <36 RV Systolic Pressure 34 mmHg <36 TV Annular TDI TV Lateral Leana s' Velocity 18.6 cm/s >=9.5 Aortic Valve Name Value Normal AV Doppler AV Peak Velocity 172 cm/s AV Peak Gradient 12 mmHg AV Mean Gradient 6 mmHg AV VTI 34 cm AV Area (Cont Eq VTI) 2.4 cm2 >=3.0 AV Area (Cont Eq James) 2.4 cm2 AV DI (James) 0.80 AV Regurgitation 2D LVOT Area 3.1 cm2 Ventricles Name Value Normal LV Dimensions 2D/MM IVS Diastolic Thickness (2D) 1.2 cm 0.6-1.0 LVID Diastole (2D) 4.8 cm 3.8-5.2 LVIW Diastolic Thickness (2D) 1.2 cm 0.6-0.9 LVID Systole (2D) 3.0 cm 2.2-3.5 LVOT Diameter 2.0 cm LV Mass (2D Cubed) 221.89 g 67.00-162.00 LV Mass Index (2D Cubed) 86 g/m2 43-95 Relative Wall Thickness (2D) 0.51 <=0.42 LV Fractional Shortening/Ejection Fraction 2D/MM LV Fractional Shortening (2D) 36 % 27-45 LV EF (2D Teichholz) 66 % LV Diastolic Volume (4C MOD) 138 ml LV EF (4C MOD) 68 % LV Diastolic Volume (2C MOD) 148 ml LV EF (2C MOD) 66 % LV Diastolic Volume (BP MOD) 148 ml 46-106 LV Diastolic Volume Index (BP MOD) 57 ml/m2 29-61 LV Systolic Volume (BP MOD) 50 ml 14-42 LV Systolic Volume Index (BP MOD) 20 ml/m2 8-24 LV EF (BP MOD) 66 % 54-74 LV Diastolic Length (4C) 8.1 cm LV Systolic Length (4C) 5.5 cm LV Stroke Volume (4C MOD) 93 ml Atria Name Value Normal LA Dimensions LA Volume (4C A-L) 92 ml LA Volume (BP A-L) 81 ml RA Dimensions RA Systolic Major Volga Length (4C) 5.5 cm 2.2-2.8 RA Area (4C) 18.2 cm2 <=18.0 Report Signatures
[2025-01-02] MEDS: LACTATED RINGERS 1,000 ML 999 ML IV CONT (00:03)
[2025-01-02] MEDS: guaiFENesin 12 HR 600 MG TABCR PO ×3 (00:05→21:20)
[2025-01-02] MEDS: APIXABAN 5 MG TABLET PO ×3 (00:05→21:20)
[2025-01-02] MEDS: [UNRECOGNIZED DRUG - REMARK] 1 EACH XX ×2 (00:06→02:02)
[2025-01-02] MEDS: ZONISAMIDE 100 MG CAPSULE PO ×3 (00:27→21:20)
[2025-01-02] MEDS: LACTATED RINGERS 1,000 ML 100 ML IV CONT (01:05)
--- NOTE | 2025-01-02 01:53 | P.HP_ITS ---
H&P: HPI History of Present Illness Date/Time: 01/02/25 01:53 Chief Complaint: Shortness of breath, multilobar pneumonia Narrative: This is a 59-year-old female patient with a past medical history of recurrent DV Ts who is admitted to the hospital for multilobar pneumonia after seeking care for shortness of breath and concern for PE. Patient reports that she developed pain behind her right knee and saw her primary care provider about this. She had an ultrasound to assess for DVT and it was negative. She was then instructed to treat this with Motrin topical pain relief and elevation which she had been doing at home but then she developed increasing shortness of breath became concerned about a potential PE. Patient used to take Coumadin since 2007 but about a year ago was switched to Eliquis. Patient states that she has developed multiple clots even while on blood thinners. On day of admission she woke feeling short of breath and fatigued. She was supposed to another ultrasound her leg but ended up falling back asleep. When she woke up and still felt terrible with increased shortness of breath she came to the emergency department for evaluation. Workup in the emergency department shows normal white blood cell count, somewhat elevated anion gap and elevated lactic acid that increased on recheck. ProBNP minimally elevated troponin was negative x2. Urinalysis positive for nitrates a nd 2+ bacteria but negative for leukocyte esterase and white blood cells are normal. Patient denies dysuria symptoms. Chest x-ray showed evidence of pneumonia. CTA of the chest was negative for PE but showed opacification of the right upper lobe and bilateral lower lobes suggestive of pneumonia though pulmonary edema is not excluded with additional differential including hemorrhage per radiology interpretation. Echocardiogram will be ordered. Patient was initiated on Levaquin since she has numerous other allergies. She is not requiring supplemental oxygen at this time. Patient was given IV fluids after admission because of rising lactic acid. Patient also reports a history of chronic dry nonproductive cough that has been going on for years. Review of medication history is shows that patient is on olmesartan for blood pressure and though this is less likely than lisinopril to cause chronic cough, it is possible that this is a contributing agent. This medication will be held at this time. Review of Systems Review of Systems: All systems reviewed & are unremarkable except as noted in HPI and below PMFSH Past Medical History Medical History Medication reaction Urge urinary incontinence Anxiety GERD (gastroesophageal reflux disease) Hyperlipidemia Essential hypertension DVT of lower extremity, bilateral Body mass index (BMI) greater than 50 Surgical History Surgical History Hx of cholecystectomy Open cholecystectomy in the History of sleeve gastrectomy (2017) Family History Family History Father Acute myocardial infarction Son Brainstem tumor Sibling Raynaud disease Social History Social History Social History: Patient has been for many years. She had 1 child who of a brain stem tumor at age 5. She lives alone. She rarely drinks alcohol in minimal amounts. She is a lifelong nonsmoker and denies history of illicit substance use. 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 Code status: Full code Surrogate decision maker: Annemarie Hood (mother) Smoking status: Never smoker Alcohol intake: never Alcohol use details: Rare in minor amounts Substance use: never Substance use type: does not use Do You Feel Safe in your Home?: Yes Lack of Transportation: No Lack of Food: Never True Current Housing: I Have Housing Concerned About Future Housing: No Difficulty Paying Gas/Electric Bills: No Difficulty Paying for Meds: No Currently Unemployed: No Education: Associate Degree Difficulty w/ Childcare or Family Care: No Spiritual care concerns: No Meds Home Medications and Allergies Home Medications ?Medication ?Instructions ?Recorded ?Confirmed ?Type benzonatate 100 mg capsule 200 mg PO TID 07/22/24 01/01/25 History ergocalciferol (vitamin D2) 1,250 1,250 mcg PO WEEKLY 07/22/24 01/01/25 History mcg (50,000 unit) capsule ergocalciferol (vitamin D2) 10 mcg 10 mcg PO DAILY 07/22/24 01/01/25 History (400 unit) tablet escitalopram oxalate 20 mg tablet 20 mg PO DAILY 07/22/24 01/01/25 History esomeprazole magnesium 40 mg 40 mg PO BID 07/22/24 01/01/25 History capsule,delayed release gabapentin 600 mg tablet 600 mg PO TID 07/22/24 01/01/25 History loperamide 2 mg capsule 6 mg PO DAILY 07/22/24 01/01/25 History nortriptyline 10 mg capsule 10 mg PO HS 07/22/24 01/01/25 History simethicone 80 mg chewable tablet 80 mg PO BID 07/22/24 01/01/25 History tolterodine 2 mg tablet 4 mg PO DAILY 07/22/24 01/01/25 History trospium 20 mg tablet 20 mg PO BID 07/22/24 01/01/25 History zonisamide 100 mg capsule 100 mg PO BID 07/22/24 01/01/25 History apixaban 5 mg tablet (Eliquis) 5 mg PO Q12H 01/01/25 01/01/25 History ascorbic acid (vitamin C) 500 mg 1,000 mg PO DAILY 01/01/25 01/01/25 History chewable tablet (Acerola C) bupropion HCl 150 mg 24 hr tablet, 150 mg PO .q24 01/01/25 01/01/25 History extended release cetirizine 10 mg tablet (24Hour 10 mg PO DAILY PRN allergy symptoms 01/01/25 01/01/25 History Allergy) diclofenac 1.5 % solution and 1 ea topical QID 01/01/25 01/01/25 History capsaicin 0.025 % cream topical kit (Ziclocin) olmesartan 40 mg tablet 40 mg PO DAILY 01/01/25 01/01/25 History Allergies Allergy/AdvReac Type Severity Reaction Status Date / Time clavulanic acid Allergy Mild HIVES Verified 01/01/25 13:36 latex Allergy Mild hives Verified 01/01/25 13:36 morphine Allergy Mild VOMITTING Verified 01/01/25 13:36 Penicillins Allergy Mild HIVES Verified 01/01/25 13:36 Sulfa (Sulfonamide Allergy Mild HIVES Verified 01/01/25 13:36 Antibiotics) celecoxib Allergy Unknown Unknown Verified 01/01/25 13:36 amoxicillin (From Augmentin) Allergy Hives Verified 01/01/25 13:36 cephalexin Allergy Hives Verified 01/01/25 13:36 BETALACTAMASEIN Allergy Mild HIVES Uncoded 01/01/25 13:36 Vital Signs Vital Signs - 24 hr 01/01/25 13:33 01/01/25 18:25 01/01/25 18:29 Temperature 37.0 C Pulse Rate 116 H 112 H Respiratory Rate 24 H 20 Blood Pressure 153/76 H 154/82 H Pulse Oximetry 96 95 Oxygen Delivery Room Air Room Air 01/01/25 19:20 01/01/25 19:47 01/01/25 20:00 Temperature 37.9 C H Pulse Rate 113 H 122 H 122 H Respiratory Rate 20 18 18 Blood Pressure 134/69 162/62 H Pulse Oximetry 97 94 94 Oxygen Delivery Room Air Exam Narrative: GENERAL: Awake, alert, oriented, no acute distress HEAD: Normocephalic, atraumatic. ENT:? Mucous membranes moist. CHEST: Right lower lobe diminished, clear elsewhere, no respiratory distress, occasional dry cough noted HEART: Regular rate and rhythm. ? Normal peripheral pulses. ABDOMEN: Soft, nontender, nondistended. EXTREMITIES: Right popliteal tenderness to palpation possible Zamora's cyst, bilateral lower extremity significant lymphedema and pitting edema into bilateral feet which patient states is improved over baseline SKIN: Warm dry normal color NEURO: Alert and oriented x3. No focal neuro deficits noted PSYCH: Normal mood and affect, extremely pleasant H&P: Results Labs Labs: Short CBC 01/01/25 Range/Units 15:20 WBC 8.0 (4.5-10.0) K/mm3 Hgb 15.0 D (12.0-15.0) g/dL Hct 46.4 (37.0-47.0) % Plt Count 222 (150-375) k/mm3 BMP 01/01/25 15:20 Sodium 145 Potassium 3.4 Chloride 104 Carbon Dioxide 26 BUN 20 H Creatinine 0.77 Glucose 153 H Calcium 8.7 Cardiac Enzymes 01/01/25 01/01/25 Range/Units 15:20 18:09 Troponin I < 0.012 < 0.012 (0.000-0.034) ng/mL Liver Function 01/01/25 Range/Units 15:20 Total Bilirubin 0.7 (0.2-1.3) mg/dL AST 54 H (14-36) U/L ALT 33 (6-35) U/L Alkaline Phosphatase 102 (38-126) U/L Albumin 4.1 (3.5-5.1) g/dL Urine 01/01/25 Range/Units 22:26 Urine Color Yellow (Yellow) Urine Appearance Clear (Clear) Urine pH 5.0 (5.0-9.0) Ur Specific [place] > 1.045 H (1.001-1.035) Urine Protein Negative (Negative) mg/dL Urine Glucose (UA) Negative (Negative) mg/dL Pulse Oximetry SpO2 results: 94-97% on room air Attestation: I personally reviewed and interpreted this pulse oximetry as follows: Interpretation: no need for supplemental oxygenation at this time ECG Attestation: I personally reviewed and interpreted this ECG as follows: ECG completion date: 01/01/25 ECG completion time: 18:58 Prior ECG tracings: available for review Interpretation: Sinus tachycardia rate 113 MA interval 146 QRS duration 149 right bundle-branch block QTC mildly prolonged at 483, no STEMI Imaging Venous US: Radiologist's impression: EXAMINATION: US venous doppler LE RT DATE: 01/01/2025 15:48 INDICATION: pain/swelling behind knee, hx dvt . TECHNIQUE: Grayscale images without and with compression and Doppler images of the right lower extremity veins were obtained. COMPARISON: 02/03/2018 FINDINGS: Exam limited by body habitus. The right common femoral vein, profunda (deep) femoral vein, femoral vein, popliteal vein, peroneal vein, posterior tibial veins, gastrocnemius vein, and greater saphenous vein are patent. IMPRESSION: No evidence of deep venous thrombosis, within the constraints noted above. Reviewed, dictated and finalized at location K. CT scan - chest: Radiologist's impression: CTA chest PE protocol Ordering provider: Laura Costa PA-C History: 59 years Female with . sob, dizziness, CP, hx of blood clots . Comparison: None. Technique: CT angiogram chest was performed following timed intravenous inject ion of contrast. Thin slice axial images and reformatted coronal images were obtained. Three dimensional reformatted images of the chest were also obtained using a rocket staffa workstation. . Automated exposure control and iterative reconstruction technique were employed. The dose-length product was 846.74 mGy- cm. 100 mL Omnipaque 350 was given IV. Findings: PULMONARY ARTERIES: No pulmonary embolus. VISUALIZED THORACIC INLET: Normal. MEDIASTINUM: Aorta/coronary arteries: Mild atheromatous disease. Heart/other: The heart is not enlarged. Lymph nodes: No mediastinal or hilar adenopathy. Precarinal lymph nodes with the largest measures 1.2 cm. LUNGS: Alveolar opacification is seen in the right upper and lower lobes and in the left lower lobe suggestive of pneumonia. Pulmonary edema cannot be excluded. No pulmonary nodules or masses. No effusions. No pneumothorax. VISUALIZED UPPER ABDOMEN: Fat infiltration of the liver. Atrophic pancreas. Sliding hiatus hernia. Thickened wall of the esophagus suggestive of reflux esophagitis. Postoperative changes in the stomach. Tiny cyst in the left kidney. Hypodensity most likely a cyst in the left lobe of the liver. Dilated CBD measuring 1.4 cm. Otherwise, the visualized upper abdomen is normal. MUSCULOSKELETAL: Soft tissues: The superficial soft tissues are normal. Bones: Age appropriate degenerative changes of the spine. IMPRESSION: 1. Alveolar opacification in the right upper lobe and both lower lobe suggestive of pneumonia. Pulmonary edema is not excluded. Other differential include hemorrhage. Clinical correlation and follow-up advised. 2. No pulmonary embolism. Reviewed, dictated and finalized at location A. Assessment and Plan Assessment and plan (1) Multilobar lung infiltrate: Code(s): R91.8 - Other nonspecific abnormal finding of lung field Status: Acute Assessment and Plan: -Right upper and bilateral lower lobe opacifications on CT -Differential includes pneumonia, pulmonary edema and pulmonary hemorrhage -Levaquin for presumed pneumonia -Patient has numerous antibiotic allergies listed leaving few options for treatment (2) Lactic acidosis: Code(s): E87.20 - Acidosis, unspecified Status: Acute Assessment and Plan: -Anion gap 15 on initial chemistry panel -Lactic acid 2.9 then increased to 3.1 -Additional IV fluids given after results of increasing lactic acid noted -Blood and urine cultures in process (3) Popliteal pain: Code(s): M79.609 - Pain in unspecified limb Status: Acute Assessment and Plan: -2 week history of right popliteal pain, likely Zamora's cyst -DVT ruled out with outpatient ultrasound negative and ER ultrasound negative on admission -Treated with ibuprofen, ice and elevation at home with minor improvement -Limits ability to ambulate -Will order PT/OT (4) Chronic anticoagulation: Code(s): Z79.01 - 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 Status: Acute Assessment and Plan: -On Eliquis now, previously on warfarin since 2007 -Patient has had multiple blood clots while on blood thinners -No hemoptysis (5) Abnormal urinalysis: Code(s): R82.90 - Unspecified abnormal findings in urine Status: Acute Assessment and Plan: -Urinalysis with nitrate positive and 2+ urine bacteria negative leukocyte esterase and white cells -Reflexed to culture, patient on Levaquin already (6) Lymphedema: Code(s): I89.0 - Lymphedema, not elsewhere classified Status: Acute Assessment and Plan: -Chronic severe lymphedema of bilateral lower extremities -Noted edema is reported to be baseline per patient report Quality VTE Prophylaxis VTE prophylaxis: pharmacologic ordered (Eliquis) Total time spent on patient 120 minutes Hospitalist MIPS Advance Care Plan I have confirmed that the patient's Advanced Care Plan is present, code status is documented, or surrogate decision maker is listed in patient medical record.: Yes Medication Reconciliation I have utilized all available resources to obtain, update and review the patients current medications (includes all prescriptions, OTC, herbals, cannabis, and nutritional supplements).: Yes
[2025-01-02] MEDS: methylPREDNISolone SOD SUCC 125 MG VIAL 60 MG IV PUSH ×3 (05:15→21:20)
[2025-01-02 06:04] LABS: MRSA (PCR) NOT DETECTED (NOT DETECTE)
[2025-01-02 06:37] LABS: Hematocrit 38.6 % (37.0-47.0); Hemoglobin 12.8 g/dL (12.0-15.0); Mean Corpuscular HGB Conc 33.2 g/dl (32-36); Mean Corpuscular Hemoglobin 31.9 pg (26-34); Mean Corpuscular Volume 96.3 fl (80-100); Mean Platelet Volume 9.8 fl (7.4-10.4); Platelet Count Result 162 k/mm3 (150-375); Red Blood Count 4.01 M/mm3 (4.2-5.4); Red Cell Distribution Width 13.3 % (11.5-14.5); White Blood Count 9.4 K/mm3 (4.5-10.0)
[2025-01-02 06:54] LABS: Anion Gap 5 mmol/L (4-12); Blood Urea Nitrogen 19 mg/dL (7-17); Calcium 7.9 mg/dL (8.4-10.2); Carbon Dioxide 28 mmol/L (22-30); Chloride 107 mmol/L (98-107); Estimated CRCL calculation 100 ml/min; Estimated Glomerular Filt Rate > 60; Glucose 121 mg/dL (65-110); Magnesium 1.2 mg/dL (1.6-2.3); Potassium 3.1 mmol/L (3.4-5.0); Sodium 140 mmol/L (137-145)
[2025-01-02 06:55] LABS: Lactic Acid Reflex 1.3 mmol/L (0.7-2.0)
[2025-01-02 07:04] LABS: Band Neutrophils Percent 32 % (0-6); Lymphocytes Absolute Manual 1.22 K/mm3 (1.1-4.5); Lymphocytes Percent Manual 13 % (18-44); Monocytes Absolute Manual 0.28 K/mm3 (0.1-0.90); Monocytes Percent Manual 3 % (3-9); Neutrophils Absolute Manual 7.89 K/mm3 (1.7-7.2); Neutrophils Percent Manual 52 % (46-73); Platelet Estimate Adequate (Adequate); Schistocytes None Seen; Total Cells Counted 100
[2025-01-02 07:25] LABS: Hemoglobin A1C 5.5 % (<5.7)
[2025-01-02] MEDS: TOLTERODINE TARTRATE 2 MG TABLET 4 MG PO (08:58)
[2025-01-02] MEDS: PANTOPRAZOLE 40 MG TABLET PO ×2 (08:58→21:20)
[2025-01-02] MEDS: GABAPENTIN 300 MG CAPSULE 600 MG PO ×3 (08:58→16:17)
[2025-01-02] MEDS: CHOLECALCIFEROL 400 UNITS TABLET (VIT D) PO (08:58)
[2025-01-02] MEDS: ESCITALOPRAM OXALATE 10 MG TABLET 20 MG PO (08:58)
[2025-01-02] MEDS: SIMETHICONE 125 MG CHEW TAB PO ×2 (08:59→16:17)
[2025-01-02] MEDS: ASCORBIC ACID 500 MG TABLET 1000 MG PO (08:59)
[2025-01-02] MEDS: buPROPion HCL XL (24 HR) 150 MG TABCR PO (08:59)
[2025-01-02] MEDS: DICLOFENAC SODIUM 1% 100 GM GEL (*BKC) 1 APPLIC TOPICAL ×3 (09:00→16:19)
[2025-01-02] MEDS: CAPSAICIN 0.025% CREAM 60 GM TUBE 1 APPLIC TOPICAL ×3 (09:01→16:22)
[2025-01-02] MEDS: IPRATROPIUM 0.5 MG/ALBUTEROL SULFATE 2.5 MG AMPUL.NEB 3 ML INHALATION ×3 (09:42→20:07)
[2025-01-02] MEDS: ACETAMINOPHEN 325 MG TABLET 650 MG PO (16:29)
--- NOTE | 2025-01-02 16:43 | P.PNIM_ITS ---
Progress Note: A&P Assessment and Plan (1) Multilobar lung infiltrate: Code(s): R91.8 - Other nonspecific abnormal finding of lung field Status: Acute Assessment and Plan: -Right upper and bilateral lower lobe opacifications on CT -Differential includes pneumonia, pulmonary edema and pulmonary hemorrhage -Levaquin for presumed pneumonia -Patient has numerous antibiotic allergies listed leaving few options for treatment (2) Lactic acidosis: Code(s): E87.20 - Acidosis, unspecified Status: Acute Assessment and Plan: -Anion gap 15 on initial chemistry panel -Lactic acid 2.9 then increased to 3.1 -Additional IV fluids given after results of increasing lactic acid noted -Blood and urine cultures in process (3) Popliteal pain: Code(s): M79.609 - Pain in unspecified limb Status: Acute Assessment and Plan: -2 week history of right popliteal pain, likely Zamora's cyst -DVT ruled out with outpatient ultrasound negative and ER ultrasound negative on admission -Treated with ibuprofen, ice and elevation at home with minor improvement -Limits ability to ambulate -Will order PT/OT (4) Chronic 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 Status: Acute Assessment and Plan: -On Eliquis now, previously on warfarin since 2007 -Patient has had multiple blood clots while on blood thinners -No hemoptysis (5) Abnormal urinalysis: Code(s): R82.90 - Unspecified abnormal findings in urine Status: Acute Assessment and Plan: -Urinalysis with nitrate positive and 2+ urine bacteria negative leukocyte esterase and white cells -Reflexed to culture, patient on Levaquin already (6) Lymphedema: Code(s): I89.0 - Lymphedema, not elsewhere classified Status: Acute Assessment and Plan: -Chronic severe lymphedema of bilateral lower extremities -Noted edema is reported to be baseline per patient report Subjective Date/time seen: 01/02/25 16:43 Interval history: During evaluation patient reports she had a history of DVT which is start in the year of 2007. She was reported possibly due to both control pill side obesity reviewed after 1st incident patient had multiple episodes of DVT in spite on blood thinner. Review of Systems Review of Systems: All systems reviewed & are unremarkable except as noted in HPI and below Exam Narrative: GENERAL: Awake, alert, oriented, no acute distress HEAD: Normocephalic, atraumatic. ENT:? Mucous membranes moist. CHEST: Right lower lobe diminished, clear elsewhere, no respiratory distress, occasional dry cough noted HEART: Regular rate and rhythm. ? Normal peripheral pulses. ABDOMEN: Soft, nontender, nondistended. EXTREMITIES: Right popliteal tenderness to palpation possible Zamora's cyst, bilateral lower extremity significant lymphedema and pitting edema into bilateral feet which patient states is improved over baseline SKIN: Warm dry normal color NEURO: Alert and oriented x3. No focal neuro deficits noted PSYCH: Normal mood and affect, extremely pleasant Objective Data Vital Signs Vital Signs: Vital Signs - 24 hr 01/01/25 18:25 01/01/25 18:29 01/01/25 19:20 Temperature Pulse Rate 112 H 113 H Respiratory Rate 20 20 Blood Pressure 154/82 H 134/69 Pulse Oximetry 95 97 Oxygen Delivery Room Air Fraction of Inspired Oxygen 01/01/25 19:47 01/01/25 20:00 01/01/25 20:00 Temperature 100.2 F H Pulse Rate 122 H 122 H 116 H Respiratory Rate 18 18 Blood Pressure 162/62 H Pulse Oximetry 94 94 Oxygen Delivery Room Air Fraction of Inspired Oxygen 01/02/25 00:00 01/02/25 04:00 01/02/25 04:42 Temperature 98.0 F Pulse Rate 105 H 97 97 Respiratory Rate 17 Blood Pressure 151/64 H Pulse Oximetry 97 Oxygen Delivery Fraction of Inspired Oxygen 01/02/25 08:02 01/02/25 08:02 01/02/25 09:42 Temperature Pulse Rate 91 85 Respiratory Rate 18 20 Blood Pressure Pulse Oximetry 97 Oxygen Delivery Room Air Fraction of Inspired Oxygen 01/02/25 09:55 01/02/25 11:56 01/02/25 12:02 Temperature Pulse Rate 87 85 88 Respiratory Rate 20 20 Blood Pressure Pulse Oximetry 95 Oxygen Delivery Room Air Fraction of Inspired Oxygen 01/02/25 14:00 Temperature 97.8 F Pulse Rate 86 Respiratory Rate 14 Blood Pressure 147/73 H Pulse Oximetry 97 Oxygen Delivery Fraction of Inspired Oxygen Intake/Output Intake/Output: Intake & Output 12/30/24 12/31/24 01/01/25 01/02/25 23:59 23:59 23:59 23:59 Intake Total 650 2790 Output Total 400 400 Balance 250 2390 Meds/Results Medications: Active Medications Generic Name Dose Route Start Last Admin Trade Name Freq PRN Reason Stop Dose Admin Acetaminophen 650 mg 01/01/25 22:29 01/02/25 16:29 Acetaminophen 325 Mg Tablet PO 650 mg Q4H PRN Administration Headache Albuterol/Ipratropium 3 ml 01/02/25 02:00 01/02/25 15:13 Ipratropium 0.5 Mg/Albuterol Sulfate 2.5 Mg Ampul.Neb 3 Ml INHALATION 3 ml Q6HRT TIERRA Administration Apixaban 5 mg 01/01/25 23:45 01/02/25 08:58 Apixaban 5 Mg Tablet PO 5 mg Q12HR TIERRA Administration Ascorbic Acid 1,000 mg 01/02/25 09:00 01/02/25 08:59 Ascorbic Acid 500 Mg Tablet PO 1,000 mg DAILY TIERRA Administration Benzonatate 100 mg 01/01/25 23:38 Benzonatate 100 Mg Capsule PO TID PRN Cough Bupropion HCl 150 mg 01/02/25 09:00 01/02/25 08:59 Bupropion Hcl Xl (24 Hr) 150 Mg Tabcr PO 150 mg DAILY TIERRA Administration Capsaicin 1 applic 01/02/25 09:00 01/02/25 16:22 Capsaicin 0.025% Cream 60 Gm Tube TOPICAL 1 applic QID TIERRA Administration Diclofenac Sodium 1 applic 01/02/25 09:00 01/02/25 16:19 Diclofenac Sodium 1% 100 Gm Gel (*Bkc) TOPICAL 1 applic QID TIERRA Administration Ergocalciferol 50,000 units 01/05/25 09:00 Ergocalciferol 50,000 Units Capsule PO WEEKLY [facility] Escitalopram Oxalate 20 mg 01/02/25 09:00 01/02/25 08:58 Escitalopram Oxalate 10 Mg Tablet PO 20 mg DAILY TIERRA Administration Gabapentin 600 mg 01/02/25 09:00 01/02/25 16:17 Gabapentin 300 Mg Capsule PO 600 mg TID [facility] Administration Guaifenesin 600 mg 01/01/25 23:50 01/02/25 08:58 Guaifenesin 12 Hr 600 Mg Tabcr PO 600 mg Q12HR TIERRA Administration Levofloxacin/Dextrose 750 mg in 150 mls @ 100 mls/hr 01/02/25 18:00 Levaquin 750 Mg/D5w 150 Ml IVPB Q24H [facility] Loperamide HCl 2 mg 01/02/25 01:59 Loperamide Hcl 2 Mg Capsule PO TID PRN diarrhea Loratadine 10 mg 01/01/25 23:47 Loratadine 10 Mg Tablet PO DAILY PRN allergy symptoms Methylprednisolone Sodium Succinate 60 mg 01/02/25 06:00 01/02/25 13:38 Methylprednisolone Sod Succ 125 Mg Vial IV PUSH 01/03/25 22:01 60 mg Q8HR TIERRA Administration Nortriptyline HCl 10 mg 01/01/25 23:50 01/02/25 00:17 Nortriptyline Hcl 10 Mg Capsule PO Not Given HS TIERRA Pantoprazole Sodium 40 mg 01/02/25 09:00 01/02/25 08:58 Pantoprazole 40 Mg Tablet PO 40 mg Q12HR TIERRA Administration Perflutren Lipid Microsphere 0 ml 01/02/25 05:42 Perflutren Lipid Microspheres 1.5 Ml Vial Diluted To 10 Ml Total Volume IV PUSH 01/05/25 05:42 ONCE PRN adequate visualization Protocol Simethicone 125 mg 01/02/25 08:00 01/02/25 16:17 Simethicone 125 Mg Chew Tab PO 125 mg BIDWM TIERRA Administration Tolterodine Tartrate 4 mg 01/02/25 09:00 01/02/25 08:58 Tolterodine Tartrate 2 Mg Tablet PO 4 mg DAILY TIERRA Administration Vitamin D 400 units 01/02/25 09:00 01/02/25 08:58 Cholecalciferol 400 Units Tablet (Vit D) PO 400 units QAM TIERRA Administration Zonisamide 100 mg 01/01/25 23:50 01/02/25 09:15 Zonisamide 100 Mg Capsule PO 100 mg Q12HR TIERRA Administration Radiology Results: ITS Impressions Venous Doppler Study 01/01/25 15:50 IMPRESSION: No evidence of deep venous thrombosis, within the constraints noted above. Chest CTA 01/01/25 16:07 IMPRESSION: 1. Alveolar opacification in the right upper lobe and both lower lobe suggestive of pneumonia. Pulmonary edema is not excluded. Other differential include hemorrhage. Clinical correlation and follow-up advised. 2. No pulmonary embolism. Labs Labs: Laboratory Results - last 24 hr 01/01/25 01/01/25 01/01/25 15:20 18:09 20:37 WBC RBC Hgb Hct MCV MCH MCHC RDW Plt Count MPV Immature Gran % (Auto) Neut % (Auto) Lymph % (Auto) [place] % (Auto) Eos % (Auto) Baso % (Auto) Lymph # (Auto) [place] # (Auto) Eos # (Auto) Baso # (Auto) Abs Immat Gran (auto) Absolute Neuts (auto) Absolute Nucleated RBC Total Counted Neutrophils % (Manual) Band Neutrophils % Lymphocytes % (Manual) Monocytes % (Manual) Nucleated RBC % Abs Neuts (Manual) Abs Lymphs (Manual) Abs Monocytes (Manual) Platelet Estimate Schistocytes Sodium Potassium Chloride Carbon Dioxide Anion Gap BUN Creatinine Estim Creat Clear Calc Estimated GFR Glucose Hemoglobin A1c Lactic Acid 2.9 H 3.1 H Calcium Magnesium Troponin I < 0.012 Procalcitonin 10.0 Urine Color Urine Appearance Urine pH Ur Specific [place] Urine Protein Urine Glucose (UA) Urine Ketones Ur Blood (Man) Urine Nitrate Urine Bilirubin Urine Urobilinogen Leukocyte Esterase Rfl Urine RBC Urine WBC Ur Squamous Epith Cells Urine Bacteria Urine Casts Nasal MRSA (PCR) 01/01/25 01/02/25 01/02/25 22:26 04:42 06:30 WBC 9.4 RBC 4.01 L Hgb 12.8 Hct 38.6 MCV 96.3 MCH 31.9 MCHC 33.2 RDW 13.3 Plt Count 162 MPV 9.8 Immature Gran % (Auto) Not Reportable Neut % (Auto) Not Reportable Lymph % (Auto) Not Reportable [place] % (Auto) Not Reportable Eos % (Auto) Not Reportable Baso % (Auto) Not Reportable Lymph # (Auto) Not Reportable [place] # (Auto) Not Reportable Eos # (Auto) Not Reportable Baso # (Auto) Not Reportable Abs Immat Gran (auto) Not Reportable Absolute Neuts (auto) Not Reportable Absolute Nucleated RBC Not Reportable Total Counted 100 Neutrophils % (Manual) 52 Band Neutrophils % 32 H Lymphocytes % (Manual) 13 L Monocytes % (Manual) 3 Nucleated RBC % Not Reportable Abs Neuts (Manual) 7.89 H Abs Lymphs (Manual) 1.22 Abs Monocytes (Manual) 0.28 Platelet Estimate Adequate Schistocytes None seen Sodium 140 Potassium 3.1 L Chloride 107 Carbon Dioxide 28 Anion Gap 5 BUN 19 H Creatinine 0.73 Estim Creat Clear Calc 100 Estimated GFR > 60 Glucose 121 H Hemoglobin A1c 5.5 Lactic Acid 1.3 Calcium 7.9 L Magnesium 1.2 L Troponin I Procalcitonin Urine Color Yellow Urine Appearance Clear Urine pH 5.0 Ur Specific [place] > 1.045 H Urine Protein Negative Urine Glucose (UA) Negative Urine Ketones Negative Ur Blood (Man) Negative Urine Nitrate Positive H Urine Bilirubin Negative Urine Urobilinogen 0.2 Leukocyte Esterase Rfl Negative Urine RBC 0-2 Urine WBC 0-5 Ur Squamous Epith Cells Occasional Urine Bacteria 2+ H Urine Casts 0-2 Nasal MRSA (PCR) Not detected Quality VTE Prophylaxis VTE prophylaxis: pharmacologic ordered (Eliquis) Hospitalist MIPS Advance Care Plan I have confirmed that the patient's Advanced Care Plan is present, code status is documented, or surrogate decision maker is listed in patient medical record.: Yes Medication Reconciliation I have utilized all available resources to obtain, update and review the patients current medications (includes all prescriptions, OTC, herbals, cannabis, and nutritional supplements).: Yes
[2025-01-02] MEDS: levoFLOXacin 750 MG/D5W 150 ML 750 MG/150 ML BAG 100 MG IVPB (17:12)
[2025-01-02] MEDS: NORTRIPTYLINE HCL 10 MG CAPSULE PO (21:20)
[2025-01-03] VITALS (14 sets, daily range): BP systolic 125–147; BP diastolic 54–88; PULSE 74–87; RESP 14–20; TEMP 36.4; O2SAT 95–98
[2025-01-03] MEDS: IPRATROPIUM 0.5 MG/ALBUTEROL SULFATE 2.5 MG AMPUL.NEB 3 ML INHALATION ×3 (01:25→13:18)
[2025-01-03 05:18] LABS: Hematocrit 36.1 % (37.0-47.0); Mean Corpuscular HGB Conc 33.2 g/dl (32-36); Mean Corpuscular Hemoglobin 31.8 pg (26-34); Mean Corpuscular Volume 95.8 fl (80-100); Mean Platelet Volume 10.4 fl (7.4-10.4); Platelet Count Result 169 k/mm3 (150-375); Red Blood Count 3.77 M/mm3 (4.2-5.4); Red Cell Distribution Width 13.2 % (11.5-14.5); White Blood Count 9.5 K/mm3 (4.5-10.0)
[2025-01-03 05:27] LABS: Alanine Aminotransferase 24 U/L (6-35); Albumin Level 3.3 g/dL (3.5-5.1); Alkaline Phosphatase 83 U/L (38-126); Anion Gap 9 mmol/L (4-12); Aspartate Amino Transferase 27 U/L (14-36); Bilirubin,Total 0.4 mg/dL (0.2-1.3); Blood Urea Nitrogen 22 mg/dL (7-17); Calcium 8.6 mg/dL (8.4-10.2); Carbon Dioxide 27 mmol/L (22-30); Chloride 105 mmol/L (98-107); Estimated CRCL calculation 90 ml/min; Estimated Glomerular Filt Rate > 60; Glucose 240 mg/dL (65-110); Potassium 3.5 mmol/L (3.4-5.0); Sodium 141 mmol/L (137-145)
[2025-01-03] MEDS: methylPREDNISolone SOD SUCC 125 MG VIAL 60 MG IV PUSH ×2 (05:59→13:06)
[2025-01-03] MEDS: PANTOPRAZOLE 40 MG TABLET PO (08:03)
[2025-01-03] MEDS: TOLTERODINE TARTRATE 2 MG TABLET 4 MG PO (08:03)
[2025-01-03] MEDS: guaiFENesin 12 HR 600 MG TABCR PO (08:03)
[2025-01-03] MEDS: ZONISAMIDE 100 MG CAPSULE PO (08:03)
[2025-01-03] MEDS: ASCORBIC ACID 500 MG TABLET 1000 MG PO (08:03)
[2025-01-03] MEDS: buPROPion HCL XL (24 HR) 150 MG TABCR PO (08:04)
[2025-01-03] MEDS: CHOLECALCIFEROL 400 UNITS TABLET (VIT D) PO (08:04)
[2025-01-03] MEDS: ESCITALOPRAM OXALATE 10 MG TABLET 20 MG PO (08:04)
[2025-01-03] MEDS: APIXABAN 5 MG TABLET PO (08:04)
[2025-01-03] MEDS: GABAPENTIN 300 MG CAPSULE 600 MG PO ×2 (08:04→12:10)
[2025-01-03] MEDS: DICLOFENAC SODIUM 1% 100 GM GEL (*BKC) 1 APPLIC TOPICAL ×2 (08:05→12:10)
[2025-01-03] MEDS: CAPSAICIN 0.025% CREAM 60 GM TUBE 1 APPLIC TOPICAL ×2 (08:05→12:10)
[2025-01-03] MEDS: SIMETHICONE 125 MG CHEW TAB PO (08:13)
[2025-01-03] MEDS: levoFLOXacin 750 MG TABLET PO (11:35)
--- NOTE | 2025-01-03 15:26 | P.DS_ITS ---
DS: Admitting Diagnosis Discharge Date 01/03/2025 Admitting Diagnosis Shortness of breath DS: Discharge Diagnosis Discharge Diagnosis (1) Multilobar lung infiltrate: Code(s): R91.8 - Other nonspecific abnormal finding of lung field Status: Acute Assessment and Plan: -Right upper and bilateral lower lobe opacifications on CT -Differential includes pneumonia, pulmonary edema and pulmonary hemorrhage -Levaquin for presumed pneumonia -Patient has numerous antibiotic allergies listed leaving few options for treatment (2) Lactic acidosis: Code(s): E87.20 - Acidosis, unspecified Status: Acute Assessment and Plan: -Anion gap 15 on initial chemistry panel -Lactic acid 2.9 then increased to 3.1 -Additional IV fluids given after results of increasing lactic acid noted -Blood negative and urine cultures shows E coli but patient denies any urinary symptoms (3) Popliteal pain: Code(s): M79.609 - Pain in unspecified limb Status: Acute Assessment and Plan: -2 week history of right popliteal pain, likely Zamora's cyst -DVT ruled out with outpatient ultrasound negative and ER ultrasound negative on admission -Treated with ibuprofen, ice and elevation at home with minor improvement -Limits ability to ambulate -Will order PT/OT (4) 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 Status: Acute Assessment and Plan: -On Eliquis now, previously on warfarin since 2007 -Patient has had multiple blood clots while on blood thinners -No hemoptysis (5) Abnormal urinalysis: Code(s): R82.90 - Unspecified abnormal findings in urine Status: Acute Assessment and Plan: -Urinalysis with nitrate positive and 2+ urine bacteria negative leukocyte esterase and white cells -Reflexed to culture, patient on Levaquin already (6) Lymphedema: Code(s): I89.0 - Lymphedema, not elsewhere classified Status: Acute Assessment and Plan: -Chronic severe lymphedema of bilateral lower extremities -Noted edema is reported to be baseline per patient report DS: Summary Hospital Course Hospital Course: 59-year-old female patient with a past medical history of recurrent DVTs who is admitted to the hospital for multilobar pneumonia after seeking care for shortness of breath and concern for PE. Patient reports that she developed pain behind her right knee and saw her primary care provider about this. She had an ultrasound to assess for DVT and it was negative. She was then instructed to treat this with Motrin topical pain relief and elevation which she had been doing at home but then she developed increasing shortness of breath became concerned about a potential PE. Patient used to take Coumadin since 2007 but about a year ago was switched to Eliquis. Patient states that she has developed multiple clots even while on blood thinners. On day of admission she woke feeling short of breath and fatigued. She was supposed to another ultrasound her leg but ended up falling back asleep. When she woke up and still felt terrible with increased shortness of breath she came to the emergency department for evaluation. Workup in the emergency department shows normal white blood cell count, somewhat elevated anion gap and elevated lactic acid that increased on recheck. ProBNP minimally elevated troponin was negative x2. Urinalysis positive for nitrates and 2+ bacteria but negative for leukocyte esterase and white blood cells are normal. Patient denies dysuria symptoms. Chest x-ray showed evidence of pneumonia. CTA of the chest was negative for PE but showed opacification of the right upper lobe and bilateral lower lobes suggestive of pneumonia though pulmonary edema is not excluded with additional differential including hemorrhage per radiology interpretation. Echocardiogram will be ordered. Patient was initiated on Levaquin since she has numerous other allergies. She is not requiring supplemental oxygen at this time. Patient was given IV fluids after admission because of rising lactic acid. Patient also reports a history of chronic dry nonproductive cough that has been going on for years. Review of medication history is shows that patient is on olmesartan for blood pressure and though this is less likely than lisinopril to cause chronic cough, it is possible that this is a contributing agent. During evaluation today patient is currently doing well. Patient has a long history of DVT which started in the year of 2007. She was told possibly due to the control pills and obesity. Initially she was on Coumadin and later was changed to Eliquis last year. During the hospitalization no evidence of any DVT. Patient denies any chest pain, shortness a breath or palpitation. Patient wants to go home if possible. Patient also denies any urinary complaints including dysuria or any vaginal discharge. Patient will be discharged with Levaquin. Although during the admission olmesartan was held due to chronic cough, I restarted since the probability of chronic cough is less than 20% with olmesartan and advise to discuss with PCP and switch to another anti hypertensive as outpatient. On the day of discharge, the patient was seen and examined. Vital signs were stable. Physical exam were stable and labs were reviewed at length. Discharge instructions, medications, and follow-up appointments were discussed with the patient at length and all day questions were answered. ER warnings were given. Status at Discharge Cognitive/behavioral status at discharge: Stable Time Spent with Patient Time attestation: Total time spent providing and/or coordinating discharge services: 45 minutes Exam Narrative: GENERAL: Awake, alert, oriented, no acute distress HEAD: Normocephalic, atraumatic. ENT:? Mucous membranes moist. CHEST: Right lower lobe diminished, clear elsewhere, no respiratory distress, occasional dry cough noted HEART: Regular rate and rhythm. ? Normal peripheral pulses. ABDOMEN: Soft, nontender, nondistended. EXTREMITIES: Right popliteal tenderness to palpation possible Zamora's cyst, ron ateral lower extremity significant lymphedema and pitting edema into bilateral feet which patient states is improved over baseline SKIN: Warm dry normal color NEURO: Alert and oriented x3. No focal neuro deficits noted PSYCH: Normal mood and affect, extremely pleasant DS: Data Data Completed and Pending Labs on day of discharge: Labs from last 24 hours 01/03/25 05:03 WBC 9.5 RBC 3.77 L Hgb 12.0 Hct 36.1 L MCV 95.8 MCH 31.8 MCHC 33.2 RDW 13.2 Plt Count 169 MPV 10.4 Sodium 141 Potassium 3.5 Chloride 105 Carbon Dioxide 27 Anion Gap 9 BUN 22 H Creatinine 0.82 Estim Creat Clear Calc 90 Estimated GFR > 60 Glucose 240 H Calcium 8.6 Total Bilirubin 0.4 AST 27 ALT 24 Alkaline Phosphatase 83 Total Protein 6.0 L Albumin 3.3 L Preliminary micro results at discharge 01/01/25 18:09 Blood Culture - Preliminary Blood 01/01/25 18:09 Blood Culture - Preliminary Blood Imaging Radiologist's impression: ITS Impressions Venous Doppler Study 01/01/25 15:50 IMPRESSION: No evidence of deep venous thrombosis, within the constraints noted above. Chest CTA 01/01/25 16:07 IMPRESSION: 1. Alveolar opacification in the right upper lobe and both lower lobe suggestive of pneumonia. Pulmonary edema is not excluded. Other differential include hemorrhage. Clinical correlation and follow-up advised. 2. No pulmonary embolism. Discharge Plan Discharge Attending physician on discharge: Ken Chamberlain Discharging Clinician: Ken Chamberlain Anticipated Discharge Date/Time: 01/03/25 15:33 Patient Disposition: Home Activity: as tolerated Diet: heart healthy Discharge Instructions: I would recommend discussed with the PCP and if olmesartan can be discontinued and switched to another hypertensive medication due to chronic cough. Check blood pressure 1 to 2 times a day. Record and bring into your doctor for review. Call your doctor if your blood pressure is greater than 180/110 or less than 90/45. Walk with cane or other assist device. Take precautions to avoid falls. Rise slowly from a lying or sitting position. Pause before standing or walking. Contact your doctor or call 911 and come to the Emergency Room if you have any type of trauma, lightheadedness with standing or other worrisome symptoms. Avoid NSAIDs (ibuprofen, naproxen, Aleve). Tylenol is safe to take. Follow-up with your primary care provider in 1-2 weeks. Please call for appointment. Follow-up with Cardiology in 2-4 weeks. Please call for an appointment. Thank you for using [facility] for your health care needs. Patient Instructions: Antibiotic Form Patient Language: Slovak Stand Alone Forms: General Discharge Information, Work/School Release IP Follow-up/Referrals: Frandy,Daphne Conde APRN [Primary Care Provider] - Discharge Medications: New guaifenesin [Mucus Relief ER] 600 mg Tablet Extended Release 12hr 600 mg PO Q12HR Qty: 30 0RF levofloxacin 750 mg tablet 750 mg PO DAILY Qty: 5 0RF Rx Instructions: By please complete the course for 5 days Continued gabapentin 600 mg tablet 600 mg PO TID loperamide 2 mg Capsule 6 mg PO DAILY ergocalciferol (vitamin D2) 10 mcg (400 unit) Tablet 10 mcg PO DAILY zonisamide 100 mg capsule 100 mg PO BID tolterodine 2 mg tablet 4 mg PO DAILY benzonatate 100 mg capsule 200 mg PO TID nortriptyline 10 mg capsule 10 mg PO HS esomeprazole magnesium 40 mg capsule,delayed release(DR/EC) 40 mg PO BID ergocalciferol (vitamin D2) 1,250 mcg (50,000 unit) capsule 1,250 mcg PO WEEKLY Rx Instructions: administer on Tuesday simethicone 80 mg Tablet,Chewable 80 mg PO BID escitalopram oxalate 20 mg tablet 20 mg PO DAILY trospium 20 mg tablet 20 mg PO BID Eliquis 5 mg tablet 5 mg PO Q12H olmesartan 40 mg tablet 40 mg PO DAILY bupropion HCl 150 mg tablet extended release 24 hr 150 mg PO .q24 cetirizine [24Hour Allergy] 10 mg tablet 10 mg PO DAILY PRN (Reason: allergy symptoms) Ziclocin 1.5-0.025 % kit, cream and solution 1 ea topical QID Rx Instructions: apply 40 drops DICLOFENAC onto knee 4 times daily: apply CAPSAICIN CREAM 3-4 times daily/as directed apply to knees ascorbic acid (vitamin C) [Acerola C] 500 mg tablet,chewable 1,000 mg PO DAILY Date of admission: 01/01/25 18:10 Primary Care Provider: FrandyDaphne Admitting Provider: Rishi Dawkins Attending physician on admission: Rishi Dawkins Condition: Stable
[2025-01-04 15:28] LABS: Chlamydia pneumoniae Source NASAL; Chlamydia pneumoniae by PCR NOT DETECTED
[2025-01-04 18:17] LABS: Pneumococcal Antigen Urine NOT DETECTED
[2025-01-04 18:58] LABS: Legionella pneumophila Ag Ur NOT DETECTED
== END 2025-01-03 16:25 | disposition home or self-care (01) ==
LOC: ANHED 18:04 → ANH2MED 01-03 15:29
PROVIDERS: Nurse Practitioner; Physician Assistant; Student in an Organized Health Care Education/Training Program; Admitting Provider Internal Medicine; Emergency Provider Physician Assistant; PCP Nurse Practitioner Family; Visit Provider General Practice
DX: R91.8 Other nonspecific abnormal finding of lung field (principal); E87.20 Acidosis, unspecified; M79.604 Pain in right leg; I89.0 Lymphedema, not elsewhere classified; R82.90 Unspecified abnormal findings in urine; R05.3 Chronic cough; K21.9 Gastro-esophageal reflux disease without esophagitis; E78.5 Hyperlipidemia, unspecified; I10 Essential (primary) hypertension; Z20.822 Contact with and (suspected) exposure to COVID-19; Z79.01 Long term (current) use of anticoagulants; Z79.899 Other long term (current) drug therapy; Z86.718 Personal history of other venous thrombosis and embolism; Z88.1 Allergy status to other antibiotic agents; Z90.49 Acquired absence of other specified parts of digestive tract
CPT/HCPCS: 36415; 71275; 80048; 80053; 81001; 83036; 83605; 83735; 83880; 84145; 84484; 85025; 85027; 85610; 85730; 87040; 87077; 87086; 87186; 87449; 87486; 87637; 87641; 87899; 93005; 93306; 93971; 94640; 96361; 96365; 96366; 96374; 96375; 96376; 99285; A9270; G0378; J1956; J2919; J7030; J7040; J7120; Q9967

== ENCOUNTER 2025-03-27 21:54 | Inpatient (IN) | payer OTHER, SELFPAY ==
--- NOTE | ~2025-03-27 | XR_ITS ---
EXAMINATION: XR chest 1V Exam Date/Time: 03/27/2025 23:25 CDT HISTORY: sepsis w/u Comparison: None. RESULT: Lines, tubes, and devices: None. Lungs and pleura: Lordotic positioning. Low volumes with crowding. No focal consolidation, pleural effusion, or pneumothorax. Cardiomediastinal silhouette: Superior mediastinal widening, likely a consequence of semiupright pos itioning, lordotic view, incomplete inspiration, and AP technique. Otherwise stable. Other: No acute osseous or upper abdominal finding. IMPRESSION: Apparent superior mediastinal widening, likely secondary to technical factors as detailed above. Doyle mmend repeat chest radiography with PA and lateral technique if possible, otherwise with fully uprigh t positioning and at full inspiration. Otherwise, no acute cardiopulmonary process. Reviewed, dictated and finalized at location K. IMPRESSION: Apparent superior mediastinal widening, likely secondary to technical factors a s detailed above. Recommend repeat chest radiography with PA and lateral techni que if possible, otherwise with fully upright positioning and at full inspirati on. Otherwise, no acute cardiopulmonary process.
--- NOTE | ~2025-03-27 | US_ITS ---
EXAMINATION: US venous doppler [facility] DATE: 03/28/2025 08:41 INDICATION: Lower limb pain, swelling and erythema TECHNIQUE: Grayscale ultrasound images without and with compression and Doppler ultrasound images of the bilateral lower extremity veins were obtained. COMPARISON: None. FINDINGS: The visualized portions of right common femoral vein, profunda (deep) femoral vein, femoral vein, pop liteal vein, posterior tibial veins, peroneal veins and greater saphenous vein outflow are patent. The visualized portions of left common femoral vein, profunda femoral vein, femoral vein, popliteal v ein, posterior tibial veins, peroneal veins and greater saphenous vein outflow are patent. IMPRESSION: 1. No deep venous thrombosis in either lower limb. Reviewed, dictated and finalized at location A.
--- NOTE | ~2025-03-27 | CT_ITS ---
EXAMINATION: CT chest abdomen pelvis w con DATE: 03/28/2025 7:14 CDT INDICATION: Sepsis TECHNIQUE: Computed tomography (CT) of the chest, abdomen, and pelvis was performed without intraveno us contrast. The dose-length product was 2140.63 mGy-cm. Automated exposure control and iterative rec onstruction technique were employed. COMPARISON: CT dated 01/01/2025 FINDINGS: CHEST CT: No thoracic lymphadenopathy. No evidence for aortic aneurysm or dissection. Small hiatal hernia. No s ignificant pleural or pericardial effusion. There are patchy groundglass opacities in both lung with more focal consolidation in the right lower lobe. No thoracic lymphadenopathy. ABDOMEN/PELVIS CT: The liver, spleen, adrenal glands and kidneys are unremarkable. There is a [place] right paracentra l abdominal wall hernia containing nonobstructed bowel. There is mild surrounding fatty infiltration. No evidence for bowel obstruction. Gallbladder not identified, likely surgically absent. No signific ant vascular abnormality. There is a 3.6 cm left adnexal cyst, most likely ovarian. No lymphadenopath y. Mild-moderate thoracic and lumbar spondylosis. Mild levocurvature of the thoracolumbar spine. Mild osteoarthritis of the hips. IMPRESSION: 1. Patchy diffuse groundglass opacification with more focal consolidation right lower lobe. Different ial diagnosis includes viral pneumonia with bacterial superinfection, aspiration pneumonitis, pulmona ry edema. Clinically correlate. 2: Moderate-sized wid[place] right paracentral lower abdominal ventral hernia containing nonobstructed bowel. Reviewed, dictated and finalized at location A. IMPRESSION: 1. Patchy diffuse groundglass opacification with more focal consolidation right lower lobe. Differential diagnosis includes viral pneumonia with bacterial sup erinfection, aspiration pneumonitis, pulmonary edema. Clinically correlate. 2: Moderate-sized [place] right paracentral lower abdominal ventral hernia co ntaining nonobstructed bowel.
--- NOTE | ~2025-03-27 | CT_ITS ---
EXAMINATION: CT brain wo con DATE: 03/27/2025 23:35 INDICATION: ams . TECHNIQUE: Computed tomography (CT) of the head was performed without intravenous contrast. The mA wa s adjusted according to patient size. Iterative reconstruction technique was employed. The dose-lengt h product was 681.00 mGy-cm. COMPARISON: 04/20/2011. FINDINGS: No acute intracranial hemorrhage or extra-axial fluid collection. No hydrocephalus, mass, or herniation. No acute ischemic infarct. Unremarkable dural venous sinus attenuation. No acute osseous abnormality. Incompletely visualized ossification in the right maxillary sinus, may represent an antrolity, hetero topic ossification, or osteoma. The remaining aerated spaces are clear. IMPRESSION: No acute intracranial process. Reviewed, dictated and finalized at location K.
--- NOTE | 2025-03-27 21:56 | ECG_ITS ---
Test Date: 2025-03-27 22:17:20 Measurements Intervals [place] Rate: 94 P: 7 MA: 130 QRS: 32 QRSD: 156 T: -1 QT: 418 QTc: 525 Interpretive Statements SINUS RHYTHM RIGHT BUNDLE BRANCH BLOCK ABNORMAL ECG Compared to ECG 01/01/2025 18:58:50 HEART RATE HAS DECREASED Electronically Signed On 03-28-2025 06:05:56 CDT by Arnie Reid D.O.
[2025-03-27 21:57] VITALS: BP 124/68; PULSE 94; RESP 21; TEMP 38; O2SAT 97
[2025-03-27 22:18] VITALS: BP 82/72; PULSE 96; RESP 14; O2SAT 97
[2025-03-27 22:33] VITALS: BP 89/63; PULSE 100; RESP 22; O2SAT 96
--- OUTSIDE RECORDS SUMMARY | 2025-03-27 22:37 | XMS_ITS | Encounter Summary ---
Author Organization [facility] Address [address] [facility] [address] [place] [address] Phone Care Team Providers Care Ad Taker Name Role Phone Wan Rosario MD Primary Care Provider [phone] Brenda Cueto ROLLS BAKER Unavailable [phone] Sonja Ball DPT Unavailable Gerry Vaughn MD Unavailable [phone] Daphne Wise NP Primary Care Provider [phone] Roxann Galeana MD Unavailable [phone] July Hartman MD PhD Unavailable Encounter [...] on file Legal Sex Female 12:[address] Gender Identity Female 11/13/2020 10:00 PM CDT [...] documented as of this encounter Care Teams Ad Taker Relationship Specialty Start Date End Date Wan Rosario MD [address] [facility] [address] [place] [address] PCP - General 11/12/16 10/08/24 Daphne Wise NP [address] [facility] [address] [place] [address] PCP - General Family Medicine 10/09/24 Brenda Cueto NP [address] [place] [address] Nurse Practitioner Hematology 09/23/20 Sonja Ball DPT [address] [place] [address] Physical Therapist Physical Therapy 09/24/21 11/25/22 Gerry Vaughn MD [address] DEPT OPHTHALMOLOGY, [address] [place] [address] Surgeon Ophthalmology 09/24/22 Roxann Galeana MD [address] [facility] [address] [place] [address] Consulting Physician Gastroenterology 10/09/24 July Hartman MD PhD [address] [place] [address] Consulting Physician Anesthesiology 10/09/24 documented as of this encounter
--- OUTSIDE RECORDS SUMMARY | 2025-03-27 22:37 | XMS_ITS | Encounter Summary ---
Author Organization [facility] Address [address] [facility] [address] [place] [address] Phone Care Team Providers Care Locomotive Engineer Diesel Name Role Phone Wan Rosario MD Primary Care Provider [phone] Brenda Cueto ROLL LINE OPERATOR Unavailable [phone] Sonja Ball DPT Unavailable Gerry Vaughn MD Unavailable [phone] Daphne Wise NP Primary Care Provider [phone] Roxann Galeana MD Unavailable [phone] July Hartman MD PhD Unavailable [phone] Encounter Details Date Type Department Care Team [...] on file Legal Sex Female 12:29 PM COMBER FIXER Gender Identity Female 11/13/2020 10:00 PM CDT [...] documented as of this encounter Care Teams Locomotive Engineer Diesel Relationship Specialty Start Date End Date Wan Rosario MD [address] [facility] [address] [place] [address] PCP - General 11/12/16 10/08/24 Daphne Wise NP [address] [facility] [address] [place] [address] PCP - General Family Medicine 10/09/24 Brenda Cueto NP [address] [place] [address] Nurse Practitioner Hematology 09/23/20 Sonja Ball DPT [address] [place] [address] Physical Therapist Physical Therapy 09/24/21 11/25/22 Gerry Vaughn MD [address] DEPT OPHTHALMOLOGY, [address] [place] [address] Surgeon Ophthalmology 09/24/22 Roxann Galeana MD 1 [facility] [address] DIV [place] [address] Consulting Physician Gastroenterology 10/09/24 July Hartman MD PhD [address] [place] [address] Consulting Physician Anesthesiology 10/09/24 documented as of this encounter
--- OUTSIDE RECORDS SUMMARY | 2025-03-27 22:38 | XMS_ITS | Encounter Summary ---
Author Organization [facility] Address [address] [facility] [address] [place] [address] Phone Care Team Providers Care Gas Fitter Helper Name Role Phone Wan Rosario MD Primary Care Provider Brenda Cueto SNUFF BOX FINISHER Unavailable [phone] Sonja Ball DPT Unavailable Gerry Vaughn MD Unavailable [phone] Daphne Wise NP Primary Care Provider [phone] Roxann Galeana MD Unavailable [phone] July Hartman MD PhD Unavailable [phone] Encounter Details Date Type Department Care Team [...] on file Legal Sex Female 12:29 PM GLASS LAMINATING OPERATOR Gender Identity Female 11/13/2020 10:00 PM [...] documented as of this encounter Care Teams Gas Fitter Helper Relationship Specialty Start Date End Date Wan Rosario MD [address] [facility] [address] [place] [address] PCP - General 11/12/16 10/08/24 Daphne Wise NP [address] [facility] [address] [place] [address] PCP - General Family Medicine 10/09/24 Brenda Cueto NP [address] [place] [address] Nurse Practitioner Hematology 09/23/20 Sonja Ball DPT [address] [place] [place] [address] Physical Therapist Physical Therapy 09/24/21 11/25/22 Gerry Vaughn MD [address] DEPT OPHTHALMOLOGY, [address] [place] [address] Surgeon Ophthalmology 09/24/22 Roxann Galeana MD 1 [facility] [address] DIV [place] [address] Consulting Physician Gastroenterology 10/09/24 July Hartman MD PhD [address] [place] [address] Consulting Physician Anesthesiology 10/09/24 documented as of this encounter
--- OUTSIDE RECORDS SUMMARY | 2025-03-27 22:38 | XMS_ITS | Encounter Summary ---
Author Organization [facility] Address [address] [facility] [address] [place] [address] Phone Care Team Providers Care Oven Attendant Name Role Phone Wan Rosario MD Primary Care Provider [phone] Brenda Cueto SNUFF BLENDER Unavailable [phone] Sonja Ball DPT Unavailable Gerry Vaughn MD Unavailable [phone] Daphne Wise NP Primary Care Provider [phone] Roxann Galeana MD Unavailable [phone] July Hartman MD PhD Unavailable [phone] Encounter Details Date Type Department Care Team [...] on file Legal Sex Female 12:29 PM REFUND SPECIALIST Gender Identity Female 11/13/2020 10:00 PM [...] documented as of this encounter Care Teams Oven Attendant Relationship Specialty Start Date End Date Wan Rosario MD [address] [facility] [address] [place] [address] PCP - General 11/12/16 10/08/24 Daphne Wise NP [address] [facility] [address] [place] [address] PCP - General Family Medicine 10/09/24 Brenda Cueto NP [address] [place] [address] Nurse Practitioner Hematology 09/23/20 Sonja Ball DPT [address] [place] [address] Physical Therapist Physical Therapy 09/24/21 11/25/22 Gerry Vaughn MD [address] DEPT OPHTHALMOLOGY, [address] [place] [address] Surgeon Ophthalmology 09/24/22 Roxann Galeana MD 1 [facility] [place] [address] Consulting Physician Gastroenterology 10/09/24 July Hartman MD PhD [address] [place] [address] Consulting Physician Anesthesiology 10/09/24 documented as of this encounter
--- OUTSIDE RECORDS SUMMARY | 2025-03-27 22:38 | XMS_ITS | Encounter Summary ---
Author Organization [facility] Address [address] [facility] [address] [place] [address] Phone Care Team Providers Care Sports Complex Attendant Name Role Phone Wan Rosario MD Primary Care Provider [phone] Brenda Cueto MERINGUER Unavailable [phone] Sonja Ball DPT Unavailable Gerry Vaughn MD Unavailable [phone] Daphne Wise NP Primary Care Provider [phone] Roxann Galeana MD Unavailable [phone] July Hartman MD PhD Unavailable [phone] Encounter Details Date Type Department Care Team [...] on file Legal Sex Female 12:29 PM PROGRAM CONTROL ANALYST Gender Identity Female 11/13/2020 10:00 PM CDT [...] documented as of this encounter Care Teams Sports Complex Attendant Relationship Specialty Start Date End Date Wan Rosario MD [address] [facility] [address] [place] [address] PCP - General 11/12/16 10/08/24 Daphne Wise NP 2[address] [facility] [address] [place] [address] PCP - General Family Medicine 10/09/24 Brenda Cueto NP [address] [place] [address] Nurse Practitioner Hematology 09/23/20 Sonja Ball DPT [address] [place] [address] Physical Therapist Physical Therapy 09/24/21 11/25/22 Gerry Vaughn MD [address] DEPT OPHTHALMOLOGY, [address] [place] [address] Surgeon Ophthalmology 09/24/22 Roxann Galeana MD 1 [facility] [address] DIV [place] [address] Consulting Physician Gastroenterology 10/09/24 July Hartman MD PhD [address] [place] [address] Consulting Physician Anesthesiology 10/09/24 documented as of this encounter
--- OUTSIDE RECORDS SUMMARY | 2025-03-27 22:38 | XMS_ITS | Encounter Summary ---
Author Organization [facility] Address [address] [facility] [address] [place] [address] Phone Care Team Providers Care Factory Laborer Name Role Phone Wan Rosario MD Primary Care Provider [phone] Brenda Cueto FISH BONING MACHINE FEEDER Unavailable [phone] Sonja Ball DPT Unavailable Gerry Vaughn MD Unavailable [phone] Daphne Wise NP Primary Care Provider [phone] Roxann Galeana MD Unavailable [phone] July Hartman MD PhD Unavailable [phone] Encounter Details Date Type Department Care Team [...] on file Legal Sex Female 12:29 PM SUPERVISOR REFINING Gender Identity Female 11/13/2020 10:00 PM CDT [...] documented as of this encounter Care Teams Factory Laborer Relationship Specialty Start Date End Date Wan Rosario MD 49[address] [facility] [address] [place] [address] PCP - General 11/12/16 10/08/24 Daphne Wise NP 2 [facility] [address] [place] [address] PCP - General Family Medicine 10/09/24 Brenda Cueto NP [address] [place] [address] Nurse Practitioner Hematology 09/23/20 Sonja Ball DPT [address] [place] [address] Physical Therapist Physical Therapy 09/24/21 11/25/22 Gerry Vaughn MD [address] DEPT OPHTHALMOLOGY, [address] [place] [address] Surgeon Ophthalmology 09/24/22 Roxann Galeana MD 1 [facility] [address] [place] [address] Consulting Physician Gastroenterology 10/09/24 July Hartman MD PhD [address] [place] [address] Consulting Physician Anesthesiology 10/09/24 documented as of this encounter
--- OUTSIDE RECORDS SUMMARY | 2025-03-27 22:38 | XMS_ITS | Encounter Summary ---
Author Organization [facility] Address [address] [facility] [address] [place] [address] Phone Care Team Providers Care Coppersmith Helper Name Role Phone Wan Rosario MD Primary Care Provider [phone] Brenda Cueto PREPRESS TECHNICIAN Unavailable [phone] Sonja Ball DPT Unavailable Gerry Vaughn MD Unavailable [phone] Daphne Wise NP Primary Care Provider [phone] Roxann Galeana MD Unavailable [phone] July Hartman MD PhD Unavailable [phone] Encounter Details Date Type Department Care Team [...] on file Legal Sex Female 12:29 PM REVENUE SETTLEMENTS ADMINISTRATOR Gender Identity Female 11/13/2020 10:00 PM [...] documented as of this encounter Care Teams Coppersmith Helper Relationship Specialty Start Date End Date Wan Rosario MD 49[address] [facility] [address] [place] [address] PCP - General 11/12/16 10/08/24 Daphne Wise NP 2 [facility] [address] [place] [address] PCP - General Family Medicine 10/09/24 Brenda Cueto NP [address] [place] [address] Nurse Practitioner Hematology 09/23/20 Sonja Ball DPT [address] [place] [address] Physical Therapist Physical Therapy 09/24/21 11/25/22 Gerry Vaughn MD [address] DEPT OPHTHALMOLOGY, [address] [place] [address] Surgeon Ophthalmology 09/24/22 Roxann Galeana MD 1 [facility] [address] [place] [address] Consulting Physician Gastroenterology 10/09/24 July Hartman MD PhD [address] [place] [address] Consulting Physician Anesthesiology 10/09/24 documented as of this encounter
--- OUTSIDE RECORDS SUMMARY | 2025-03-27 22:38 | XMS_ITS | Encounter Summary ---
Author Organization [facility] Address [address] [facility] [place] [address] Care Team Providers Care Illustrator Set Name Role Phone Wan Rosario MD Primary Care Provider [phone] Brenda Cueto ASSOCIATE BUYER Unavailable Sonja Ball DPT Unavailable Gerry Vaughn MD Unavailable [phone] Daphne Wise NP Primary Care Provider [phone] Roxann Galeana MD Unavailable [phone] July Hartman MD PhD Unavailable [phone] Reason for Visit * Reason Onset Date Comments Med Refill 05/19/2020 Encounter Details Date Type Department Care Team (Late st Contact Info) Description 05/19/2020 Telephone [facility] [address] [facility] Advanced [facility] [address] [place], [place] [id number] July Hartman MD PhD [address] [facility] [phone] [place] [address] Med Refill Social History Tobacco [...] on file Legal 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 130 [place] [address] PCP - General Family Medicine 10/09/24 Brenda Cueto NP [address] [place] [address] Nurse Practitioner Hematology 09/23/20 Sonja Ball DPT [address] [place] [address] Physical Therapist Physical Therapy 09/24/21 11/25/22 Gerry Vaughn MD [address] DEPT OPHTHALMOLOGY, [address] [place] [address] Surgeon Ophthalmology 09/24/22 Roxann Galeana MD 1 [facility] [address] [place] [address] Consulting Physician Gastroenterology 10/09/24 July Hartman MD PhD [address] [place] [address] Consulting Physician Anesthesiology 10/09/24 documented as of this encounter
--- OUTSIDE RECORDS SUMMARY | 2025-03-27 22:38 | XMS_ITS | Encounter Summary ---
Author Organization [facility] Address [address] [facility] [address] [place] [address] Phone Care Team Providers Care Credit Union Examiner Name Role Phone Wan Rosario MD Primary Care Provider [phone] Brenda Cueto PEDIATRIC CARDIOLOGIST Unavailable [phone] Sonja Ball DPT Unavailable Gerry Vaughn MD Unavailable Daphne Wise NP Primary Care Provider [phone] Roxann Galeana MD Unavailable [phone] July Hartman MD PhD Unavailable [phone] Encounter Details Date Type Department Care Team [...] on file Legal Sex Female 12:29 PM BRAZER ELECTRONIC Gender Identity Female 11/13/2020 10:00 PM CDT [...] documented as of this encounter Care Teams Credit Union Examiner Relationship Specialty Start Date End Date Wan Rosario MD 49[address] [facility] [address] [place] [address] PCP - General 11/12/16 10/08/24 Daphne Wise NP 2 [facility] [address] [place] [address] PCP - General Family Medicine 10/09/24 Brenda Cueto NP [address] [place] [address] Nurse Practitioner Hematology 09/23/20 Sonja Ball DPT [address] [place] [address] Physical Therapist Physical Therapy 09/24/21 11/25/22 Gerry Vaughn MD [address] DEPT OPHTHALMOLOGY, [address] [place] [address] Surgeon Ophthalmology 09/24/22 Roxann Galeana MD 1 [facility] [address] DIV [place] [address] Consulting Physician Gastroenterology 10/09/24 July Hartman MD PhD [address] [place] [address] Consulting Physician Anesthesiology 10/09/24 documented as of this encounter
--- OUTSIDE RECORDS SUMMARY | 2025-03-27 22:38 | XMS_ITS | Encounter Summary ---
Author Organization [facility] Address [address] [facility] [address] [place] [address] Phone Care Team Providers Care Director Of Patient Safety Name Role Phone Wan Rosario MD Primary Care Provider [phone] Brenda Cueto PLATEMAN Unavailable [phone] Sonja Ball DPT Unavailable Gerry Vaughn MD Unavailable Daphne Wise NP Primary Care Provider [phone] Roxann Galeana MD Unavailable [phone] July Hartman MD PhD Unavailable [phone] Encounter Details Date Type Department Care Team [...] on file Legal Sex Female 12:29 PM SENIOR TABLEAU DEVELOPER Gender Identity Female 11/13/2020 10:00 PM [...] as of this encounter Care Teams Director Of Patient Safety Relationship Specialty Start Date End Date Wan Rsoario MD 49[address] [facility] [address] [place] [address] PCP - General 11/12/16 10/08/24 Daphne Wise NP 2[address] [facility] [address] [place] [address] PCP - General Family Medicine 10/09/24 Brenda Cueto NP [address] [place] [address] Nurse Practitioner Hematology 09/23/20 Sonja Ball DPT [address] [place] [address] Physical Therapist Physical Therapy 09/24/21 11/25/22 Gerry Vaughn MD [address] DEPT OPHTHALMOLOGY, [address] [place] [address] Surgeon Ophthalmology 09/24/22 Roxann Galeana MD 1 [facility] [address] DIV IM GASTROENTER[place] [address] Consulting Physician Gastroenterology 10/09/24 July Hartman MD PhD [address] [place] [address] Consulting Physician Anesthesiology 10/09/24 documented as of this encounter
--- OUTSIDE RECORDS SUMMARY | 2025-03-27 22:38 | XMS_ITS | Encounter Summary ---
Author Organization [facility] Address [address] [facility] [address] [place] [address] Phone Care Team Providers Care Book Binder Name Role Phone Wan Rosario MD Primary Care Provider [phone] Brenda Cueto APPLIED SCIENCE AND TECHNOLOGIES DEAN Unavailable [phone] Sonja Ball DPT Unavailable Gerry Vaughn MD Unavailable [phone] Daphne Wies NP Primary Care Provider [phone] Roxann Galeana MD Unavailable [phone] July Hartman MD PhD Unavailable [phone] Encounter Details Date Type Department Care Team [...] on file Legal Sex Female 12:29 PM COMMODITY TRADER Gender Identity Female 11/13/2020 10:00 PM CDT [...] documented as of this encounter Care Teams Book Binder Relationship Specialty Start Date End Date Wan Rosario MD 49[address] [facility] [address] [place] [address] PCP - General 11/12/16 10/08/24 Daphne Wise NP 2[address] [facility] [address] [place] [address] PCP - General Family Medicine 10/09/24 Brenda Cueto NP [address] [place] [address] Nurse Practitioner Hematology 09/23/20 Sonja Ball DPT [address] [place] [address] Physical Therapist Physical Therapy 09/24/21 11/25/22 Gerry Vaughn MD [address] DEPT OPHTHALMOLOGY, [address] [place] [address] Surgeon Ophthalmology 09/24/22 Roxann Galeana MD 1 [facility] [address] DIV IM [place] [address] Consulting Physician Gastroenterology 10/09/24 July Hartman MD PhD [address] [place] [address] Consulting Physician Anesthesiology 10/09/24 documented as of this encounter
--- OUTSIDE RECORDS SUMMARY | 2025-03-27 22:38 | XMS_ITS | Encounter Summary ---
Author Organization [facility] Address [address] [facility] [address] [place] [address] Phone Care Team Providers Care Regional Intermodal Truck Driver Name Role Phone Wan Rosario MD Primary Care Provider [phone] Brenda Cueto CHIEF ENGINEER RESEARCH Unavailable [phone] Sonja Ball DPT Unavailable Gerry Vaughn MD Unavailable [phone] Daphne Wise NP Primary Care Provider [phone] Roxann Galeana MD Unavailable July Hartman MD PhD Unavailable Encounter Details [...] on file Legal Sex Female 12:29 PM BALANCE AND HAIRSPRING ASSEMBLER Gender Identity Female 11/13/2020 10:00 PM CDT [...] documented as of this encounter Care Teams Regional Intermodal Truck Driver Relationship Specialty Start Date End Date Wan Rosario MD 4921 [facility] [address] [place] [address] PCP - General 11/12/16 10/08/24 Daphne Wise NP 2122 [facility] 130 [place] [address] PCP - General Family Medicine 10/09/24 Brenda Cueto NP [address] [facility] [address] [place] [address] Nurse Practitioner Hematology 09/23/20 Sonja Ball DPT 4444 [facility] [address] [place] [address] Physical Therapist Physical Therapy 09/24/21 11/25/22 Gerry Vaughn MD [address] [facility] [address] [place] [address] Surgeon Ophthalmology 09/24/22 Roxann Galeana MD [address] [facility] [address] DIV [place] [address] Consulting Physician Gastroenterology 10/09/24 July Hartman MD PhD [address] [place] [address] Consulting Physician Anesthesiology 10/09/24 documented as of this encounter
--- OUTSIDE RECORDS SUMMARY | 2025-03-27 22:38 | XMS_ITS | Encounter Summary ---
Author Organization [facility] Address [address] [facility] [address] [place] [address] Phone Care Team Providers Care Mountain Or Glacier Guide Name Role Phone Wan Rosario MD Primary Care Provider [phone] Brenda Cueto SIGN INSTALLER Unavailable [phone] Sonja Ball DPT Unavailable Gerry Vaughn MD Unavailable [phone] Daphne Wise NP Primary Care Provider [phone] Roxann Galeana MD Unavailable [phone] July Hartman MD PhD Unavailable [phone] Encounter Details Date Type Department Care Team [...] on file Legal Sex Female 12:29 PM CENTER DIRECTOR Gender Identity Female 11/13/2020 10:00 PM CDT [...] documented as of this encounter Care Teams Mountain Or Glacier Guide Relationship Specialty Start Date End Date Wan Rsoario MD 49[address] [facility] [address] [place] [address] PCP - General 11/12/16 10/08/24 Daphne Wise NP 2[address] [facility] [address] [place] [address] PCP - General Family Medicine 10/09/24 Brenda Cueto NP [address] [place] [address] Nurse Practitioner Hematology 09/23/20 Sonja Ball DPT [address] [place] [address] Physical Therapist Physical Therapy 09/24/21 11/25/22 Gerry Vaughn MD [address] DEPT OPHTHALMOLOGY, [address] [place] [address] Surgeon Ophthalmology 09/24/22 Roxann Galeana MD 1 [facility] [address] [place] [address] Consulting Physician Gastroenterology 10/09/24 July Hartman MD PhD [address] [place] [address] Consulting Physician Anesthesiology 10/09/24 documented as of this encounter
--- OUTSIDE RECORDS SUMMARY | 2025-03-27 22:38 | XMS_ITS | Encounter Summary ---
Author Organization [facility] Address [address] [facility] [address] [place] [address] Phone Care Team Providers Care Vision Rehabilitation Therapist Name Role Phone Wan Rosario MD Primary Care Provider [phone] Brenda Cueto TRANSPORT MANAGER Unavailable [phone] Sonja Ball DPT Unavailable Gerry Vaughn MD Unavailable [phone] Daphne Wise NP Primary Care Provider [phone] Roxann Galeana MD Unavailable [phone] July Hartman MD PhD Unavailable [phone] Encounter Details Date Type Department Care Team [...] on file Legal Sex Female 12:29 PM TERADATA SOLUTION ARCHITECT Gender Identity Female 11/13/2020 10:00 PM CDT [...] documented as of this encounter Care Teams Vision Rehabilitation Therapist Relationship Specialty Start Date End Date Wan Rosario MD 49[address] [facility] [address] [place] [address] PCP - General 11/12/16 10/08/24 Daphne Wise NP 2[address] [facility] [address] [place] [address] PCP - General Family Medicine 10/09/24 Brenda Cueto NP [address] [place] [address] Nurse Practitioner Hematology 09/23/20 Sonja Ball DPT [address] [place] [address] Physical Therapist Physical Therapy 09/24/21 11/25/22 Gerry Vaughn MD [address] DEPT OPHTHALMOLOGY, [address] [place] [address] Surgeon Ophthalmology 09/24/22 Roxann Galeana MD 1 [facility] [address] [place] [address] Consulting Physician Gastroenterology 10/09/24 July Hartman MD PhD [address] [place] [address] Consulting Physician Anesthesiology 10/09/24 documented as of this encounter
--- OUTSIDE RECORDS SUMMARY | 2025-03-27 22:38 | XMS_ITS | Encounter Summary ---
Author Organization [facility] School of [facility] Address [address] [facility] [address] [place] [address] Phone Care Team Providers Care Waxer Floor Name Role Phone Wan Rosario MD Primary Care Provider Brenda Cueto CLEAN RICE BROKER Unavailable [phone] Sonja Ball DPT Unavailable Gerry Vaughn MD Unavailable [phone] Daphne Wise NP Primary Care Provider [phone] Roxann Galeana MD Unavailable [phone] July Hartman MD PhD Unavailable [phone] Encounter Details Date Type Department Care Team [...] on file Legal Sex Female 12:29 PM RESERVE OPERATOR Gender Identity Female 11/13/2020 10:00 PM [...] documented as of this encounter Care Teams Waxer Floor Relationship Specialty Start Date End Date Wan Rosario MD [address] [facility] [address] [place] [address] PCP - General 11/12/16 10/08/24 Daphne Wise NP 2 [facility] [address] [place] [address] PCP - General Family Medicine 10/09/24 Brenda Cueto NP [address] [place] [address] Nurse Practitioner Hematology 09/23/20 Sonja Ball DPT [address] [place] [address] Physical Therapist Physical Therapy 09/24/21 11/25/22 Gerry Vaughn MD [address] DEPT OPHTHALMOLOGY, [address] [place] [address] Surgeon Ophthalmology 09/24/22 Roxann Galeana MD 1 [facility] [address] [place] [address] Consulting Physician Gastroenterology 10/09/24 July Hartman MD PhD [address] [place] [address] Consulting Physician Anesthesiology 10/09/24 documented as of this encounter
--- OUTSIDE RECORDS SUMMARY | 2025-03-27 22:38 | XMS_ITS | Encounter Summary ---
Author Organization [facility] School of [facility] Address [address] [facility] [address] [place] [address] Phone Care Team Providers Care Business Change Manager Name Role Phone Wan Rosario MD Primary Care Provider [phone] Brenda Cueto SCLEROSCOPE TESTER Unavailable [phone] Sonja Ball DPT Unavailable Gerry Vaughn MD Unavailable [phone] Daphne Wise NP Primary Care Provider [phone] Roxann Galeana MD Unavailable [phone] July Hartman MD PhD Unavailable [phone] Encounter Details Date Type Department Care Team [...] on file Legal Sex Female 12:29 PM COMMUNITY ENGAGEMENT REPRESENTATIVE Gender Identity Female 11/13/2020 10:00 PM CDT [...] documented as of this encounter Care Teams Business Change Manager Relationship Specialty Start Date End Date Wan Rosario MD [address] [facility] [address] [place] [address] PCP - General 11/12/16 10/08/24 Daphne Wise NP [address] [facility] [address] [place] [address] PCP - General Family Medicine 10/09/24 Brenda Cueto NP [address] [place] [address] Nurse Practitioner Hematology 09/23/20 Sonja Ball DPT [address] [place] [address] Physical Therapist Physical Therapy 09/24/21 11/25/22 Gerry Vaughn MD [address] DEPT OPHTHALMOLOGY, [address] [place] [address] Surgeon Ophthalmology 09/24/22 Roxann Galeana MD 1 [facility] [address] [place] [address] Consulting Physician Gastroenterology 10/09/24 July Hartman MD PhD [address] [place] [address] Consulting Physician Anesthesiology 10/09/24 documented as of this encounter
--- OUTSIDE RECORDS SUMMARY | 2025-03-27 22:38 | XMS_ITS | Encounter Summary ---
Author Organization [facility] School of [facility] Address [address] [facility] [address] [place] [address] Phone Care Team Providers Care Software Test Technician Name Role Phone Wan Rosario MD Primary Care Provider [phone] Brenda Cueto SILVERWARE CLEANER Unavailable [phone] Sonja Ball DPT Unavailable Gerry Vauhgn MD Unavailable [phone] Daphne Wise NP Primary Care Provider [phone] Roxann Galeana MD Unavailable [phone] July Hartman MD PhD Unavailable [phone] Encounter Details Date Type Department Care Team [...] on file 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 Gender Identity Female 11/13/2020 10:00 PM [...] documented as of this encounter Care Teams Software Test Technician Relationship Specialty Start Date End Date Wan Rosario MD [address] [facility] [address] [place] [address] PCP - General 11/12/16 10/08/24 Daphne Wise NP [address] [facility] [address] [place] [address] PCP - General Family Medicine 10/09/24 Brenda Cueto NP [address] [facility] [address] [place] [address] Nurse Practitioner Hematology 09/23/20 Sonja Ball DPT [address] [facility] [address] [place] [address] Physical Therapist Physical Therapy 09/24/21 11/25/22 Gerry Vaughn MD [address] [facility] [address] [place] [address] Surgeon Ophthalmology 09/24/22 Roxann Galeana MD 1 [facility] [place] [address] Consulting Physician Gastroenterology 10/09/24 July Hartman MD PhD [address] [place] [address] Consulting Physician Anesthesiology 10/09/24 documented as of this encounter
--- OUTSIDE RECORDS SUMMARY | 2025-03-27 22:38 | XMS_ITS | Encounter Summary ---
Author Organization [facility] School of [facility] Address [address] [facility] [address] [place] [address] Phone Care Team Providers Care Burlap Bag Sewer Name Role Phone Wan Rosario MD Primary Care Provider [phone] Brenda Cueto OUTDOOR EDUCATION TEACHER Unavailable [phone] Sonja Ball DPT Unavailable Gerry Vaughn MD Unavailable [phone] Daphne Wise NP Primary Care Provider [phone] Roxann Galeana MD Unavailable July Hartman MD PhD Unavailable [phone] Encounter Details Date Type Department Care Team [...] on file 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 [address] [place] [address] PCP - General Family Medicine 10/09/24 Brenda Cueto NP [address] [place] [address] Nurse Practitioner Hematology 09/23/20 Sonja Ball DPT [address] [place] [address] Physical Therapist Physical Therapy 09/24/21 11/25/22 Gerry Vaughn MD [address] DEPT OPHTHALMOLOGY, [address] [place] [address] Surgeon Ophthalmology 09/24/22 Roxann Galeana MD 1 [facility] [address] [place] [address] Consulting Physician Gastroenterology 10/09/24 July Hartman MD PhD [address] [place] [address] Consulting Physician Anesthesiology 10/09/24 documented as of this encounter
--- OUTSIDE RECORDS SUMMARY | 2025-03-27 22:38 | XMS_ITS | Encounter Summary ---
Author Organization [facility] Address [address] [facility] [address] [place] [address] Phone Care Team Providers Care Accounts Receivable Accountant Name Role Phone Wan Rosario MD Primary Care Provider [phone] Brenda Cueto LITIGATION EXAMINER Unavailable [phone] Sonja Ball DPT Unavailable Gerry Vaughn MD Unavailable [phone] Daphne Wise NP Primary Care Provider [phone] Roxann Galeana MD Unavailable [phone] July Hartman MD PhD Unavailable [phone] Encounter Details Date Type Department Care Team [...] on file 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 Gender Identity Female 11/13/2020 10:00 PM CDT [...] documented as of this encounter Care Teams Accounts Receivable Accountant Relationship Specialty Start Date End Date Wan Rosario MD [address] [facility] [address] [place] [address] PCP - General 11/12/16 10/08/24 Daphne Wise NP 2 [facility] [address] [place] [address] PCP - General Family Medicine 10/09/24 Brenda Cueto NP [address] [place] [address] Nurse Practitioner Hematology 09/23/20 Sonja Ball DPT [address] [place] [address] Physical Therapist Physical Therapy 09/24/21 11/25/22 Gerry Vaughn MD [address] DEPT OPHTHALMOLOGY, [address] [place] [address] Surgeon Ophthalmology 09/24/22 Roxann Galeana MD 1 [facility] [address] [place] [address] Consulting Physician Gastroenterology 10/09/24 July Hartman MD PhD [address] [place] [address] Consulting Physician Anesthesiology 10/09/24 documented as of this encounter
--- OUTSIDE RECORDS SUMMARY | 2025-03-27 22:38 | XMS_ITS | Encounter Summary ---
Author Organization [facility] Address [address] [facility] [address] [place] [address] Phone Care Team Providers Care Strength And Conditioning Coach Name Role Phone Wan Rosario MD Primary Care Provider [phone] Brenda Cueto 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 PERSONAL ASSISTANT Unavailable [phone] Sonja Ball DPT Unavailable Gerry Vaughn MD Unavailable [phone] Daphne Wise NP Primary Care Provider [phone] Roxann Galeana MD Unavailable [phone] July Hartman MD PhD Unavailable [phone] Encounter Details Date Type Department Care Team [...] on file 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 Gender Identity Female 11/13/2020 10:00 PM CDT [...] documented as of this encounter Care Teams Strength And Conditioning Coach Relationship Specialty Start Date End Date Wan Rosario MD [address] [facility] [address] [place] [address] PCP - General 11/12/16 10/08/24 Daphne Wise NP [address] [facility] [address] [place] [address] PCP - General Family Medicine 10/09/24 Brenda Cueto NP [address] [place] [address] Nurse Practitioner Hematology 09/23/20 Sonja Ball DPT [address] [place] [address] Physical Therapist Physical Therapy 09/24/21 11/25/22 Gerry Vauhgn MD [address] DEPT OPHTHALMOLOGY, [address] [place] [address] Surgeon Ophthalmology 09/24/22 Roxann Galeana MD 1 [facility] [address] DIV [place] [address] Consulting Physician Gastroenterology 10/09/24 July Hartman MD PhD [address] [place] [address] Consulting Physician Anesthesiology 10/09/24 documented as of this encounter
--- OUTSIDE RECORDS SUMMARY | 2025-03-27 22:38 | XMS_ITS | Encounter Summary ---
Author Organization [facility] School of [facility] Address [address] 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 Gender Identity Female 11/13/2020 10:00 PM CDT [...] documented as of this encounter Care Teams Bioinformatics Assistant Relationship Specialty Start Date End Date Wan Rosario MD 49[address] [facility] [address] [place] [address] PCP - General 11/12/16 10/08/24 Daphne Wise NP [address] [facility] [address] [place] [address] PCP - General Family Medicine 10/09/24 Brenda Cueto NP [address] [place] [address] Nurse Practitioner Hematology 09/23/20 Sonja Ball DPT [address] [place] [address] Physical Therapist Physical Therapy 09/24/21 11/25/22 Gerry Vaughn MD [address] DEPT OPHTHALMOLOGY, [address] [place] [address] Surgeon Ophthalmology 09/24/22 Roxann Galeana MD 1 [facility] [address] DIV IM GASTRO[place] [address] Consulting Physician Gastroenterology 10/09/24 July Hartman MD PhD [address] [place] [address] Consulting Physician Anesthesiology 10/09/24 documented as of this encounter
--- OUTSIDE RECORDS SUMMARY | 2025-03-27 22:38 | XMS_ITS | Encounter Summary ---
Author Organization [facility] Address [address] [facility] [address] [place] [address] Phone Care Team Providers Care Storage Manager Name Role Phone Wan Rosario MD Primary Care Provider [phone] Brenda Cueto LNA Unavailable [phone] Sonja Ball DPT Unavailable Gerry Vaughn MD Unavailable [phone] Daphne Wise NP Primary Care Provider [phone] Roxann Galeana MD Unavailable [phone] July Hartman MD PhD Unavailable [phone] Encounter Details Date Type Department Care Team [...] on file 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 Gender Identity Female 11/13/2020 10:00 PM [...] documented as of this encounter Care Teams Storage Manager Relationship Specialty Start Date End Date Wan Rosario MD [address] [facility] [address] [place] [address] PCP - General 11/12/16 10/08/24 Daphne Wise NP [address] [facility] [address] [place] [address] PCP - General Family Medicine 10/09/24 Brenda Cueto, KITTY [address] [place], [place] [address] Nurse Practitioner Hematology 09/23/20 Sonja Ball DPT [address] [place] [address] Physical Therapist Physical Therapy 09/24/21 11/25/22 Gerry Vaughn MD [address] DEPT OPHTHALMOLOGY, [address] [address] Surgeon Ophthalmology 09/24/22 Roxann Galeana MD 1 [facility] [address] DIV IM GASTROENTEROLOGY [place] [address] Consulting Physician Gastroenterology 10/09/24 July Hartman MD PhD [address] [place], [place] [address] Consulting Physician Anesthesiology 10/09/24 documented as of this encounter
--- OUTSIDE RECORDS SUMMARY | 2025-03-27 22:38 | XMS_ITS | Encounter Summary ---
Author Organization [facility] Address [address] [facility] [address] [place] [address] Phone Care Team Providers Care Retail Seasonal Specialist Name Role Phone Wan Rosario MD Primary Care Provider [phone] Brenda Cueto VENDING ROUTE DRIVER Unavailable [phone] Sonja Ball DPT Unavailable Gerry Vaughn MD Unavailable [phone] Daphne Wise NP Primary Care Provider Roxann Galeana MD Unavailable [phone] July Hartman MD PhD Unavailable [phone] Encounter Details Date Type Department Care Team [...] on file 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 Gender Identity Female 11/13/2020 10:00 PM [...] documented as of this encounter Care Teams Retail Seasonal Specialist Relationship Specialty Start Date End Date Wan Rosario MD 49[address] [facility] [address] [place] [address] PCP - General 11/12/16 10/08/24 Daphne Wise NP [address] [facility] [address] [place] [address] PCP - General Family Medicine 10/09/24 Brenda Cueto NP [address] [place] [address] Nurse Practitioner Hematology 09/23/20 Sonja Ball DPT [address] [place] [address] Physical Therapist Physical Therapy 09/24/21 11/25/22 Gerry Vaughn MD [address] DEPT OPHTHALMOLOGY, [address] [place] [address] Surgeon Ophthalmology 09/24/22 Roxann Galeana MD 1 [facility] [address] [place] [address] Consulting Physician Gastroenterology 10/09/24 July Hartman MD PhD [address] [place] [address] Consulting Physician Anesthesiology 10/09/24 documented as of this encounter
--- OUTSIDE RECORDS SUMMARY | 2025-03-27 22:38 | XMS_ITS | Clinical Summary ---
Author Organization [facility] Address [address] [place] [address] Care Team Providers Care Station Usher Name Role Phone Brenda Cueto NP Unavailable [phone] Gerry Vaughn MD Unavailable [phone] Daphne Wise NP Primary Care Provider [phone] Roxann Galeana MD Unavailable July Hartman MD PhD Unavailable [phone] Allergies Active Allergy Reactions Criticality Noted Date Comments Amoxicillin-Pot Clavulanate Hives Medium Celecoxib Hives,Rash Medium 04/20/2023 Cephalexin Hives Medium Diphenhydramine Hives,Rash,Redness Medium 07/25/2024 Doxycycline Hives,Rash,Redness Medium 07/24/2024 Opioids - Morphine Analogues Hives,Vomiting Medium Penicillin G Hives Medium 09/10/2022 Sulfa (Sulfonamide Antibiotics) Hives Medium 11/02/2013 Tissue Adhesive Blisters High 12/27/2019 Vancomycin Rash Medium 08/09/2024 Medications acetaminophen (TYLENOL EXTRA STRENGTH) 500 mg tablet take 2 tablet by oral route every 6 hours as needed 0 0 07/06/20 13 Active cyanocobalamin (Vitamin B-12) 500 mcg tabletIndicatio ns:Prevention of Vitamin B12 Deficiency Take 1 tablet (500 mcg total) by mouth every morning 09/09/19 18 Active cholecalciferol (Vitamin D3) 2000 unit capsule Take 1 capsule (2,000 Units total) by mouth daily 90 capsule 1 10/03/19 20 Active Additional Information Patient taking differently:2,000 Units oralEvery morning, 34003 unit once a week, 2000 unit daily, Indications: Vitamin D Deficiency, Reported on 01/08/2025 ascorbic acid (VITAMIN C) 1,000 mg tabletIndicatio ns:Vitamin C Deficiency Take 1 tablet (1,000 mg total) by mouth every morning Active nystatin-triamc inolone ointmentIndicat ions:cutaneous candidiasis Apply 1 application topically as needed Active walker misc 1 each daily Wheeled walker for gait instability and falls 1 each 09/28/19 22 Active PreviDent 5000 Booster Plus 1.1 % paste BRUSH TEETH ONCE EVERY DAY BEFORE BEDTIME 03/11/20 22 Active loperamide (IMODIUM) 2 mg capsuleIndicati ons:diarrhea Take 2 capsules (4 mg total) by mouth 4 (four) times a day as needed for diarrhea Active fluticasone propionate (FLONASE) 50 mcg/actuation nasal spray USE 2 SPRAYS IN EACH NOSTRIL DAILY 16 g 11 05/27/20 22 Active furosemide (LASIX) 20 mg tablet TAKE 1 TABLET DAILY NEEDED FOR EDEMA 90 tablet 1 12/24/19 23 Active multivitamin (Daily-Mayco) tablet Take 1 tablet by mouth 2 (two) times a day 60 tablet 04/19/[address] (NexIUM) 40 mg capsuleIndicati ons:Gastroesoph ageal reflux disease without esophagitis Take 1 capsule (40 mg total) by mouth 2 (two) times a day before breakfast and dinner 180 capsule 3 05/04/20 23 Active diclofenac sodium 1.5 % drops Apply 2 drops topically 4 (four) times a day 150 mL 11 07/04/20 23 Active trospium (SANCTURA) 20 mg tabletIndicatio ns:Overactive bladder Take 1 tablet (20 mg total) by mouth 2 (two) times a day 180 tablet 3 01/30/20 24 Active ergocalciferol (VITAMIN D) 50,000 unit capsuleIndicati ons:Vitamin D deficiency TAKE 1 CAPSULE ONCE WEEKLY (TAKING BOTH D2 AND D3) 12 capsule 3 02/17/20 24 Active olmesartan (BENICAR) 40 mg tablet TAKE 1 TABLET DAILY (REPLACES LISINOPRIL) 90 tablet 3 07/30/20 24 Active gabapentin (NEURONTIN) 600 mg tabletIndicatio ns:Chronic pain of both knees,Neuralgia Take 1 tablet (600 mg total) by [...] daily 90 tablet 3 01/01/20 25 Active Eliquis 5 mg tabletIndicatio ns:Current use of nursing home anticoagulation ,History of deep venous thrombosis TAKE 1 TABLET(5 MG) BY MOUTH TWICE DAILY 60 tablet 3 01/01/20 25 Active levoFLOXacin (LEVAQUIN) 750 mg tablet Take 1 tablet (750 mg total) by mouth daily Active albuterol HFA (PROVENTIL HFA,VENTOLIN HFA,PROAIR HFA) 90 mcg/actuation inhaler Inhale 2 puffs every 6 (six) hours as needed for wheezing or shortness of breath 1 each 1 01/09/20 25 Active nortriptyline (PAMELOR) 10 mg capsule Take 1 capsule (10 mg total) by mouth nightly 01/09/20 25 Active benzonatate (Tessalon Perles) 100 mg capsule Take 1 capsule (100 mg total) by mouth 3 (three) times a day as needed for cough 20 capsule 01/09/20 25 Active cetirizine (ZyrTEC) 10 mg capsule 10/07/19 25 Active pyridoxine (vitamin B-6) 100 mg tablet 10/07/19 25 Active simethicone (Gas-X Extra Strength) 125 mg capsule 10/07/19 25 Active buPROPion XL (WELLBUTRIN XL) 150 mg 24 hr tablet TAKE 1 TABLET(150 MG) BY MOUTH EVERY MORNING 30 tablet 1 03/15/20 25 Active buPROPion XL (WELLBUTRIN XL) 150 mg 24 hr tablet Take 1 tablet (150 mg total) by mouth every morning 30 tablet 1 01/01/20 25 025 Discontinued Active Problems Problem Noted Date Diagnosed Date Hematoma of left lower extremity 08/09/2024 Pain in both hands 06/13/2023 Assessment & Plan (06/13/2023 9:53 AM CDT): Consistent with OA. Advised voltaren gel;Ortho referral for tendinitis. 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 Betty eFrnandez is a 58 y.o. female, who presents [...] (09/10/2022): Added automatically from request for surgery [id number] Facial nerve spasm 08/31/2022 Dermatochalasis of both [...] Urology. Assessment & Plan (10/09/2024 12:32 PM HEALTH PRACTICE MANAGER): Continues Tolterodine. Assessment & Plan (05/28/2022 9:02 AM CDT): Stop tolterodine due to side effects. Start Myrbetriq. Prediabetes 05/07/2022 Assessment & Plan (09/27/2022 9:20 AM HEALTH PRACTICE MANAGER): Labs. Reviewed most recent labs available. Continue [...] w/r/t gut microbiome. Referred to ADA and [facility] websites for additional information on topics including [...] 2021 Assessment & Plan (09/29/2021 8:53 AM HEALTH PRACTICE MANAGER): ADL being met / NVS, monitor. RTC 1 Year or PRN with visual acuity (VA) changes Meibomian gland dysfunction (MGD) of both eyes 0 09/29/2021 Assessment & Plan (09/29/2021 8:54 AM HEALTH PRACTICE MANAGER): With significant debris in tear film PFATs [...] seizures. Assessment & Plan (10/09/2024 12:32 PM HEALTH PRACTICE MANAGER): Stable on Lexapro Assessment & Plan (03/31/2020 8:14 AM CDT): Start escitalopram. Neuralgia - Bilateral 12/27/2019 Chronic pain of both knees 12/27/2019 Assessment & Plan (10/09/2024 12:34 PM HEALTH PRACTICE MANAGER): Patient on Gabapentin through Pain Management--sees them for injections. Knees flared up and painful from recent fall. Pt takes Tylenol prn, unable to take NSAIDS d/t Eliquis and Gastic Sleeve hx, will give Medrol Pack for inflammation from injury Presbyopia of both eyes 09/26/2019 Vitamin D deficiency 06/21/2018 Assessment & Plan (06/21/2018 8:33 AM HEALTH PRACTICE MANAGER): Continue Vitamin D. Class 3 severe obesity with body mass index (BMI) of 45.0 to 49.9 in adult 03/31/2018 Assessment & Plan (12/31/2024 9:42 AM CDT): Healthy, low carbohydrate lifestyle and exercise for 150min/week recommended Assessment & Plan (10/09/2024 12:31 PM HEALTH PRACTICE MANAGER): Healthy, low carbohydrate lifestyle and exercise for 150min/week recommended Assessment & Plan (09/27/2022 9:21 AM HEALTH PRACTICE MANAGER): Obesity is improving..Commended on weight loss to [...] restrictions. Assessment & Plan (09/27/2018 8:11 AM HEALTH PRACTICE MANAGER): BMI is more than 40, reviewed calorie restrictions. Assessment & Plan (06/21/2018 8:29 AM HEALTH PRACTICE MANAGER): BMI is more than 40, reviewed calorie restrictions. Assessment & Plan (03/31/2018 1:56 PM CDT): BMI is more than 40, reviewed calorie restrictions. Current use of nursing home anticoagulation 018 History of gastric bypass 09/01/2017 Assessment & Plan (09/01/2017 7:37 AM HEALTH PRACTICE MANAGER): Patient tolerated procedure. Release back to work. History of deep venous thrombosis 06/27/2017 Assessment & Plan (12/31/2024 9:41 AM CDT): Pt scheduled for repeat US 01/01. Suspect the knee pain is musculoskeletal related. Assessment & Plan (10/09/2024 11:07 AM HEALTH PRACTICE MANAGER): First DVT 2007, still got DVT's despite anti-coagulation. Was recently switched from Coumadin to Eliquis 07/2024. Follows with Hematology. Lichen simplex chronicus 12/13/2016 Gastroesophageal reflux disease 11/24/2016 Assessment & Plan (08/09/2024 3:11 PM HEALTH PRACTICE MANAGER): Reviewed dietary modifications. Continue PPI. Assessment & [...] . Assessment & Plan (06/21/2018 6:46 AM HEALTH PRACTICE MANAGER): Reviewed dietary modifications. Continue PPI. Assessment & Plan (12/06/2017 12:47 PM CDT): Reviewed dietary modifications. Continue PPI. Assessment & Plan (09/01/2017 11:22 AM HEALTH PRACTICE MANAGER): Worsening symptoms. . Start pantoprazole. Sensorineural hearing [...] 130. Assessment & Plan (06/21/2018 6:47 AM HEALTH PRACTICE MANAGER): Last LDL elevated at 136. Reviewed diet and exercise goals. Phlebitis of deep vein of lower extremity 2013 Overview (11/19/2016): DEEP PHLEBITIS-LEG NEC Assessment & Plan (03/31/2020 6:42 AM CDT): Continue Coumadin and Hematology care. Assessment & Plan (06/21/2018 6:46 AM HEALTH PRACTICE MANAGER): Continue Coumadin and Hemayology care. Assessment & Plan (03/31/2018 11:50 AM CDT): Continue coumadin and follow with Coumadin clinic. Goal INR 2.5 to 3.5 noted. Assessment & Plan (12/06/2017 12:46 PM CDT): Continue coumadin. Assessment & Plan (09/01/2017 7:36 AM HEALTH PRACTICE MANAGER): Continue coumadin. Recent INR at goal. Assessment & Plan (04/27/2017 7:30 AM CDT): Continue coumadin. Essential hypertension 07/31/2013 Assessment & Plan (10/09/2024 12:31 PM HEALTH PRACTICE MANAGER): BP stable in office, continues Olmesartan 40 mg. Assessment & Plan (08/09/2024 3:27 PM HEALTH PRACTICE MANAGER): Blood pressure is not controlled. Resume olmesartan. [...] regimen. Assessment & Plan (09/01/2017 7:36 AM HEALTH PRACTICE MANAGER): Hypertension is controlled. Continue current regimen. Assessment [...] 08/09/2024 Assessment & Plan (08/09/2024 3:20 PM HEALTH PRACTICE MANAGER): S/P antibiotics and debridement. She is off antibiotics. Follow with Surgery. Continue home wound care. Chronic pain of both knees 05/04/2024 0 10/09/2024 Alkaline phosphatase elevation 05/03/2024 10/09/2024 Abscess of left earlobe 04/25/202409/16 Assessment & Plan (04/25/2024 9:04 AM CDT): Monitor response to doxycycline. Advised warm compresses. Weight loss counseling, encounter for 05/07/2022 10/09/2024 Assessment & Plan (09/27/2022 9:19 AM HEALTH PRACTICE MANAGER): Reviewed calorie restriction based on BMR as [...] tolterodine. Assessment & Plan (09/29/2021 8:54 AM HEALTH PRACTICE MANAGER): DFE today, WNL both eyes (OU) New [...] hypertension. Assessment & Plan (10/02/2019 8:30 AM HEALTH PRACTICE MANAGER): Reviewed diet and exercise goals. Await Annual labs. Reviewed immunization and screening status. Reviewed dietary modifications. Continue PPI. Order EGD as symptoms are uncontrolled. Continue sumatriptan for migraine headaches. Continue coumadin for DVT. Continue B12 and vitamin d. Advised colonoscopy and mammogram. Order knee XRAY and anticipate Ortho referral. Start lisinopril for hypertension. Assessment & Plan (09/27/2018 8:08 AM HEALTH PRACTICE MANAGER): Reviewed diet and exercise goals. Await Annual [...] restriction. Assessment & Plan (09/01/2017 7:37 AM HEALTH PRACTICE MANAGER): S/P gastric bypass. Reviewed calorie restriction. Assessment [...] Encounters Date Type Department Care Team Description 03/04/2025 11:15 AM CDT Office Visit [facility] Hematology [address] [place] [phone] Taryn Eller MD History of deep venous thrombosis (Primary Dx); Current use of manager long term care anticoagulation 03/04/2025 10:30 AM CDT Lab [facility] - Lab Collection [address] [place] [address] [address] [place] [address] History of deep venous thrombosis 03/04/2025 10:15 AM CDT Lab [facility] Oncology Lab [address] [place] [phone] Current use of manager long term care anticoagulation; History of deep venous thrombosis 01/08/2025 1:00 PM CDT Office Visit [facility] Primary Care at [address] [phone] Daphne Wise, SPECIAL NEEDS BABYSITTER Pneumonia of right lower lobe due to infectious organism (Primary Dx) 01/03/2025 Telephone [facility] at [address] [phone] Daphne Wise, SPECIAL NEEDS BABYSITTER EMORY Questions 01/02/2025 Telephone [facility] Primary Care at [address] [phone] Phil Wisen, SPECIAL NEEDS BABYSITTER Medical Question/Miscellaneous 01/01/2025 Nurse Triage [facility] Primary Care at [address] [phone] Daphne Wise, SPECIAL NEEDS BABYSITTER Chronic cough (Primary Dx) 01/01/2025 Telephone [facility] Primary Care at [address] [phone] Daphne Wise, SPECIAL NEEDS BABYSITTER Medical Question/Miscellaneous 12/31/2024 10:00 AM CDT Ancillary Procedure [facility] Imaging at [address] [phone] 12/31/2024 8:30 AM CDT Office Visit [facility] Primary Care at [address] [phone] Daphne Wise, SPECIAL NEEDS BABYSITTER Overactive bladder (Primary Dx); Chronic cough; Chronic pain of right knee; Recurrent major depressive disorder, in partial remission; History of deep venous thrombosis; RAFI-inhibitor cough; Class 3 severe obesity with body mass index (BMI) of 45.0 to 49.9 in adult 12/31/2024 Orders Only [facility] Gastroenterology [address] [facility] 12th [place] [address] [place] [address] Hanna Alvarenga LPN Elevated serum GGT level (Primary Dx); Elevated alkaline phosphatase level; Abnormal finding on GI tract imaging 12/31/2024 Results Follow-Up [facility] Care at [address] [phone] Daphne Wise, SPECIAL NEEDS BABYSITTER XR Knee Right 4+ Vw 12/27/2024 Orders Only [facility] Hematology [address] [facility] [address] [place] [address] Gege Zamora, ARELY History of deep venous thrombosis (Primary Dx); Right leg pain from Last 3 Months Immunizations Immunization Administration Dates Next Due COVID-19 mRNA (PFIZER) 0.3 m L (30 mcg) vaccine (12 years and up) 05/22/2023 Flucelvax Influenza Quad 06/05/2024 IPV 06/08/2017,06/08/2017 Influenza, Quadrivalent, Spl it, Pediatric, Preservative Free, Intramuscular 05/11/2022 Influenza, Quadrivalent, Spl it, Preservative Free, Intradermal 06/08/2016 Influenza, Quadrivalent, Spl it, Preservative Free, Intramuscular 05/07/2023,05/15/2015 Influenza, Trivalent, IM (MDV) 05/21/2021,2012 Influenza, Trivalent, Split, Preservative Free, Intradermal 05/15/2014 Influenza, Unspecified 05/06/2022,2020,05/27/2020,05/21,05/17/2018 MMR 12/13/1995,12/13/1995 ReferralCandy SARS-CoV-2 Monovalent Vaccination (12+ Yrs) [place]-READY TO [...] Date Comments Osteoarthritis DVT (deep venous thrombosis) rec urrent Strickland's palsy Joint pain HTN (hypertension) Migraines [...] Maternal Grandmother Zarina Lara Breast cancer Mother Gricelda Alfonso Coronary artery disease Mother Gricelda Alfonso Depression Mother Gricelda Alfonso Diabetes Mother Gricelda Alfonso Drug abuse Mother Gricelda Alfonso Hypertension Mother Gricelda Alfonso Mental illness Mother Gricelda Alfonso Stroke Mother Gricelda Alfonso Cancer Paternal Grandfather Oliverio Alfonso Obesity [...] Date Smoking Tobacco: Never Smokeless Tobacco: Never Tobacco Cessation:Counseling Given: Not Answered Comments:smoked for 1 year at 16, not since then Alcohol Use Standard [...] points, staff should administer the PHQ-9) 0 01/08/2025 Personal Safety Answer Date Recorded Have you ever been in or are you currently in a harmful physical or emotional relationship or is someone making you feel afraid or unsafe? 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 [employer] Not on file Not on file Not on file Obstetrics History Last Filed Vital Signs Vital Sign Reading Time Taken Comments Blood Pressure 118/71 03/04/2025 10:53 AM CDT Pulse 88 03/04/2025 10:53 AM CDT Temperature 36.4 C (97.5 F) 03/04/2025 10:53 AM CDT Respiratory Rate 18 03/04/2025 10:5 3 AM CDT Oxygen Saturation 95% 03/04/2025 10: 53 AM CDT Inhaled Oxygen Concentration - - Weight 131.8 kg (290 lb 9.6 oz) 025 10:53 AM CDT Height 168.3 cm (5' 6.26) 03/04/2025 1 0:53 AM CDT Body Mass Index 46.54 03/04/2025 10:53 AM CDT Plan of Treatment Scheduled Procedures Name Priority Associated Diagnoses Date/Ti me ESOPHAGOGASTRODUODENOSCOPY Gastroesophageal reflux disease, esophagitis presence not specified COLONOSCOPY Colon cancer screening Gastroesophageal reflux disease, esophagitis presence not specified Health Maintenance Due Date Last Done Comments Cervical Cancer Screening 1965 Hepatitis C Screening 1965 Hepatitis B Screening 02/15/1982 Breast Cancer Screening-Mammogram 07/11/2023 07/11/2022, 07/09/2022 Covid-19 Vaccine ( season) 2024 06/05/2024, 05/22/2023, 04/02/2022, Additional history exists Regular Well Visit/Exam 18-64 01/02/2025 01/03/2024, 01/03/2024, 12/03/2022, Additional history exists Influenza Vaccine (#1) 2025 , 05/07/2023, 05/11/2022, Additional history exists Depression Screening 01/08/2026 01/08/2025, 12/31/2024, 10/09/2024, Additional history exists Colon Cancer Screening-DNA Stool 08/15/2029 03/24/2020, 03/24/2020 Postponed from 03/24/2023 (Provider's clinical decision) DTaP/Tdap/Td Vaccine (2 - Td or Tdap) 11/28/2031 11/27/2021, 12/13/1995, 12/13/1995 Zoster Vaccine Completed 03/05/2024, 01/03/2024 Pneumococcal vaccine <65 Aged Out No longer [...] Procedure Name Priority Date/Time Associated Diagnosis Comments EGFR Routine 03/04/2025 10:43 AM CDT History of deep venous thrombosis DIFFERENTIAL AUTO Routine 03/04/2025 10: 43 AM CDT History of deep venous thrombosis COMPREHENSIVE METABOLIC PANEL Routine 03/04/2025 10:43 AM CDT History of deep venous thrombosis CBC WITH AUTO DIFFERENTIAL Routine 03/04/2025 10:43 AM CDT History of deep venous thrombosis XR KNEE RIGHT 4 OR MORE VIEWS Schedule Routine, Read Routine (OP Routine) 12/31/2024 9:45 AM CDT Chronic pain of right knee HM MAMMOGRAPHY Routine 07/09/2022 COLONOSCOPY 03/24/2020 1:56 PM CDT from Last 3 Months or Most Recently Relevant to Health Maintenance Results * (ABNORMAL) eGFR (03/04/2025 10:43 AM CDT) eGFR 57(L) >=60 mL/min/1. 73 m2 Comment: Interpretive Data [...] interpretive data was last reviewed 2021. Blood 03/04/2025 10:4 3 AM CDT 03/04/2025 10:56 AM CDT us Taryn Eller MD LAB BLOOD ORDERABLES Final Result DOLLY MORENO [facility] Department of [place] [address] * Differential, auto (03/04/2025 10:43 AM CDT) Pathologist [facility] Neutrophil abs 3.18 1.50 - 6.50 K/cumm Comment:Testing performed by : [facility], [address] [place] [phone] Lymphocyte abs 1.17 0.80 - 3.30 K/cumm DOLLY MORENO Comment:Testing performed by : [facility], [address] [place] [phone] Monocyte abs 0.66 0.20 - 0.80 K/cumm DOLLY MORENO Comment:Testing performed by : [facility], [address] [place] [phone] Eosinophil abs 0.36 0.00 - 0.50 K/cumm CERNER [facility] Comment:Testing performed by : [facility], [address] [place] [phone] Basophil abs 0.06 0.00 - 0.10 K/cumm C[facility]ER [facility] Comment:Testing performed by : [facility], [address] [place] [phone] Neutrophil pct 58.6 % CERNER [facility] Comment: Interpretive Data Percent cell count reference ranges are not reported, since discordance with absolute values may lead to misinterpretation of CBC data. Current Interpretive Data was last revised on 2017. Testing performed by: [facility], [address] [place] [address] Lymphocyte pct 21.6 % CERNER [facility] Comment: Interpretive Data Percent cell count reference ranges are not reported, since discordance with absolute values may lead to misinterpretation of CBC data. Current Interpretive Data was last revised on 2017. Testing performed by: [facility], [address] [place], [place] [id number] Monocyte pct 12.2 % CERNER [facility] Comment: Interpretive Data Percent cell count reference ranges are not reported, since discordance with absolute values may lead to misinterpretation of CBC data. Current Interpretive Data was last revised on 2017. Testing performed by: [facility], [address] [place], [place] [id number] Eosinophil pct 6.6 % CERNER [facility] Comment: Interpretive Data Percent cell count reference ranges are not reported, since discordance with absolute values may lead to misinterpretation of CBC data. Current Interpretive Data was last revised on 2017. Testing performed by: [facility], [address] [place] [phone] Basophil pct 1.1 % CERNER [facility] Comment: Interpretive Data Percent cell count reference ranges are not reported, since discordance with absolute values may lead to misinterpretation of CBC data. Current Interpretive Data was last revised on 2017. Testing performed by: [facility], [address] [place] [phone] Blood 03/04/2025 10:4 3 AM CDT 03/04/2025 10:53 AM CDT Taryn Eller MD LAB BLOOD ORDERABLES Final Result DOLLY MORENO [facility] Department [place] [address] * CBC with auto differential (03/04/2025 10:43 AM CDT) WBC 5.44 3.80 - 9.90 K/cumm Comment:Testing performed by : [facility], [address] [place] [address] Hgb 13.8 11.9 - 15.5 g/dL CERYUMIKO MORENO Comment:Testing performed by : [facility], [address] [place] [address] Hct 41.3 35.6 - 45.5 % CERYUMIKO BJ Comment:Testing performed by : [facility], [address] [place] [address] Plt 217 150 - 400 K/cumm CERYUMIKO BJ Comment:Testing performed by : [facility], [address] [place] [address] MPV 7.4 6.8 - 10.4 fL CERYUMIKO BJ Comment:Testing performed by : [facility], [address] [place] [address] RBC 4.34 3.90 - 5.20 M/cumm CERYUMIKO BJ Comment:Testing performed by : [facility], [address] [place] [address] MCV 95.3 81.3 - 96.4 fL CERYUMIKO BJ Comment:Testing performed by : [facility], [address] [place] [address] MCH 31.9 27.1 - 33.3 pg CERNER [facility]J Comment:Testing performed by : [facility], [address] [place] [address] MCHC 33.4 32.3 - 35.7 g/dL [facility] Comment:Testing performed by : [facility], [address] [place] [phone] RDW CV 14.1 11.1 - 14.9 % [facility] Comment:Testing performed by : [facility], [address] [place] [phone] NRBC abs 0.00 0.00 - 0.01 K/cumm [facility] Comment:Testing performed by : [facility], [address] [place] [phone] Blood 03/04/2025 10:4 3 AM CDT 03/04/2025 10:53 AM CDT Taryn Eller MD LAB BLOOD ORDERABLES Final Result [facility] Department [place] [address] * Comprehensive metabolic panel (03/04/2025 10:43 AM CDT) Sodium 145 135 - 145 mmol/L Potassium, pl 3.6 3.3 - 4.9 mmol/L [facility] Chloride 108 97 - 110 mmol/L [facility] CO2 26 22 - 32 mmol/L [facility] Anion gap 11 2 - 15 mmol/L [facility] BUN 14 6 - 25 mg/dL [facility] Creatinine 1.10 0.60 - 1.10 mg/dL [facility] Glucose 98 70 - 199 mg/dL [facility] Comment: Interpretive Data Fasting glucose >/= 126 [...] interpretive data was last revised 2022. Calcium 9.3 8.5 - 10.3 mg/dL [facility] Bilirubin, total <0.2 0.1 - 1.2 mg/dL [facility] Protein, pl 6.8 6.5 - 8.5 g/dL [facility] Albumin 3.7 3.5 - 5.0 g/dL [facility] Alk phos 128 40 - 130 Units/L [facility] ALT 17 7 - 45 Units/L [facility] AST 19 10 - 45 Units/L [facility] Blood 03/04/2025 10:4 3 AM CDT 03/04/2025 10:56 AM CDT us Taryn Eller MD LAB BLOOD ORDERABLES Final Result [facility] Department [place] [address] * XR Knee Right 4+ Vw (12/31/2024 [...] by Daren Contreras M.D. T: Report ID: [id number] Reading Location: [place] [address] Procedure Note Daren Contreras MD - 12/31/2024 [...] by Daren Contreras M.D. T: Report ID: [id number] Reading Location: [place] [address] Daphen Wise SPECIAL NEEDS BABYSITTER IMG XR PROCEDURES Final Result * HM MAMMOGRAPHY (07/09/2022) Pathologist [facility] Mammography Normal Historical Provider HEALTH MAINTENANCE Final Result * COLONOSCOPY (03/24/2020 1:56 PM CDT) Anatomical Region Laterality Modality Other Narrative Procedure Note Ayaz Mei MD - 03/24/2020 1:56 PM CDT ENDOSCOPY LAB Patient Name: Betty Fernandez Procedure Date: 03/24/2020 1:56 PM Date of : 1965 Admit Type: Outpatient Age: 55 Gender: Female Attending MD: Ayaz Mei M.D. Room: [facility] ENDOSCOPY ROOM 02 Note Status: Finalized [...] Thescope was passed under direct vision. The [id number] introduced through the anus and advanced to the cecum, identified by appendiceal orifice and ileocecal valve.The colonoscopy was performed without difficulty. Thepatient tolerated the procedure well. The quality of the bowel preparation was evaluated using the BBPS ([place] Bowel Preparation Scale) with scores of: Right [...] Most Recently Relevant to Health Maintenance Insurance [facility] [place] H[facility]/PPO Address[place] [address] [facility] HMO/PPO Address: [address] [address] [place] [address] [facility] [place] [facility] HMO/PPO Address: [address] [address] Advance Directives For more information, please contact: [phone] * Full Code (Latest Code Status on File) Date Activated Date Inactivated Comments 03/24/2020 11:16 AM 03/24/2020 8:37 PM Care Teams Station Usher Relationship Specialty Start Date End Date Daphne Wise NP [address] [facility] [address] [place] [address] PCP - General Family Medicine 10/09/24 Brenda Cueto NP [address] [place] [address] Nurse Practitioner Hematology 09/23/20 Gerry Vaughn MD [address] DEPT OPHTHALMOLOGY, [facility] [address] [place] [address] Surgeon Ophthalmology 09/24/22 Roxann Galeana MD 1 [facility] [address] [place] [address] Consulting Physician Gastroenterology 10/09/24 July Hartman MD PhD [address] [place] [address] Consulting Physician Anesthesiology 10/09/24
--- OUTSIDE RECORDS SUMMARY | 2025-03-27 22:38 | XMS_ITS | Encounter Summary ---
Author Organization [facility] Address [address] [facility] [address] [place] [address] Phone Care Team Providers Care Superintendent Custodian Janitor Name Role Phone Wan Rosario MD Primary Care Provider [phone] Brenda Cueto PULLING UNIT OPERATOR Unavailable [phone] Sonja Ball DPT Unavailable Gerry Vaughn MD Unavailable [phone] Daphne Wise NP Primary Care Provider [phone] Roxann Galeana MD Unavailable [phone] July Hartman MD PhD Unavailable [phone] Encounter Details Date Type Department Care Team [...] on file Legal Sex Female 12:29 PM CHIEF ARCHITECT Gender Identity Female 11/13/2020 10:00 PM [...] documented as of this encounter Care Teams Superintendent Custodian Janitor Relationship Specialty Start Date End Date Wan Rosario MD [address] [facility] [address] [place] [address] PCP - General 11/12/16 10/08/24 Daphne Wise NP [address] [facility] [address] [place] [address] PCP - General Family Medicine 10/09/24 Brenda Cueto NP [address] [place] [address] Nurse Practitioner Hematology 09/23/20 Sonja Ball DPT [address] [place] [address] Physical Therapist Physical Therapy 09/24/21 11/25/22 Gerry Vaughn MD [address] DEPT OPHTHALMOLOGY, [address] [place] [address] Surgeon Ophthalmology 09/24/22 Roxann Galeana MD [address] [facility] [address] [place] [address] Consulting Physician Gastroenterology 10/09/24 July Hartman MD PhD [address] [place] [address] Consulting Physician Anesthesiology 10/09/24 documented as of this encounter
--- OUTSIDE RECORDS SUMMARY | 2025-03-27 22:38 | XMS_ITS | Encounter Summary ---
Author Organization [facility] of [facility] Address [address] [facility] [address] [place] [address] Phone Care Team Providers Care Hoop Bending Machine Operator Name Role Phone Wan Rosario MD Primary Care Provider [phone] Brenda Cueto CUP MACHINE OPERATOR Unavailable [phone] Sonja Ball DPT Unavailable Gerry Vaughn MD Unavailable [phone] Daphne Wise NP Primary Care Provider [phone] Roxann Galeana MD Unavailable [phone] July Hartman MD PhD Unavailable [phone] Encounter Details Date Type Department Care Team [...] on file Legal Sex Female 12:29 PM EYELET RIVETER Gender Identity Female 11/13/2020 10:00 PM CDT [...] documented as of this encounter Care Teams Hoop Bending Machine Operator Relationship Specialty Start Date End Date Wan Rosario MD [address] [facility] [address] [place] [address] PCP - General 11/12/16 10/08/24 Daphne Wise NP [address] [facility] [address] [place] [address] PCP - General Family Medicine 10/09/24 Brenda Cueto NP [address] [place] [address] Nurse Practitioner Hematology 09/23/20 Sonja Ball DPT [address] [place] [address] Physical Therapist Physical Therapy 09/24/21 11/25/22 Gerry Vaughn MD [address] DEPT OPHTHALMOLOGY, [address] [place] [address] Surgeon Ophthalmology 09/24/22 Roxann Galeana MD 1 [facility] [address] [address] Consulting Physician Gastroenterology 10/09/24 July Hartmna MD PhD [address] [place] [address] Consulting Physician Anesthesiology 10/09/24 documented as of this encounter
--- OUTSIDE RECORDS SUMMARY | 2025-03-27 22:38 | XMS_ITS | Encounter Summary ---
Author Organization [facility] Address [address] [facility] [address] [place] [address] Phone Care Team Providers Care Health Diagnostics Teacher Name Role Phone Wan Rosario MD Primary Care Provider [phone] Brenda Cueto WIRE SPLICER Unavailable [phone] Sonja Ball DPT Unavailable Gerry Vaughn MD Unavailable [phone] Daphne Wise NP Primary Care Provider [phone] Roxann Galeana MD Unavailable [phone] July Hartman MD PhD Unavailable [phone] Encounter Details Date Type Department Care Team [...] file Legal Sex Female 12:29 PM PSYCHIATRIC TECHNICIAN Gender Identity Female 11/13/2020 10:00 PM [...] documented as of this encounter Care Teams Health Diagnostics Teacher Relationship Specialty Start Date End Date Wan Rosario MD [address] [facility] [address] [place] [address] PCP - General 11/12/16 10/08/24 Daphne Wise NP 2 [facility] [address] [place] [address] PCP - General Family Medicine 10/09/24 Brenda Cueto NP [address] [place] [address] Nurse Practitioner Hematology 09/23/20 Sonja Ball DPT [address] [place] [address] Physical Therapist Physical Therapy 09/24/21 11/25/22 Gerry Vaughn MD [address] DEPT OPHTHALMOLOGY, [address] [place] [address] Surgeon Ophthalmology 09/24/22 Roxann Galeana MD [address] [facility] [address] [place] [address] Consulting Physician Gastroenterology 10/09/24 July Hartman MD PhD [address] [place] [address] Consulting Physician Anesthesiology 10/09/24 documented as of this encounter
--- OUTSIDE RECORDS SUMMARY | 2025-03-27 22:38 | XMS_ITS | Encounter Summary ---
Author Organization [facility] Address [address] [facility] [address] [place] [address] Phone Care Team Providers Care Jute Bag Clipper Name Role Phone Wan Rosario MD Primary Care Provider [phone] Brenda Cueto NP Unavailable [phone] Gerry Vaughn MD Unavailable [phone] Daphne Wise NP Primary Care Provider Roxann Galeana MD Unavailable [phone] July Hartman MD PhD Unavailable [phone] Encounter Details Date Type Department Care Team [...] on file Legal Sex Female 12:29 PM SODA DRIER FEEDER Gender Identity Female 11/13/2020 10:00 PM CDT [...] on filedocumented in this encounter Care Teams Jute Bag Clipper Relationship Specialty Start Date End Date Wan Rosario MD 49[address] [facility] [address] [place] [address] PCP - General 11/12/16 10/08/24 Daphne Wise NP [address] [facility] [address] [place] [address] PCP - General Family Medicine 10/09/24 Brenda Cueto NP [address] [place] [address] Nurse Practitioner Hematology 09/23/20 Gerry Vaughn MD [address] DEPT OPHTHALMOLOGY, [address] [place] [address] Surgeon Ophthalmology 09/24/22 Roxann Galeana MD [address] [facility] [address] [place] [address] Consulting Physician Gastroenterology 10/09/24 July Hartman MD PhD [address] [place] [address] Consulting Physician Anesthesiology 10/09/24 documented as of this encounter
--- OUTSIDE RECORDS SUMMARY | 2025-03-27 22:38 | XMS_ITS | Encounter Summary ---
Author Organization [facility] Address [address] [facility] [address] [place] [address] Phone Care Team Providers Care Utility Sales Representative Name Role Phone Wan Rosario MD Primary Care Provider [phone] Brenda Cueto SAMPLE SHOE INSPECTOR AND REWORKER Unavailable [phone] Sonja Ball DPT Unavailable Gerry Vaughn MD Unavailable [phone] Daphne Wise NP Primary Care Provider [phone] Roxann Galeana MD Unavailable [phone] July Hartman MD PhD Unavailable [phone] Encounter Details Date Type Department Care Team [...] on file Legal Sex Female 12:29 PM SALESPERSON MEN'S HATS Gender Identity Female 11/13/2020 10:00 PM CDT [...] documented as of this encounter Care Teams Utility Sales Representative Relationship Specialty Start Date End Date Wan Rosario MD [address] [facility] [address] [place] [address] PCP - General 11/12/16 10/08/24 Daphne Wise NP [address] [facility] [address] [place] [address] PCP - General Family Medicine 10/09/24 Brenda Cueto NP [address] [place] [address] Nurse Practitioner Hematology 09/23/20 Sonja Ball DPT [address] [place] [address] Physical Therapist Physical Therapy 09/24/21 11/25/22 Gerry Vaughn MD [address] DEPT OPHTHALMOLOGY, [place] [place] [address] Surgeon Ophthalmology 09/24/22 Roxann Galeana MD 1 [facility] [address] [place] [address] Consulting Physician Gastroenterology 10/09/24 July Hartman MD PhD [address] [place] [address] Consulting Physician Anesthesiology 10/09/24 documented as of this encounter
--- OUTSIDE RECORDS SUMMARY | 2025-03-27 22:38 | XMS_ITS | Encounter Summary ---
Author Organization [facility] Address [address] [facility] [address] [place] [address] Phone Care Team Providers Care Cad Intern Name Role Phone Wan Rosario MD Primary Care Provider [phone] Brenda Cueto CUTTER WET MACHINE Unavailable [phone] Sonja Ball DPT Unavailable Gerry Vaughn MD Unavailable [phone] Daphne Wise NP Primary Care Provider [phone] Roxann Galeana MD Unavailable July Hartman MD [...] on file Legal Sex Female 12:29 PM LIFE ENRICHMENT DIRECTOR Gender Identity Female 11/13/2020 10:00 PM [...] documented as of this encounter Care Teams Cad Intern Relationship Specialty Start Date End Date Wan Rosario MD [address] [facility] [address] [place] [address] PCP - General 11/12/16 10/08/24 Daphne Wise NP 2[address] [facility] [address] [place] [address] PCP - General Family Medicine 10/09/24 Brenda Cueto NP [address] [place] [address] Nurse Practitioner Hematology 09/23/20 Sonja Ball DPT [address] [facility] [address] [place] [address] Physical Therapist Physical Therapy 09/24/21 11/25/22 Gerry Vaughn MD [address] DEPT OPHTHALMOLOGY, [address] [place] [address] Surgeon Ophthalmology 09/24/22 Roxann Galeana MD [address] [facility] [address] [place] [address] Consulting Physician Gastroenterology 10/09/24 July Hartman MD PhD [address] [place] [address] Consulting Physician Anesthesiology 10/09/24 documented as of this encounter
--- OUTSIDE RECORDS SUMMARY | 2025-03-27 22:38 | XMS_ITS | Encounter Summary ---
Author Organization [facility] Address [address] [facility] [address] [place] [address] Phone Care Team Providers Care Inspector Heating And Refrigeration Name Role Phone Wan Rosario MD Primary Care Provider [phone] Brenda Cueto FURNITURE ARRANGER Unavailable [phone] Sonja Ball DPT Unavailable Gerry Vaughn MD Unavailable [phone] Daphne Wise NP Primary Care Provider [phone] Roxann Galeana MD Unavailable [phone] July Hartman MD PhD Unavailable [phone] Encounter Details Date Type Department Care Team [...] on file Legal Sex Female 12:29 PM LOCK STITCH CHANNELER Gender Identity Female 11/13/2020 10:00 PM CDT [...] documented as of this encounter Care Teams Inspector Heating And Refrigeration Relationship Specialty Start Date End Date Wan Rosario MD 49[address] [facility] [address] [place] [address] PCP - General 11/12/16 10/08/24 Daphne Wise NP [address] [facility] [address] [place] [address] PCP - General Family Medicine 10/09/24 Brenda Cueto NP [address] [place] [address] Nurse Practitioner Hematology 09/23/20 Sonja [place] DPT [address] [place] [address] Physical Therapist Physical Therapy 09/24/21 11/25/22 Gerry Vaughn MD [address] DEPT OPHTHALMOLOGY, [address] [place] [address] Surgeon Ophthalmology 09/24/22 Roxann Galeana MD 1 [facility] [address] DIV [place] [address] Consulting Physician Gastroenterology 10/09/24 July Hartman MD PhD [address] [place] [address] Consulting Physician Anesthesiology 10/09/24 documented as of this encounter
--- OUTSIDE RECORDS SUMMARY | 2025-03-27 22:38 | XMS_ITS | Encounter Summary ---
Author Organization [facility] Address [address] [facility] [address] [place] [address] Phone Care Team Providers Care Clinical Specialist Medical Device Name Role Phone Wan Rosario MD Primary Care Provider [phone] Brenda Cueto FURNITURE DECALS INSPECTOR Unavailable [phone] Sonja Ball DPT Unavailable Gerry Vaughn MD Unavailable [phone] Daphne Wise NP Primary Care Provider [phone] Roxann Galeana MD Unavailable [phone] July Hartman MD PhD Unavailable [phone] Encounter Details Date Type Department Care Team [...] on file Legal Sex Female 12:29 PM DEVELOPMENT COORDINATOR Gender Identity Female 11/13/2020 10:00 PM [...] documented as of this encounter Care Teams Clinical Specialist Medical Device Relationship Specialty Start Date End Date Wan Rosario MD 4921 [facility] [address] [place] [address] PCP - General 11/12/16 10/08/24 Daphne Wise NP 2[address] [facility] [address] [place] [address] PCP - General Family Medicine 10/09/24 Brenda Cueto NP [address] [place] [address] Nurse Practitioner Hematology 09/23/20 Sonja [place] DPT [address] [place] [address] Physical Therapist Physical Therapy 09/24/21 11/25/22 Gerry Vaughn MD [address] DEPT OPHTHALMOLOGY, [address] [place] [address] Surgeon Ophthalmology 09/24/22 Roxann Galeana MD 1 [facility] [address] [place] [address] Consulting Physician Gastroenterology 10/09/24 July Hartman MD PhD [address] [place] [address] Consulting Physician Anesthesiology 10/09/24 documented as of this encounter
--- OUTSIDE RECORDS SUMMARY | 2025-03-27 22:38 | XMS_ITS | Encounter Summary ---
Author Organization [facility] Address [address] [facility] [address] [place] [address] Phone Care Team Providers Care Face Worker Name Role Phone Wan Rosario MD Primary Care Provider [phone] Brenda Cueto DRAWER IN Unavailable [phone] Sonja Ball DPT Unavailable Gerry Vaughn MD Unavailable [phone] Daphne Wise NP Primary Care Provider [phone] Roxann Galeana MD Unavailable [phone] July Hartman MD PhD Unavailable [phone] Encounter Details Date Type Department Care Team [...] on file Legal Sex Female 12:29 PM GOLF COACH Gender Identity Female 11/13/2020 10:00 PM CDT [...] documented as of this encounter Care Teams Face Worker Relationship Specialty Start Date End Date Wan Rosario MD 49[address] [facility] [address] [place] [address] PCP - General 11/12/16 10/08/24 Daphne Wise NP 2 [facility] [address] [place] [address] PCP - General Family Medicine 10/09/24 Brenda Cueto NP [address] [place] [address] Nurse Practitioner Hematology 09/23/20 Sonja Ball DPT [address] [place] [address] Physical Therapist Physical Therapy 09/24/21 11/25/22 Gerry Vaughn MD [address] DEPT OPHTHALMOLOGY, [address] [place] [address] Surgeon Ophthalmology 09/24/22 Roxann Galeana MD 1 [facility] [address] [place] [address] Consulting Physician Gastroenterology 10/09/24 July Hartman MD PhD [address] [place] [address] Consulting Physician Anesthesiology 10/09/24 documented as of this encounter
--- OUTSIDE RECORDS SUMMARY | 2025-03-27 22:38 | XMS_ITS | Encounter Summary ---
Author Organization [facility] Address [address] [facility] [address] [place] [address] Phone Care Team Providers Care Horse Race Starter Name Role Phone Wan Rosario MD Primary Care Provider [phone] Brenda Cueto LAW LIBRARIAN Unavailable [phone] Sonja Ball DPT Unavailable Gerry Vaughn MD Unavailable Daphne Wise NP Primary Care Provider [phone] Roxann Galeana MD Unavailable [phone] July Hartman MD PhD Unavailable [phone] Encounter Details Date Type Department Care Team [...] on file Legal Sex Female 12:29 PM PANELBOARD ASSEMBLER Gender Identity Female 11/13/2020 10:00 PM [...] Comments VASCULAR LABORATORY REPORT 07/23/2017 10:33 AM PANELBOARD ASSEMBLER documented in this encounter Results * VASCULAR LABORATORY REPORT (07/23/2017 10:33 AM PANELBOARD ASSEMBLER) Anatomical Region Laterality Modality Ultrasound us Provider Scanning CV VASCULAR PROCEDURES Final R esult documented in this encounter Visit Diagnoses Not on filedocumented in this encounter Additional Health Concerns Infection Onset Date Last Indicated Resolved Time COVID: Suspected 11/09/2022 11/09/2022 11/09/2022 9:59 PM CDT documented as of this encounter Care Teams Horse Race Starter Relationship Specialty Start Date End Date Wan Rosario MD 4921 [facility] [address] [place] [address] PCP - General 11/12/16 10/08/24 Daphne Wise NP 2122 [facility] [address] [place], [place] [address] PCP - General Family Medicine 10/09/24 Brenda Cueto NP [address] [place] [address] Nurse Practitioner Hematology 09/23/20 Sonja Ball DPT 4444 [facility] [address] [place] [address] Physical Therapist Physical Therapy 09/24/21 11/25/22 Gerry Vaughn MD [address] DEPT OPHTHALMOLOGY, [facility] [address] [place] [address] Surgeon Ophthalmology 09/24/22 Roxann Galeana MD 1 [facility] [address] [place] [address] Consulting Physician Gastroenterology 10/09/24 July Hartman MD PhD [address] [place] [address] Consulting Physician Anesthesiology 10/09/24 documented as of this encounter
--- OUTSIDE RECORDS SUMMARY | 2025-03-27 22:38 | XMS_ITS | Encounter Summary ---
Author Organization [facility] Address [address] [facility] [address] [place] [address] Phone Care Team Providers Care Workplace Trainer And Assessor Name Role Phone Wan Rosario MD Primary Care Provider Brenda Cueto ACUPUNCTURE PHYSICIAN Unavailable [phone] Sonja Ball DPT Unavailable Gerry Vaughn MD Unavailable [phone] Daphne Wise NP Primary Care Provider [phone] Roxann Galeana MD Unavailable [phone] July Hartman MD PhD Unavailable [phone] Encounter Details Date Type Department Care Team [...] on file Legal Sex Female 12:29 PM VAMPER Gender Identity Female 11/13/2020 10:00 PM CDT [...] documented as of this encounter Care Teams Workplace Trainer And Assessor Relationship Specialty Start Date End Date Wan Rosario MD 4921 [facility] [address] [place] [address] PCP - General 11/12/16 10/08/24 Daphne Wise NP [address] [facility] [address] [place] [address] PCP - General Family Medicine 10/09/24 Brenda Cueto, KITTY [address] [place] [address] Nurse Practitioner Hematology 09/23/20 Sonja Ball DPT [address] [place] [address] Physical Therapist Physical Therapy 09/24/21 11/25/22 Gerry Vaughn MD [address] DEPT OPHTHALMOLOGY, [address] [place] [address] Surgeon Ophthalmology 09/24/22 Roxann Galeana MD 1 [facility] [address] [place] [address] Consulting Physician Gastroenterology 10/09/24 July Hartman MD PhD [address] [place], [place] [address] Consulting Physician Anesthesiology 10/09/24 documented as of this encounter
--- OUTSIDE RECORDS SUMMARY | 2025-03-27 22:38 | XMS_ITS | Encounter Summary ---
Author Organization [facility] Healthcare Address [address] [place] [address] Care Team Providers Care Assistant Cross Country Coach Name Role Phone Wan Rosario MD Primary Care Provider [phone] Brenda Cueto NP Unavailable [phone] Gerry Vaughn MD Unavailable [phone] Daphne Wise NP Primary Care Provider [phone] Roxann Galeana MD Unavailable [phone] July Hartman MD PhD Unavailable [phone] Reason for Visit * Reason Onset Date Comments PMC Preprocedure 05/01/2024 Encounter Details Date Type Department Care Team (Late st Contact Info) Description 05/01/2024 Telephone [facility] [address] [facility] [address] [place] [address] July Hartman MD PhD [address] [facility] [address] [phone] [place] [address] PMC Preprocedure Social History Tobacco [...] file Legal Sex Female 12:29 PM REVENUE OFFICER Gender Identity Female 11/13/2020 10:00 PM CDT Sexual Orientation Straight 11/13/2020 10 :00 PM CDT 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 [employer] Not on file Not on file Not on file documented as of this encounter Functional Status * AUDIT-C Score Answer Date of Assessment Author 1 [...] Scheduled Procedures Name Priority Associated Diagnoses Date/Ti ne ESOPHAGOGASTRODUODENOSCOPY Gastroesophageal reflux disease, esophagitis presence not [...] on filedocumented in this encounter Care Teams Assistant Cross Country Coach Relationship Specialty Start Date End Date Wan Rosario MD [address] [facility] [address] [place] [address] PCP - General 11/12/16 10/08/24 Daphne Wise NP [address] [facility] [address] [place] [address] PCP - General Family Medicine 10/09/24 Brenda Cueto NP [address] [place] [address] Nurse Practitioner Hematology 09/23/20 Gerry Vaughn MD [address] [facility], [facility] [address] [place] [address] Surgeon Ophthalmology 09/24/22 Roxann Galeana MD [address] [facility] [address] [place] [address] Consulting Physician Gastroenterology 10/09/24 July Hartman MD PhD [address] [place] [address] Consulting Physician Anesthesiology 10/09/24 documented as of this encounter
--- OUTSIDE RECORDS SUMMARY | 2025-03-27 22:38 | XMS_ITS | Encounter Summary ---
Author Organization [facility] Address [address] [facility] [address] [place] [address] Phone Care Team Providers Care Folder And Notcher Name Role Phone Wan Rosario MD Primary Care Provider [phone] Brenda Cueto KNITTING TESTER Unavailable [phone] Sonja Ball DPT Unavailable Gerry Vaughn MD Unavailable [phone] Daphne Wise NP Primary Care Provider [phone] Roxann Galeana MD Unavailable [phone] July Hartman MD PhD Unavailable [phone] Encounter Details Date Type Department Care Team [...] on file Legal Sex Female 12:29 PM PAPER CUTTING MACHINE OPERATOR Gender Identity Female 11/13/2020 10:00 [...] documented as of this encounter Care Teams Folder And Notcher Relationship Specialty Start Date End Date Wan Rosario MD 49[address] [facility] [address] [place] [address] PCP - General 11/12/16 10/08/24 Daphne Wise NP [address] [facility] [address] [place] [address] PCP - General Family Medicine 10/09/24 Brenda Cueto NP [address] [place] [address] Nurse Practitioner Hematology 09/23/20 Sonja Ball DPT [address] [place] [address] Physical Therapist Physical Therapy 09/24/21 11/25/22 Gerry Vaughn MD [address] DEPT OPHTHALMOLOGY, [address] [place] [address] Surgeon Ophthalmology 09/24/22 Roxann Galeana MD 1 [facility] [address] [place] [address] Consulting Physician Gastroenterology 10/09/24 July Hartman MD PhD [address] [place] [address] Consulting Physician Anesthesiology 10/09/24 documented as of this encounter
--- OUTSIDE RECORDS SUMMARY | 2025-03-27 22:38 | XMS_ITS | Encounter Summary ---
Author Organization [facility] Address [address] [facility] [address] [place] [address] Phone Care Team Providers Care Product Handler Name Role Phone Wan Rosario MD Primary Care Provider [phone] Brenda Cueto SENIOR DATA WAREHOUSE ARCHITECT Unavailable [phone] Sonja Ball DPT Unavailable Gerry Vaughn MD Unavailable [phone] Daphne Wise NP Primary Care Provider [phone] Roxann Galeana MD Unavailable [phone] July Hartman MD PhD Unavailable [phone] Encounter Details Date Type Department Care Team [...] on file Legal Sex Female 12:29 PM RN TEACHER Gender Identity Female 11/13/2020 10:00 PM [...] documented as of this encounter Care Teams Product Handler Relationship Specialty Start Date End Date Wan Rosario MD 49[address] [facility] 14[address] [place] [address] PCP - General 11/12/16 10/08/24 Daphne Wise NP [address] [facility] [address] [place] [address] PCP - General Family Medicine 10/09/24 Brenda Cueto NP [address] [place] [address] Nurse Practitioner Hematology 09/23/20 Sonja Ball DPT [address] [place] [address] Physical Therapist Physical Therapy 09/24/21 11/25/22 Gerry Vaughn MD [address] DEPT OPHTHALMOLOGY, [address] [place] [address] Surgeon Ophthalmology 09/24/22 Roxann Galeana MD 1 [facility] [address] [place] [address] Consulting Physician Gastroenterology 10/09/24 July Hartman MD PhD [address] [place] [address] Consulting Physician Anesthesiology 10/09/24 documented as of this encounter
--- OUTSIDE RECORDS SUMMARY | 2025-03-27 22:38 | XMS_ITS | Encounter Summary ---
Author Organization [facility] Address [address] 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 Gender Identity Female 11/13/2020 10:00 PM CDT [...] documented as of this encounter Care Teams Hem Marker Relationship Specialty Start Date End Date Wan Rosario MD 49[address] [facility] 14A [place] [address] PCP - General 11/12/16 10/08/24 Daphne Wise NP [address] [facility] [address] [place] [address] PCP - General Family Medicine 10/09/24 Brenda Cueto, KITTY [address] [place] [address] Nurse Practitioner Hematology 09/23/20 Sonja Ball DPT [address] [place] [address] Physical Therapist Physical Therapy 09/24/21 11/25/22 Gerry Vaughn MD [address] DEPT OPHTHALMOLOGY, [address] [place] [address] Surgeon Ophthalmology 09/24/22 Roxann Galeana MD 1 [facility] [address] [place] [address] Consulting Physician Gastroenterology 10/09/24 July Hartman MD PhD [address] [place], [place] [address] Consulting Physician Anesthesiology 10/09/24 documented as of this encounter
--- OUTSIDE RECORDS SUMMARY | 2025-03-27 22:38 | XMS_ITS | Encounter Summary ---
Author Organization [facility] Address [address] [facility] [address] [place] [address] Phone Care Team Providers Care Geotechnical Operating Engineer Name Role Phone Wan Rosario MD Primary Care Provider [phone] Brenda Cueto PATIENT REGISTRATION REP Unavailable [phone] Sonja Ball DPT Unavailable Gerry Vaughn MD Unavailable [phone] Daphne Wise NP Primary Care Provider [phone] Roxann Galeana MD Unavailable [phone] July Hartman MD PhD Unavailable [phone] Encounter Details Date Type Department Care Team [...] on file 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 Gender Identity Female 11/13/2020 10:00 PM [...] documented as of this encounter Care Teams Geotechnical Operating Engineer Relationship Specialty Start Date End Date Wan Rosario MD 49[address] [facility] [place] [facility] [address] [place] [address] PCP - General 11/12/16 10/08/24 Daphne Wise NP 2 [facility] 130 [place] [address] PCP - General Family Medicine 10/09/24 Brenda Cueto NP [address] [place] [address] Nurse Practitioner Hematology 09/23/20 Sonja Ball DPT [address] [place] [address] Physical Therapist Physical Therapy 09/24/21 11/25/22 Gerry Vaughn MD [address] DEPT OPHTHALMOLOGY, [address] [place] [address] Surgeon Ophthalmology 09/24/22 Roxann Galeana MD 1 [facility] [address] [place] [address] Consulting Physician Gastroenterology 10/09/24 July Hartman MD PhD [address] [place] [address] Consulting Physician Anesthesiology 10/09/24 documented as of this encounter
--- OUTSIDE RECORDS SUMMARY | 2025-03-27 22:38 | XMS_ITS | Encounter Summary ---
Author Organization [facility] Address [address] [facility] [address] [place] [address] Phone Care Team Providers Care Direct Mail Marketer Name Role Phone Wan Rosario MD Primary Care Provider [phone] Brenda Cueto AERONAUTICAL ENGINEER Unavailable [phone] Sonja Ball DPT Unavailable Gerry Vaughn MD Unavailable [phone] Daphne Wise NP Primary Care Provider [phone] Roxann Galeana MD Unavailable July Hartman MD PhD Unavailable [phone] Encounter Details Date Type Department Care Team [...] file 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 Gender Identity Female 11/13/2020 10:00 PM [...] documented as of this encounter Care Teams Direct Mail Marketer Relationship Specialty Start Date End Date Wan Rosario MD 49[address] [facility] [address] [place] [address] PCP - General 11/12/16 10/08/24 Daphne Wise NP [address] [facility] [address] [place] [address] PCP - General Family Medicine 10/09/24 Brenda Cueto NP [address] [place] [address] Nurse Practitioner Hematology 09/23/20 Sonja Ball DPT [address] [place] [address] Physical Therapist Physical Therapy 09/24/21 11/25/22 Gerry Vaughn MD [address] DEPT OPHTHALMOLOGY, [address] [place] [address] Surgeon Ophthalmology 09/24/22 Roxann Galeana MD [address] [facility] [address] [place] [address] Consulting Physician Gastroenterology 10/09/24 July Hartman MD PhD [address] [place] [address] Consulting Physician Anesthesiology 10/09/24 documented as of this encounter
--- OUTSIDE RECORDS SUMMARY | 2025-03-27 22:38 | XMS_ITS | Encounter Summary ---
Author Organization [facility] Address [address] [facility] [address] [place] [address] Phone Care Team Providers Care Disassembler Name Role Phone Wan Rosario MD Primary Care Provider [phone] Brenda Cueto GARDENING MANAGER Unavailable [phone] Sonja Ball DPT Unavailable Gerry Vaughn MD Unavailable [phone] Daphne Wise NP Primary Care Provider [phone] Roxann Galeana MD Unavailable July Hartman MD PhD Unavailable [phone] Encounter Details Date Type Department Care Team [...] file 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 Gender Identity Female 11/13/2020 10:00 PM [...] documented as of this encounter Care Teams Disassembler Relationship Specialty Start Date End Date Wan Rosario MD 49[address] [facility] [address] [place] [address] PCP - General 11/12/16 10/08/24 Daphne Wise NP [address] [facility] [address] [place] [address] PCP - General Family Medicine 10/09/24 Brenda Cueto NP [address] [place] [address] Nurse Practitioner Hematology 09/23/20 Sonja Ball DPT [address] [place] [address] Physical Therapist Physical Therapy 09/24/21 11/25/22 Gerry Vaughn MD [address] DEPT OPHTHALMOLOGY, [address] [place] [address] Surgeon Ophthalmology 09/24/22 Roxann Galeana MD 1 [facility] [address] DIV [place] [address] Consulting Physician Gastroenterology 10/09/24 July Hartman MD PhD [address] [place] [address] Consulting Physician Anesthesiology 10/09/24 documented as of this encounter
--- OUTSIDE RECORDS SUMMARY | 2025-03-27 22:38 | XMS_ITS | Encounter Summary ---
Author Organization [facility] Address [address] [facility] [address] [place] [address] Phone Care Team Providers Care Manager Of Business Name Role Phone Wan Rosario MD Primary Care Provider [phone] Brenda Cueto REPEATER CHIEF Unavailable [phone] Sonja Ball DPT Unavailable Gerry Vaughn MD Unavailable [phone] Daphne Wise NP Primary Care Provider [phone] Roxann Galeana MD Unavailable [phone] July Hartman MD PhD Unavailable [phone] Encounter Details Date Type Department Care Team [...] on file 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 Gender Identity Female 11/13/2020 10:00 PM [...] documented as of this encounter Care Teams Manager Of Business Relationship Specialty Start Date End Date Wan Rosario MD 49[address] [facility] [address] [place] [address] PCP - General 11/12/16 10/08/24 Daphne Wise NP [address] [facility] [address] [place] [address] PCP - General Family Medicine 10/09/24 Brenda Cueto NP [address] [place] [address] Nurse Practitioner Hematology 09/23/20 Sonja Ball DPT [address] [place] [address] Physical Therapist Physical Therapy 09/24/21 11/25/22 Gerry Vaughn MD [address] DEPT OPHTHALMOLOGY, [address] [place] [address] Surgeon Ophthalmology 09/24/22 Roxann Galeana MD 1 [facility] [address] [place] [address] Consulting Physician Gastroenterology 10/09/24 July Hartman MD PhD [address] [place] [address] Consulting Physician Anesthesiology 10/09/24 documented as of this encounter
--- OUTSIDE RECORDS SUMMARY | 2025-03-27 22:38 | XMS_ITS | Encounter Summary ---
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 Gender Identity Female 11/13/2020 10:00 PM CDT [...] on filedocumented in this encounter Care Teams Channeler Relationship Specialty Start Date End Date Wan Rosario MD 4921 [facility] [address] [place] [address] PCP - General 11/12/16 10/08/24 Daphne Wise NP 2 [facility] [address] [place] [address] PCP - General Family Medicine 10/09/24 Brenda Cueto NP [address] [place] [address] Nurse Practitioner Hematology 09/23/20 Gerry Vaughn MD [address] DEPT OPHTHALMOLOGY, [address] [place] [address] Surgeon Ophthalmology 09/24/22 Roxann Galeana MD 1 [facility] [address] [place] [address] Consulting Physician Gastroenterology 10/09/24 July Hartman MD PhD [address] [place] [address] Consulting Physician Anesthesiology 10/09/24 documented as of this encounter
--- OUTSIDE RECORDS SUMMARY | 2025-03-27 22:39 | XMS_ITS | Encounter Summary ---
Author Organization [facility] of 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 Gender Identity Female 11/13/2020 10:00 PM CDT [...] documented as of this encounter Care Teams Upholstery Trimmer Relationship Specialty Start Date End Date Wan Rosario MD 49[address] [facility] [address] [place] [address] PCP - General 11/12/16 10/08/24 Daphne Wise NP 2[address] [facility] [address] [place] [address] PCP - General Family Medicine 10/09/24 Brenda Cueto NP [address] [place] [address] Nurse Practitioner Hematology 09/23/20 Sonja Ball DPT [address] [place] [address] Physical Therapist Physical Therapy 09/24/21 11/25/22 Gerry Vaughn MD [address] DEPT OPHTHALMOLOGY, [address] [place] [address] Surgeon Ophthalmology 09/24/22 Roxann Galeana MD 1 [facility] [address] DIV [place] [address] Consulting Physician Gastroenterology 10/09/24 July Hartman MD PhD [address] [place] [address] Consulting Physician Anesthesiology 10/09/24 documented as of this encounter
--- OUTSIDE RECORDS SUMMARY | 2025-03-27 22:39 | XMS_ITS | Encounter Summary ---
Author Organization [facility] Address [address] [facility] [address] [place] [address] Phone Care Team Providers Care Hotel Assistant Manager Name Role Phone Wan Rosario MD Primary Care Provider [phone] Brenda Cueto TEACHER EMOTIONALLY IMPAIRED Unavailable [phone] Sonja Ball DPT Unavailable Gerry Vaughn MD Unavailable [phone] Daphne Wise NP Primary Care Provider [phone] Roxann Galeana MD Unavailable [phone] July Hartman MD PhD Unavailable [phone] Encounter Details Date Type Department Care Team [...] on file 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 [address] [place] [address] PCP - General 11/12/16 10/08/24 Daphne Wise NP 2122 [facility] [address] [place] [address] PCP - General Family Medicine 10/09/24 Brenda Cueto NP [address] [place] [address] Nurse Practitioner Hematology 09/23/20 Sonja Ball DPT [address] [place] [address] Physical Therapist Physical Therapy 09/24/21 11/25/22 Gerry Vaughn MD [address] DEPT OPHTHALMOLOGY, [address] [place] [address] Surgeon Ophthalmology 09/24/22 Roxann Galeana MD 1 [facility] [address] [address] Consulting Physician Gastroenterology 10/09/24 July Hartman MD PhD [address] [place] [address] Consulting Physician Anesthesiology 10/09/24 documented as of this encounter
--- OUTSIDE RECORDS SUMMARY | 2025-03-27 22:39 | XMS_ITS | Encounter Summary ---
Author Organization [facility] Address [address] [facility] [address] [place] [address] Phone Care Team Providers Care Corn Miller Name Role Phone Wan Rosario MD Primary Care Provider [phone] Brenda Cueto UNDERGROUND FOREMAN Unavailable [phone] Sonja Ball DPT Unavailable Gerry Vaughn MD Unavailable [phone] Daphne Wise NP Primary Care Provider [phone] Roxann Galeana MD Unavailable [phone] July Hartman MD PhD Unavailable [phone] Encounter Details Date Type Department Care Team [...] on file 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 Gender Identity Female 11/13/2020 10:00 PM CDT [...] documented as of this encounter Care Teams Corn Miller Relationship Specialty Start Date End Date Wan Rosario MD 4921 [facility] 14[address] [place] [address] PCP - General 11/12/16 10/08/24 Daphne Wise NP 2[address] [facility] [address] [place] [address] PCP - General Family Medicine 10/09/24 Brenda Cueto NP [address] [place] [address] Nurse Practitioner Hematology 09/23/20 Sonja Ball DPT [address] [place] [address] Physical Therapist Physical Therapy 09/24/21 11/25/22 Gerry Vaughn MD [address] DEPT OPHTHALMOLOGY, [address] [place] [address] Surgeon Ophthalmology 09/24/22 Roxann Galeana MD 1 [facility] [address] [place] [address] Consulting Physician Gastroenterology 10/09/24 July Hartman MD PhD [address] [place] [address] Consulting Physician Anesthesiology 10/09/24 documented as of this encounter
--- OUTSIDE RECORDS SUMMARY | 2025-03-27 22:39 | XMS_ITS | Encounter Summary ---
Author Organization [facility] Address [address] [facility] [address] [place] [address] Phone Care Team Providers Care Hall Porter Name Role Phone Wan Rosario MD Primary Care Provider Brenda Cueto MACHINE ADJUSTER LEADER Unavailable [phone] Sonja Ball DPT Unavailable Gerry Vaughn MD Unavailable [phone] Daphne Wise NP Primary Care Provider [phone] Roxann Galeana MD Unavailable [phone] July Hartman MD PhD Unavailable [phone] Encounter Details Date Type Department Care Team [...] on file 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 Gender Identity Female 11/13/2020 10:00 PM [...] documented as of this encounter Care Teams Hall Porter Relationship Specialty Start Date End Date Wan Rosario MD 4921 [facility] 14A [place] [address] PCP - General 11/12/16 10/08/24 Daphne Wise NP 2122 [facility] 130 [place] [address] PCP - General Family Medicine 10/09/24 Brenda Cueto NP [address] [facility] [address] [place] [address] Nurse Practitioner Hematology 09/23/20 Sonja Ball DPT 4444 [facility] [address] [place] [address] Physical Therapist Physical Therapy 09/24/21 11/25/22 Gerry Vaughn MD [address] DEPT OPHTHALMOLOGY, [facility] [address] [place] [address] Surgeon Ophthalmology 09/24/22 Roxann Galeana MD 1 [facility] [address] DIV [place] [address] Consulting Physician Gastroenterology 10/09/24 July Hartman MD PhD [address] [place] [address] Consulting Physician Anesthesiology 10/09/24 documented as of this encounter
--- OUTSIDE RECORDS SUMMARY | 2025-03-27 22:39 | XMS_ITS | Encounter Summary ---
Author Organization [facility] Address [address] [facility] [address] [place] [address] Phone Care Team Providers Care Manufacturing Engineer Chief Name Role Phone Wan Rosario MD Primary Care Provider Brenda Cueto LOG SNAKER Unavailable [phone] Sonja Ball DPT Unavailable Gerry Vaughn MD Unavailable [phone] Daphne Wise NP Primary Care Provider [phone] Roxann Galeana MD Unavailable [phone] July Hartman MD PhD Unavailable Encounter Details [...] on file 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 [...] documented as of this encounter Care Teams Manufacturing Engineer Chief Relationship Specialty Start Date End Date Wan Rosario MD [address] [facility] [address] [place] [address] PCP - General 11/12/16 10/08/24 Daphne Wise NP [address] [facility] [address] [place] [address] PCP - General Family Medicine 10/09/24 Brenda Cueto NP [address] [place] [address] Nurse Practitioner Hematology 09/23/20 Sonja Ball DPT [address] [place] [address] Physical Therapist Physical Therapy 09/24/21 11/25/22 Gerry Vaughn MD [address] DEPT OPHTHALMOLOGY, [address] [place] [address] Surgeon Ophthalmology 09/24/22 Roxann Galeana MD [address] [facility] [address] DIV [place] [address] Consulting Physician Gastroenterology 10/09/24 July Hartman MD PhD [address] [place] [address] Consulting Physician Anesthesiology 10/09/24 documented as of this encounter
--- OUTSIDE RECORDS SUMMARY | 2025-03-27 22:39 | XMS_ITS | Encounter Summary ---
Author Organization [facility] Address [address] [facility] [address] [place] [address] Phone Care Team Providers Care Journeyman Pressman Name Role Phone Wan Rosario MD Primary Care Provider [phone] Brenda Cuteo DIRECTOR OF PHYSICAL SECURITY Unavailable [phone] Sonja Ball DPT Unavailable Gerry Vaughn MD Unavailable [phone] Daphne Wise NP Primary Care Provider [phone] Roxann Galeana MD Unavailable [phone] July Hartman MD PhD Unavailable [phone] Encounter Details Date Type Department Care Team [...] on file 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 Gender Identity Female 11/13/2020 10:00 PM CDT [...] documented as of this encounter Care Teams Journeyman Pressman Relationship Specialty Start Date End Date Wan Rosario MD [address] [facility] [address] [place] [address] PCP - General 11/12/16 10/08/24 Daphne Wise NP [address] [facility] [address] [place] [address] PCP - General Family Medicine 10/09/24 Brenda Cueto NP [address] [place] [address] Nurse Practitioner Hematology 09/23/20 Sonja Ball DPT [address] [place] [address] Physical Therapist Physical Therapy 09/24/21 11/25/22 Gerry Vaughn MD [address] DEPT OPHTHALMOLOGY, [address] [place] [address] Surgeon Ophthalmology 09/24/22 Roxann Galeana MD [address] [facility] [address] [place] [address] Consulting Physician Gastroenterology 10/09/24 July Hartman MD PhD [address] [place] [address] Consulting Physician Anesthesiology 10/09/24 documented as of this encounter
[2025-03-27 22:40] VITALS: BP 129/56; PULSE 93; RESP 24; O2SAT 97
[2025-03-27 22:47] VITALS: BP 161/69; PULSE 97; RESP 19; O2SAT 96
[2025-03-27] MEDS: ACETAMINOPHEN 650 MG SUPPOSITORY RECTAL (22:49)
[2025-03-27] MEDS: SODIUM CHLORIDE 0.9% IV 1,000 ML 999 ML IV CONT ×2 (22:49→22:52)
[2025-03-27 23:02] VITALS: BP 162/61; PULSE 95; RESP 18; O2SAT 97
--- NOTE | 2025-03-27 23:02 | ED_ITS ---
HPI - Altered Mental Status General Chief Complaint: Altered Mental Status <Laura Costa PA-C - Last Filed: 03/28/25 03:58> Stated Complaint: AMS, FEVER, RECENT PNE <ANA LILIA Sapp Last Filed: 03/28/25 03:58> Time Seen by Provider: 03/27/25 22:14 <ANA LILIA Sapp Last Filed: 03/28/25 03:58> Source: patient, family and old records reviewed <ANA LILIA Sapp Last Filed: 03/28/25 03:58> Mode of arrival: EMS <ANA LILIA Sapp Last Filed: 03/28/25 03:58> Limitations: altered mental status <ANA LILIA Sapp Last Filed: 03/28/25 03:58> History of Present Illness HPI narrative: Patient is a 60-year-old female who presents the ED via EMS with report of altered mental status. Mother at bedside assisted in providing information. Reports she received several phone calls today from patient's co-worker reporting that they had not been able to get a hold of patient today and she did not show up for work. Mother went over to patient's house and found her lying in bed, altered, confused, lethargic. EMS was contacted. Patient was noted to be lethargic by EMS, but able to arouse with verbal and painful stimuli. Patient is A&OX2 upon my evaluation. She reports she has not been feeling well over the past few days. Reports fevers at home, pain all over. Mother reports patient was recently admitted here for pneumonia. Also reports patient has history of cellulitis and has had redness, warmth to her left leg. History of lymphedema. <Laura Costa PA-C - Last Filed: 03/28/25 03:58> Related Data Home Medications: Home Medications ?Medication ?Instructions ?Recorded ?Confirmed ?Last Taken ?Type benzonatate 100 mg capsule 200 mg PO TID 07/22/24 01/01/25 Unknown History ergocalciferol (vitamin D2) 1,250 1,250 mcg PO WEEKLY 07/22/24 01/01/25 Unknown History mcg (50,000 unit) capsule ergocalciferol (vitamin D2) 10 mcg 10 mcg PO DAILY 07/22/24 01/01/25 Unknown History (400 unit) tablet escitalopram oxalate 20 mg tablet 20 mg PO DAILY 07/22/24 01/01/25 Unknown History esomeprazole magnesium 40 mg 40 mg PO BID 07/22/24 01/01/25 Unknown History capsule,delayed release gabapentin 600 mg tablet 600 mg PO TID 07/22/24 01/01/25 Unknown History loperamide 2 mg capsule 6 mg PO DAILY 07/22/24 01/01/25 Unknown History nortriptyline 10 mg capsule 10 mg PO HS 07/22/24 01/01/25 Unknown History simethicone 80 mg chewable tablet 80 mg PO BID 07/22/24 01/01/25 Unknown History tolterodine 2 mg tablet 4 mg PO DAILY 07/22/24 01/01/25 Unknown History trospium 20 mg tablet 20 mg PO BID 07/22/24 01/01/25 Unknown History zonisamide 100 mg capsule 100 mg PO BID 07/22/24 01/01/25 Unknown History apixaban 5 mg tablet (Eliquis) 5 mg PO Q12H 01/01/25 01/01/25 Unknown History ascorbic acid (vitamin C) 500 mg 1,000 mg PO DAILY 01/01/25 01/01/25 Unknown History chewable tablet (Acerola C) bupropion HCl 150 mg 24 hr tablet, 150 mg PO .q24 01/01/25 01/01/25 Unknown History extended release cetirizine 10 mg tablet (24Hour 10 mg PO DAILY PRN allergy symptoms 01/01/25 01/01/25 Unknown History Allergy) diclofenac 1.5 % solution and 1 ea topical QID 01/01/25 01/01/25 Unknown History capsaicin 0.025 % cream topical kit (Ziclocin) olmesartan 40 mg tablet 40 mg PO DAILY 01/01/25 01/01/25 Unknown History <Laura Cotsa PA-C - Last Filed: 03/28/25 03:58> Allergies/Adverse Reactions: Allergies Allergy/AdvReac Type Severity Reaction Status Date / Time clavulanic acid Allergy Mild HIVES Verified 01/01/25 13:36 latex Allergy Mild hives Verified 01/01/25 13:36 morphine Allergy Mild VOMITTING Verified 01/01/25 13:36 Penicillins Allergy Mild HIVES Verified 01/01/25 13:36 Sulfa (Sulfonamide Allergy Mild HIVES Verified 01/01/25 13:36 Antibiotics) celecoxib Allergy Unknown Unknown Verified 01/01/25 13:36 amoxicillin (From Augmentin) Allergy Hives Verified 01/01/25 13:36 cephalexin Allergy Hives Verified 01/01/25 13:36 BETALACTAMASEIN Allergy Mild HIVES Uncoded 01/01/25 13:36 <Laura Costa PA-C - Last Filed: 03/28/25 03:58> Review of Systems 2 Review of Systems: ROS unobtainable: Yes unobtainable due to mental status <Laura Costa PA-C - Last Filed: 03/28/25 03:58> [facility] Past Medical History Medical History: Medical History Medication reaction Urge urinary incontinence Anxiety GERD (gastroesophageal reflux disease) Hyperlipidemia Essential hypertension DVT of lower extremity, bilateral Body mass index (BMI) greater than 50 <Laura Costa PA-C - Last Filed: 03/28/25 03:58> Surgical History Surgical History: Surgical History Hx of cholecystectomy Open cholecystectomy in the 1990s History of sleeve gastrectomy (2017) <Laura Costa PA-C - Last Filed: 03/28/25 03:58> Family History Family History: Family History Father Acute myocardial infarction Son Brainstem tumor Sibling Raynaud disease <Laura Costa PA-C - Last Filed: 03/28/25 03:58> Social History Social History: Social History Social History: Patient has been for many years. She had 1 child who of a brain stem tumor at age 5. She lives alone. She rarely drinks alcohol in minimal amounts. She is a lifelong nonsmoker and denies history of illicit substance use. 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 Code status: Full code Surrogate decision maker: Annemarie Hood (mother) Smoking status: Never smoker Alcohol intake: never Alcohol use details: Rare in minor amounts Substance use: never Substance use type: does not use Do You Feel Safe in your Home?: Yes Lack of Transportation: No Lack of Food: Never True Current Housing: I Have Housing Concerned About Future Housing: No Difficulty Paying Gas/Electric Bills: No Difficulty Paying for Meds: No Currently Unemployed: No Education: Associate Degree Difficulty w/ Childcare or Family Care: No Spiritual care concerns: No <Laura Costa PA-C - Last Filed: 03/28/25 03:58> Exam 2 Narrative: GENERAL: Ill appearing, morbidly obese with BMI of 45.5, somewhat lethargic HEAD: Normocephalic, atraumatic. NECK: Normal ROM. No meningeal signs. RESPIRATORY: Airway patent, respirations nonlabored. Clear to auscultation bilaterally, no rales, rhonchi, wheezing. No appreciable focal lung sounds. CARDIOVASCULAR: Borderline tachycardic with regular rhythm without murmurs, rubs, or gallops. ABDOMINAL: Soft, nontender, nondistended. Normoactive BS. MUSCULOSKELETAL: Moves all extremities. Diffuse erythema/warmth to L lower leg/foot/ankle extending up to medial mid thigh. Diffuse lymphedema BLE, appears symmetric. SKIN: Warm, dry, normal color. NEURO: A&O X2, unsure of year/date. Lethargic, but easily arousable with verbal stimuli. Speech clear. Able to follow commands. No appreciable focal deficits, able to move all extremities equally. Cranial nerves II-XII grossly intact. No ataxic movements. PSYCHIATRIC: Lethargic <Laura Costa PA-C - Last Filed: 03/28/25 03:58> Course ASSOCIATE PROFESSOR OF ART/PA Physician Supervision This visit was performed by both a physician and an APC. I performed all aspects of the MDM as documented. <Sp Marie MD - Last Filed: 03/28/25 06:28> Vital Signs Vital signs: Vital Signs Temperature 38.0 C H 03/27/25 21:57 Pulse Rate 94 03/27/25 21:57 Respiratory Rate 21 H 03/27/25 21:57 Blood Pressure 124/68 03/27/25 21:57 Pulse Oximetry 97 03/27/25 21:57 Oxygen Delivery Room Air 03/27/25 21:57 Temperature 37.2 C 03/28/25 05:43 Pulse Rate 87 03/28/25 05:43 Respiratory Rate 16 03/28/25 05:43 Blood Pressure 139/65 03/28/25 05:43 Pulse Oximetry 97 03/28/25 05:43 Oxygen Delivery Room Air 03/28/25 04:03 Oxygen Flow Rate 3 03/28/25 02:37 <Laura Costa PA-C - Last Filed: 03/28/25 03:58> Vital Signs Temperature 38.0 C H 03/27/25 21:57 Pulse Rate 94 03/27/25 21:57 Respiratory Rate 21 H 03/27/25 21:57 Blood Pressure 124/68 03/27/25 21:57 Pulse Oximetry 97 03/27/25 21:57 Oxygen Delivery Room Air 03/27/25 21:57 Temperature 37.2 C 03/28/25 05:43 Pulse Rate 87 03/28/25 05:43 Respiratory Rate 16 03/28/25 05:43 Blood Pressure 139/65 03/28/25 05:43 Pulse Oximetry 97 03/28/25 05:43 Oxygen Delivery Room Air 03/28/25 04:03 Oxygen Flow Rate 3 03/28/25 02:37 <Sp Marie MD - Last Filed: 03/28/25 06:28> MDM - Altered Mental Status MDM Narrative Medical decision making narrative: Patient presented to ED with altered mental status, lethargy, decreased responsiveness. Mother called for EMS. Patient borderline tachycardic, tachypneic, febrile upon arrival. Sepsis workup was initiated. Patient is lethargic, but easily arousable. Able to move all extremities. No appreciable focal deficits. Patient given 2 L of fluid, rectal Tylenol. Blood cultures obtained. Patient does report having recent redness, warmth to left leg. History of cellulitis. It does appear cellulitic on exam today. Vancomycin ordered. Patient has numerous antibiotic allergies. Will start this for now pending further source identification of sepsis. Patient is on Eliquis 5 mg b.i.d.. Less suspicious for DVT. Will order doppler study for AM. CT brain without acute findings. Chest x-ray limited by body habitus and positioning. No appreciable focal infiltrates. Mother does report recent pneumonia. Laboratory studies with white blood cell count of 11.2. Neutrophil predominance. No bandemia. CMP with potassium 3.1. Mag also low at 1.3. Given IV replacement for both. Otherwise stable kidney function. Lactic acid 0.8. CK within normal range. Inflammatory markers are elevated. UA with positive nitrate, but no urine wbc's seen. Sent for culture. Viral swabs are negative. EKG with sinus rhythm, right bundle. Troponin 0.023. Patient denying chest pain this time. CT scan of chest/abdomen/pelvis obtained-showing persistent pneumonia particularly throughout the right lung. This does appear compared compared to previous study. Patient was recently admitted here in December for ron PNA. No other significant intra-abdominal findings on CT today. Vancomycin was started in the ED. Within 10 minutes, patient immediately began reporting flushed sensation, diaphoresis, sob, pruritic. 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 Vanc stopped for now. Given benadryl, Solu-Medrol. No signs of anaphylaxis. Patient was later noted to be hypoxic down to 88% on room air. Currently on 2-3 L nasal cannula. Levaquin started for pneumonia. She has tolerated this in the past. Discussed case with Alpesh TANG Hospitalist, accepted patient for admission to IMU. ID consulted for am. <Laura Costa PA-C - Last Filed: 03/28/25 03:58> Medical Records Attestation: I reviewed the patient's medical records. <Laura Costa PA-C - Last Filed: 03/28/25 03:58> Lab Data Attestation: I reviewed the patient's lab results. <Laura Costa PA-C - Last Filed: 03/28/25 03:58> Result diagrams: 03/27/25 22:52 03/27/25 22:52 <Laura Costa PA-C - Last Filed: 03/28/25 03:58> Labs: Lab Results 03/27/25 03/27/25 03/28/25 Range/Units 22:52 22:54 02:15 WBC 11.2 H (4.5-10.0) K/mm3 RBC 3.92 L (4.2-5.4) M/mm3 Hgb 12.1 (12.0-15.0) g/dL Hct 36.9 L (37.0-47.0) % MCV 94.1 (80-100) fl MCH 30.9 (26-34) pg MCHC 32.8 (32-36) g/dl RDW 13.5 (11.5-14.5) % Plt Count 190 (150-375) k/mm3 MPV 9.7 (7.4-10.4) fl Immature Gran % (Auto) 0.5 (0-0.5) % Neut % (Auto) 83.5 H (45.5-73.1) % Lymph % (Auto) 6.5 L (18.3-44.2) % Ware % (Auto) 9.1 H (2.6-8.5) % Eos % (Auto) 0.0 (0-4.4) % Baso % (Auto) 0.4 (0.2-1.2) % Lymph # (Auto) 0.72 L (0.9-3.2) K/mm3 Ware # (Auto) 1.0 H (0.1-0.6) K/mm3 Eos # (Auto) 0.0 (0-0.3) K/mm3 Baso # (Auto) 0.1 (0.0-0.1) K/mm3 Abs Immat Gran (auto) 0.06 H (0.00-0.031) K/mm3 Absolute Neuts (auto) 9.3 H (1.3-6.7) K/mm3 Absolute Nucleated RBC 0.000 (0.0-0.012) K/mm3 Nucleated RBC % 0.0 (0.0-0.2) % PT 15.6 H (11.1-14.7) Seconds INR 1.2 APTT 26.9 (22.3-36.8) Seconds Sodium 136 L (137-145) mmol/L Potassium 3.1 L (3.4-5.0) mmol/L Chloride 103 (98-107) mmol/L Carbon Dioxide 27 (22-30) mmol/L Anion Gap 6 (4-12) mmol/L BUN 18 H (7-17) mg/dL Creatinine 0.81 (0.7-1.0) mg/dL Estim Creat Clear Calc 90 ml/min Estimated GFR > 60 (59 - ) Glucose 139 H (65-110) mg/dL Lactic Acid 0.8 (0.7-2.0) mmol/L Calcium 9.3 (8.4-10.2) mg/dL Magnesium 1.3 L (1.6-2.3) mg/dL Total Bilirubin 0.7 (0.2-1.3) mg/dL AST 25 (14-36) U/L ALT 19 (6-35) U/L Alkaline Phosphatase 116 (38-126) U/L Total Creatine Kinase 29 L (30-135) U/L Troponin I 0.023 (0.000-0.034) ng/mL C-Reactive Protein 27.8 H (<1.0) mg/dL NT-Pro-B Natriuret Pep 4690 H (19.9-100) pg/mL Total Protein 6.5 (6.3-8.2) g/dL Albumin 3.5 (3.5-5.1) g/dL Urine Color Yellow (Yellow) Urine Appearance Clear (Clear) Urine pH 5.5 (5.0-9.0) Ur Specific [place] 1.018 (1.001-1.035) Urine Protein Trace (Negative) mg/dL Urine Glucose (UA) 1+ H (Negative) mg/dL Urine Ketones Negative (Negative) mg/dL Ur Blood (Man) 1+ H (Negative) Urine Nitrate Positive H (Negative) Urine Bilirubin Negative (Negative) Urine Urobilinogen 1.0 (<2.0) mg/dL Leukocyte Esterase Rfl Negative (Negative) SVEN/UL Urine RBC 0-2 (0-2) /hpf Urine WBC 0-5 (0-3) /hpf Ur Squamous Epith Cells None seen (Few) /hpf Urine Bacteria 4+ H /hpf Urine Casts 0-2 Nasal MRSA (PCR) Not detected (NOT DETECTE) Influenza A (RT-PCR) Negative (Negative) Influenza B (RT-PCR) Negative (Negative) RSV (RT-PCR) Negative (Negative) SARS-CoV-2 RNA (RT-PCR) Negative (Negative) <Laura Costa PA-C - Last Filed: 03/28/25 03:58> Lab Results 03/27/25 03/27/25 03/28/25 Range/Units 22:52 22:54 02:15 WBC 11.2 H (4.5-10.0) K/mm3 RBC 3.92 L (4.2-5.4) M/mm3 Hgb 12.1 (12.0-15.0) g/dL Hct 36.9 L (37.0-47.0) % MCV 94.1 (80-100) fl MCH 30.9 (26-34) pg MCHC 32.8 (32-36) g/dl RDW 13.5 (11.5-14.5) % Plt Count 190 (150-375) k/mm3 MPV 9.7 (7.4-10.4) fl Immature Gran % (Auto) 0.5 (0-0.5) % Neut % (Auto) 83.5 H (45.5-73.1) % Lymph % (Auto) 6.5 L (18.3-44.2) % Ware % (Auto) 9.1 H (2.6-8.5) % Eos % (Auto) 0.0 (0-4.4) % Baso % (Auto) 0.4 (0.2-1.2) % Lymph # (Auto) 0.72 L (0.9-3.2) K/mm3 Ware # (Auto) 1.0 H (0.1-0.6) K/mm3 Eos # (Auto) 0.0 (0-0.3) K/mm3 Baso # (Auto) 0.1 (0.0-0.1) K/mm3 Abs Immat Gran (auto) 0.06 H (0.00-0.031) K/mm3 Absolute Neuts (auto) 9.3 H (1.3-6.7) K/mm3 Absolute Nucleated RBC 0.000 (0.0-0.012) K/mm3 Nucleated RBC % 0.0 (0.0-0.2) % PT 15.6 H (11.1-14.7) Seconds INR 1.2 APTT 26.9 (22.3-36.8) Seconds Sodium 136 L (137-145) mmol/L Potassium 3.1 L (3.4-5.0) mmol/L Chloride 103 (98-107) mmol/L Carbon Dioxide 27 (22-30) mmol/L Anion Gap 6 (4-12) mmol/L BUN 18 H (7-17) mg/dL Creatinine 0.81 (0.7-1.0) mg/dL Estim Creat Clear Calc 90 ml/min Estimated GFR > 60 (59 - ) Glucose 139 H (65-110) mg/dL Lactic Acid 0.8 (0.7-2.0) mmol/L Calcium 9.3 (8.4-10.2) mg/dL Magnesium 1.3 L (1.6-2.3) mg/dL Total Bilirubin 0.7 (0.2-1.3) mg/dL AST 25 (14-36) U/L ALT 19 (6-35) U/L Alkaline Phosphatase 116 (38-126) U/L Total Creatine Kinase 29 L (30-135) U/L Troponin I 0.023 (0.000-0.034) ng/mL C-Reactive Protein 27.8 H (<1.0) mg/dL NT-Pro-B Natriuret Pep 4690 H (19.9-100) pg/mL Total Protein 6.5 (6.3-8.2) g/dL Albumin 3.5 (3.5-5.1) g/dL Urine Color Yellow (Yellow) Urine Appearance Clear (Clear) Urine pH 5.5 (5.0-9.0) Ur Specific [place] 1.018 (1.001-1.035) Urine Protein Trace (Negative) mg/dL Urine Glucose (UA) 1+ H (Negative) mg/dL Urine Ketones Negative (Negative) mg/dL Ur Blood (Man) 1+ H (Negative) Urine Nitrate Positive H (Negative) Urine Bilirubin Negative (Negative) Urine Urobilinogen 1.0 (<2.0) mg/dL Leukocyte Esterase Rfl Negative (Negative) SVEN/UL Urine RBC 0-2 (0-2) /hpf Urine WBC 0-5 (0-3) /hpf Ur Squamous Epith Cells None seen (Few) /hpf Urine Bacteria 4+ H /hpf Urine Casts 0-2 Nasal MRSA (PCR) Not detected (NOT DETECTE) Influenza A (RT-PCR) Negative (Negative) Influenza B (RT-PCR) Negative (Negative) RSV (RT-PCR) Negative (Negative) SARS-CoV-2 RNA (RT-PCR) Negative (Negative) <Sp Marie MD - Last Filed: 03/28/25 06:28> Imaging Data Attestation: I personally reviewed and interpreted this imaging study as follows: < Laura Costa PA-C - Last Filed: 03/28/25 03:58> Radiologist's impression: ITS Impressions Chest X-Ray 03/27/25 23:32 IMPRESSION: Apparent superior mediastinal widening, likely secondary to technical factors as detailed above. Recommend repeat chest radiography with PA and lateral technique if possible, otherwise with fully upright positioning and at full inspiration. Otherwise, no acute cardiopulmonary process. Head CT 03/27/25 23:38 IMPRESSION: No acute intracranial process. <Laura Costa PA-C - Last Filed: 03/28/25 03:58> ECG Data EKG #1: Attestation: I personally reviewed and interpreted this ECG as follows: <Laura Costa PA-C - Last Filed: 03/28/25 03:58> ECG completion date: 03/27/25 <Laura Costa PA-C - Last Filed: 03/28/25 03:58> ECG completion time: 22:17 <Laura Costa PA-C - Last Filed: 03/28/25 03:58> EKG Interpretation: normal rate (94), sinus rhythm, non-specific ST changes and RBBB < Laura Costa PA-C - Last Filed: 03/28/25 03:58> Critical Care Time Critical Care Time Critical Care Time: Yes <Sp Marie MD - Last Filed: 03/28/25 06:28> Total Critical Care Time: 35 <Sp Marie MD - Last Filed: 03/28/25 06:28> Discharge Plan Discharge Clinical Impression: Cellulitis of left leg, Hypokalemia, Hypomagnesemia Sepsis Qualifiers: Sepsis type: sepsis due to unspecified organism Sepsis acute organ dysfunction status: unspecified Qualified Code(s): A41.9 - Sepsis, unspecified organism AMS (altered mental status) Qualifiers: Altered mental status type: unspecified Qualified Code(s): R41.82 - Altered mental status, unspecified Pneumonia Qualifiers: Pneumonia type: due to unspecified organism Laterality: right Lung location: u nspecified part of lung Qualified Code(s): J18.9 - Pneumonia, unspecified organism Hypoxic respiratory failure Qualifiers: Chronicity: acute Qualified Code(s): J96.01 - Acute respiratory failure with hypoxia <Laura Costa PA-C - Last Filed: 03/28/25 03:58> Patient Disposition: Still a Patient <Laura Costa PA-C - Last Filed: 03/28/25 03:58> Condition: Stable <Laura Costa PA-C - Last Filed: 03/28/25 03:58>
[2025-03-27 23:04] LABS: Hematocrit 36.9 % (37.0-47.0); Hemoglobin 12.1 g/dL (12.0-15.0); Immature Granulocyte Percent A 0.5 % (0-0.5); Lymphocytes Absolute Auto 0.72 K/mm3 (0.9-3.2); Mean Corpuscular HGB Conc 32.8 g/dl (32-36); Mean Corpuscular Hemoglobin 30.9 pg (26-34); Mean Corpuscular Volume 94.1 fl (80-100); Nucleated Red Blood Cells Absolute Auto 0.000 K/mm3 (0.0-0.012); Nucleated Red Blood Cells Perc 0.0 % (0.0-0.2); Platelet Count Result 190 k/mm3 (150-375); Red Blood Count 3.92 M/mm3 (4.2-5.4); White Blood Count 11.2 K/mm3 (4.5-10.0)
[2025-03-27 23:15] LABS: INR 1.2; Prothrombin Time 15.6 Seconds (11.1-14.7)
[2025-03-27 23:16] LABS: Partial Thromboplastin Time 26.9 Seconds (22.3-36.8)
[2025-03-27 23:17] LABS: Alanine Aminotransferase 19 U/L (6-35); Albumin Level 3.5 g/dL (3.5-5.1); Alkaline Phosphatase 116 U/L (38-126); Anion Gap 6 mmol/L (4-12); Aspartate Amino Transferase 25 U/L (14-36); Bilirubin,Total 0.7 mg/dL (0.2-1.3); Blood Urea Nitrogen 18 mg/dL (7-17); Calcium 9.3 mg/dL (8.4-10.2); Carbon Dioxide 27 mmol/L (22-30); Chloride 103 mmol/L (98-107); Creatine Kinase 29 U/L (30-135); Estimated CRCL calculation 90 ml/min; Estimated Glomerular Filt Rate > 60; Glucose 139 mg/dL (65-110); Magnesium 1.3 mg/dL (1.6-2.3); Potassium 3.1 mmol/L (3.4-5.0); Sodium 136 mmol/L (137-145); Total Protein 6.5 g/dL (6.3-8.2)
[2025-03-27 23:20] LABS: Add Urine Microscopic? YES; Appearance Urine Clear (Clear); Glucose Urine UA 1+ mg/dL (Negative); Leukocyte Esterase Ur Negative LEU/UL (Negative); Nitrate Urine Positive (Negative); Non Pathogenic Casts 0-2; Specific Grav Ur 1.018 (1.001-1.035)
[2025-03-27 23:24] LABS: NT Pro B Type Natriuretic Pept 4690 pg/mL (19.9-100)
[2025-03-27 23:40] LABS: Influenza A QL RT-PCR Negative (Negative); Influenza B QL RT-PCR Negative (Negative); RSV RNA, RT-PCR Negative (Negative); SARS-CoV-2 RNA PCR Negative (Negative)
[2025-03-28] VITALS (27 sets, daily range): BP systolic 72–152; BP diastolic 37–108; PULSE 78–103; RESP 12–30; TEMP 36.5–37.2; O2SAT 86–100; BMI 44.1
[2025-03-28] MEDS: POTASSIUM CHLORIDE INJ 40 MEQ in SODIUM CHLORIDE 0.9% IV 500 ML 130 MEQ IVPB (00:21)
[2025-03-28] MEDS: SODIUM CHLORIDE 0.9% IV 1,000 ML 999 ML (00:55)
[2025-03-28] MEDS: MAGNESIUM SULF 2 GM/WATER 50ML 2 GM/50 ML BAG IVPB (00:59)
[2025-03-28 01:51] LABS: CRP 27.8 mg/dL (<1.0)
[2025-03-28] MEDS: VANCOMYCIN 1,250 MG/NS 250 ML 1,250 MG/250 ML BAG 166.67 MG IVPB (02:12)
[2025-03-28 02:20] LABS: Troponin I 0.023 ng/mL (0.000-0.034)
--- NOTE | 2025-03-28 02:31 | PC.NURSE ---
about 10 minutes of starting IV vancyomcin pt became flushed and states she feels hot and itchy and that she can't breathe. HONG Sanchez notified and is at bedside. HONG Sanchez verbally states to pause antibiotic till she speaks with hospitalist. Benadryl given at this time. Pt states she has had reaction like this before and put her in [place] [facility]. Pt states thy just gave her benadryl and steroid and ran the antibiotic. Pt o2 is 92% 99 hr, 119/58, and 16 rr.
[2025-03-28 03:30] LABS: MRSA (PCR) NOT DETECTED (NOT DETECTE)
[2025-03-28] MEDS: levoFLOXacin 750 MG/D5W 150 ML 750 MG/150 ML BAG 100 MG IVPB (03:58)
[2025-03-28 04:11] LABS: Alveolar/Arterial O2 Gradient 46.7 mmHg; Carboxyhemoglobin 1.0 % THb (0-2.0); Fractional Inspired Oxygen 24 %; HCO3 ABG 21.7 mEq/l (22.0-26.0); Methemoglobin ABG 0.3 %THb (0-1.5); Oxygen Content ABG 19.1 %vol (16.0-22.0); Oxygen Saturation ABG 95.9 % (95.0-100.0); PCO2 ABG 36.6 mmHg (35.0-45.0); PO2 ABG 80.9 mmHg (80.0-100.0); PO2 FiO2 Ratio Arterial Blood 3.37 %; Reduced Hemoglobin 4.1 %THb (0-5.0)
[2025-03-28 04:15] LABS: Liters per Minute 1.0 LPM; Site Drawn RIGHT BRACHIAL
--- NOTE | 2025-03-28 06:19 | ADMGEN ---
This patient, Betty Fernandez, was admitted to IMU Room 206-01. Patient/family oriented to hospital policies and general routines including ID bracelet, bed and alarms, visiting hours, pain management, procedures, bathroom and other care routines, personal items, smoking policy, room service/diet, and visiting hours. Information on how to activate the Rapid Response Team has been discussed. Patient/Family are encouraged to report perceived risks to care and to ask questions if they do not understand what they are told or what they should do.
[2025-03-28 07:16] LABS: Cannabinoid Screen Urine Negative (Negative)
[2025-03-28 09:58] LABS: Hematocrit 38.5 % (37.0-47.0); Hemoglobin 12.8 g/dL (12.0-15.0); Mean Corpuscular HGB Conc 33.2 g/dl (32-36); Mean Corpuscular Hemoglobin 31.6 pg (26-34); Mean Corpuscular Volume 95.1 fl (80-100); Platelet Count Result 181 k/mm3 (150-375); Red Blood Count 4.05 M/mm3 (4.2-5.4); White Blood Count 12.5 K/mm3 (4.5-10.0)
[2025-03-28] MEDS: cefTRIAXone 2 GM in SODIUM CHLORIDE 0.9% IV 100 ML 200 ML IVPB (10:00)
[2025-03-28 10:21] LABS: Albumin Level 3.4 g/dL (3.5-5.1); Anion Gap 7 mmol/L (4-12); Blood Urea Nitrogen 17 mg/dL (7-17); Calcium 8.6 mg/dL (8.4-10.2); Carbon Dioxide 22 mmol/L (22-30); Chloride 108 mmol/L (98-107); Estimated CRCL calculation 100 ml/min; Estimated Glomerular Filt Rate > 60; Glucose 165 mg/dL (65-110); Magnesium 1.8 mg/dL (1.6-2.3); Potassium 3.6 mmol/L (3.4-5.0); Sodium 137 mmol/L (137-145)
[2025-03-28] MEDS: DOXYCYCLINE IV 100 MG in SODIUM CHLORIDE 0.9% IV 100 ML IVPB ×2 (10:25→20:30)
[2025-03-28] MEDS: buPROPion HCL XL (24 HR) 150 MG TABCR PO (11:35)
[2025-03-28] MEDS: APIXABAN 5 MG TABLET PO ×2 (11:35→20:30)
[2025-03-28] MEDS: GABAPENTIN 300 MG CAPSULE 600 MG PO ×2 (11:53→17:25)
[2025-03-28] MEDS: ZONISAMIDE 100 MG CAPSULE PO ×2 (11:55→20:29)
[2025-03-28] MEDS: TOLTERODINE TARTRATE 2 MG TABLET 4 MG PO (13:08)
[2025-03-28] MEDS: ESCITALOPRAM OXALATE 10 MG TABLET 20 MG PO (13:09)
[2025-03-28] MEDS: LOPERAMIDE HCL 2 MG CAPSULE 6 MG PO (13:11)
--- NOTE | 2025-03-28 15:22 | PM.IMHP ---
H&P: HPI History of Present Illness Date/Time: 03/28/25 15:22 Chief Complaint: altered mental status Narrative: ER-HPI narrative: Patient is a 60-year-old female who presents the ED via EMS with report of altered mental status. Mother at bedside assisted in providing information. Reports she received several phone calls today from patient's co-worker reporting that they had not been able to get a hold of patient today and she did not show up for work. Mother went over to patient's house and found her lying in bed, altered, confused, lethargic. EMS was contacted. Patient was noted to be lethargic by EMS, but able to arouse with verbal and painful stimuli. Patient is A&OX2 upon my evaluation. She reports she has not been feeling well over the past few days. Reports fevers at home, pain all over. Mother reports patient was recently admitted here for pneumonia. Also reports patient has history of cellulitis and has had redness, warmth to her left leg. History of lymphedema upon arrival patient was lethargic and had fever, lactic acid was low and her whites counts were slightly elevated, she does have history of lower extremities cellulitis and Chest x-ray was suspicious pneumonia, patient is allergic to several antibiotics, discuss with clinical pharmacist will start patient on ceftriaxone and doxycycline, this will provider coverage for both cellulitis and pneumonia, will monitor, patient with history of DVT and being treated with Eliquis however patient extremities were suspicious for DVT to further evaluate patient had b/l lower extremities venous Doppler which is negative for DVT, patient mentation has improved, her mother is present in the room and gave updates. will have PT/OT evaluate the patient. Review of Systems Review of Systems: ROS unobtainable: Yes unobtainable due to mental status PMFSH Past Medical History Medical History Medication reaction Urge urinary incontinence Anxiety GERD (gastroesophageal reflux disease) Hyperlipidemia Essential hypertension DVT of lower extremity, bilateral Body mass index (BMI) greater than 50 Surgical History Surgical History Hx of cholecystectomy Open cholecystectomy in the History of sleeve gastrectomy (2017) Family History Family History Father Acute myocardial infarction Son Brainstem tumor Sibling Raynaud disease Social History Social History Social History: Patient has been for many years. She had 1 child who of a brain stem tumor at age 6. She lives alone. She rarely drinks alcohol in minimal amounts. She is a lifelong nonsmoker and denies history of illicit substance use. 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 Code status: Full code Surrogate decision maker: Annemarie Hood (mother) Smoking status: Never smoker Alcohol intake: never Alcohol use details: Rare in minor amounts Substance use: never Substance use type: does not use Do You Feel Safe in your Home?: Yes Lack of Transportation: No Lack of Food: Never True Current Housing: I Have Housing Concerned About Future Housing: No Difficulty Paying Gas/Electric Bills: No Difficulty Paying for Meds: No Currently Unemployed: No Education: Associate Degree Difficulty w/ Childcare or Family Care: No Spiritual care concerns: No Meds Home Medications and Allergies Home Medications ?Medication ?Instructions ?Recorded ?Confirmed ?Type ergocalciferol (vitamin D2) 1,250 1,250 mcg PO WEEKLY 07/22/24 03/28/25 History mcg (50,000 unit) capsule ergocalciferol (vitamin D2) 10 mcg 10 mcg PO DAILY 07/22/24 03/28/25 History (400 unit) tablet escitalopram oxalate 20 mg tablet 20 mg PO DAILY 07/22/24 03/28/25 History esomeprazole magnesium 40 mg 40 mg PO BID 07/22/24 03/28/25 History capsule,delayed release gabapentin 600 mg tablet 600 mg PO TID 07/22/24 03/28/25 History loperamide 2 mg capsule 6 mg PO DAILY 07/22/24 03/28/25 History nortriptyline 10 mg capsule 10 mg PO HS 07/22/24 03/28/25 History simethicone 80 mg chewable tablet 80 mg PO BID 07/22/24 03/28/25 History tolterodine 2 mg tablet 4 mg PO DAILY 07/22/24 03/28/25 History zonisamide 100 mg capsule 100 mg PO BID 07/22/24 03/28/25 History apixaban 5 mg tablet (Eliquis) 5 mg PO Q12H 01/01/25 03/28/25 History ascorbic acid (vitamin C) 500 mg 1,000 mg PO DAILY 01/01/25 03/28/25 History chewable tablet (Acerola C) bupropion HCl 150 mg 24 hr tablet, 150 mg PO .q24 01/01/25 03/28/25 History extended release cetirizine 10 mg tablet (24Hour 10 mg PO DAILY PRN allergy symptoms 01/01/25 03/28/25 History Allergy) diclofenac 1.5 % solution and 1 ea topical QID 01/01/25 03/28/25 History capsaicin 0.025 % cream topical kit (Ziclocin) guaifenesin 600 mg tablet, 600 mg PO Q12HR #30 tabs 01/03/25 03/28/25 Rx extended release 12 hr (Mucus Relief ER) mirabegron 25 mg tablet,extended 25 mg PO DAILY 03/28/25 03/28/25 History release 24 hr Allergies Allergy/AdvReac Type Severity Reaction Status Date / Time clavulanic acid Allergy Mild HIVES Verified 01/01/25 13:36 latex Allergy Mild hives Verified 01/01/25 13:36 morphine Allergy Mild VOMITTING Verified 01/01/25 13:36 Penicillins Allergy Mild HIVES Verified 01/01/25 13:36 Sulfa (Sulfonamide Allergy Mild HIVES Verified 01/01/25 13:36 Antibiotics) celecoxib Allergy Unknown Unknown Verified 01/01/25 13:36 amoxicillin (From Augmentin) Allergy Hives Verified 01/01/25 13:36 cephalexin Allergy Hives Verified 01/01/25 13:36 vancomycin AdvReac face red Verified 03/28/25 07:42 BETALACTAMASEIN Allergy Mild HIVES Uncoded 01/01/25 13:36 Vital Signs Vital Signs - 24 hr 03/27/25 21:57 03/27/25 21:57 03/27/25 22:18 Temperature 38.0 C H Pulse Rate 94 96 Respiratory Rate 21 H 14 Blood Pressure 124/68 82/72 L Pulse Oximetry 97 97 97 Oxygen Delivery Room Air Room Air Oxygen Flow Rate 03/27/25 22:33 03/27/25 22:40 03/27/25 22:47 Temperature Pulse Rate 100 93 97 Respiratory Rate 22 H 24 H 19 Blood Pressure 89/63 L 129/56 L 161/69 H Pulse Oximetry 96 97 96 Oxygen Delivery Oxygen Flow Rate 03/27/25 23:02 03/28/25 00:03 03/28/25 00:18 Temperature Pulse Rate 95 86 88 Respiratory Rate 18 21 H 19 Blood Pressure 162/61 H 87/37 L 73/46 L Pulse Oximetry 97 96 94 Oxygen Delivery Oxygen Flow Rate 03/28/25 00:34 03/28/25 00:49 03/28/25 01:30 Temperature Pulse Rate 81 82 78 Respiratory Rate 20 12 19 Blood Pressure 72/49 L 152/89 H Pulse Oximetry 97 99 96 Oxygen Delivery Oxygen Flow Rate 03/28/25 02:16 03/28/25 02:24 03/28/25 02:26 Temperature Pulse Rate 88 101 H 103 H Respiratory Rate 16 22 H 30 H Blood Pressure 82/44 L 96/42 L 104/62 Pulse Oximetry 94 94 91 Oxygen Delivery Oxygen Flow Rate 03/28/25 02:31 03/28/25 02:37 03/28/25 02:37 Temperature Pulse Rate 100 Respiratory Rate 19 Blood Pressure 119/58 L Pulse Oximetry 88 L 88 L 95 Oxygen Delivery Room Air Nasal Cannula Oxygen Flow Rate 3 03/28/25 02:46 03/28/25 03:01 03/28/25 03:16 Temperature Pulse Rate 92 86 89 Respiratory Rate 19 18 25 H Blood Pressure 136/54 L 119/67 132/101 H Pulse Oximetry 86 L 94 100 Oxygen Delivery Oxygen Flow Rate 03/28/25 03:31 03/28/25 03:46 03/28/25 04:03 Temperature Pulse Rate 100 95 Respiratory Rate 19 19 Blood Pressure 138/108 H 122/97 H Pulse Oximetry 100 100 100 Oxygen Delivery Room Air Oxygen Flow Rate 03/28/25 05:38 03/28/25 05:43 03/28/25 06:00 Temperature 37.2 C Pulse Rate 91 87 84 Respiratory Rate 22 H 16 Blood Pressure 118/68 139/65 Pulse Oximetry 96 97 Oxygen Delivery Oxygen Flow Rate 03/28/25 07:48 03/28/25 11:56 Temperature 36.8 C 36.5 C Pulse Rate 81 81 Respiratory Rate 16 20 Blood Pressure 130/61 137/63 Pulse Oximetry 97 99 Oxygen Delivery Oxygen Flow Rate Exam Narrative: Morbidly obese Patient is comfortable, NAD HEENT: eyes are clear and none icteric LUNGS:CTA HEART: RR S1S2 ABD: BS+, Soft and nontender Lower extremities: no edema SKIN: b/l extremities erythematous Neuro: grossly intact. H&P: Results Labs Labs: Short CBC 03/27/25 03/28/25 Range/Units 22:52 09:53 WBC 11.2 H 12.5 H (4.5-10.0) K/mm3 Hgb 12.1 12.8 (12.0-15.0) g/dL Hct 36.9 L 38.5 (37.0-47.0) % Plt Count 190 181 (150-375) k/mm3 BMP 03/27/25 03/28/25 22:52 09:53 Sodium 136 L 137 Potassium 3.1 L 3.6 Chloride 103 108 H Carbon Dioxide 27 22 BUN 18 H 17 Creatinine 0.81 0.71 Glucose 139 H 165 H Calcium 9.3 8.6 Cardiac Enzymes 03/27/25 Range/Units 22:52 Total Creatine Kinase 29 L (30-135) U/L Troponin I 0.023 (0.000-0.034) ng/mL Liver Function 03/27/25 03/28/25 Range/Units 22:52 09:53 Total Bilirubin 0.7 (0.2-1.3) mg/dL AST 25 (14-36) U/L ALT 19 (6-35) U/L Alkaline Phosphatase 116 (38-126) U/L Albumin 3.5 3.4 L (3.5-5.1) g/dL Urine 03/27/25 Range/Units 22:54 Urine Color Yellow (Yellow) Urine Appearance Clear (Clear) Urine pH 5.5 (5.0-9.0) Ur Specific [place] 1.018 (1.001-1.035) Urine Protein Trace (Negative) mg/dL Urine Glucose (UA) 1+ H (Negative) mg/dL Assessment and Plan Assessment and plan (1) Cellulitis of left leg: Code(s): L03.116 - Cellulitis of left lower limb Status: Acute (2) Pain in right knee: Qualifiers: Chronicity: acute Qualified Code(s): M25.561 - Pain in right knee Code(s): M25.561 - Pain in right knee Status: Acute (3) AMS (altered mental status): Qualifiers: Altered mental status type: unspecified Qualified Code(s): R41.82 - Altered mental status, unspecified Code(s): R41.82 - Altered mental status, unspecified Status: Acute (4) Pneumonia: Qualifiers: Laterality: right Lung location: unspecified part of lung Pneumonia type: due to unspecified organism Qualified Code(s): J18.9 - Pneumonia, unspecified organism Code(s): J18.9 - Pneumonia, unspecified organism Status: Acute Plan upon arrival patient was lethargic and had fever, lactic acid was low and her whites counts were slightly elevated, she does have history of lower extremities cellulitis and Chest x-ray was suspicious pneumonia, patient is allergic to several antibiotics, discuss with clinical pharmacist will start patient on ceftriaxone and doxycycline, this will provider coverage for both cellulitis and pneumonia, will monitor, patient with history of DVT and being treated with Eliquis however patient extremities were suspicious for DVT to further evaluate patient had b/l lower extremities venous Doppler which is negative for DVT, patient mentation has improved, her mother is present in the room and gave updates. will have PT/OT evaluate the patient. Quality VTE Prophylaxis VTE prophylaxis: pharmacologic ordered Hospitalist [facility] Advance Care Plan I have confirmed that the patient's Advanced Care Plan is present, code status is documented, or surrogate decision maker is listed in patient medical record.: Yes Medication Reconciliation The patient is not eligible for med reconciliation; the patient is in a emergent medical situation where delaying treatment would jeopardize the patients health.: Yes
[2025-03-28] MEDS: SIMETHICONE 80 MG TAB.CHEW PO (17:25)
[2025-03-28] MEDS: NORTRIPTYLINE HCL 10 MG CAPSULE PO (20:29)
[2025-03-28] MEDS: PANTOPRAZOLE 40 MG TABLET PO (20:29)
[2025-03-28] MEDS: guaiFENesin 12 HR 600 MG TABCR PO (20:30)
--- NOTE | 2025-03-28 21:44 | PC.NURSE ---
This patient, Betty Fernandez, was transferred to [facility] on 03/28/25 at 2144 via bed with one RN and one tech and no issues. Personal belongings sent with patient. Report given to Dominique MCGEE. Appropriate documentation sent with patient.
[2025-03-28] MEDS: CALCIUM CARBONATE (TUMS) 500 MG (200 MG ELEMENTAL) PO (23:08)
[2025-03-28] MEDS: diphenhydrAMINE HCl CAP 25 MG CAPSULE PO (23:08)
[2025-03-29 05:05] VITALS: BP 146/70; PULSE 72; RESP 20; TEMP 36.6; O2SAT 100
[2025-03-29 06:55] LABS: Hematocrit 35.3 % (37.0-47.0); Hemoglobin 11.4 g/dL (12.0-15.0); Mean Corpuscular HGB Conc 32.3 g/dl (32-36); Mean Corpuscular Hemoglobin 31.5 pg (26-34); Mean Corpuscular Volume 97.5 fl (80-100); Platelet Count Result 202 k/mm3 (150-375); Red Blood Count 3.62 M/mm3 (4.2-5.4); White Blood Count 13.5 K/mm3 (4.5-10.0)
[2025-03-29 07:16] LABS: Albumin Level 3.1 g/dL (3.5-5.1); Anion Gap 6 mmol/L (4-12); Blood Urea Nitrogen 18 mg/dL (7-17); Calcium 9.1 mg/dL (8.4-10.2); Carbon Dioxide 26 mmol/L (22-30); Chloride 106 mmol/L (98-107); Estimated CRCL calculation 83 ml/min; Estimated Glomerular Filt Rate > 60; Glucose 118 mg/dL (65-110); Magnesium 1.8 mg/dL (1.6-2.3); Potassium 3.7 mmol/L (3.4-5.0); Sodium 138 mmol/L (137-145)
[2025-03-29 09:23] VITALS: O2SAT 100
[2025-03-29] MEDS: buPROPion HCL XL (24 HR) 150 MG TABCR PO (09:32)
[2025-03-29] MEDS: guaiFENesin 12 HR 600 MG TABCR PO ×2 (09:32→20:11)
[2025-03-29] MEDS: PANTOPRAZOLE 40 MG TABLET PO ×2 (09:32→20:11)
[2025-03-29] MEDS: GABAPENTIN 300 MG CAPSULE 600 MG PO ×3 (09:32→17:23)
[2025-03-29] MEDS: APIXABAN 5 MG TABLET PO ×2 (09:32→20:11)
[2025-03-29] MEDS: ESCITALOPRAM OXALATE 10 MG TABLET 20 MG PO (09:32)
[2025-03-29] MEDS: ASCORBIC ACID 500 MG TABLET 1000 MG PO (09:32)
[2025-03-29] MEDS: CHOLECALCIFEROL (VITAMIN D3) 10 MCG (400 UNITS) TABLET PO (09:32)
[2025-03-29] MEDS: ZONISAMIDE 100 MG CAPSULE PO ×2 (09:33→20:11)
[2025-03-29] MEDS: SIMETHICONE 80 MG TAB.CHEW PO ×2 (09:33→17:23)
[2025-03-29] MEDS: LOPERAMIDE HCL 2 MG CAPSULE 6 MG PO (09:36)
[2025-03-29] MEDS: MIRABEGRON 25 MG ER TABLET PO (09:36)
[2025-03-29] MEDS: TOLTERODINE TARTRATE 2 MG TABLET 4 MG PO (09:37)
[2025-03-29] MEDS: cefTRIAXone 2 GM in SODIUM CHLORIDE 0.9% IV 100 ML 200 ML IVPB (09:37)
[2025-03-29] MEDS: diphenhydrAMINE HCl CAP 25 MG CAPSULE PO ×2 (10:40→13:56)
[2025-03-29] MEDS: DOXYCYCLINE IV 100 MG in SODIUM CHLORIDE 0.9% IV 100 ML IVPB (10:41)
[2025-03-29 14:42] VITALS: BP 122/54; PULSE 81; RESP 17; TEMP 36; O2SAT 100
--- NOTE | 2025-03-29 16:00 | P.PNIM_ITS ---
Progress Note: A&P Assessment and Plan (1) Cellulitis of left leg: Code(s): L03.116 - Cellulitis of left lower limb Status: Acute (2) Pain in right knee: Qualifiers: Chronicity: acute Qualified Code(s): M25.561 - Pain in right knee Code(s): M25.561 - Pain in right knee Status: Acute (3) AMS (altered mental status): Qualifiers: Altered mental status type: unspecified Qualified Code(s): R41.82 - Altered mental status, unspecified Code(s): R41.82 - Altered mental status, unspecified Status: Acute (4) Pneumonia: Qualifiers: Laterality: right Lung location: unspecified part of lung Pneumonia type: due to unspecified organism Qualified Code(s): J18.9 - Pneumonia, unspecified organism Code(s): J18.9 - Pneumonia, unspecified organism Status: Acute Plan upon arrival patient was lethargic and had fever, lactic acid was low and her whites counts were slightly elevated, she does have history of lower extremities cellulitis and Chest x-ray was suspicious pneumonia, patient is allergic to several antibiotics, discuss with clinical pharmacist will start patient on ceftriaxone and doxycycline, this will provider coverage for both cellulitis and pneumonia, will monitor, patient with history of DVT and being treated with Eliquis however patient extremities were suspicious for DVT to further evaluate patient had b/l lower extremities venous Doppler which is negative for DVT, p atient mentation has improved, today stats feeling much better and wants to go home however is allergic to PNC and being treated with ceftriaxone, developed hives and was itchy, will observe overnight and switch to cefdinir and monitor. Subjective Date/time seen: 03/29/25 16:00 Interval history: H&P-Narrative: ER-HPI narrative: Patient is a 60-year-old female who presents the ED via EMS with report of altered mental status. Mother at bedside assisted in providing information. Reports she received several phone calls today from patient's co-worker reporting that they had not been able to get a hold of patient today and she did not show up for work. Mother went over to patient's house and found her lying in bed, altered, confused, lethargic. EMS was contacted. Patient was noted to be lethargic by EMS, but able to arouse with verbal and painful stimuli. Patient is A&OX2 upon my evaluation. She reports she has not been feeling well over the past few days. Reports fevers at home, pain all over. Mother reports patient was recently admitted here for pneumonia. Also reports patient has history of cellulitis and has had redness, warmth to her left leg. History of lymphedema upon arrival patient was lethargic and had fever, lactic acid was low and her whites counts were slightly elevated, she does have history of lower extremities cellulitis and Chest x-ray was suspicious pneumonia, patient is allergic to several antibiotics, discuss with clinical pharmacist will start patient on ceftriaxone and doxycycline, this will provider coverage for both cellulitis and pneumonia, will monitor, patient with history of DVT and being treated with Eliquis however patient extremities were suspicious for DVT to further evaluate patient had b/l lower extremities venous Doppler which is negative for DVT, patient mentation has improved, today stats feeling much better and wants to go home however is allergic to PNC and being treated with ceftriaxone, developed hives and was itchy, will observe overnight and switch to cefdinir and monitor. Review of Systems Review of Systems: ROS unobtainable: Yes unobtainable due to mental status Exam Narrative: Morbidly obese Patient is comfortable, NAD HEENT: eyes are clear and none icteric LUNGS:CTA HEART: RR S1S2 ABD: BS+, Soft and nontender Lower extremities: no edema SKIN: b/l extremities erythematous Neuro: grossly intact. Objective Data Vital Signs Vital Signs: Vital Signs - 24 hr 03/28/25 20:00 03/29/25 05:05 03/29/25 09:23 Temperature 36.9 C 36.6 C Pulse Rate 80 72 Respiratory Rate 16 20 Blood Pressure 138/80 146/70 H Pulse Oximetry 100 100 100 Oxygen Delivery Room Air 03/29/25 09:33 03/29/25 14:42 Temperature 36.0 C L Pulse Rate 81 Respiratory Rate 17 Blood Pressure 122/54 L Pulse Oximetry 100 Oxygen Delivery Room Air Intake/Output Intake/Output: Intake & Output 03/26/25 03/27/25 03/28/25 03/29/25 23:59 23:59 23:59 23:59 Intake Total 4550 1220 Output Total 400 Balance -400 4550 1220 Meds/Results Medications: Active Medications Generic Name Dose Route Start Last Admin Trade Name Freq PRN Reason Stop Dose Admin Acetaminophen 650 mg 03/28/25 03:32 Acetaminophen 325 Mg Tablet PO Q4H PRN Mild Pain (1-3) or Fever Apixaban 5 mg 03/28/25 09:45 03/29/25 09:32 Apixaban 5 Mg Tablet PO 5 mg Q12HR TIERRA Administration Ascorbic Acid 1,000 mg 03/29/25 09:00 03/29/25 09:32 Ascorbic Acid 500 Mg Tablet PO 1,000 mg DAILY TIERRA Administration Bupropion HCl 150 mg 03/28/25 09:45 03/29/25 09:32 Bupropion Hcl Xl (24 Hr) 150 Mg Tabcr PO 150 mg QAM TIERRA Administration Calcium Carbonate 200 mg 03/28/25 22:48 03/28/25 23:08 Calcium Carbonate (Tums) 500 Mg (200 Mg Elemental) PO 200 mg Q6H PRN Administration Indigestion Dextrose 12.5 gm 03/28/25 03:32 Dextrose 50% 25 Gm/50 Ml Syringe IV PUSH PRN PRN Hypoglycemia Protocol Ergocalciferol 1,250 mcg 03/30/25 09:00 Ergocalciferol (Vitamin D2) 1,250 Mcg (50,000 Units) Capsule PO Sa@0900 [facility] Escitalopram Oxalate 20 mg 03/28/25 12:05 03/29/25 09:32 Escitalopram Oxalate 10 Mg Tablet PO 20 mg DAILY TIERRA Administration Gabapentin 600 mg 03/28/25 13:00 03/29/25 13:27 Gabapentin 300 Mg Capsule PO 600 mg TID TIERRA Administration Glucagon 1 mg 03/28/25 03:32 Glucagon For Inj 1 Mg Vial IM PRN PRN Hypoglycemia Protocol Glucose 15 gm 03/28/25 03:32 Glucose Oral Gel 15 Gm Of Glucse In 37.5 Gm Tube PO PRN PRN Hypoglycemia Protocol Guaifenesin 600 mg 03/28/25 21:00 03/29/25 09:32 Guaifenesin 12 Hr 600 Mg Tabcr PO 600 mg Q12HR TIERRA Administration Dextrose 1,000 mls @ 100 mls/hr 03/28/25 03:32 Dextrose 5% 1,000 Ml IVPB PRN PRN Hypoglycemia Protocol Ceftriaxone Sodium 2 gm/ 100 mls @ 200 mls/hr 03/28/25 09:00 03/29/25 09:37 Sodium Chloride IVPB 200 mls/hr Q24H TIERRA Administration Doxycycline Hyclate 100 mg/ 100 mls @ 100 mls/hr 03/28/25 09:00 03/29/25 10:41 Sodium Chloride IVPB 100 mls/hr Q12H TIERRA Administration Loperamide HCl 6 mg 03/28/25 12:03 03/29/25 09:36 Loperamide Hcl 2 Mg Capsule PO 6 mg DAILY TIERRA Administration Loratadine 10 mg 03/28/25 10:06 Loratadine 10 Mg Tablet PO DAILY PRN allergy symptoms Mirabegron 25 mg 03/29/25 09:00 03/29/25 09:36 Mirabegron 25 Mg Er Tablet PO 25 mg DAILY TIERRA Administration Miscellaneous Information 1 each 03/28/25 00:01 03/28/25 21:46 Nonformulary Drug (Diclofenac-Capsaicin [Ziclocin] 1.5-0.025 % Kit, Cream And Solution)Can XX 04/27/25 00:00 Not Given [facility]ARIFY [facility] Non-Formulary Medication 1 each 03/28/25 13:00 Diclofenac-Capsaicin [Ziclocin] TOPICAL 04/27/25 12:59 QID TIERRA Nortriptyline HCl 10 mg 03/28/25 21:00 03/28/25 20:29 Nortriptyline Hcl 10 Mg Capsule PO 10 mg HS [facility] Administration Ondansetron HCl 4 mg 03/28/25 03:32 Ondansetron Inj 4 Mg/2 Ml Vial IV PUSH Q4H PRN Nausea Pantoprazole Sodium 40 mg 03/28/25 21:00 03/29/25 09:32 Pantoprazole 40 Mg Tablet PO 40 mg Q12HR TIERRA Administration Simethicone 80 mg 03/28/25 17:00 03/29/25 09:33 Simethicone 80 Mg Tab.Chew PO 80 mg BID TIERRA Administration Tolterodine Tartrate 4 mg 03/28/25 12:05 03/29/25 09:37 Tolterodine Tartrate 2 Mg Tablet PO 4 mg DAILY TIERRA Administration Vitamin D 10 mcg 03/29/25 09:00 03/29/25 09:32 Cholecalciferol (Vitamin D3) 10 Mcg (400 Units) Tablet PO 10 mcg DAILY TIERRA Administration Zonisamide 100 mg 03/28/25 10:15 03/29/25 09:33 Zonisamide 100 Mg Capsule PO 100 mg Q12HR TIERRA Administration Radiology Results: ITS Impressions Chest X-Ray 03/27/25 23:32 IMPRESSION: Apparent superior mediastinal widening, likely secondary to technical factors as detailed above. Recommend repeat chest radiography with PA and lateral technique if possible, otherwise with fully upright positioning and at full inspiration. Otherwise, no acute cardiopulmonary process. Head CT 03/27/25 23:38 IMPRESSION: No acute intracranial process. Chest/Abdomen/Pelvis CT 03/28/25 07:14 IMPRESSION: 1. Patchy diffuse groundglass opacification with more focal consolidation right lower lobe. Differential diagnosis includes viral pneumonia with bacterial superinfection, aspiration pneumonitis, pulmonary edema. Clinically correlate. 2: Moderate-sized [place] right paracentral lower abdominal ventral hernia containing nonobstructed bowel. Venous Doppler Study 03/28/25 08:43 IMPRESSION: 1. No deep venous thrombosis in either lower limb. Labs Labs: Laboratory Results - last 24 hr 03/29/25 05:57 WBC 13.5 H RBC 3.62 L Hgb 11.4 L Hct 35.3 L MCV 97.5 MCH 31.5 MCHC 32.3 RDW 13.8 Plt Count 202 MPV 10.4 Sodium 138 Potassium 3.7 Chloride 106 Carbon Dioxide 26 Anion Gap 6 BUN 18 H Creatinine 0.86 Estim Creat Clear Calc 83 Estimated GFR > 60 Glucose 118 H Calcium 9.1 Phosphorus 2.8 Magnesium 1.8 Albumin 3.1 L Quality VTE Prophylaxis VTE prophylaxis: pharmacologic ordered
[2025-03-29] MEDS: NORTRIPTYLINE HCL 10 MG CAPSULE PO (20:11)
[2025-03-29] MEDS: CEFDINIR 300 MG CAPSULE PO (20:11)
[2025-03-29 21:00] VITALS: BP 152/67; PULSE 79; RESP 20; TEMP 36.3; O2SAT 98
[2025-03-30] MEDS: DOXYCYCLINE IV 100 MG in SODIUM CHLORIDE 0.9% IV 100 ML IVPB (01:53)
[2025-03-30 05:00] VITALS: BP 161/81; PULSE 75; RESP 18; TEMP 36.7; O2SAT 97
[2025-03-30 05:44] LABS: Hematocrit 39.2 % (37.0-47.0); Hemoglobin 12.8 g/dL (12.0-15.0); Mean Corpuscular HGB Conc 32.7 g/dl (32-36); Mean Corpuscular Hemoglobin 31.1 pg (26-34); Mean Corpuscular Volume 95.4 fl (80-100); Platelet Count Result 275 k/mm3 (150-375); Red Blood Count 4.11 M/mm3 (4.2-5.4); White Blood Count 13.1 K/mm3 (4.5-10.0)
[2025-03-30 06:18] LABS: Albumin Level 3.7 g/dL (3.5-5.1); Anion Gap 9 mmol/L (4-12); Blood Urea Nitrogen 22 mg/dL (7-17); Calcium 9.5 mg/dL (8.4-10.2); Carbon Dioxide 22 mmol/L (22-30); Chloride 108 mmol/L (98-107); Estimated CRCL calculation 80 ml/min; Estimated Glomerular Filt Rate > 60; Glucose 157 mg/dL (65-110); Magnesium 1.7 mg/dL (1.6-2.3); Potassium 3.6 mmol/L (3.4-5.0); Sodium 139 mmol/L (137-145)
--- NOTE | 2025-03-30 09:35 | PM.DS ---
DS: Admitting Diagnosis Discharge Date 03/30/25 Admitting Diagnosis altered mental status DS: Discharge Diagnosis Discharge Diagnosis (1) Cellulitis of left leg: Code(s): L03.116 - Cellulitis of left lower limb Status: Acute (2) Pain in right knee: Qualifiers: Chronicity: acute Qualified Code(s): M25.561 - Pain in right knee Code(s): M25.561 - Pain in right knee Status: Acute (3) AMS (altered mental status): Qualifiers: Altered mental status type: unspecified Qualified Code(s): R41.82 - Altered mental status, unspecified Code(s): R41.82 - Altered mental status, unspecified Status: Acute (4) Pneumonia: Qualifiers: Laterality: right Lung location: unspecified part of lung Pneumonia type: due to unspecified organism Qualified Code(s): J18.9 - Pneumonia, unspecified organism Code(s): J18.9 - Pneumonia, unspecified organism Status: Acute Plan upon arrival patient was lethargic and had fever, lactic acid was low and her whites counts were slightly elevated, she does have history of lower extremities cellulitis and Chest x-ray was suspicious pneumonia, patient is allergic to several antibiotics, discuss with clinical pharmacist will start patient on ceftriaxone and doxycycline, this will provider coverage for both cellulitis and pneumonia, will monitor, patient with history of DVT and being treated with Eliquis however patient extremities were suspicious for DVT to further evaluate patient had b/l lower extremities venous Doppler which is negative for DVT, patient mentation has improved, today stats feeling much better and wants to go home however is allergic to PNC and being treated with ceftriaxone, developed hives and was itchy, we observe overnight and switch to cefdinir and monitor. today patient stats feels better and no symptoms, will discharge today. DS: Summary Hospital Course Hospital Course: upon arrival patient was lethargic and had fever, lactic acid was low and her whites counts were slightly elevated, she does have history of lower extremities cellulitis and Chest x-ray was suspicious pneumonia, patient is allergic to several antibiotics, discuss with clinical pharmacist will start patient on ceftriaxone and doxycycline, this will provider coverage for both cellulitis and pneumonia, will monitor, patient with history of DVT and being treated with Eliquis however patient extremities were suspicious for DVT to further evaluate patient had b/l lower extremities venous Doppler which is negative for DVT, patient mentation has improved, today stats feeling much better and wants to go home however is allergic to PNC and being treated with ceftriaxone, developed hives and was itchy, we observe overnight and switch to cefdinir and monitor. today patient stats feels better and no symptoms, will discharge today. Time Spent with Patient Time attestation: Total time spent providing and/or coordinating discharge services: Exam Narrative: Morbidly obese Patient is comfortable, NAD HEENT: eyes are clear and none icteric LUNGS:CTA HEART: RR S1S2 ABD: BS+, Soft and nontender Lower extremities: no edema SKIN: b/l extremities erythematous Neuro: grossly intact. DS: Data Data Completed and Pending Labs on day of discharge: Labs from last 24 hours 03/30/25 05:14 WBC 13.1 H RBC 4.11 L Hgb 12.8 Hct 39.2 MCV 95.4 MCH 31.1 MCHC 32.7 RDW 14.0 Plt Count 275 MPV 10.2 Sodium 139 Potassium 3.6 Chloride 108 H Carbon Dioxide 22 Anion Gap 9 BUN 22 H Creatinine 0.90 Estim Creat Clear Calc 80 Estimated GFR > 60 Glucose 157 H Calcium 9.5 Phosphorus 3.4 Magnesium 1.7 Albumin 3.7 Discharge Plan Discharge Attending physician on discharge: Urvashi Limon Consulting providers: Sp Marie; Arnie Reid; Bill Bass; Win Obando; Nam Prater Discharging Clinician: Urvashi Limon Patient Disposition: Home Activity: as tolerated Diet: heart healthy Discharge Instructions: patient to follow up with her primary care provider as soon as possible, patient is instructed if any symptoms worsen to go to nearest ER Patient Instructions: Antibiotic Form, Apixaban (By mouth) Patient Language: Kazakh Stand Alone Forms: General Discharge Information, Work/School Release IP Follow-up/Referrals: Frandy,Daphne Conde APRN [Primary Care Provider, Unknown] Discharge Medications: New cefdinir 300 mg Capsule 300 mg PO Q12HR Qty: 14 0RF doxycycline hyclate 100 mg capsule 100 mg PO DAILY Qty: 14 0RF Continued gabapentin 600 mg tablet 600 mg PO TID loperamide 2 mg Capsule 6 mg PO DAILY ergocalciferol (vitamin D2) 10 mcg (400 unit) Tablet 10 mcg PO DAILY zonisamide 100 mg capsule 100 mg PO BID tolterodine 2 mg tablet 4 mg PO DAILY nortriptyline 10 mg capsule 10 mg PO HS esomeprazole magnesium 40 mg capsule,delayed release(DR/EC) 40 mg PO BID ergocalciferol (vitamin D2) 1,250 mcg (50,000 unit) capsule 1,250 mcg PO WEEKLY Rx Instructions: administer on Tuesday simethicone 80 mg Tablet,Chewable 80 mg PO BID escitalopram oxalate 20 mg tablet 20 mg PO DAILY Eliquis 5 mg tablet 5 mg PO Q12H bupropion HCl 150 mg tablet extended release 24 hr 150 mg PO .q24 cetirizine [24Hour Allergy] 10 mg tablet 10 mg PO DAILY PRN (Reason: allergy symptoms) Ziclocin 1.5-0.025 % kit, cream and solution 1 ea topical QID Rx Instructions: apply 40 drops DICLOFENAC onto knee 4 times daily: apply CAPSAICIN CREAM 3-4 times daily/as directed apply to knees ascorbic acid (vitamin C) [Acerola C] 500 mg tablet,chewable 1,000 mg PO DAILY guaifenesin [Mucus Relief ER] 600 mg Tablet Extended Release 12hr 600 mg PO Q12HR Qty: 30 0RF mirabegron 25 mg tablet extended release 24 hr 25 mg PO DAILY Date of admission: 03/28/25 07:34 Primary Care Provider: FrandyDaphne Admitting Provider: Urvashi Limon Attending physician on admission: Urvashi Limon Condition: Stable
[2025-03-30] MEDS: TOLTERODINE TARTRATE 2 MG TABLET 4 MG PO (09:53)
[2025-03-30] MEDS: GABAPENTIN 300 MG CAPSULE 600 MG PO (09:53)
[2025-03-30] MEDS: SIMETHICONE 80 MG TAB.CHEW PO (09:54)
[2025-03-30] MEDS: MIRABEGRON 25 MG ER TABLET PO (09:54)
[2025-03-30] MEDS: CHOLECALCIFEROL (VITAMIN D3) 10 MCG (400 UNITS) TABLET PO (09:54)
[2025-03-30] MEDS: guaiFENesin 12 HR 600 MG TABCR PO (09:54)
[2025-03-30] MEDS: LOPERAMIDE HCL 2 MG CAPSULE 6 MG PO (09:54)
[2025-03-30] MEDS: APIXABAN 5 MG TABLET PO (09:54)
[2025-03-30] MEDS: ASCORBIC ACID 500 MG TABLET 1000 MG PO (09:54)
[2025-03-30] MEDS: PANTOPRAZOLE 40 MG TABLET PO (09:54)
[2025-03-30] MEDS: CEFDINIR 300 MG CAPSULE PO (09:54)
[2025-03-30] MEDS: ESCITALOPRAM OXALATE 10 MG TABLET 20 MG PO (09:54)
[2025-03-30] MEDS: buPROPion HCL XL (24 HR) 150 MG TABCR PO (09:54)
[2025-03-30] MEDS: ZONISAMIDE 100 MG CAPSULE PO (09:55)
[2025-03-30] MEDS: ERGOCALCIFEROL (VITAMIN D2) 1,250 MCG (50,000 UNITS) CAPSULE 1250 MCG PO (09:57)
--- NOTE | 2025-04-01 06:27 | P.CDI_ITS ---
CDI Query Clarification Request ER documented Sepsis and hypoxic respiratory failure, but hospitalist did not include these diagnosis in progress notes. Please clarify below. 1) Please clarify if sepsis has been ruled in or ruled out. * sepsis present/confirmed * sepsis ruled out/not present * sepsis suspected but not confirmed * other, please specify * clinically unable to determine 2) Please review the clinical information below and clarify the respiratory diagnosis the patient is being treated for: * Hypoxia or hypoxemia without respiratory failure * Respiratory distress without respiratory failure * Acute respiratory failure with hypoxia * Acute respiratory failure with hypercapnia * Acute respiratory failure with hypoxia and hypercapnia * Acute on chronic respiratory failure with hypoxia * Acute on chronic respiratory failure with hypercapnia * Acute on chronic respiratory failure with hypoxia and hypercapnia * Acute respiratory distress syndrome (ARDS) * Chronic respiratory failure with hypoxia * Chronic respiratory failure with hypercapnia * Chronic respiratory failure with hypoxia and hypercapnia * Other explanation clinical findings, please specify * Unable to determine upon arrival patient was lethargic and had fever, lactic acid was low and her whites counts were slightly elevated, she does have history of lower extremities cellulitis and Chest x-ray was suspicious pneumonia, patient is allergic to several antibiotics, discuss with clinical pharmacist will start patient on ceftriaxone and doxycycline, this will provider coverage for both cellulitis and pneumonia, will monitor, patient with history of DVT and being treated with Eliquis however patient extremities were suspicious for DVT to further evaluate patient had b/l lower extremities venous Doppler which is negative for DVT, patient mentation has improved, today stats feeling much better and wants to go home however is allergic to PNC and being treated with ceftriaxone, developed hives and was itchy, will observe overnight and switch to cefdinir and monitor. Interval history: H&P-Narrative: ER-HPI narrative: Patient is a 60-year-old female who presents the ED via EMS with report of altered mental status. Mother at bedside assisted in providing information. Reports she received several phone calls today from patient's co-worker reporting that they had not been able to get a hold of patient today and she did not show up for work. Mother went over to patient's house and found her lying in bed, altered, confused, lethargic. EMS was contacted. Patient was noted to be lethargic by EMS, but able to arouse with verbal and painful stimuli. Patient is A&OX2 upon my evaluation. She reports she has not been feeling well over the past few days. Reports fevers at home, pain all over. Mother reports patient was recently admitted here for pneumonia. Also reports patient has history of cellulitis and has had redness, warmth to her left leg. History of lymphedema upon arrival patient was lethargic and had fever, lactic acid was low and her whites counts were slightly elevated, she does have history of lower extremities cellulitis and Chest x-ray was suspicious pneumonia, patient is allergic to several antibiotics, discuss with clinical pharmacist will start patient on ceftriaxone and doxycycline, this will provider coverage for both cellulitis and pneumonia, will monitor, patient with history of DVT and being treated with Eliquis however patient extremities were suspicious for DVT to further evaluate patient had b/l lower extremities venous Doppler which is negative for DVT, patient mentation has improved, today stats feeling much better and wants to go home however is allergic to PNC and being treated with ceftriaxone, developed hives and was itchy, will observe overnight and switch to cefdinir and monitor. ER documentation: Clinical Impression: Cellulitis of left leg, Hypokalemia, Hypomagnesemia Sepsis Qualifiers: Sepsis type: sepsis due to unspecified organism Sepsis acute organ dysfunction status: unspecified Qualified Code(s): A41.9 - Sepsis, unspecified organism AMS (altered mental status) Qualifiers: Altered mental status type: unspecified Qualified Code(s): R41.82 - Altered mental status, unspecified Pneumonia Qualifiers: Pneumonia type: due to unspecified organism Laterality: right Lung location: unspecified part of lung Qualified Code(s): J18.9 - Pneumonia, unspecified organism Hypoxic respiratory failure Qualifiers: Chronicity: acute Qualified Code(s): J96.01 - Acute respiratory failure with hypoxia <Breonna Carcamo RN - Last Filed: 04/01/25 06:35> Provider Comments Upon arrival sepsis suspected but not confirmed upon arrival hypoxia or hypoxemia without respiratory failure <Urvashi Limon MD - Last Filed: 04/09/25 09:55>
== END 2025-03-30 10:30 | disposition home or self-care (01) | DRG 602 ==
LOC: ANHED 03-28 01:54 → ANHIMU 03-28 05:08 → ANH3MEDSUR 03-28 21:41
PROVIDERS: Student in an Organized Health Care Education/Training Program; Admitting Provider Family Medicine; Emergency Provider Physician Assistant; PCP Nurse Practitioner Family; Visit Provider Family Medicine
DX: L03.116 Cellulitis of left lower limb (principal); J18.9 Pneumonia, unspecified organism; Z68.42 Body mass index [BMI] 45.0-49.9, adult; I10 Essential (primary) hypertension; E87.6 Hypokalemia; E83.42 Hypomagnesemia; E78.5 Hyperlipidemia, unspecified; E66.01 Morbid (severe) obesity due to excess calories; L29.9 Pruritus, unspecified; T36.8X5A Adverse effect of other systemic antibiotics, initial encounter; K21.9 Gastro-esophageal reflux disease without esophagitis; F41.9 Anxiety disorder, unspecified; Z20.822 Contact with and (suspected) exposure to COVID-19; Z79.01 Long term (current) use of anticoagulants; Z98.84 Bariatric surgery status
CPT/HCPCS: 36415; 36600; 70450; 71045; 71260; 74177; 80053; 80069; 80307; 81001; 82375; 82550; 82805; 83050; 83605; 83735; 83880; 84484; 85018; 85025; 85027; 85610; 85730; 86140; 87040; 87086; 87637; 87641; 93005; 93970; 96365; 96366; 96367; 96368; 96375; 99285; A9270; G0378; J0696; J1200; J1953; J1956; J2060; J2919; J3373; J3475; J3480; J7030; J7040; Q9967